=== PATIENT | female | born 1950 | race Caucasian/White ===

== ENCOUNTER 2018-07-08 12:08 | Outpatient (CLI) | payer OTHER, SELFPAY ==
[2018-07-08 13:25] LABS: Abs Immature Grans 0.01 k/cumm (0.0-0.09); Absolute Basophil Count 0.02 k/cumm (0.0-0.2); Absolute Eosinophil Count 0.12 k/cumm (0.0-0.7); Absolute Lymphocyte Count 1.01 k/cumm (1.2-3.4); Absolute Monocyte Count 0.28 k/cumm (0.11-0.7); Basophils % 0.3; HCT 35.5 % (36.0-46.0); HGB 11.3 g/dL (12.0-15.5); Immature Grans % 0.2; Lymphocytes % 16.7; Mean Corp. HGB Concentration 31.8 g/dL (32.0-36.0); Mean Corpuscular Hemoglobin 31.3 pg (27.0-33.0); Mean Corpuscular Volume 98.3 fL (80-95); Mean Platelet Volume 10.2 fL (8.0-11.0); Monocytes % 4.6; Neutrophils % 76.2; Platelet Count 166 x1000/uL (130-400); RBC 3.61 m/cumm (4.00-5.20); RBC Distribution Width 15.3 % (11.7-14.6); White Blood Cell Count 6.04 k/cumm (4.4-10.8)
[2018-07-08 14:10] LABS: ALT 32 U/L (12-78); AST 30 U/L (15-37); Albumin 3.6 g/dL (3.4-5.0); Alkaline Phosphatase 98 U/L (46-116); Anion Gap 8.4 mmol/L (3-11); BUN 14 mg/dL (7-18); Bilirubin, Total 0.6 mg/dL (0.2-1.0); CO2 29.6 mmol/L (21.0-32.0); CREATININE 0.92 mg/dL (0.55-1.02); Calcium 8.8 mg/dL (8.5-10.1); Chloride 103 mmol/L (98-107); Glucose 83 mg/dL (70-100); Potassium 4.4 mmol/L (3.5-5.1); Sodium 141 mmol/L (136-145); Total Protein 6.7 g/dL (6.4-8.2)
== END 2018-07-08 12:28 ==
PROVIDERS: PCP Internal Medicine; Visit Provider Internal Medicine Rheumatology
DX: M06.9 Rheumatoid arthritis, unspecified (principal); Z79.899 Other long term (current) drug therapy
CPT/HCPCS: 36415; 80053; 85025

== ENCOUNTER 2018-08-13 03:05 | Outpatient (CLI) | payer OTHER, SELFPAY ==
[2018-08-13 11:53] LABS: Abs Immature Grans 0.01 k/cumm (0.0-0.09); Absolute Basophil Count 0.02 k/cumm (0.0-0.2); Absolute Eosinophil Count 0.11 k/cumm (0.0-0.7); Absolute Lymphocyte Count 0.94 k/cumm (1.2-3.4); Absolute Neutrophil Count 4.71 k/cumm (1.2-6.7); Basophils % 0.3; Eosinophils % 1.8; HCT 36.5 % (36.0-46.0); HGB 11.7 g/dL (12.0-15.5); Immature Grans % 0.2; Lymphocytes % 15.4; Mean Corp. HGB Concentration 32.1 g/dL (32.0-36.0); Mean Corpuscular Hemoglobin 31.3 pg (27.0-33.0); Mean Corpuscular Volume 97.6 fL (80-95); Mean Platelet Volume 9.6 fL (8.0-11.0); Monocytes % 4.9; Neutrophils % 77.4; Platelet Count 166 x1000/uL (130-400); RBC 3.74 m/cumm (4.00-5.20); RBC Distribution Width 14.6 % (11.7-14.6); White Blood Cell Count 6.09 k/cumm (4.4-10.8)
[2018-08-13 12:25] LABS: Iron 67 ug/dL (50-175); Total Iron Binding Capacity 269 ug/dL (250-450); Transferrin Sat 25 % (15-50)
== END 2018-08-13 03:25 ==
PROVIDERS: PCP Internal Medicine; Visit Provider Internal Medicine
DX: D64.9 Anemia, unspecified (principal)
CPT/HCPCS: 36415; 83540; 83550; 85025

== ENCOUNTER 2018-11-10 10:22 | Outpatient (CLI) | payer OTHER, SELFPAY ==
[2018-11-10 15:20] LABS: Abs Immature Grans 0.01 k/cumm (0.0-0.09); Absolute Basophil Count 0.02 k/cumm (0.0-0.2); Absolute Eosinophil Count 0.21 k/cumm (0.0-0.7); Absolute Lymphocyte Count 0.58 k/cumm (1.2-3.4); Absolute Monocyte Count 0.19 k/cumm (0.11-0.7); Absolute Neutrophil Count 5.14 k/cumm (1.2-6.7); Basophils % 0.3; Eosinophils % 3.4; HCT 33.9 % (36.0-46.0); HGB 11.1 g/dL (12.0-15.5); Immature Grans % 0.2; Lymphocytes % 9.4; Mean Corp. HGB Concentration 32.7 g/dL (32.0-36.0); Mean Corpuscular Hemoglobin 31.4 pg (27.0-33.0); Mean Corpuscular Volume 95.8 fL (80-95); Mean Platelet Volume 9.6 fL (8.0-11.0); Monocytes % 3.1; Neutrophils % 83.6; Platelet Count 191 x1000/uL (130-400); RBC 3.54 m/cumm (4.00-5.20); RBC Distribution Width 15.5 % (11.7-14.6); White Blood Cell Count 6.15 k/cumm (4.4-10.8)
[2018-11-10 16:06] LABS: ALT 27 U/L (12-78); AST 27 U/L (15-37); Albumin 3.3 g/dL (3.4-5.0); Alkaline Phosphatase 105 U/L (46-116); Anion Gap 7.6 mmol/L (3-11); BUN 14 mg/dL (7-18); Bilirubin, Total 0.6 mg/dL (0.2-1.0); CO2 29.4 mmol/L (21.0-32.0); Calcium 8.9 mg/dL (8.5-10.1); Chloride 104 mmol/L (98-107); Estimated GFR 54.97 (mL/min/1.73m2); Glucose 82 mg/dL (70-100); Potassium 3.7 mmol/L (3.5-5.1); Sodium 141 mmol/L (136-145); Total Protein 6.5 g/dL (6.4-8.2)
== END 2018-11-10 10:42 ==
PROVIDERS: PCP Internal Medicine; Visit Provider Internal Medicine Rheumatology
DX: M06.9 Rheumatoid arthritis, unspecified (principal); Z79.899 Other long term (current) drug therapy
CPT/HCPCS: 36415; 80053; 85025

== ENCOUNTER 2018-12-29 12:27 | Outpatient (CLI) | payer OTHER, SELFPAY | END 2018-12-29 12:47 | PROVIDERS: PCP Internal Medicine; Visit Provider Internal Medicine | DX: R69 Illness, unspecified (principal) | CPT/HCPCS: 36415; 80061; 83721; 83540; 83550 ==

== ENCOUNTER 2019-02-09 07:41 | Outpatient (CLI) | payer OTHER, SELFPAY ==
[2019-02-09 10:42] LABS: Iron 32 ug/dL (50-175); Total Iron Binding Capacity 218 ug/dL (250-450); Transferrin Sat 15 % (15-50)
[2019-02-09 10:44] LABS: Cholesterol 123 mg/dL (50-200); HDL Cholesterol 68 mg/dL (40-60); LDL CHOLESTEROL 41 mg/dL (<100); Triglyceride 59 mg/dL (30-150)
== END 2019-02-09 08:01 ==
PROVIDERS: PCP Internal Medicine; Visit Provider Internal Medicine
DX: E78.5 Hyperlipidemia, unspecified (principal); E61.1 Iron deficiency
CPT/HCPCS: 36415; 80061; 83721; 83540; 83550

== ENCOUNTER 2019-03-09 00:37 | Outpatient (CLI) | payer OTHER, SELFPAY ==
--- NOTE | 2019-03-09 09:00 | DI.US_ITS ---
SYMPTOM/DIAGNOSIS: ANEMIA, ABD PAIN, R10.9, D64.9 ABDOMEN ULTRASOUND: The visualized liver parenchyma is normal in appearance. There is no evidence of cholelithiasis or biliary dilatation. Left kidney appears unremarkable. Right kidney is atrophic. Abdominal aorta and IVC are normal diameter. Spleen is unremarkable. Pancreas appears intact as visualized. CONCLUSION: No evidence of cholelithiasis. Note is made of apparent atrophic right kidney.
== END 2019-03-09 00:57 ==
PROVIDERS: PCP Internal Medicine; Visit Provider Internal Medicine
DX: D64.9 Anemia, unspecified (principal); R10.9 Unspecified abdominal pain; N26.1 Atrophy of kidney (terminal)
CPT/HCPCS: 76700

== ENCOUNTER 2019-04-05 06:13 | Day surgery (SDC) | payer OTHER, SELFPAY ==
[2019-04-05 06:42] VITALS: BP 115/63; PULSE 76; RESP 16; TEMP 36.3; O2SAT 99
--- NOTE | 2019-04-05 06:46 | ENDO_ITS ---
Date of service: 04/05/19 Time of Service: 07:25 Endoscopy Report DATE OF PROCEDURE: 04/05/19 PRE-OP DIAGNOSIS: Iron deficiency anemia POST-OP DIAGNOSIS: same (normal egd and colonoscopy) PROCEDURE: 1. EGD 2. Colonoscopy SURGEON: Huma Middleton ANESTHESIA: other (General/ ASA 3/ Kenton Wiley CRNA) ESTIMATED BLOOD LOSS: 0 PATHOLOGY: none sent COMPLICATIONS: None DISPOSITION: same day INDICATIONS: Mrs. Jay is a pleasant 68 year old with a history of anemia. She was seen in the office for anemia and workup. Risks, benefits and complications have been reviewed. Complications include but are not limited to bleeding, pain, perforation, missed small lesion/polyp, sore throat, aspiration and adverse reaction to the medications. Questions were entertained and answered to their satisfaction and they wished to proceed. No guarantees were given or implied. PREP: Miralax/Dulcolax PROCEDURE START TIME: 07:25 PROCEDURE END TIME: 07:52 COLONOSCOPY RETRACTION TIME: 15 minutes FINDINGS: Normal EGD and Colonoscopy PROCEDURE DESCRIPTION: After informed consent was obtained the patient was take to the procedure room and placed in a supine position. Monitors were applied and a time out was done. The patients name, date of , procedure type, allergies to medications and metal in their body was reviewed. A bite block was placed and the patient was sedated. Once sedated and comfortable the gastroscope was advanced through the oropharynx which was grossly normal into the esophagus. The proximal and mid- esophagus were normal. The distal esophagus was normal. The scope was advanced into the stomach and through the pylorus into the 3rd portion of the duodenum. The duodenum was noted to be normal. The scope was retracted back into the stomach which was normal. The scope was retro-flexed. The cardia and fundus were noted to be normal. The scope was retracted back into the esophagus which was normal. The Z line was regular. The GE junction was at 35 cm. While the patient was still sedated they were placed in a left decubitous position. A rectal exam was done. External exam was normal. Internal exam revealed a normal sphincter tone and no palpable masses. The scope was then introduced and retro-flexed. Grade I internal hemorrhoids were identified. The scope was then advanced to the cecum without difficulty. The TI and appendiceal orifice were identified. The prep was good. The scope was then slowly retracted over 15 minutes back into the rectum. The scope was removed and the patient was woken up and taken back to Same day surgery in stable condition. The patient tolerated the procedure well and there were no immediate complications. Follow up: 10 years
--- NOTE | 2019-04-05 06:46 | W.PM.DSUDISC ---
Discharge Plan Disposition Patient Disposition: HOME Condition: Good Discharge Details Reason For Visit: Iron deficiency anemia Attending Provider: Huma Middleton Primary Care Provider: Carolyn Olvera Home Meds and New Rx's Prescriptions: Continued hydrochlorothiazide 25 mg tablet 25 mg PO DAILY Qty: 90 RF: 3 clopidogrel [Plavix] 75 mg tablet 75 mg PO DAILY Qty: 90 RF: 3 metoprolol succinate 25 mg tablet extended release 24 hr 25 mg PO DAILY Qty: 90 RF: 3 nitroglycerin [Nitrostat] 0.4 mg tablet, sublingual 0.4 mg Sublingual DIRECTED PRN (Reason: angina) Qty: 100 RF: 1 methotrexate sodium 2.5 MG tablet 9 tab PO WKLY RF: 0 hydroxychloroquine [Plaquenil] 200 MG tablet 2 tab PO DIRECTED Qty: 180 RF: 4 magnesium oxide 400 MG capsule 400 mg PO DAILY RF: 0 Mariya/Iron 1 EACH tablet,chewable 1 ea PO DAILY Qty: 100 RF: 0 folic acid 1 MG tablet 1 mg PO DAILY Qty: 90 RF: 4 cholecalciferol (vitamin D3) [Vitamin D3] 2,000 UNIT capsule 2,000 unit PO DAILY RF: 0 zoledronic axxd-nbnlrfvn-veaac [Reclast] 5 MG/100 ML piggyback 5 mg IV Yearly RF: 0 omeprazole 40 MG capsule,delayed release(DR/EC) 40 mg PO DAILY Qty: 90 RF: 3 atorvastatin [Lipitor] 40 mg tablet 40 mg PO QPM Qty: 90 RF: 3 ferrous gluconate 324 mg (38 mg iron) tablet 324 mg PO TID Qty: 90 RF: 6 aspirin [Lo-Dose Aspirin] 81 MG tablet,delayed release (DR/EC) 81 mg PO DAILY RF: 0 Discharge Instructions Instructions: Colonoscopy (DC) Additional Instructions: Findings: Normal Upper endoscopy and Colonoscopy Follow up: Colonoscopy as needed. Follow up with your PCP for further workup of your anemia Please call if you develop: fevers >101.5 Nausea or Vomiting Abdominal pain that is not transient DAY SURGERY UNIT POST COLONOSCOPY INSTRUCTIONS 1. Because there will be medication in your system for the next 24 hours, you may feel a little sleepy. Your coordination will be affected. Therefore: a. Do not drive or operate dangerous equipment for 24 hours. b. Do not drink alcohol beverages for 24 hours (not even beer). c. Plan to go home and rest for the day. 2. Generally there are no restrictions on your activity after a day or so has gone by, but you may feel a bit fatigued for a few days. 3 After you arrive home you may have a light meal and return to a normal diet as you can tolerate it without feeling sick to your stomach. 4. After surgery, you may feel pain or discomfort. This should be only transient, but if it persists please contact your doctor. 5. If there are any questions regarding the findings of your procedure, please feel free to contact your doctor. 6. If you are unable to contact your doctor with a problem, contact the hospital at [phone]. 7. Continue all your regular medications unless directed otherwise. I understand the above instructions and have no questions. Signature of Patient or Responsible Adult Escort Date/Time Name of Responsible Adult Escort Signature of Nurse Date/Time Referrals: Carolyn Olvera MD [Primary Care Provider] - (2-3 weeks) Activity:: Activity as Tolerated Diet:: As Tolerated Discharge Orders Discharge Orders: Discharge Order (Routine); Ordered 04/05/19 Ordered By: Huma Middleton DS: Diagnosis Discharge Diagnosis (1) H/O esophagogastroduodenoscopy: Status: Chronic (2) S/P colonoscopy: Status: Acute
[2019-04-05] MEDS: Lactated Ringers 1,000 ML 80 ML IV (07:00)
[2019-04-05 08:28] VITALS: BP 105/49; PULSE 63; RESP 16; TEMP 36; O2SAT 99
== END 2019-04-05 09:05 | disposition home or self-care (01) ==
PROVIDERS: PCP Internal Medicine; Visit Provider Surgery
PROC: (CPT 43239; principal; 2019-04-05 07:30)
DX: D50.9 Iron deficiency anemia, unspecified (principal); K64.0 First degree hemorrhoids; K21.0 Gastro-esophageal reflux disease with esophagitis
CPT/HCPCS: 43239; 45378

== ENCOUNTER 2019-04-13 09:22 | Outpatient (CLI) | payer OTHER, SELFPAY ==
[2019-04-13 16:11] LABS: Abs Immature Grans 0.03 k/cumm (0.0-0.09); Absolute Basophil Count 0.02 k/cumm (0.0-0.2); Absolute Eosinophil Count 0.15 k/cumm (0.0-0.7); Absolute Monocyte Count 0.63 k/cumm (0.11-0.7); Absolute Neutrophil Count 2.53 k/cumm (1.2-6.7); Basophils % 0.5; Eosinophils % 3.4; HCT 31.3 % (36.0-46.0); HGB 10.1 g/dL (12.0-15.5); Immature Grans % 0.7; Lymphocytes % 22.9; Mean Corp. HGB Concentration 32.3 g/dL (32.0-36.0); Mean Corpuscular Hemoglobin 30.9 pg (27.0-33.0); Mean Corpuscular Volume 95.7 fL (80-95); Mean Platelet Volume 8.8 fL (8.0-11.0); Monocytes % 14.4; Neutrophils % 58.1; Platelet Count 221 x1000/uL (130-400); RBC 3.27 m/cumm (4.00-5.20); RBC Distribution Width 16.9 % (11.7-14.6); White Blood Cell Count 4.36 k/cumm (4.4-10.8)
[2019-04-13 17:05] LABS: ALT 47 U/L (12-78); AST 31 U/L (15-37); Albumin 3.4 g/dL (3.4-5.0); Alkaline Phosphatase 81 U/L (46-116); Anion Gap 6.8 mmol/L (3-11); BUN 15 mg/dL (7-18); Bilirubin, Total 0.5 mg/dL (0.2-1.0); CO2 30.2 mmol/L (21.0-32.0); Calcium 8.8 mg/dL (8.5-10.1); Chloride 101 mmol/L (98-107); Glucose 89 mg/dL (70-100); Potassium 3.5 mmol/L (3.5-5.1); Sodium 138 mmol/L (136-145); Total Protein 6.2 g/dL (6.4-8.2)
== END 2019-04-13 09:42 ==
PROVIDERS: PCP Internal Medicine; Visit Provider Internal Medicine Rheumatology
DX: M06.9 Rheumatoid arthritis, unspecified (principal); Z79.899 Other long term (current) drug therapy
CPT/HCPCS: 36415; 80053; 85025

== ENCOUNTER 2019-05-06 10:18 | Outpatient (CLI) | payer OTHER, SELFPAY ==
[2019-05-06 12:51] LABS: HCT 32.8 % (36.0-46.0); HGB 10.5 g/dL (12.0-15.5); Mean Corpuscular Hemoglobin 31.3 pg (27.0-33.0); Mean Corpuscular Volume 97.6 fL (80-95); Mean Platelet Volume 9.6 fL (8.0-11.0); Platelet Count 219 x1000/uL (130-400); RBC 3.36 m/cumm (4.00-5.20); RBC Distribution Width 17.2 % (11.7-14.6); White Blood Cell Count 8.54 k/cumm (4.4-10.8)
[2019-05-06 14:28] LABS: Iron 110 ug/dL (50-175); Total Iron Binding Capacity 244 ug/dL (250-450); Transferrin Sat 45 % (15-50)
== END 2019-05-06 10:38 ==
PROVIDERS: PCP Internal Medicine; Visit Provider Internal Medicine
DX: D64.9 Anemia, unspecified (principal)
CPT/HCPCS: 36415; 85027; 83540; 83550

== ENCOUNTER 2019-05-24 01:25 | Outpatient (RCR) | payer OTHER, SELFPAY ==
[2019-05-24 09:25] VITALS: BP 104/66; PULSE 66; RESP 18; TEMP 36.6; O2SAT 100
[2019-05-24] MEDS: Normal Saline Flush 10 ML SYR IVP (10:05)
[2019-05-24] MEDS: ABATACEPT 750 MG in Normal Saline 100 ML 200 MG IVPB (10:24)
[2019-05-24 10:47] VITALS: BP 100/65; PULSE 55; RESP 18; TEMP 36.4; O2SAT 99
== END 2019-05-25 23:59 | disposition home or self-care (01) ==
LOC: INF 01:25
PROVIDERS: PCP Internal Medicine; Visit Provider Internal Medicine
DX: M06.9 Rheumatoid arthritis, unspecified (principal)
CPT/HCPCS: 96365; J0129

== ENCOUNTER 2019-06-22 02:26 | Outpatient (RCR) | payer OTHER, SELFPAY ==
[2019-06-08] MEDS: ABATACEPT 750 MG in Normal Saline 100 ML 200 MG IVPB (10:51)
[2019-06-08] MEDS: Normal Saline Flush 10 ML SYR IVP (10:55)
[2019-06-22] MEDS: Normal Saline Flush 10 ML SYR IVP (10:58)
[2019-06-22] MEDS: ABATACEPT 750 MG in Normal Saline 100 ML 200 MG IVPB (10:58)
== END 2019-06-25 23:59 | disposition home or self-care (01) ==
LOC: INF 02:26
PROVIDERS: PCP Internal Medicine; Visit Provider Internal Medicine
DX: M06.9 Rheumatoid arthritis, unspecified (principal)
CPT/HCPCS: 96365; J0129

== ENCOUNTER 2019-07-13 10:01 | Inpatient (IN) | payer OTHER, SELFPAY ==
[2019-07-13] VITALS (41 sets, daily range): BP systolic 96–128; BP diastolic 43–69; PULSE 66–81; RESP 12–39; TEMP 36.4–37.2; O2SAT 95–100
--- NOTE | 2019-07-13 10:12 | ED.GENADUL_ITS ---
Discharge Plan Disposition Patient Disposition: [facility] INPATIENT Condition: Stable Discharge Details Chief Complaint: AMS/LOC Clinical Impression: Weakness, Lung mass, Acute hypokalemia, Hypocalcemia, Hypomagnesemia Admit Date/Time: 07/13/19 12:55 Admit Provider: Jatinder Perez Attending Provider: Jatinder Perez Primary Care Provider: Carolyn Olvera ED Provider: Gary Valdez Discharge Data Discharge Date/Time-TO BE ENTERED AT DEPARTURE: 07/13/19 13:31 Medical Decision Making This is a pleasant 68-year-old female with a past medical history of myocardial infarction, GERD, hypertension, who presents today for evaluation of weakness and fatigue starting yesterday and continuing today. Currently the patient states that she is asymptomatic. Vital signs are normal, afebrile here. No red flags of chest pain vomiting diarrhea or urinary complaints. Neurologic exam is normal with no focal neurologic deficits or evidence of stroke. She does have dry mucous membranes. With her known history of vascular disease, we will get a CT head to rule out acute infarct. She denies any recent falls or traumas. Atypical ACS is on the differential but certainly unlikely. Will evaluate for electrolyte abnormality. We will rehydrate and reassess. Laboratory work-up has returned, hemoglobin slightly low at 10, pH is 7.51, PCO2 is 41, bicarb is 33, representing a metabolic alkalosis, minimal anion gap, notable hypokalemia, hypocalcemia, and hypomagnesemia. Bilirubin normal, troponin normal, TSH normal, proBNP slightly elevated at 1900. Urinalysis shows no evidence of significant urinary tract infection. Salicylates and acetaminophen are normal. CT scan of the head is negative for any acute process per radiology, however chest x-ray does show evidence of a concerning mass versus infiltrate. CT scan of the chest was ordered for further differentiation, and per Dr. Cabral there is notable concern for notable malignant mass. I did contact the hospitalist Dr Perez, and discussed the case with him, he agrees on the need for admission, electrolyte correction, and further evaluation of the mass. I discussed this with the family they understand. I have extensively reviewed the treatment plan with the patient. I have addressed all patient concerns at this time. I have also discussed the plan with the admitting physician and they agree with the current assessment and plan and have agreed to assume responsibility for the patient. All parties demonstrate verbal understanding and agreement with our assessment and plan at this time. EKG 10: 03 Rate 74, intervals normal, sinus rhythm, no significant ST elevations or depressions except for questionable less than 1 mm elevation in V1. Q waves noted in V1 2 and 3. Notable artifact in lead III. Review of EKG from 02/07/2017 demonstrates significantly more concerning findings because she was having a STEMI at that time. FINDINGS: Note is made of mucoperiosteal thickening of maxillary, sphenoid and ethmoid sinuses with an air-fluid level in right maxillary antrum. Findings are consistent with acute and/or chronic sinusitis. The orbital and temporal bone structures appear intact and mastoid air cells are clear. There is moderate generalized cerebral atrophy. There is no evidence of acute intracranial hemorrhage, mass effect or midline shift. IMPRESSION: No evidence of acute process FINDINGS: Heart is not enlarged. Lungs are predominantly clear but there is a rounded radiodensity projected in the right middle lobe with appearance suggesting a mass. No pleural effusion seen. IMPRESSION: Question right middle lobe mass versus consolidation. Please see accompanying chest CT report FINDINGS: Images obtained through the upper abdomen show mild splenomegaly and grossly unremarkable appearance of visualized portions of liver, adrenals and pancreas. Right renal atrophy noted. Question mild biliary dilatation. There is a 3.8 cm in diameter poorly defined, rounded right lung mass-like radiodensity, this lies in the right middle lobe. Perilesional increased radiodensity also noted with a vaguely reticular pattern. No additional intrapulmonary findings. No pleural effusion. No mediastinal or hilar mass or adenopathy. Thoracic aorta is unremarkable. No evidence of pulmonary embolic disease. Tracheobronchial tree appears intact. No supraclavicular or axillary adenopathy. IMPRESSION: Right middle lobe mass versus consolidation. Repeat chest CT requested following treatment. No additional significant findings. HPI General Date/Time Provider Initiated Documentation: 07/13/19 10:01 . HPI Narrative: This is a 68-year-old female with a past medical history of hypertension, GERD, previous STEMI, who presents today for evaluation of mild weakness fatigue and slight confusion per family and EMS. Patient and EMS state that yesterday she was slightly weak and confused, this gradually continued throughout today. The patient states that at this time she feels completely asymptomatic and aside from mild fatigue feels otherwise fine. EMS reports that she had a fever however she is afebrile currently. Vital signs stable on initial assessment, blood glucose stable normal. Patient denies any associated chest pain, chest tightness, arm neck or shoulder pain, headache, fever or chills. She denies any chest tightness, bandlike sensation on the chest, shortness of breath or pleuritic chest pain. She denies any nausea, vomiting, diarrhea, dysuria, urinary frequency. She denies any other complaints at this time. She denies any other modifying factors. Related Data Home Medications Medication Instructions Recorded Confirmed methotrexate sodium 9 tab PO WKLY tab-cap 03/19/13 07/13/19 hydroxychloroquine [Plaquenil] 2 tab PO DIRECTED #180 tab-cap 09/19/16 07/13/19 aspirin [Lo-Dose Aspirin] 81 mg PO DAILY 02/07/17 07/13/19 magnesium oxide 400 mg PO DAILY 02/17/17 07/13/19 Mariya/Iron 1 ea PO DAILY #100 tab.chew 03/05/17 07/13/19 folic acid 1 mg PO DAILY #90 tab-cap 03/03/18 07/13/19 cholecalciferol (vitamin D3) 2,000 unit PO DAILY 03/24/18 07/13/19 [Vitamin D3] zoledronic autg-ntotsfcl-mifgk 5 mg IV Yearly 03/24/18 07/13/19 [Reclast] atorvastatin 40 mg tablet 40 mg PO QPM #90 cap 12/06/18 07/13/19 clopidogrel 75 mg tablet 75 mg PO DAILY #90 cap 12/20/18 07/13/19 metoprolol succinate 25 mg 25 mg PO DAILY #90 tab 12/20/18 07/13/19 tablet,extended release 24 hr nitroglycerin 0.4 mg sublingual 0.4 mg SUBLINGUAL DIRECTED PRN 12/20/18 07/13/19 tablet #100 tab ferrous gluconate 324 mg (38 mg 324 mg PO TID #90 tab 02/17/19 07/13/19 iron) tablet budesonide 32 mcg/actuation nasal 2 spray KOKO DAILY #8.43 ml 04/06/19 07/13/19 spray econazole 1 % topical cream 1 applic TP BID #30 gm 04/27/19 07/13/19 omeprazole 40 mg capsule,delayed 40 mg PO DAILY #90 tab-cap 06/16/19 07/13/19 release hydrochlorothiazide 12.5 mg tablet 12.5 mg PO DAILY #90 tab 07/11/19 07/13/19 Previous Rx's Medication Instructions Recorded folic acid 1 mg PO DAILY #90 tab-cap 03/03/18 atorvastatin 40 mg tablet 40 mg PO QPM #90 cap 12/06/18 clopidogrel 75 mg tablet 75 mg PO DAILY #90 cap 12/20/18 metoprolol succinate 25 mg 25 mg PO DAILY #90 tab 12/20/18 tablet,extended release 24 hr nitroglycerin 0.4 mg sublingual 0.4 mg SUBLINGUAL DIRECTED PRN 12/20/18 tablet #100 tab ferrous gluconate 324 mg (38 mg 324 mg PO TID #90 tab 02/17/19 iron) tablet budesonide 32 mcg/actuation nasal 2 spray KOKO DAILY #8.43 ml 04/06/19 spray econazole 1 % topical cream 1 applic TP BID #30 gm 04/27/19 omeprazole 40 mg capsule,delayed 40 mg PO DAILY #90 tab-cap 06/16/19 release hydrochlorothiazide 12.5 mg tablet 12.5 mg PO DAILY #90 tab 07/11/19 Allergies Allergy/AdvReac Type Severity Reaction Status Date / Time amoxicillin AdvReac Intermediate diarrhea Verified 07/13/19 10:34 General Stated Complaint: AMS/LOC DANYELLE: 3 Review of Systems Review of Systems ROS Unobtainable: All systems reviewed & are unremarkable except as noted in HPI and below [facility] Medical History Elevated blood pressure reading (Acute 11/28/14) Gastroesophageal reflux disease with esophagitis (Acute) 11/04 EGD: ACUTE EXTENSIVE EROSIVE ESOPHAGITIS Hearing loss in right ear (Acute 05/01/15) Low back pain, non-specific (Acute 11/18/12) Rheumatoid arthritis (Chronic 11/18/12) ST elevation (STEMI) myocardial infarction of unspecified site (Resolved) Trochanteric bursitis of left hip (Acute 12/05/15) Surgical History Colonoscopy - IV Sedation (01/17/13) DR. CINTHIA JUN Dilation and curettage (~07/1997) H/O esophagogastroduodenoscopy (Chronic ~04/05/19) 2010- erosive esophagitis Hx of heart artery stent (Chronic) Stents x 2. 2017 Tonsillectomy (~1957) Family History Mother Systemic lupus erythematosus Essential hypertension Father , SUICIDE at age 61. Mental disorder Depression Brother , COPD at age 71. Substance abuse Heart disease COPD (chronic obstructive pulmonary disease) Brother Essential hypertension Brother Substance abuse Personal history of malignant neoplasm LUNG Brother No problems noted. Grandfather Essential hypertension Heart disease Grandfather No problems noted. Grandmother Diabetes Grandmother Heart disease Son No problems noted. Daughter No problems noted. Daughter No problems noted. Daughter No problems noted. Other Depression Social History (Updated 07/13/19 @ 16:06 by Jatinder Perez MD) Smoking/Tobacco Use Status: Former Tobacco Use Alcohol Intake: current Alcohol Intake frequency: holidays/special occasions only Drug use: Never Substance use type: does not use Do you feel safe at home: Yes Do you feel safe in your relationship?: Yes Additional Social history: with 4 children. 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 Originally from [place]. Remote history of tobacco use. Exam Narrative Exam Narrative: 1.Const: Well-nourished, Well-developed, appearing stated age 2.Eyes: PERRL, no conjunctival injection, and symmetrical lids. 3.ENT: Atraumatic external nose and ears. Dry MM. Neck: Symmetric, trachea midline, No thyromegaly. Patient demonstrates good movement of cervical neck. There is no nuchal rigidity, no nuchal tenderness. Patient is able to flex the neck without any difficulty or significant pain. Negative Kernig's and Brudzinski sign. 4.CVS: +S1/S2, No murmurs or gallops. Peripheral pulses 2+ and equal in all extremities. Brisk capillary refill in all extremities. Radial pulses +2 bilaterally. 5.RESP: Unlabored respiratory effort. Clear to auscultation bilaterally. No wheezes rales or rhonchi 6.GI: Soft, Nontender/Nondistended, No hepatosplenomegaly. No guarding or rebound. 7.MSK: Normocephalic/Atraumatic, Extremities w/o deformity or ttp No cyanosis or clubbing, Normal movement of all extremities 8.Skin: Warm, Dry. No rashes or lesions. 9.Neuro: abseiling instructor II-XII grossly intact. Sensation grossly intact, no focal neurologic deficits. All 6 cardinal planes of vision are fully intact. No evidence of rotatory or vertical nystagmus. The patient demonstrated a normal aaefmp-merw-djqctz, good dexterity. There was no evidence of dysdiadochokinesia. Patient was able to ambulate without difficulty. There was no wide-based gait. Romberg, and wvnn-vv-miyy are both normal on testing. Sensation was intact bilaterally as well as muscle strength bilaterally for all extremities. Patient was able to verbalize butter cup with no slurring, or miss pronunciation. 10.Psych: (AAO) x3. Appropriate mood and affect no evidence of altered mental status. Course Vital Signs Vital signs: Vital Signs Temperature 36.4 C L 07/13/19 10:00 Pulse 74 07/13/19 10:00 Respiratory Rate 16 07/13/19 10:00 Blood Pressure 118/45 L 07/13/19 10:00 Pulse Oximetry 97 07/13/19 10:00 Temperature 36.4 C L 07/13/19 10:00 Temperature Source Temporal Artery Scan 07/13/19 10:00 Pulse 74 07/13/19 10:00 Respiratory Rate 16 07/13/19 10:00 Blood Pressure 118/45 L 07/13/19 10:00 Blood Pressure Position Sitting 07/13/19 10:00 Pulse Oximetry 97 07/13/19 10:00 Oxygen Delivery Method Room Air 07/13/19 10:00 Oxygen Flow Rate 0 07/13/19 10:00 Pain Level 0 07/13/19 10:00 Comment 07/13/19 10:00
[2019-07-13] MEDS: Normal Saline 1,000 ML 1000 ML IV (10:15)
[2019-07-13 10:34] LABS: BE (Venous) 9.6 mmol/L (-3-3); HCO3 (Venous) 33 mmol/L (22-28); O2 Sat (Venous) 88 % (70-80); TCO2 (Venous) 30 mmol/L (22-29); pCO2 (Venous) 41 mm/Hg (34-47); pH (Venous) 7.51 (7.32-7.43); pO2 (Venous) 52 mm/Hg (28-44)
[2019-07-13 10:42] LABS: Lactate 0.7 mmol/L (0.6-1.4)
[2019-07-13 10:50] LABS: HCT 29.4 % (36.0-46.0); HGB 10.1 g/dL (12.0-15.5); Mean Corp. HGB Concentration 34.4 g/dL (32.0-36.0); Mean Corpuscular Hemoglobin 31.3 pg (27.0-33.0); Mean Platelet Volume 9.5 fL (8.0-11.0); Platelet Count 133 x1000/uL (130-400); RBC 3.23 m/cumm (4.00-5.20); RBC Distribution Width 14.9 % (11.7-14.6)
[2019-07-13 10:59] LABS: INR 1.1 (0.9-1.1); PTT Activated 33.2 sec (21.0-31.4); Prothrombin Time 11.4 sec (9.3-11.0)
[2019-07-13 11:00] LABS: Absolute Basophil Count 0.04 k/cumm (0.0-0.2); Absolute Neutrophil Count 3.66 k/cumm (1.2-6.7); Anisocytosis 1+; Diff Comment Manual Differential; Polychromasia Present
[2019-07-13 11:02] LABS: Ammonia 22 umol/L (11-32)
[2019-07-13 11:03] LABS: Acetaminophen < 2 ug/mL (10-30); Salicylate < 2.8 mg/dL (2.8-20.0)
[2019-07-13 11:11] LABS: ALT 29 U/L (14-59); AST 26 U/L (15-37); Albumin 2.9 g/dL (3.4-5.0); Alkaline Phosphatase 58 U/L (46-116); Anion Gap 11.9 mmol/L (3-11); BUN 16 mg/dL (7-18); Bilirubin, Total 0.8 mg/dL (0.2-1.0); CO2 28.1 mmol/L (21.0-32.0); CREATININE 1.02 mg/dL (0.55-1.02); Calcium 8.1 mg/dL (8.5-10.1); Chloride 94 mmol/L (98-107); Estimated GFR 53.58 (mL/min/1.73m2); Glucose 99 mg/dL (70-100); NT-proBNP 1904 pg/mL; Sodium 134 mmol/L (136-145); Total Protein 6.3 g/dL (6.4-8.2)
[2019-07-13] MEDS: Potassium Chloride 20 MEQ TABCR 40 MEQ PO (11:13)
[2019-07-13] MEDS: POTASSIUM CHLORIDE 20 MEQ/100 ML BAG 50 MEQ IVPB (11:14)
[2019-07-13 11:15] LABS: Potassium 2.7 mmol/L (3.5-5.1)
[2019-07-13] MEDS: Normal Saline 1,000 ML 200 ML IV (11:15)
[2019-07-13 11:16] LABS: TSH (W/Ref FT4) 2.08 uIU/mL (0.36-3.74)
[2019-07-13 11:19] LABS: Troponin I < 0.05 ng/mL (0.00-0.06)
[2019-07-13 11:23] LABS: Magnesium 1.6 mg/dL (1.8-2.4)
--- NOTE | 2019-07-13 12:19 | DI.CT_ITS ---
EXAM: CT HEAD WO CLINICAL HISTORY: confused, altered, known CAD. TECHNIQUE: Noncontrast cranial CT was performed. COMPARISON: XR CHEST 2V PA LATERAL from 07/13/2019 FINDINGS: Note is made of mucoperiosteal thickening of maxillary, sphenoid and ethmoid sinuses with an air-flui d level in right maxillary antrum. Findings are consistent with acute and/or chronic sinusitis. The orbital and temporal bone structures appear intact and mastoid air cells are clear. There is modera te generalized cerebral atrophy. There is no evidence of acute intracranial hemorrhage, mass effect or midline shift. IMPRESSION: No evidence of acute process
--- NOTE | 2019-07-13 12:30 | DI.RAD_ITS ---
EXAM: XR CHEST 2V PA AND LATERAL INDICATION: altered, febrile. COMPARISON: CHEST 2 VIEWS PA,LAT from 02/22/2017 TECHNIQUE: 2D digital imaging was performed. FINDINGS: Heart is not enlarged. Lungs are predominantly clear but there is a rounded radiodensity projected i n the right middle lobe with appearance suggesting a mass. No pleural effusion seen. IMPRESSION: Question right middle lobe mass versus consolidation. Please see accompanying chest CT report
--- NOTE | 2019-07-13 12:38 | DI.CT_ITS ---
EXAM: CT CHEST W CLINICAL HISTORY: right-sided chest mass. TECHNIQUE: The CT examination chest was performed with intravenous infusion 70 cc of Omnipaque 350. COMPARISON: No exams were available for comparison FINDINGS: Images obtained through the upper abdomen show mild splenomegaly and grossly unremarkable appearance of visualized portions of liver, adrenals and pancreas. Right renal atrophy noted. Question mild bi liary dilatation. There is a 3.8 cm in diameter poorly defined, rounded right lung mass-like radiodensity, this lies in the right middle lobe. Perilesional increased radiodensity also noted with a vaguely reticular hodan kamini. No additional intrapulmonary findings. No pleural effusion. No mediastinal or hilar mass or a denopathy. Thoracic aorta is unremarkable. No evidence of pulmonary embolic disease. Tracheobronch ial tree appears intact. No supraclavicular or axillary adenopathy. IMPRESSION: Right middle lobe mass versus consolidation. Repeat chest CT requested following treatment. No additi onal significant findings.
[2019-07-13] MEDS: MAGNESIUM SULFATE 1 GM/100 ML BAG IVPB (12:39)
[2019-07-13 12:46] LABS: Bilirubin Negative (Negative); Blood Small (Negative); Clarity Clear (Clear); Glucose Negative (Negative); Ketones Negative (Negative); Leukocyte Esterase Trace (Negative); Nitrite Negative (Negative); Urobilinogen 0.2 EU/dL (Up TO 0.2)
[2019-07-13 13:00] LABS: Epithelial Cells Moderate HPF (Negative)
[2019-07-13 13:01] LABS: Bacteria Rare HPF (Negative); C & S Indicated? No/Sq. Contamination; Casts Negative LPF (Negative); Crystals Negative HPF (Negative); Mucus Trace (Negative)
[2019-07-13] MEDS: Omnipaque 350 MG/ML 100 ML BTL IJ (13:14)
[2019-07-13] MEDS: Normal Saline 1,000 ML 125 ML IV ×2 (14:12→22:15)
--- NOTE | 2019-07-13 15:38 | W.PM.HP.N ---
Date of service: 07/13/19 Time of Service: 15:38 Assessment and Plan Assessment and plan (1) Lung mass: Status: Acute Assessment and plan: Unclear etiology - patient has been complaining of intermittent fevers and night sweats, with CT interpreted as malignancy vs. infection. - Patient is currently receiving Abatacept making potential for infections, URI, or pneumonia possible, as well as with increased risk for lymphoma and malignancy as well. For now will initiate antibiotic therapy with Levofloxacin, obtain sputum culture if possible, and monitor symptoms. Initial presentation also with fatigue and confusion, which in the setting of possible acute illness as well as fevers may be related to dehydration - hydrate overnight and monitor symptoms closely. Mrs. Jay has a history of CHF, but with a normalized LVEF by last ECHO in 2018 - continue Normal Saline. Plan on discussion with Rheum and ID pending patient's symptoms. Will also ensure follow-up CT upon completion of treatment in the near future. (2) Rheumatoid arthritis: Status: Chronic Assessment and plan: Hold Methotrexate and Hydroxychloroquine in setting of potential infection. Also on Abatacept per verbal report from patient's daughter. (3) Anemia in chronic illness: Status: Acute Assessment and plan: Noted and stable. Monitor Hgb. (4) Fatigue: Status: Acute Assessment and plan: Hydrate as above. (5) CAD (coronary artery disease): Status: Chronic Assessment and plan: History of STEMI with LAD lesion, s/p stents X2. Continue ASA, statin, and BB. EKG non-ischemic and Troponin undetectable. (6) GERD (gastroesophageal reflux disease): Status: Chronic Assessment and plan: Continue PPI therapy. (7) Hypertension: Status: Chronic Assessment and plan: On BB therapy. Hold thiazide while hydrating patient. (8) DVT prophylaxis: Status: Acute Assessment and plan: SC Enoxaparin. (9) Advance directive on file: Status: Acute Assessment and plan: DNR/DNI per conversation at time of admission. History of Present Illness History of Present Illness Chief Complaint: Fever, Confusion Narrative: Very pleasant 68 year old woman with a history of RA and CAD, being admitted from [facility] Emergency Department on 07/13 with a diagnosis of dehydration and new findings of a pulmonary mass. Mrs. Jay has a past Medical History significant for RA, on Methotrexate, Hydroxychloroquine, and Abatacept. She suffered from a STEMI in 2016, undergoing 2 stents to an LAD lesion. She subsequently developed a mild CHF, with normalization of her EF by last ECHO in 2018. Her other history includes Anemia of Chronic Disease, anxiety, HTN, GERD, and chronic back pain. She has a remote history of tobacco use. The patient reports onset of subjective fevers, along with generalized aches and pains approximately 3-4 days ago, along with subjective fatigue. Her daughter and son both reported her to be slightly confused as well. She also suffered a fall last night, subjectively due to weakness. She was initially found to be febrile by EMS, and brought to the ED for further evaluation. Work-up in the ED was significant for hypokalemia, hypomagnesemia, mild hyponatremia, and elevated PH at 7.5. The remainder of her labs were essentially unremarkable, with normal LFTs, Lactate, Troponin, TSH, and essentially negative urinalysis. Her BNP was 1904 and unchanged from prior values (ranging between 297 and 5096). Her corrected calcium was normal as well. Imaging with CXR showed evidence of a RML mass, confirmed with CT Chest - interpreted as mass vs. consolidation. CT of the head was verbally reported as negative as well. She was referred for admission for further evaluation and treatment. Of note Mrs. Jay reports intermittent night sweats over the last year, without any significant weight loss. Her daughter reports a recent cough, and onset of fatigue and intermittent fevers this past summer. Review of Systems Review of Systems ROS Unobtainable: All systems reviewed & are unremarkable except as noted in HPI and below [facility] Medical History Elevated blood pressure reading (Acute 11/28/14) Gastroesophageal reflux disease with esophagitis (Acute) 11/04 EGD: ACUTE EXTENSIVE EROSIVE ESOPHAGITIS Hearing loss in right ear (Acute 05/01/15) Low back pain, non-specific (Acute 11/18/12) Rheumatoid arthritis (Chronic 11/18/12) ST elevation (STEMI) myocardial infarction of unspecified site (Resolved) Trochanteric bursitis of left hip (Acute 12/05/15) Surgical History Colonoscopy - IV Sedation (01/17/13) DR. CINTHIA BARAHONA Dilation and curettage (~07/1997) H/O esophagogastroduodenoscopy (Chronic ~04/05/19) 2010- erosive esophagitis Hx of heart artery stent (Chronic) Stents x 2. 2017 Tonsillectomy (~1957) Family History Mother Systemic lupus erythematosus Essential hypertension Father , SUICIDE at age 61. Mental disorder Depression Brother , COPD at age 71. Substance abuse Heart disease COPD (chronic obstructive pulmonary disease) Brother Essential hypertension Brother Substance abuse Personal history of malignant neoplasm LUNG Brother No problems noted. Grandfather Essential hypertension Heart disease Grandfather No problems noted. Grandmother Diabetes Grandmother Heart disease Son No problems noted. Daughter No problems noted. Daughter No problems noted. Daughter No problems noted. Other Depression Social History (Updated 07/13/19 @ 16:06 by Jatinder Perez MD) Smoking/Tobacco Use Status: Former Tobacco Use Alcohol Intake: current Alcohol Intake frequency: holidays/special occasions only Drug use: Never Substance use type: does not use Do you feel safe at home: Yes Do you feel safe in your relationship?: Yes Additional Social history: with 4 children. 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 Originally from [place]. Remote history of tobacco use. Meds Home Medications and Allergies Home Medications Medication Instructions Recorded Confirmed Type methotrexate sodium 9 tab PO WKLY tab-cap 03/19/13 07/13/19 History hydroxychloroquine [Plaquenil] 2 tab PO DIRECTED #180 tab-cap 09/19/16 07/13/19 History aspirin [Lo-Dose Aspirin] 81 mg PO DAILY 02/07/17 07/13/19 History magnesium oxide 400 mg PO DAILY 02/17/17 07/13/19 History Mariya/Iron 1 ea PO DAILY #100 tab.chew 03/05/17 07/13/19 History folic acid 1 mg PO DAILY #90 tab-cap 03/03/18 07/13/19 Rx cholecalciferol (vitamin D3) 2,000 unit PO DAILY 03/24/18 07/13/19 History [Vitamin D3] zoledronic pvgp-tocopdsk-mkili 5 mg IV Yearly 03/24/18 07/13/19 History [Reclast] atorvastatin 40 mg tablet 40 mg PO QPM #90 cap 12/06/18 07/13/19 Rx clopidogrel 75 mg tablet 75 mg PO DAILY #90 cap 12/20/18 07/13/19 Rx metoprolol succinate 25 mg 25 mg PO DAILY #90 tab 12/20/18 07/13/19 Rx tablet,extended release 24 hr nitroglycerin 0.4 mg sublingual 0.4 mg SUBLINGUAL DIRECTED PRN 12/20/18 07/13/19 Rx tablet #100 tab ferrous gluconate 324 mg (38 mg 324 mg PO TID #90 tab 02/17/19 07/13/19 Rx iron) tablet budesonide 32 mcg/actuation nasal 2 spray KOKO DAILY #8.43 ml 04/06/19 07/13/19 Rx spray econazole 1 % topical cream 1 applic TP BID #30 gm 04/27/19 07/13/19 Rx omeprazole 40 mg capsule,delayed 40 mg PO DAILY #90 tab-cap 06/16/19 07/13/19 Rx release hydrochlorothiazide 12.5 mg tablet 12.5 mg PO DAILY #90 tab 07/11/19 07/13/19 Rx Allergies Allergy/AdvReac Type Severity Reaction Status Date / Time amoxicillin AdvReac Intermediate diarrhea Verified 07/13/19 10:34 Exam Narrative Exam Narrative: General: Patient is mildly ill appearing but not toxic, AAOX3, NAD Neck: Supple CV: Regular, nontachycardic, S1S2, No rubs, murmurs, or gallops. Pulmonary: Clear to auscultation bilaterally, no crackles, wheezing, or rhonchi Abdomen: + Bowel Sounds, soft, nontender, nondistended Vascular: No lower extremity edema Neurologic: CN II-XII grossly intact. No focal deficits. Psych: Normal mood and affect. Results Labs Result diagrams: 07/13/19 10:15 07/13/19 10:15 Labs: Laboratory Results - last 24 hr 07/13/19 07/13/19 07/13/19 10:15 10:15 10:15 WBC RBC Hgb Hct MCV MCH MCHC RDW Plt Count MPV Immature Gran % Neutrophils % Lymphocytes % Monocytes % Eosinophils % Basophils % Absolute Neutrophils Absolute Lymphocytes Absolute Monocytes Absolute Eosinophils Absolute Basophils Differential Comment RBC Morphology Polychromasia Anisocytosis PT INR APTT VBG pH VBG pCO2 VBG pO2 VBG HCO3 VBG Total CO2 VBG O2 Saturation VBG Base Excess Sodium Potassium Chloride Carbon Dioxide Anion Gap BUN Creatinine Estimated GFR/1.73 m2 Glucose Lactate Calcium Magnesium Total Bilirubin AST ALT Alkaline Phosphatase Ammonia 22 Troponin I < 0.05 NT-Pro-B Natriuret Pep Total Protein Albumin TSH 2.08 Urine Color Urine Clarity Urine pH Ur Specific [place] Urine Protein Urine Ketones Urine Blood Urine Nitrite Urine Bilirubin Urine Urobilinogen Ur Leukocyte Esterase Urine RBC Urine WBC Ur Epithelial Cells Urine Crystals Urine Bacteria Urine Casts Urine Mucus Ur Culture Indicated? Urine Glucose Salicylates < 2.8 L Acetaminophen < 2 L 07/13/19 07/13/19 07/13/19 10:15 10:15 10:15 WBC RBC Hgb Hct MCV MCH MCHC RDW Plt Count MPV Immature Gran % Neutrophils % Lymphocytes % Monocytes % Eosinophils % Basophils % Absolute Neutrophils Absolute Lymphocytes Absolute Monocytes Absolute Eosinophils Absolute Basophils Differential Comment RBC Morphology Polychromasia Anisocytosis PT INR APTT VBG pH 7.51 H VBG pCO2 41 VBG pO2 52 H VBG HCO3 33 H VBG Total CO2 30 H VBG O2 Saturation 88 H VBG Base Excess 9.6 H Sodium 134 L Potassium 2.7 L* Chloride 94 L Carbon Dioxide 28.1 Anion Gap 11.9 H BUN 16 Creatinine 1.02 Estimated GFR/1.73 m2 53.58 Glucose 99 Lactate 0.7 Calcium 8.1 L Magnesium Total Bilirubin 0.8 AST 26 ALT 29 Alkaline Phosphatase 58 Ammonia Troponin I NT-Pro-B Natriuret Pep 1904 H Total Protein 6.3 L Albumin 2.9 L TSH Urine Color Urine Clarity Urine pH Ur Specific [place] Urine Protein Urine Ketones Urine Blood Urine Nitrite Urine Bilirubin Urine Urobilinogen Ur Leukocyte Esterase Urine RBC Urine WBC Ur Epithelial Cells Urine Crystals Urine Bacteria Urine Casts Urine Mucus Ur Culture Indicated? Urine Glucose Salicylates Acetaminophen 07/13/19 07/13/19 07/13/19 10:15 10:15 10:15 WBC 4.30 L RBC 3.23 L Hgb 10.1 L Hct 29.4 L MCV 91.0 MCH 31.3 MCHC 34.4 RDW 14.9 H Plt Count 133 MPV 9.5 Immature Gran % 0.0 Neutrophils % 85.0 Lymphocytes % 7.0 Monocytes % 7.0 Eosinophils % 0.0 Basophils % 1.0 Absolute Neutrophils 3.66 Absolute Lymphocytes 0.30 L Absolute Monocytes 0.30 Absolute Eosinophils 0.00 Absolute Basophils 0.04 Differential Comment Manual differential RBC Morphology See below Polychromasia Present Anisocytosis 1+ PT 11.4 H INR 1.1 APTT 33.2 H VBG pH VBG pCO2 VBG pO2 VBG HCO3 VBG Total CO2 VBG O2 Saturation VBG Base Excess Sodium Potassium Chloride Carbon Dioxide Anion Gap BUN Creatinine Estimated GFR/1.73 m2 Glucose Lactate Calcium Magnesium 1.6 L Total Bilirubin AST ALT Alkaline Phosphatase Ammonia Troponin I NT-Pro-B Natriuret Pep Total Protein Albumin TSH Urine Color Urine Clarity Urine pH Ur Specific [place] Urine Protein Urine Ketones Urine Blood Urine Nitrite Urine Bilirubin Urine Urobilinogen Ur Leukocyte Esterase Urine RBC Urine WBC Ur Epithelial Cells Urine Crystals Urine Bacteria Urine Casts Urine Mucus Ur Culture Indicated? Urine Glucose Salicylates Acetaminophen 07/13/19 12:40 WBC RBC Hgb Hct MCV MCH MCHC RDW Plt Count MPV Immature Gran % Neutrophils % Lymphocytes % Monocytes % Eosinophils % Basophils % Absolute Neutrophils Absolute Lymphocytes Absolute Monocytes Absolute Eosinophils Absolute Basophils Differential Comment RBC Morphology Polychromasia Anisocytosis PT INR APTT VBG pH VBG pCO2 VBG pO2 VBG HCO3 VBG Total CO2 VBG O2 Saturation VBG Base Excess Sodium Potassium Chloride Carbon Dioxide Anion Gap BUN Creatinine Estimated GFR/1.73 m2 Glucose Lactate Calcium Magnesium Total Bilirubin AST ALT Alkaline Phosphatase Ammonia Troponin I NT-Pro-B Natriuret Pep Total Protein Albumin TSH Urine Color Yellow Urine Clarity Clear Urine pH 7.0 Ur Specific [place] 1.020 Urine Protein 30 H Urine Ketones Negative Urine Blood Small H Urine Nitrite Negative Urine Bilirubin Negative Urine Urobilinogen 0.2 Ur Leukocyte Esterase Trace H Urine RBC 5-10 H Urine WBC 3-5 Ur Epithelial Cells Moderate Urine Crystals Negative Urine Bacteria Rare Urine Casts Negative Urine Mucus Trace Ur Culture Indicated? No/sq. contamination Urine Glucose Negative Salicylates Acetaminophen Last Vital Signs Temp 36.6 C 07/13/19 14:55 Pulse 70 07/13/19 14:55 Resp 14 07/13/19 14:55 BP 107/68 07/13/19 14:55 Pulse Ox 97 07/13/19 14:55
[2019-07-13 15:57] LABS: Anion Gap 9.2 mmol/L (3-11); BUN 14 mg/dL (7-18); CO2 27.8 mmol/L (21.0-32.0); CREATININE 0.98 mg/dL (0.55-1.02); Calcium 8.1 mg/dL (8.5-10.1); Chloride 100 mmol/L (98-107); Estimated GFR 56.11 (mL/min/1.73m2); Glucose 90 mg/dL (70-100); Potassium 3.2 mmol/L (3.5-5.1); Sodium 137 mmol/L (136-145)
[2019-07-13] MEDS: Acetaminophen 325 MG TAB PO ×2 (16:06→22:13)
[2019-07-13] MEDS: Enoxaparin 40 MG/0.4 ML SYR SC (16:09)
--- NOTE | 2019-07-13 16:17 | NUR.NOTE ---
Nursing Note: also patient is note to have alopecia
[2019-07-13] MEDS: levoFLOXacin 750 MG/150 ML BAG 100 MG IVPB (16:46)
--- NOTE | 2019-07-13 17:00 | PT.INTREAT ---
Date of service: 07/14/19 Time of Service: 15:03 PT Notes Inpatient Physical Therapy Treatment Note [facility] Date: 07/13/2019 PRECAUTIONS: Standard. Falls. Activity as tolerated. SUBJECTIVE: Patient does not report pain. She states she is fatigued but is agreeable to PT if kept light. OBJECTIVE: Patient is seen sitting in chair with IV in R UE. Patient presented with much more energy this second session compared to this morning. Patient and daughter are agreeable with doing once a day treatment while here at hospital in order to work on established goals. PAIN: 0/10 BED MOBILITY/TRANSFERS Rolling L/R: SBA Supine-sit: SBA Sit-supine: SBA Sit-stand: CGA Stand-sit: CGA Bed-Chair: CGA Chair-bed: CGA GAIT Assistive Device: FWW Weight bearing: FWB Assist: CGA Distance: 50? Deviation: Decreased step length, vijaya, and overall gait speed. Appeared unstable. ASSESSMENT: Patient is a 68 year old female admitted for an episode of rheumatoid arthritis and newly discovered lung mass. She is fatigued, and has a low tolerance for activity. She has the support of her , and is motivated to get better. Her prognosis is undetermined at this time. PLAN: 1x/day, 7 days/week, 1 week TREATMENT CODE/TIME: 70149 ? 2 units beginning at 15:03 PM.
[2019-07-13] MEDS: Atorvastatin 40 MG TAB PO (20:13)
[2019-07-14] VITALS (9 sets, daily range): BP systolic 108–150; BP diastolic 60–69; PULSE 71–79; RESP 18; TEMP 37.2–38.2; O2SAT 90–96
[2019-07-14] MEDS: Acetaminophen 325 MG TAB PO ×4 (02:24→22:34)
[2019-07-14] MEDS: Normal Saline 1,000 ML 125 ML IV ×3 (03:42→19:25)
[2019-07-14 07:36] LABS: HCT 26.8 % (36.0-46.0); HGB 8.8 g/dL (12.0-15.5); Mean Corp. HGB Concentration 32.8 g/dL (32.0-36.0); Mean Corpuscular Volume 94.4 fL (80-95); Mean Platelet Volume 9.2 fL (8.0-11.0); Platelet Count 120 x1000/uL (130-400); RBC 2.84 m/cumm (4.00-5.20); White Blood Cell Count 4.53 k/cumm (4.4-10.8)
[2019-07-14 07:46] LABS: BUN 12 mg/dL (7-18); CREATININE 0.87 mg/dL (0.55-1.02); Calcium 7.6 mg/dL (8.5-10.1); Chloride 102 mmol/L (98-107); Glucose 83 mg/dL (70-100); Magnesium 1.7 mg/dL (1.8-2.4); Potassium 3.1 mmol/L (3.5-5.1); Sodium 138 mmol/L (136-145)
[2019-07-14 08:01] LABS: Absolute Lymphocyte Count 0.36 k/cumm (1.2-3.4); Absolute Neutrophil Count 3.67 k/cumm (1.2-6.7)
[2019-07-14 08:02] LABS: Absolute Monocyte Count 0.45 k/cumm (0.11-0.7); Anisocytosis 1+; Diff Comment Manual Differential; Hypochromasia 1+; Microcytosis 1+; Ovalocytes 2+
[2019-07-14] MEDS: Cholecalciferol (Vitamin D3) 1,000 UNIT TAB 2000 UNITS PO (08:37)
[2019-07-14] MEDS: Magnesium Oxide 400 MG TAB PO (08:37)
[2019-07-14] MEDS: Aspirin E.C. 81 MG TABEC PO (08:37)
[2019-07-14] MEDS: Folic Acid 1 MG TAB PO (08:37)
[2019-07-14] MEDS: Metoprolol CR 25 MG TABCR PO (08:38)
[2019-07-14] MEDS: Clopidogrel 75 MG TAB PO (08:38)
[2019-07-14] MEDS: Omeprazole 20 MG CAPCR 40 MG PO (08:38)
[2019-07-14] MEDS: Normal Saline Flush 10 ML SYR IVP (08:39)
[2019-07-14] MEDS: POTASSIUM CHLORIDE 20 MEQ/100 ML BAG 50 MEQ IVPB ×2 (10:00→12:03)
[2019-07-14] MEDS: Magnesium Oxide 400 MG TAB 800 MG PO ×2 (10:26→15:09)
[2019-07-14] MEDS: Potassium Chloride 20 MEQ TABCR 40 MEQ PO ×2 (10:27→15:09)
--- NOTE | 2019-07-14 11:48 | PHARADMIT ---
Addendum entered by Yeni Estes 07/19/19 11:57: Pharmacy Note Subjective x-ray showed worsening infiltrate, [facility] concerned for aspergillosis, nocardia, histo/blastomycosis per progress note Objective VS-okay no labs Assessment vanco(day6) and unasyn(day3) continue blood cultures no growth aspirin, plavix and lovenox on hold due to concern for small of area of hemorrhage within pulmonary consolidation (per progress note) Plan transfer to [facility] tomorrow for bronch on order vanco trough tomorrow afternoon if pt still here/has not transferred yet Original Note: Admission Pharmacy Clinical Review ALTERED MENTAL STATUS, NEW LUNG MASS, HYPOKALEMIA Code Status DNR/DNI Current Weight Wgt-64.1 kg Renally Cleared and Narrow Therapeutic Index Meds CrCl~ 56.3 mL/min Meds-OK QTc Value / Action Taken QTc-448 NA BP Control, Fever BP- 117/68 Tmax- 37.2C Electrolytes reviewed Na- 138 K+3.1 Mag-1.7 DVT Prophylaxis Lovenox, ASA, Plavix Opiate Usage / Scheduled Bowel Regimen Ordered No Yes Plt/SCr for Heparin / Enoxaparin Plts-120 SCr-87 INR for Warfarin INR-1.1 H/H stable, WBC/Bands H&H-8.8/26.8 WBC-4.53 Antibiotic appropriateness Levaquin, Cultures and Sensitivities Blood-Pending, Flu-negative Surgical ABX d/c within 24 hr NA DM control / Insulin Dosing BG- 83 Heart Failure (Check EF%) (MELITON's, B-Block, Diuretics) Toprol-XL, NTG, No IV to PO Switch No Home Meds Reviewed Yes Home Meds Not Ordered Iron, HCTZ, Plaquenil, MTX, Rexclast Comments PatOwn-Econazole, Children's M-vites
--- NOTE | 2019-07-14 13:40 | PGE_ITS ---
Date of Service Date of service: 07/14/19 Time of Service: 13:40 Assessment and Plan Assessment and plan (1) Lung mass: Status: Acute Assessment and plan: Unclear etiology - patient has been complaining of intermittent fevers and night sweats, with CT interpreted as malignancy vs. infection. - Patient is currently receiving Abatacept making potential for infections, URI, or pneumonia possible, as well as with increased risk for lymphoma and Lung Padilla. For now will continue antibiotic therapy with Levofloxacin (day #2), obtain sputum culture if possible, and monitor symptoms. - Initial presentation also with fatigue and confusion, which in the setting of possible acute illness as well as fevers may have been related to dehydration - remains on hydration currently. Mrs. Jay has a history of CHF, but with a normalized LVEF by last ECHO in 2018 - continue Normal Saline. - Drop in Hgb in patient with known anemia of chronic disease - may be contributing to fatigue as well. Will check anemia labs. TSH normal. - Plan on discussion with Rheum and ID pending patient's symptoms. Will also ensure follow-up CT upon completion of treatment in the near future, and follow- up with pulmonary following discharge. (2) Fatigue: Status: Acute Assessment and plan: Plan as above. (3) Rheumatoid arthritis: Status: Chronic Assessment and plan: Hold Methotrexate and Hydroxychloroquine in setting of potential infection. Also on Abatacept per verbal report from patient's daughter. (4) Anemia in chronic illness: Status: Acute Assessment and plan: Drop in Hgb with hydration, lower than baseline. Repeat anemia labs, including stool for occult blood. (5) CAD (coronary artery disease): Status: Chronic Assessment and plan: History of STEMI with LAD lesion, s/p stents X2. Continue ASA, statin, and BB. EKG non-ischemic and Troponin undetectable. (6) GERD (gastroesophageal reflux disease): Status: Chronic Assessment and plan: Continue PPI therapy. (7) Hypertension: Status: Chronic Assessment and plan: On BB therapy. Hold thiazide while hydrating patient - patient also remains significantly hypokalemic, will continue to hold thiazide. (8) DVT prophylaxis: Status: Acute Assessment and plan: SC Enoxaparin. SCDs in place. All on PPI chronically. (9) Advance directive on file: Status: Acute Assessment and plan: DNR/DNI per conversation at time of admission. Subjective Subjective Interval history since last seen: Very pleasant 68 year old woman with a history of RA and CAD, admitted from [facility] Emergency Department on 07/13 with a diagnosis of dehydration and new findings of a pulmonary mass. Mrs. Jay has a past Medical History significant for RA, on Methotrexate, Hydroxychloroquine, and Abatacept. She suffered from a STEMI in 2016, undergoing 2 stents to an LAD lesion. She subsequently developed a mild CHF, with normalization of her EF by last ECHO in 2018. Her other history includes Anemia of Chronic Disease, anxiety, HTN, GERD, and chronic back pain. She has a remote history of tobacco use. The patient reports onset of subjective fevers, along with generalized aches and pains approximately 3-4 days ago, along with subjective fatigue. Her daughter and son both reported her to be slightly confused as well. She also suffered a fall on the night prior to her admission, subjectively due to weakness. She was initially found to be febrile by EMS, and brought to the ED for further evaluation. Work-up in the ED was significant for hypokalemia, hypomagnesemia, mild hyponatremia, and elevated PH at 7.5. The remainder of her labs were essentially unremarkable, with normal LFTs, Lactate, Troponin, TSH, and essentially negative urinalysis. Her BNP was 1904 and unchanged from prior values (ranging between 297 and 5096). Her corrected calcium was normal as well. Imaging with CXR showed evidence of a RML mass, confirmed with CT Chest - interpreted as mass vs. consolidation. CT of the head was verbally reported as negative as well. She was referred for admission for further evaluation and treatment. Of note Mrs. Jay reports intermittent night sweats over the last year, without any significant weight loss. Her daughter reports a recent cough, and onset of fatigue and intermittent fevers this past summer. This morning the patient reports some subjective improvement in her symptoms, but not back to baseline. She continues to appear fatigued. No other events reported. Remains afebrile. Exam Narrative Exam Narrative: General: Patient is mildly ill appearing but not toxic, AAOX3, NAD Neck: Supple CV: Regular, nontachycardic, S1S2, No rubs, murmurs, or gallops. Pulmonary: Clear to auscultation bilaterally, no crackles, wheezing, or rhonchi Abdomen: + Bowel Sounds, soft, nontender, nondistended Vascular: No lower extremity edema Psych: Normal mood and affect. Objective Objective Clinical Data: Abnormal lab results 07/13/19 07/14/19 07/14/19 Range/Units 15:30 06:35 06:35 RBC 2.84 L (4.00-5.20) m/cumm Hgb 8.8 L (12.0-15.5) g/dL Hct 26.8 L (36.0-46.0) % RDW 15.0 H (11.7-14.6) % Plt Count 120 L (130-400) x1000/uL Absolute Lymphocytes 0.36 L (1.2-3.4) k/cumm Potassium 3.2 L 3.1 L (3.5-5.1) mmol/L Calcium 8.1 L 7.6 L (8.5-10.1) mg/dL Magnesium 1.7 L (1.8-2.4) mg/dL Vital Signs Temperature 37.2 C 07/14/19 08:49 Temperature Source Tympanic 07/14/19 08:49 Pulse 71 07/14/19 08:49 Pulse Rhythm Regular 07/14/19 04:08 Pulse 76 07/13/19 13:20 Respiratory Rate 18 07/14/19 08:49 Respiratory Effort Non-Labored 07/14/19 04:08 Respiratory Depth Normal 07/14/19 04:08 Respiratory Pattern Normal 07/14/19 04:08 Blood Pressure 117/68 07/14/19 08:49 Blood Pressure Mean 62 07/13/19 13:18 Blood Pressure Position Sitting 07/13/19 10:00 Pulse Oximetry 90 L 07/14/19 08:49 Oxygen Delivery Method Room Air 07/14/19 08:49 Oxygen Flow Rate 0 07/14/19 08:49 Pain Level 7 07/14/19 09:40 Comment 07/13/19 10:00 Intake & Output 07/13/19 07/14/19 07/14/19 23:59 11:59 23:59 Intake Total 999 2741.667 / 2841.667 100 / 2841.667 Output Total 850 / 850 700 / 700 Balance 150 / 1150 2041.667 / 2141.667 100 / 2141.667 Weight 64.1 kg Intake: IV 999 1641.667 / 1741.667 100 / 1741.667 Oral 1100 / 1100 Output: Urine 850 / 850 700 / 700 Other: Urine Color Yellow Yellow Urine Appearance Clear Clear Urine Odor None Normal Stool Size Moderate Stool Characteristics Formed Voiding Methods Toilet Toilet Laboratory Results WBC 4.53 k/cumm (4.4-10.8) 07/14/19 06:35 RBC 2.84 m/cumm (4.00-5.20) L 07/14/19 06:35 Hgb 8.8 g/dL (12.0-15.5) L 07/14/19 06:35 Hct 26.8 % (36.0-46.0) L 07/14/19 06:35 MCV 94.4 fL (80-95) D 07/14/19 06:35 MCH 31.0 pg (27.0-33.0) 07/14/19 06:35 MCHC 32.8 g/dL (32.0-36.0) 07/14/19 06:35 RDW 15.0 % (11.7-14.6) H 07/14/19 06:35 Plt Count 120 x1000/uL (130-400) L 07/14/19 06:35 MPV 9.2 fL (8.0-11.0) 07/14/19 06:35 Immature Gran % 0.0 07/14/19 06:35 Neutrophils % 81.0 07/14/19 06:35 Lymphocytes % 8.0 07/14/19 06:35 Monocytes % 10.0 07/14/19 06:35 Eosinophils % 0.0 07/14/19 06:35 Basophils % 0.0 07/14/19 06:35 Absolute Neutrophils 3.67 k/cumm (1.2-6.7) 07/14/19 06:35 Absolute Lymphocytes 0.36 k/cumm (1.2-3.4) L 07/14/19 06:35 Absolute Monocytes 0.45 k/cumm (0.11-0.7) 07/14/19 06:35 Absolute Eosinophils 0.00 k/cumm (0.0-0.7) 07/14/19 06:35 Absolute Basophils 0.00 k/cumm (0.0-0.2) 07/14/19 06:35 Differential Comment Manual differential 07/14/19 06:35 RBC Morphology See below 07/14/19 06:35 Polychromasia Present 07/13/19 10:15 Hypochromasia 1+ 07/14/19 06:35 Anisocytosis 1+ 07/14/19 06:35 Microcytosis 1+ 07/14/19 06:35 Ovalocytes 2+ 07/14/19 06:35 PT 11.4 sec (9.3-11.0) H 07/13/19 10:15 INR 1.1 (0.9-1.1) 07/13/19 10:15 APTT 33.2 sec (21.0-31.4) H 07/13/19 10:15 VBG pH 7.51 (7.32-7.43) H 07/13/19 10:15 VBG pCO2 41 mm/Hg (34-47) 07/13/19 10:15 VBG pO2 52 mm/Hg (28-44) H 07/13/19 10:15 VBG HCO3 33 mmol/L (22-28) H 07/13/19 10:15 VBG Total CO2 30 mmol/L (22-29) H 07/13/19 10:15 VBG O2 Saturation 88 % (70-80) H 07/13/19 10:15 VBG Base Excess 9.6 mmol/L (-3-3) H 07/13/19 10:15 Sodium 138 mmol/L (136-145) 07/14/19 06:35 Potassium 3.1 mmol/L (3.5-5.1) L 07/14/19 06:35 Chloride 102 mmol/L (98-107) 07/14/19 06:35 Carbon Dioxide 26.0 mmol/L (21.0-32.0) 07/14/19 06:35 Anion Gap 10.0 mmol/L (3-11) 07/14/19 06:35 BUN 12 mg/dL (7-18) 07/14/19 06:35 Creatinine 0.87 mg/dL (0.55-1.02) 07/14/19 06:35 Estimated GFR/1.73 m2 >= 60.00 (mL/min/1.73m2) 07/14/19 06:35 Glucose 83 mg/dL (70-100) 07/14/19 06:35 Lactate 0.7 mmol/L (0.6-1.4) 07/13/19 10:15 Calcium 7.6 mg/dL (8.5-10.1) L 07/14/19 06:35 Magnesium 1.7 mg/dL (1.8-2.4) L 07/14/19 06:35 Total Bilirubin 0.8 mg/dL (0.2-1.0) 07/13/19 10:15 AST 26 U/L (15-37) 07/13/19 10:15 ALT 29 U/L (14-59) 07/13/19 10:15 Alkaline Phosphatase 58 U/L (46-116) 07/13/19 10:15 Ammonia 22 umol/L (11-32) 07/13/19 10:15 Troponin I < 0.05 ng/mL (0.00-0.06) 07/13/19 10:15 NT-Pro-B Natriuret Pep 1904 pg/mL (-299) H 07/13/19 10:15 Total Protein 6.3 g/dL (6.4-8.2) L 07/13/19 10:15 Albumin 2.9 g/dL (3.4-5.0) L 07/13/19 10:15 TSH 2.08 uIU/mL (0.36-3.74) 07/13/19 10:15 Urine Color Yellow (Yellow) 07/13/19 12:40 Urine Clarity Clear (Clear) 07/13/19 12:40 Urine pH 7.0 (5-8) 07/13/19 12:40 Ur Specific [place] 1.020 (1.005-1.025) 07/13/19 12:40 Urine Protein 30 mg/dL (Negative) H 07/13/19 12:40 Urine Ketones Negative mg/dL (Negative) 07/13/19 12:40 Urine Blood Small (Negative) H 07/13/19 12:40 Urine Nitrite Negative (Negative) 07/13/19 12:40 Urine Bilirubin Negative (Negative) 07/13/19 12:40 Urine Urobilinogen 0.2 EU/dL (Up TO 0.2) 07/13/19 12:40 Ur Leukocyte Esterase Trace (Negative) H 07/13/19 12:40 Urine RBC 5-10 (0-2) H 07/13/19 12:40 Urine WBC 3-5 HPF (0-5) 07/13/19 12:40 Ur Epithelial Cells Moderate HPF (Negative) 07/13/19 12:40 Urine Crystals Negative HPF (Negative) 07/13/19 12:40 Urine Bacteria Rare HPF (Negative) 07/13/19 12:40 Urine Casts Negative LPF (Negative) 07/13/19 12:40 Urine Mucus Trace (Negative) 07/13/19 12:40 Ur Culture Indicated? No/sq. contamination 07/13/19 12:40 Urine Glucose Negative mg/dL (Negative) 07/13/19 12:40 Salicylates < 2.8 mg/dL (2.8-20.0) L 07/13/19 10:15 Acetaminophen < 2 ug/mL (10-30) L 07/13/19 10:15
[2019-07-14] MEDS: Enoxaparin 40 MG/0.4 ML SYR SC (15:09)
[2019-07-14] MEDS: levoFLOXacin 750 MG/150 ML BAG 100 MG IVPB (15:10)
--- NOTE | 2019-07-14 15:20 | INITIAL_ITS ---
- If Service Date Differs Date of service: 07/14/19 Time of Service: 15:20 Care Management Initial Assess REASON FOR HOSPITALIZATION:: AMS, New lung mass PAST MEDICAL HISTORY/PAST SURGICAL HISTORY:: Gastroesophageal reflux disease with esophagitis, Elevated blood pressure, PA with stent, rheumatoid arthritis. Surgical hx: esophagogastroduodenoscopy, stents x 2, tonsillectomy PREVIOUS FUNCTIONAL STATUS/SOCIAL/FAMILY SUPPORTS:: Amara lives at home with her spouse in [facility]. 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 She has four children, daughter Tina is here with her today who lives in [place]. Amara still volunteer's at the [employer] participates in an exercise group a few days a week. She is independent with ADL's. Her home is two levels she lives on the first level however she does have to go to the basement to do laundry. CURRENT FUNCTIONAL STATUS:: Amara is sitting up in the chair in her room when CM meets with her. Her daughter Tina is present and both are engaged in assessment. Tina feels that her Mom is about the same as yesterday and shares that she is concerned about Mom. ADVANCE DIRECTIVES:: On file agent is Vinayak Has patient been provided with information about the portal?: Yes Did the patient sign up for the portal?: No (already signed up) CODE STATUS:: DNR/DNI INSURANCE COVERAGE / FINANCIAL ISSUES:: Santos Nassar CURRENT HOME/COMMUNITY SERVICES/EQUIPMENT:: None PRIMARY CARE PHYSICIAN:: Carolyn Browning POTENTIAL DISCHARGE NEEDS:: Follow up with primary care as directed. CM will contact [facility] to provide update and request follow up with patient. PATIENT/FAMILY EDUCATION NEEDS:: Discharge instruction, limitations and follow up plan of care including ask me three. ANTICIPATED BARRIERS TO DISCHARGE:: None identified TRANSPORTATION:: Via private car with family PLAN:: Amara is currently receiving IV abx, and continued cardiac monitoring. She will be discharged home with no additional services and follow up with primary care. She will need close follow up with gaganpratik and CM will follow up with [facility] to provide update and handoff.
--- NOTE | 2019-07-14 15:20 | CHAPLAIN ---
Amara was in bed resting, with several family members visiting her. Amara and I remember each other from when she was here with her aunt, as her aunt's primary caregiver. Amara is a member of the [employer], but declined my offer to contact her dining room busser as she believes she'll be discharged today or tomorrow. Amara seems to be well supported by family and friends.
--- NOTE | 2019-07-14 18:00 | PT.INTREAT ---
Date of service: 07/14/19 Time of Service: 15:03 PT Notes PT Inpatient Treatment Note Date: 07/14/2019 PRECAUTIONS: Standard. Falls. Activity as tolerated. SUBJECTIVE: Patient does not report pain. She states she is fatigued but is agreeable to PT if kept light. OBJECTIVE: Patient is seen sitting in chair with IV in R UE. Patient presented with much more energy this second session compared to this morning. Patient and daughter are agreeable with doing once a day treatment while here at hospital in order to work on established goals. PAIN: 0/10 BED MOBILITY/TRANSFERS Rolling L/R: SBA Supine-sit: SBA Sit-supine: SBA Sit-stand: CGA Stand-sit: CGA Bed-Chair: CGA Chair-bed: CGA GAIT Assistive Device: FWW Weight bearing: FWB Assist: CGA Distance: 50? Deviation: Decreased step length, vijaya, and overall gait speed. Appeared unstable. ASSESSMENT: Patient is a 68 year old female admitted for an episode of rheumatoid arthritis and newly discovered lung mass. She is fatigued, and has a low tolerance for activity. She has the support of her , and is motivated to get better. Her prognosis is undetermined at this time. PLAN: 1x/day, 7 days/week, 1 week TREATMENT CODE/TIME: 56030 ? 2 units beginning at 15:03 PM.
--- NOTE | 2019-07-14 18:00 | PT.INIE ---
Date of service: 07/14/19 Time of Service: 09:46 PT Notes Inpatient Physical Therapy Evaluation Date: 07/14/2019 Referring Doctor: Jatinder Perez PT Orders: PT CONSULT: Routine Precautions: Fall. Standard. Patient Profile/Admitting Diagnosis: Patient is a 68 year old female who presented to the ED on 07/13/2019 with chief complaints of altered mental status, dizziness, and generalized weakness. Patient was diagnosed with lung mass of unknown etiology (malignancy vs. infection), rheumatoid arthritis, anemia, wekness, and generalized body malaise. PMHX: Medical History Elevated blood pressure reading (Acute 11/28/14) Gastroesophageal reflux disease with esophagitis (Acute) 11/04 EGD: ACUTE EXTENSIVE EROSIVE ESOPHAGITIS Hearing loss in right ear (Acute 05/01/15) Low back pain, non-specific (Acute 11/18/12) Rheumatoid arthritis (Chronic 11/18/12) ST elevation (STEMI) myocardial infarction of unspecified site (Resolved) Trochanteric bursitis of left hip (Acute 12/05/15) Surgical History Colonoscopy - IV Sedation (01/17/13) DR. CINTHIA BARAHONA Dilation and curettage (~07/1997) H/O esophagogastroduodenoscopy (Chronic ~04/05/19) 2010- erosive esophagitis Hx of heart artery stent (Chronic) Stents x 2. 2017 Tonsillectomy (~1958) Social History/Home Situation: Amara lives with her in a two story home. Her states their bedroom is on their first floor and they hardly ever go to the second floor. Amara is independent with all aspects of ADLS without the need for an assistive device nor adaptive equipment. Equipment Owned/DME: SC Subjective: Patient is reporting 6/10 leg pain, and states that she would like to rest. She agrees to move to the bed with PT, and answer some questions regarding her level of function prior to admission. Objective: General Observation: Patient was seen seated in a chair with bilateral antithromboembolic pumps and IV in her R UE. Mental Status: Alert and oriented x 4 Pain: 6/10 ROM: NT. Patient complained of severe exhaustion and wanted to rest at time of PT arrival. Nursing recommended holding off on ROM/MMT assessment until later this afternoon. Strength: NT. Patient complained of severe exhaustion and wanted to rest at time of PT arrival. Nursing recommended holding off on ROM/MMT mobility assessment until later this afternoon. Bed Mobility/Transfers: yohana agreed to transferring back from chair to her bed Rolling SBA Supine to sit SBA Sit to supine SBA Sit to stand SBA Stand to sit SBA Bed to chair SBA Chair to bed SBA Gait: Patient exhibited step through gait to her bed with decreased vijaya, step length, and overall gait speed without an assistive device and with SBA. Balance: Static Sitting: Good Dynamic Sitting: Good Static Standing: Fair Dynamic Standing: Fair Special Tests: Mobility Limitations Standardized Measure [facility] 6 clicks Basic Mobility Inpatient Short Form: Raw Score: 19 CMS Score: 43% Informed Consent/Education: Patient instructed in purpose of PT consult and plan of care. Assessment: Patient is a 68 year old woman admitted with dizziness, confusion, and a pulmonary mass. She has the support of her , and lives on the first floor of her two story home. She requires stand by assist for most ambulation activities, and is severely fatigued. PT was consulted for an equipment evaluation. At this time, the SPT and PT recommend a FWW for this patient to enhance the speed and stability of her gait. Patient presents with clinical signs and symptoms consistent with current/admitting diagnoses that have resulted to mobility limitations, gait instability, generalized weakness, and impairment of motor control as demonstrated by the following impairment level findings: 1. Decreased strength to B LE major muscle groups 2. Impaired standing balance 3. Impaired activity tolerance 4. Limitation of joint range of motion in [] Impairments are contributing to the following functional limitations: 1. Dependent bed mobility skills 2. Increased dependence with transfers 3. Inability to safely ambulate without assistive device and physical assistance 4. Increase completion time for mobility ADL performance 5. Increased fall risk 6. Inability to negotiate steps alone safely Patient is assessed as a 64270 moderate complexity based on the following: History: 68-year-old cognitively intact female with premorbid independent level with past medical history significant for rheumatoid arthritis and heart artery stent Examination: Demonstrable impairment in strength, balance, and range of motion with underlying impairments and functional limitations as documented above Presentation: Evolving Decision Makin moderate complexity Goals: Goals X1 week 1. Supine-Sit independent 2. Sit-Supine independent 3. Sit-Stand independent 4. Stand-Sit independent 5. Bed-Chair independent 6. Chair-Bed independent 7. Independent gait on level surface with use of least restrictive device for at least 300 feet without report of pain nor dyspnea 8. Independent stair negotiation while holding onto bilateral rails for at least 10 steps without report of pain nor dyspnea 9. Independent with home exercise program 10. Good static and dynamic standing balance/tolerance Plan of Care/Treatment Plan: 1-2x/day, 7 days/week x 1 week. Plan of care has been reviewed with the PLANT MECHANIC providing the service under Physical Therapy direction. Initiate Physical Therapy intervention for strengthening, bed mobility, transfers, gait, stairs, balance training, use of assistive device. DISCHARGE RECOMMENDATIONS: Patient could be discharged to home under the care of her after all of the above goals are met and she is medically stable. Patient will benefit from fdc facility placement in order to progress mobility level, strength, and balance in preparation for a safe discharge to home. TREATMENT CODE/TIME: 17705 x 11minutes beginning at 9:46 AM. Thank you very much for this referral. Teto Philippe [facility] With supervision of: Coral Branch PT, DPT, CLT [facility]
[2019-07-14] MEDS: CEFEPIME 2 GM in Normal Saline 100 ML IVPB (18:46)
[2019-07-14] MEDS: Atorvastatin 40 MG TAB PO (19:25)
[2019-07-15] VITALS (10 sets, daily range): BP systolic 100–132; BP diastolic 58–73; PULSE 72–92; RESP 16–20; TEMP 36.8–38.8; O2SAT 96–97
[2019-07-15] MEDS: Normal Saline 1,000 ML 125 ML IV ×2 (05:09→19:49)
[2019-07-15] MEDS: CEFEPIME 2 GM in Normal Saline 100 ML IVPB ×2 (05:09→18:28)
[2019-07-15 07:10] LABS: Abs Immature Grans 0.02 k/cumm (0.0-0.09); Absolute Eosinophil Count 0.02 k/cumm (0.0-0.7); Absolute Lymphocyte Count 0.49 k/cumm (1.2-3.4); Absolute Monocyte Count 0.87 k/cumm (0.11-0.7); Absolute Neutrophil Count 3.09 k/cumm (1.2-6.7); Eosinophils % 0.4; HCT 28.5 % (36.0-46.0); HGB 9.1 g/dL (12.0-15.5); Immature Grans % 0.4; Lymphocytes % 10.9; Mean Corp. HGB Concentration 31.9 g/dL (32.0-36.0); Mean Corpuscular Hemoglobin 30.5 pg (27.0-33.0); Mean Corpuscular Volume 95.6 fL (80-95); Monocytes % 19.4; Neutrophils % 68.9; Platelet Count 133 x1000/uL (130-400); RBC 2.98 m/cumm (4.00-5.20); RBC Distribution Width 15.4 % (11.7-14.6); White Blood Cell Count 4.49 k/cumm (4.4-10.8)
[2019-07-15 08:00] LABS: Anion Gap 7.3 mmol/L (3-11); BUN 9 mg/dL (7-18); CO2 26.7 mmol/L (21.0-32.0); CREATININE 0.91 mg/dL (0.55-1.02); Calcium 7.3 mg/dL (8.5-10.1); Chloride 105 mmol/L (98-107); Folate 13.7 ng/mL (8.6-20.0); Glucose 106 mg/dL (70-100); Magnesium 1.4 mg/dL (1.8-2.4); Potassium 4.2 mmol/L (3.5-5.1); Sodium 139 mmol/L (136-145); Vitamin B12 795 pg/mL (193-986)
[2019-07-15 08:02] LABS: Ferritin > 1000 ng/mL (8-388)
[2019-07-15 08:30] LABS: Iron 24 ug/dL (50-175); Total Iron Binding Capacity 147 ug/dL (250-450); Transferrin Sat 16 % (15-50)
[2019-07-15] MEDS: Acetaminophen 325 MG TAB PO ×2 (09:13→20:45)
[2019-07-15] MEDS: Magnesium Oxide 400 MG TAB PO (09:14)
[2019-07-15] MEDS: Aspirin E.C. 81 MG TABEC PO (09:14)
[2019-07-15] MEDS: Folic Acid 1 MG TAB PO (09:14)
[2019-07-15] MEDS: Cholecalciferol (Vitamin D3) 1,000 UNIT TAB 2000 UNITS PO (09:14)
[2019-07-15] MEDS: Clopidogrel 75 MG TAB PO (09:14)
[2019-07-15] MEDS: Metoprolol CR 25 MG TABCR PO (09:14)
[2019-07-15] MEDS: Omeprazole 20 MG CAPCR 40 MG PO (09:15)
[2019-07-15] MEDS: MAGNESIUM SULFATE 2 GM/50 ML BAG IVPB (11:07)
--- NOTE | 2019-07-15 11:56 | PT.INTREAT ---
Date of service: 07/15/19 Time of Service: 11:56 PT Notes Inpatient Physical Therapy Treatment Note [facility] Date: 07/15/19 PRECAUTIONS: Fall SUBJECTIVE: Amara is agreeable to participating in PT, with some encouragement. OBJECTIVE: PAIN: No c/o pain BED MOBILITY/TRANSFERS Sit-stand: S Stand-sit: S GAIT Assistive Device: No AD Weight bearing: Full Assist: CGA Distance: 75' x2 Deviation: Unsteady gait, increased fatigue THEREX: Refused ASSESSMENT: Patient tolerated session with c/o increased fatigue. She was able to tolerate a progression in gait distance without assistive device support and with CGA, although demonstrates some unsteadiness. PLAN: Continue with PT's POC TREATMENT CODE/TIME: 10 minutes; 23823
--- NOTE | 2019-07-15 14:15 | PGE_ITS ---
Date of Service Date of service: 07/15/19 Time of Service: 14:15 Assessment and Plan Assessment and plan (1) Lung mass: Status: Acute Assessment and plan: Unclear etiology - patient has been complaining of intermittent fevers and night sweats, with CT interpreted as malignancy vs. infection. - Patient is currently receiving Abatacept making potential for infections, URI, or pneumonia possible, as well as with increased risk for lymphoma and Lung Ca. - For now will continue antibiotic therapy with Levofloxacin changed to Vancomycin and Cefepime due to ongoing fevers. Influenza negative, and blood cultures remain negative. Not producing sputum. - Plan will be for a short course of broad spectrum antibiotic therapy, followed by a [place] with [place] [facility] [place]. - Discussed case with patient's food checkers and cashiers supervisor, Dr. Lynn Cason at [facility] who is in agreement with the above plan. Also noted that patient's prior TB Screening was negative with a Quantiferon Gold. (2) Fatigue: Status: Acute Assessment and plan: Plan as above. (3) Rheumatoid arthritis: Status: Chronic Assessment and plan: Hold Methotrexate in setting of potential infection. Hydroxychloroquine restarted. Also on Abatacept, which she is not receiving here. (4) Anemia in chronic illness: Status: Acute Assessment and plan: Drop in Hgb with hydration, lower than baseline. Repeat anemia labs clearly indicative of anemia of chronic disease, with Ferritin >1000. Discontinue home iron. Stool for occult blood pending, but low suspicion for GI bleed. Hgb stable. (5) CAD (coronary artery disease): Status: Chronic Assessment and plan: History of STEMI with LAD lesion, s/p stents X2. Continue ASA, statin, and BB. EKG non-ischemic and Troponin undetectable. (6) GERD (gastroesophageal reflux disease): Status: Chronic Assessment and plan: Continue PPI therapy. (7) Hypertension: Status: Chronic Assessment and plan: On BB therapy. Continue to hold thiazide while hydrating patient - patient was also significantly hypokalemic at admission. (8) DVT prophylaxis: Status: Acute Assessment and plan: SC Enoxaparin. SCDs in place. All on PPI chronically. (9) Advance directive on file: Status: Acute Assessment and plan: DNR/DNI per conversation at time of admission. Subjective Subjective Interval history since last seen: Very pleasant 68 year old woman with a history of RA and CAD, admitted from [facility] Emergency Department on 07/13 with a diagnosis of dehydration and new findings of a pulmonary mass. Mrs. Jay has a past Medical History significant for RA, on Methotrexate, Hydrox ychloroquine, and Abatacept. She suffered from a STEMI in 2016, undergoing 2 stents to an LAD lesion. She subsequently developed a mild CHF, with normalization of her EF by last ECHO in 2018. Her other history includes Anemia of Chronic Disease, anxiety, HTN, GERD, and chronic back pain. She has a remote history of tobacco use. The patient reports onset of subjective fevers, along with generalized aches and pains approximately 3-4 days ago, along with subjective fatigue. Her daughter and son both reported her to be slightly confused as well. She also suffered a fall on the night prior to her admission, subjectively due to weakness. She was initially found to be febrile by EMS, and brought to the ED for further evaluation. Work-up in the ED was significant for hypokalemia, hypomagnesemia, mild hyponatremia, and elevated PH at 7.5. The remainder of her labs were essentially unremarkable, with normal LFTs, Lactate, Troponin, TSH, and essentially negative urinalysis. Her BNP was 1904 and u nchanged from prior values (ranging between 297 and 5096). Her corrected calcium was normal as well. Imaging with CXR showed evidence of a RML mass, confirmed with CT Chest - interpreted as mass vs. consolidation. CT of the head was verbally reported as negative as well. She was referred for admission for further evaluation and treatment. Of note Mrs. aJy reports intermittent night sweats over the last year, without any significant weight loss. Her daughter reports a recent cough, and onset of fatigue and intermittent fevers this past summer. This morning the patient reports essentially unchanged symptoms, perhaps mildly improved but not back to baseline. She continues to appear fatigued. No other events reported. She was febrile yesterday afternoon, and again this morning despite broadening of antibiotic therapy. Exam Narrative Exam Narrative: General: Patient is mildly ill appearing but not toxic, AAOX3, NAD Neck: Supple CV: Regular, nontachycardic, S1S2, No rubs, murmurs, or gallops. Pulmonary: Clear to auscultation bilaterally, no crackles, wheezing, or rhonchi Abdomen: + Bowel Sounds, soft, nontender, nondistended Vascular: No lower extremity edema Psych: Normal mood and affect. Objective Objective Clinical Data: Abnormal lab results 07/15/19 07/15/19 07/15/19 Range/Units 06:48 06:48 06:48 RBC 2.98 L (4.00-5.20) m/cumm Hgb 9.1 L (12.0-15.5) g/dL Hct 28.5 L (36.0-46.0) % MCV 95.6 H (80-95) fL MCHC 31.9 L (32.0-36.0) g/dL RDW 15.4 H (11.7-14.6) % Absolute Lymphocytes 0.49 L (1.2-3.4) k/cumm Absolute Monocytes 0.87 H (0.11-0.7) k/cumm Glucose 106 H (70-100) mg/dL Calcium 7.3 L (8.5-10.1) mg/dL Magnesium 1.4 L (1.8-2.4) mg/dL Iron 24 L (50-175) ug/dL TIBC 147 L (250-450) ug/dL Ferritin > 1000 H (8-388) ng/mL Vital Signs Temperature 38.3 C H 07/15/19 09:13 Temperature Source Tympanic 07/15/19 08:05 Pulse 83 07/15/19 08:05 Pulse Rhythm Regular 07/15/19 02:40 Pulse 76 07/13/19 13:20 Respiratory Rate 16 07/15/19 08:05 Respiratory Effort Non-Labored 07/15/19 02:40 Respiratory Depth Shallow 07/15/19 02:40 Respiratory Pattern Normal 07/15/19 02:40 Blood Pressure 131/73 07/15/19 08:05 Blood Pressure Mean 62 07/13/19 13:18 Blood Pressure Position Sitting 07/13/19 10:00 Pulse Oximetry 97 07/15/19 08:05 Oxygen Delivery Method Room Air 07/15/19 08:05 Oxygen Flow Rate 0 07/15/19 08:05 Pain Level 4 07/15/19 08:05 Comment 07/13/19 10:00 Intake & Output 07/14/19 07/15/19 07/15/19 23:59 11:59 23:59 Intake Total 2182.083 / 4923.750 1457.917 / 1457.917 Output Total 1800 / 2850 1300 / 1900 600 / 1900 Balance 382.083 / 2073.750 157.917 / -442.083 -600 / -442.083 Intake: IV 1702.083 / 3343.750 1097.917 / 1097.917 Oral 480 / 1580 360 / 360 Output: Urine 1800 / 2850 1300 / 1900 600 / 1900 Other: Urine Color Light [place] Yellow Yellow Urine Appearance Clear Clear Clear Urine Odor None Normal Normal Stool Size Large Copious Stool Characteristics Formed Soft Black Voiding Methods Toilet Toilet Toilet Laboratory Results WBC 4.49 k/cumm (4.4-10.8) 07/15/19 06:48 RBC 2.98 m/cumm (4.00-5.20) L 07/15/19 06:48 Hgb 9.1 g/dL (12.0-15.5) L 07/15/19 06:48 Hct 28.5 % (36.0-46.0) L 07/15/19 06:48 MCV 95.6 fL (80-95) H 07/15/19 06:48 MCH 30.5 pg (27.0-33.0) 07/15/19 06:48 MCHC 31.9 g/dL (32.0-36.0) L 07/15/19 06:48 RDW 15.4 % (11.7-14.6) H 07/15/19 06:48 Plt Count 133 x1000/uL (130-400) 07/15/19 06:48 MPV 9.0 fL (8.0-11.0) 07/15/19 06:48 Immature Gran % 0.4 07/15/19 06:48 Neutrophils % 68.9 07/15/19 06:48 Lymphocytes % 10.9 07/15/19 06:48 Monocytes % 19.4 07/15/19 06:48 Eosinophils % 0.4 07/15/19 06:48 Basophils % 0.0 07/15/19 06:48 Absolute Neutrophils 3.09 k/cumm (1.2-6.7) 07/15/19 06:48 Absolute Lymphocytes 0.49 k/cumm (1.2-3.4) L 07/15/19 06:48 Absolute Monocytes 0.87 k/cumm (0.11-0.7) H 07/15/19 06:48 Absolute Eosinophils 0.02 k/cumm (0.0-0.7) 07/15/19 06:48 Absolute Basophils 0.00 k/cumm (0.0-0.2) 07/15/19 06:48 Differential Comment Manual differential 07/14/19 06:35 RBC Morphology See below 07/14/19 06:35 Polychromasia Present 07/13/19 10:15 Hypochromasia 1+ 07/14/19 06:35 Anisocytosis 1+ 07/14/19 06:35 Microcytosis 1+ 07/14/19 06:35 Ovalocytes 2+ 07/14/19 06:35 PT 11.4 sec (9.3-11.0) H 07/13/19 10:15 INR 1.1 (0.9-1.1) 07/13/19 10:15 APTT 33.2 sec (21.0-31.4) H 07/13/19 10:15 VBG pH 7.51 (7.32-7.43) H 07/13/19 10:15 VBG pCO2 41 mm/Hg (34-47) 07/13/19 10:15 VBG pO2 52 mm/Hg (28-44) H 07/13/19 10:15 VBG HCO3 33 mmol/L (22-28) H 07/13/19 10:15 VBG Total CO2 30 mmol/L (22-29) H 07/13/19 10:15 VBG O2 Saturation 88 % (70-80) H 07/13/19 10:15 VBG Base Excess 9.6 mmol/L (-3-3) H 07/13/19 10:15 Sodium 139 mmol/L (136-145) 07/15/19 06:48 Potassium 4.2 mmol/L (3.5-5.1) D 07/15/19 06:48 Chloride 105 mmol/L (98-107) 07/15/19 06:48 Carbon Dioxide 26.7 mmol/L (21.0-32.0) 07/15/19 06:48 Anion Gap 7.3 mmol/L (3-11) 07/15/19 06:48 BUN 9 mg/dL (7-18) 07/15/19 06:48 Creatinine 0.91 mg/dL (0.55-1.02) 07/15/19 06:48 Estimated GFR/1.73 m2 >= 60.00 (mL/min/1.73m2) 07/15/19 06:48 Glucose 106 mg/dL (70-100) H 07/15/19 06:48 Lactate 0.7 mmol/L (0.6-1.4) 07/13/19 10:15 Calcium 7.3 mg/dL (8.5-10.1) L 07/15/19 06:48 Magnesium 1.4 mg/dL (1.8-2.4) L 07/15/19 06:48 Iron 24 ug/dL (50-175) L 07/15/19 06:48 TIBC 147 ug/dL (250-450) L 07/15/19 06:48 Transferrin % Sat 16 % (15-50) 07/15/19 06:48 Ferritin > 1000 ng/mL (8-388) H 07/15/19 06:48 Total Bilirubin 0.8 mg/dL (0.2-1.0) 07/13/19 10:15 AST 26 U/L (15-37) 07/13/19 10:15 ALT 29 U/L (14-59) 07/13/19 10:15 Alkaline Phosphatase 58 U/L (46-116) 07/13/19 10:15 Ammonia 22 umol/L (11-32) 07/13/19 10:15 Troponin I < 0.05 ng/mL (0.00-0.06) 07/13/19 10:15 NT-Pro-B Natriuret Pep 1904 pg/mL (-299) H 07/13/19 10:15 Total Protein 6.3 g/dL (6.4-8.2) L 07/13/19 10:15 Albumin 2.9 g/dL (3.4-5.0) L 07/13/19 10:15 Vitamin B12 795 pg/mL (193-986) 07/15/19 06:48 Folate 13.7 ng/mL (8.6-20.0) 07/15/19 06:48 TSH 2.08 uIU/mL (0.36-3.74) 07/13/19 10:15 Urine Color Yellow (Yellow) 07/13/19 12:40 Urine Clarity Clear (Clear) 07/13/19 12:40 Urine pH 7.0 (5-8) 07/13/19 12:40 Ur Specific [place] 1.020 (1.005-1.025) 07/13/19 12:40 Urine Protein 30 mg/dL (Negative) H 07/13/19 12:40 Urine Ketones Negative mg/dL (Negative) 07/13/19 12:40 Urine Blood Small (Negative) H 07/13/19 12:40 Urine Nitrite Negative (Negative) 07/13/19 12:40 Urine Bilirubin Negative (Negative) 07/13/19 12:40 Urine Urobilinogen 0.2 EU/dL (Up TO 0.2) 07/13/19 12:40 Ur Leukocyte Esterase Trace (Negative) H 07/13/19 12:40 Urine RBC 5-10 (0-2) H 07/13/19 12:40 Urine WBC 3-5 HPF (0-5) 07/13/19 12:40 Ur Epithelial Cells Moderate HPF (Negative) 07/13/19 12:40 Urine Crystals Negative HPF (Negative) 07/13/19 12:40 Urine Bacteria Rare HPF (Negative) 07/13/19 12:40 Urine Casts Negative LPF (Negative) 07/13/19 12:40 Urine Mucus Trace (Negative) 07/13/19 12:40 Ur Culture Indicated? No/sq. contamination 07/13/19 12:40 Urine Glucose Negative mg/dL (Negative) 07/13/19 12:40 Salicylates < 2.8 mg/dL (2.8-20.0) L 07/13/19 10:15 Acetaminophen < 2 ug/mL (10-30) L 07/13/19 10:15
--- NOTE | 2019-07-15 14:45 | CHAPLAIN ---
Amara was sitting up in a chair and her nurse was restarting IV that had begun to leak. She has had family members visiting through out the day and her is with her now. Amara is an active member of the 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 She was hoping to be discharged yesterday, but is patiently waiting to learn what the plan is.
--- NOTE | 2019-07-15 18:01 | PDOC.CMPRO ---
- If Service Date Differs Date of service: 07/15/19 Time of Service: 18:01 Care Management Progress Note S/O: Amara is in the room today her family is present and supportive. No changes in status today she continues to receive IV abx. A: Amara is a 68 year old female admitted with fever and AMS P:Amara is currently receiving IV abx, and continued cardiac monitoring. She will be discharged home with no additional services and follow up with primary care. She will need close follow up with primary and pulmonary. CM left a voicemail for CCC at [facility] for continued follow up after discharge.
[2019-07-15] MEDS: Hydroxychloroquine 200 MG TAB PO (20:46)
[2019-07-15] MEDS: Atorvastatin 40 MG TAB PO (20:46)
[2019-07-16 04:10] VITALS: TEMP 36.8
[2019-07-16] MEDS: Normal Saline 1,000 ML 125 ML IV (04:47)
[2019-07-16] MEDS: Acetaminophen 325 MG TAB PO ×2 (05:49→21:32)
[2019-07-16] MEDS: CEFEPIME 2 GM in Normal Saline 100 ML IVPB ×2 (05:51→17:03)
[2019-07-16 07:50] VITALS: BP 104/61; PULSE 78; RESP 17; TEMP 36.7; O2SAT 97
[2019-07-16 08:08] LABS: Abs Immature Grans 0.03 k/cumm (0.0-0.09); HCT 25.2 % (36.0-46.0); Mean Corp. HGB Concentration 31.7 g/dL (32.0-36.0); Mean Corpuscular Hemoglobin 30.3 pg (27.0-33.0); Mean Corpuscular Volume 95.5 fL (80-95); RBC 2.64 m/cumm (4.00-5.20); RBC Distribution Width 15.5 % (11.7-14.6); White Blood Cell Count 5.18 k/cumm (4.4-10.8)
[2019-07-16] MEDS: Cholecalciferol (Vitamin D3) 1,000 UNIT TAB 2000 UNITS PO (08:10)
[2019-07-16] MEDS: Clopidogrel 75 MG TAB PO (08:10)
[2019-07-16] MEDS: Normal Saline Flush 10 ML SYR IVP ×2 (08:10→20:54)
[2019-07-16] MEDS: Metoprolol CR 25 MG TABCR PO (08:10)
[2019-07-16] MEDS: Aspirin E.C. 81 MG TABEC PO (08:10)
[2019-07-16] MEDS: Folic Acid 1 MG TAB PO (08:11)
[2019-07-16] MEDS: Magnesium Oxide 400 MG TAB PO (08:11)
[2019-07-16] MEDS: Hydroxychloroquine 200 MG TAB PO ×2 (08:11→20:54)
[2019-07-16] MEDS: Omeprazole 20 MG CAPCR 40 MG PO (08:11)
[2019-07-16 08:20] LABS: Anion Gap 8.6 mmol/L (3-11); BUN 8 mg/dL (7-18); CO2 23.4 mmol/L (21.0-32.0); Calcium 6.8 mg/dL (8.5-10.1); Chloride 108 mmol/L (98-107); Glucose 108 mg/dL (70-100); Magnesium 1.8 mg/dL (1.8-2.4); Potassium 3.5 mmol/L (3.5-5.1); Sodium 140 mmol/L (136-145); Vancomycin, Trough 19.3 ug/mL (10.0-20.0)
[2019-07-16 08:35] LABS: Absolute Neutrophil Count 3.73 k/cumm (1.2-6.7)
[2019-07-16 08:36] LABS: Absolute Eosinophil Count 0.05 k/cumm (0.0-0.7); Absolute Lymphocyte Count 0.41 k/cumm (1.2-3.4); Absolute Monocyte Count 0.93 k/cumm (0.11-0.7); Anisocytosis 1+; Atypical Lymphocytes % 1; Diff Comment Manual Differential; Platelet Count 150 x1000/uL (130-400); Poikilocytes 1+; Polychromasia Present
--- NOTE | 2019-07-16 10:01 | PT.INTREAT ---
Date of service: 07/16/19 Time of Service: 10:01 PT Notes 07/16/19 SUBJECTIVE: Amara stating she feels good today. She is awaiting test results. OBJECTIVE: Standing and washing her hands when I enter her room. She is agreeable to PT treatment. TRANSFERS Sit to stand: S Stand to sit: S GAIT Device: No AD Weight bearing: Full Assist: CGA Distance: 100' Deviation: Increase fatigue with distance THEREX: Seated LE strengthening including marching and LAQ. Encouraged pt to complete these throughout her day to avoid stiffness and continues weakness. ASSESSMENT: Tolerated PT well. She gets very fatigued with 100' of ambulation and has increased unsteadiness with increase in distance. She would benefit from continued gait training and strengthening to improve functional mobility. PLAN: Continue current POC progressing toward's established goals. Treatment time: Belem Adrian PTA Clinic location: [facility] [place], [place]
[2019-07-16 11:21] LABS: ALT 23 U/L (14-59); AST 24 U/L (15-37); Albumin 2.1 g/dL (3.4-5.0); Alkaline Phosphatase 49 U/L (46-116); Bilirubin, Direct 0.12 mg/dL (0.00-0.20); Bilirubin, Total 0.4 mg/dL (0.2-1.0)
[2019-07-16 12:36] LABS: HCT 28.7 % (36.0-46.0); HGB 9.3 g/dL (12.0-15.5)
[2019-07-16] MEDS: Enoxaparin 40 MG/0.4 ML SYR SC (13:32)
--- NOTE | 2019-07-16 13:58 | W.PM.PROGNOT ---
Date of Service Date of service: 07/16/19 Time of Service: 13:58 Assessment and Plan Assessment and plan (1) Fever: Status: Acute Assessment and plan: Due to post-obstructive pneumonia vs tumor fevers. The patient states she is improving with current therapy. Will repeat CXR in am, continue current abx for now. If CXR is showing improvement, then we can make an argument for completing IV antibiotics here. I explained to the family that the patient may require more than 5 days of antibiotics. If there is no improvement on CXR, this is likely tumor fever. The patient should then be discharged home with follow up with pulmonlogy. (2) Lung mass: Status: Acute Assessment and plan: malignancy vs. infection vs both (i.e. postobstructive pneumonia in light of a mass). - on Abatacept as outpatient, making both a possibility. - clinically improving on Vancomycin and Cefepime - Repeat CXR tomorrow. - referral sent to Pulmonary at [facility] [place] (3) Fatigue: Status: Acute Assessment and plan: Plan as above. (4) Rheumatoid arthritis: Status: Chronic Assessment and plan: Hold Methotrexate in setting of potential infection. Hydroxychloroquine restarted. Holding Abatacept. (5) Anemia in chronic illness: Status: Acute Assessment and plan: Awaiting hemoccult. Repeat H/H today is better than this morning (?hemodilution). No gross bleeding observed. Continue to monitor. (6) CAD (coronary artery disease): Status: Chronic Assessment and plan: s/p STEMI with LAD lesion/stents X2. Continue ASA, statin, and BB. EKG non-ischemic and Troponin undetectable. (7) GERD (gastroesophageal reflux disease): Status: Chronic Assessment and plan: Continue PPI therapy. (8) Hypertension: Status: Chronic Assessment and plan: On BB therapy. Continue to hold thiazide while hydrating patient (9) DVT prophylaxis: Status: Acute Assessment and plan: SC Enoxaparin. SCDs in place (10) Advance directive on file: Status: Acute Assessment and plan: DNR/DNI per conversation at time of admission. Subjective Subjective Interval history since last seen: The patient states she feels a lot better today - today is her best day yet. Denies dizziness, chest pain, shortness of breath, nausea, vomiting. Her family had a lot of questions for me - specifically, about the length of treatment and post-hospital appointment with sawmill moulder operator. I explained that we will repeat a CXR tomorrow - if it is showing improvement, then it is worth to complete the antibiotics in the hospital, even if it takes longer than 5 days to resolve the infection. If there is no improvement, then we can talk about the fevers being simply tumor fevers and discharge home tomorrow with close follow up with pulmonology. Exam Narrative Exam Narrative: General: very pleasant elderly female, pale, A&Ox3, but appears to sometimes be searching for words, sitting up comfortably in bed HEENT: EOMI, MMM Heart: RRR, no m/r/g Lungs: CTAB - however, diminished at B bases. GI: abdomen is soft, nontender, nondistended Extremities: no e/c/c BLE's, B feet are cool, I am unable to palpate a pedal pulse in LLE, there is a trace pedal pulse in RLE. Objective Objective Clinical Data: Abnormal lab results 07/16/19 07/16/19 07/16/19 Range/Units 07:50 07:50 12:15 RBC 2.64 L (4.00-5.20) m/cumm Hgb 8.0 L 9.3 L (12.0-15.5) g/dL Hct 25.2 L 28.7 L (36.0-46.0) % MCV 95.5 H (80-95) fL MCHC 31.7 L (32.0-36.0) g/dL RDW 15.5 H (11.7-14.6) % Absolute Lymphocytes 0.41 L (1.2-3.4) k/cumm Absolute Monocytes 0.93 H (0.11-0.7) k/cumm Chloride 108 H (98-107) mmol/L Glucose 108 H (70-100) mg/dL Calcium 6.8 L (8.5-10.1) mg/dL Total Protein 5.0 L (6.4-8.2) g/dL Albumin 2.1 L (3.4-5.0) g/dL Vital Signs Temperature 36.7 C 07/16/19 07:50 Temperature Source Tympanic 07/16/19 07:50 Pulse 78 07/16/19 07:50 Pulse Rhythm Regular 07/16/19 08:10 Pulse 76 07/13/19 13:20 Respiratory Rate 17 07/16/19 07:50 Respiratory Effort 07/16/19 08:10 Respiratory Depth Normal 07/16/19 08:10 Respiratory Pattern Normal 07/16/19 08:10 Blood Pressure 104/61 07/16/19 07:50 Blood Pressure Mean 62 07/13/19 13:18 Blood Pressure Position Sitting 07/13/19 10:00 Pulse Oximetry 97 07/16/19 07:50 Oxygen Delivery Method Room Air 07/16/19 07:50 Oxygen Flow Rate 0 07/16/19 07:50 Pain Level 0 07/16/19 08:10 Comment 07/13/19 10:00 Intake & Output 07/15/19 07/16/19 07/16/19 23:59 11:59 23:59 Intake Total 2330 / 4037.917 1470 / 2470 1000 / 2470 Output Total 1900 / 3200 2400 / 2400 Balance 430 / 837.917 -930 / 70 1000 / 70 Intake: IV 1350 / 2697.917 1100 / 2100 1000 / 2100 Oral 980 / 1340 370 / 370 Output: Urine 1900 / 3200 2400 / 2400 Other: Urine Color Yellow Yellow Urine Appearance Clear Clear Urine Odor Foul None Voiding Methods Toilet Toilet Laboratory Results WBC 5.18 k/cumm (4.4-10.8) 07/16/19 07:50 RBC 2.64 m/cumm (4.00-5.20) L 07/16/19 07:50 Hgb 9.3 g/dL (12.0-15.5) L 07/16/19 12:15 Hct 28.7 % (36.0-46.0) L 07/16/19 12:15 MCV 95.5 fL (80-95) H 07/16/19 07:50 MCH 30.3 pg (27.0-33.0) 07/16/19 07:50 MCHC 31.7 g/dL (32.0-36.0) L 07/16/19 07:50 RDW 15.5 % (11.7-14.6) H 07/16/19 07:50 Plt Count 150 x1000/uL (130-400) 07/16/19 07:50 MPV 9.0 fL (8.0-11.0) 07/16/19 07:50 Immature Gran % See Differential 07/16/19 07:50 Neutrophils % 72.0 07/16/19 07:50 Lymphocytes % 7.0 07/16/19 07:50 Atypical Lymphs % 1 07/16/19 07:50 Monocytes % 18.0 07/16/19 07:50 Eosinophils % 1.0 07/16/19 07:50 Basophils % 0.0 07/16/19 07:50 Metamyelocytes % 1.0 % 07/16/19 07:50 Absolute Neutrophils 3.73 k/cumm (1.2-6.7) 07/16/19 07:50 Absolute Lymphocytes 0.41 k/cumm (1.2-3.4) L 07/16/19 07:50 Absolute Monocytes 0.93 k/cumm (0.11-0.7) H 07/16/19 07:50 Absolute Eosinophils 0.05 k/cumm (0.0-0.7) 07/16/19 07:50 Absolute Basophils 0.00 k/cumm (0.0-0.2) 07/16/19 07:50 Differential Comment Manual differential 07/16/19 07:50 RBC Morphology See below 07/16/19 07:50 Polychromasia Present 07/16/19 07:50 Hypochromasia 1+ 07/14/19 06:35 Poikilocytosis 1+ 07/16/19 07:50 Anisocytosis 1+ 07/16/19 07:50 Microcytosis 1+ 07/14/19 06:35 Ovalocytes 2+ 07/14/19 06:35 PT 11.4 sec (9.3-11.0) H 07/13/19 10:15 INR 1.1 (0.9-1.1) 07/13/19 10:15 APTT 33.2 sec (21.0-31.4) H 07/13/19 10:15 VBG pH 7.51 (7.32-7.43) H 07/13/19 10:15 VBG pCO2 41 mm/Hg (34-47) 07/13/19 10:15 VBG pO2 52 mm/Hg (28-44) H 07/13/19 10:15 VBG HCO3 33 mmol/L (22-28) H 07/13/19 10:15 VBG Total CO2 30 mmol/L (22-29) H 07/13/19 10:15 VBG O2 Saturation 88 % (70-80) H 07/13/19 10:15 VBG Base Excess 9.6 mmol/L (-3-3) H 07/13/19 10:15 Sodium 140 mmol/L (136-145) 07/16/19 07:50 Potassium 3.5 mmol/L (3.5-5.1) 07/16/19 07:50 Chloride 108 mmol/L (98-107) H 07/16/19 07:50 Carbon Dioxide 23.4 mmol/L (21.0-32.0) 07/16/19 07:50 Anion Gap 8.6 mmol/L (3-11) 07/16/19 07:50 BUN 8 mg/dL (7-18) 07/16/19 07:50 Creatinine 0.80 mg/dL (0.55-1.02) 07/16/19 07:50 Estimated GFR/1.73 m2 >= 60.00 (mL/min/1.73m2) 07/16/19 07:50 Glucose 108 mg/dL (70-100) H 07/16/19 07:50 Lactate 0.7 mmol/L (0.6-1.4) 07/13/19 10:15 Calcium 6.8 mg/dL (8.5-10.1) L 07/16/19 07:50 Magnesium 1.8 mg/dL (1.8-2.4) 07/16/19 07:50 Iron 24 ug/dL (50-175) L 07/15/19 06:48 TIBC 147 ug/dL (250-450) L 07/15/19 06:48 Transferrin % Sat 16 % (15-50) 07/15/19 06:48 Ferritin > 1000 ng/mL (8-388) H 07/15/19 06:48 Total Bilirubin 0.4 mg/dL (0.2-1.0) 07/16/19 07:50 Conjugated Bilirubin 0.12 mg/dL (0.00-0.20) 07/16/19 07:50 AST 24 U/L (15-37) 07/16/19 07:50 ALT 23 U/L (14-59) 07/16/19 07:50 Alkaline Phosphatase 49 U/L (46-116) 07/16/19 07:50 Ammonia 22 umol/L (11-32) 07/13/19 10:15 Troponin I < 0.05 ng/mL (0.00-0.06) 07/13/19 10:15 NT-Pro-B Natriuret Pep 1904 pg/mL (-299) H 07/13/19 10:15 Total Protein 5.0 g/dL (6.4-8.2) L 07/16/19 07:50 Albumin 2.1 g/dL (3.4-5.0) L 07/16/19 07:50 Vitamin B12 795 pg/mL (193-986) 07/15/19 06:48 Folate 13.7 ng/mL (8.6-20.0) 07/15/19 06:48 TSH 2.08 uIU/mL (0.36-3.74) 07/13/19 10:15 Urine Color Yellow (Yellow) 07/13/19 12:40 Urine Clarity Clear (Clear) 07/13/19 12:40 Urine pH 7.0 (5-8) 07/13/19 12:40 Ur Specific [place] 1.020 (1.005-1.025) 07/13/19 12:40 Urine Protein 30 mg/dL (Negative) H 07/13/19 12:40 Urine Ketones Negative mg/dL (Negative) 07/13/19 12:40 Urine Blood Small (Negative) H 07/13/19 12:40 Urine Nitrite Negative (Negative) 07/13/19 12:40 Urine Bilirubin Negative (Negative) 07/13/19 12:40 Urine Urobilinogen 0.2 EU/dL (Up TO 0.2) 07/13/19 12:40 Ur Leukocyte Esterase Trace (Negative) H 07/13/19 12:40 Urine RBC 5-10 (0-2) H 07/13/19 12:40 Urine WBC 3-5 HPF (0-5) 07/13/19 12:40 Ur Epithelial Cells Moderate HPF (Negative) 07/13/19 12:40 Urine Crystals Negative HPF (Negative) 07/13/19 12:40 Urine Bacteria Rare HPF (Negative) 07/13/19 12:40 Urine Casts Negative LPF (Negative) 07/13/19 12:40 Urine Mucus Trace (Negative) 07/13/19 12:40 Ur Culture Indicated? No/sq. contamination 07/13/19 12:40 Urine Glucose Negative mg/dL (Negative) 07/13/19 12:40 Vancomycin Trough 19.3 ug/mL (10.0-20.0) 07/16/19 07:50 Salicylates < 2.8 mg/dL (2.8-20.0) L 07/13/19 10:15 Acetaminophen < 2 ug/mL (10-30) L 07/13/19 10:15
--- NOTE | 2019-07-16 15:42 | PDOC.CMPRO ---
- If Service Date Differs Date of service: 07/16/19 Time of Service: 15:42 Care Management Progress Note S/O: Amara was sitting up in bed with her family in attendance when CM came to visit. Her family is very attentive and supportive. No changes in status today. She continues to receive IV antibiotics. A repeat chest Xray is planned for tomorrow and further care decisions will be based on the results. A: Amara is a 68 year old female admitted with fever and AMS P: Amara is currently receiving IV antibiotics and continued cardiac monitoring. She will be discharged home with no additional services. She will need close follow up with PCP and pulmonary. CM will continue to provide support to patient, family and discharge planning needs.
[2019-07-16 16:23] VITALS: BP 130/68; PULSE 88; RESP 18; TEMP 38.6; O2SAT 97
[2019-07-16] MEDS: Atorvastatin 40 MG TAB PO (20:54)
[2019-07-16 21:00] VITALS: BP 137/69; PULSE 90; RESP 18; TEMP 37.8; O2SAT 94
[2019-07-16] MEDS: Calcium Carbonate 1.25 GM TAB PO (21:30)
[2019-07-16 23:43] VITALS: BP 124/65; PULSE 81; RESP 19; TEMP 36; O2SAT 94
[2019-07-17 04:32] VITALS: BP 127/71; PULSE 71; RESP 18; TEMP 36.4; O2SAT 96
[2019-07-17] MEDS: CEFEPIME 2 GM in Normal Saline 100 ML IVPB (06:04)
[2019-07-17] MEDS: Normal Saline 1,000 ML 75 ML IV (06:06)
[2019-07-17 07:49] LABS: HCT 27.9 % (36.0-46.0); Mean Corp. HGB Concentration 32.3 g/dL (32.0-36.0); Mean Corpuscular Hemoglobin 30.7 pg (27.0-33.0); Mean Corpuscular Volume 95.2 fL (80-95); Mean Platelet Volume 9.4 fL (8.0-11.0); Platelet Count 195 x1000/uL (130-400); RBC 2.93 m/cumm (4.00-5.20); RBC Distribution Width 15.5 % (11.7-14.6); White Blood Cell Count 6.04 k/cumm (4.4-10.8)
--- NOTE | 2019-07-17 07:53 | DI.RAD_ITS ---
EXAM: XR PORTABLE CHEST AP INDICATION: follow up PNA vs mass. COMPARISON: XR CHEST 2V PA LATERAL from 07/13/2019 TECHNIQUE: 2D digital imaging was performed. FINDINGS: The portable examination of the chest reveals increased prominence of a region of infiltration or mas s involving the right middle lobe. The remainder of the lung is unremarkable. There is no pleural eff usion.
[2019-07-17 08:01] LABS: Anion Gap 8.1 mmol/L (3-11); BUN 8 mg/dL (7-18); CO2 24.9 mmol/L (21.0-32.0); CREATININE 0.79 mg/dL (0.55-1.02); Calcium 7.6 mg/dL (8.5-10.1); Chloride 110 mmol/L (98-107); Glucose 87 mg/dL (70-100); Magnesium 1.9 mg/dL (1.8-2.4); Potassium 3.3 mmol/L (3.5-5.1); Sodium 143 mmol/L (136-145)
--- NOTE | 2019-07-17 08:08 | DI.VRAD_ITS ---
PROCEDURE INFORMATION: Exam: XR Chest, 1 View Exam date and time: 07/17/2019 12:01 AM Clinical history: 68 years old, female; Other: Follow up pna vs mass TECHNIQUE: Imaging protocol: XR of the chest Views: 1 view. COMPARISON: CR XR CHEST 2V PA LATERAL 07/13/2019 12:23 PM FINDINGS: Lungs: Worsening opacity at the right lung base compatible with worsening pneumonia. Nonspecific diffuse mild interstitial prominence Pleural space: Unremarkable. No pleural effusion. No pneumothorax. Heart/Mediastinum: Unremarkable. No cardiomegaly. Bones/joints: Unremarkable. IMPRESSION: Worsening opacity at the right lung base compatible with worsening pneumonia. Dictated and Authenticated by: Aiden العلي MD. Ordering:EMILY Leon MD
[2019-07-17 08:21] LABS: Absolute Basophil Count 0.06 k/cumm (0.0-0.2); Absolute Eosinophil Count 0.18 k/cumm (0.0-0.7); Absolute Lymphocyte Count 0.79 k/cumm (1.2-3.4); Absolute Monocyte Count 1.45 k/cumm (0.11-0.7); Absolute Neutrophil Count 3.56 k/cumm (1.2-6.7); Atypical Lymphocytes % 5
[2019-07-17 08:22] LABS: Anisocytosis 1+; Diff Comment Manual Differential; Poikilocytes 1+; Polychromasia Present
[2019-07-17 08:50] VITALS: BP 137/66; PULSE 80; RESP 18; TEMP 37.1; O2SAT 98
[2019-07-17] MEDS: Folic Acid 1 MG TAB PO (08:54)
[2019-07-17] MEDS: Normal Saline Flush 10 ML SYR IVP ×3 (08:54→20:57)
[2019-07-17] MEDS: Omeprazole 20 MG CAPCR 40 MG PO (08:54)
[2019-07-17] MEDS: Cholecalciferol (Vitamin D3) 1,000 UNIT TAB 2000 UNITS PO (08:54)
[2019-07-17] MEDS: Hydroxychloroquine 200 MG TAB PO ×2 (08:55→20:58)
[2019-07-17] MEDS: Aspirin E.C. 81 MG TABEC PO (08:55)
[2019-07-17] MEDS: Clopidogrel 75 MG TAB PO (08:55)
[2019-07-17] MEDS: Magnesium Oxide 400 MG TAB PO (08:55)
[2019-07-17] MEDS: Metoprolol CR 25 MG TABCR PO (08:55)
--- NOTE | 2019-07-17 09:59 | PT.INTREAT ---
Date of service: 07/17/19 Time of Service: 09:59 PT Notes 07/17/19 SUBJECTIVE: Amara stating she is a little tired today as she did not sleep well last night. OBJECTIVE: Pt up washing her hands when I enter room. Agreeable to PT. TRANSFERS Sit to stand: S Stand to sit: S GAIT Device: No AD Weight bearing: Full Assist: CGA Distance: 100'x2 with sit rest break Deviation: Reaches for wall and objects in the oakes when she gets tired. ASSESSMENT: Pt able to increase her gait distance today although continues to get fatigued with increased distance. No LOB specifically but she grabs for objects in the oakes for support and utilizes the wall when she can. She does not want to utilize assistive device at this point. PLAN: Continue current POC progressing toward's established goals. Treatment time: 15 minutes [id number] [address] PTA Clinic location: [facility] [place], [place]
[2019-07-17] MEDS: Calcium Carbonate 1.25 GM TAB PO ×2 (10:17→20:59)
--- NOTE | 2019-07-17 11:11 | CMPROGNOTE_ITS ---
- If Service Date Differs Date of service: 07/17/19 Time of Service: 11:11 Care Management Progress Note S/O: Amara was sitting up in a chair talking with her when CM met with her. She was pleasant and smiling and readily engaged. She stated that she is anxious to find out whether or not she is being discharged. She understood that if the antibiotics weren't helping and the pneumonia wasn't better that she would go home to follow up with [facility] Pulmonology for further workup of her fever and pulmonary findings.Her shared that while the fevers have been recurring for about the past year, this time it was different. He stated that she had not become confused before. She has arthritis and sometimes gets febrile with flares they said. They were assured that Dr. Madrigal would be in shortly and would address their concerns and answer their questions. Amara does not anticipate the need for additional services at discharge. A: Amara is a 68 year old female admitted with fever and AMS P: Amara is currently receiving IV antibiotics and continued cardiac monitoring. She will be discharged home with no additional services. She will need close follow up with PCP and pulmonary. CM will continue to provide support to patient, family and discharge planning needs.
[2019-07-17] MEDS: levoFLOXacin 500 MG/100 ML BAG 100 MG IVPB (12:27)
[2019-07-17] MEDS: Potassium Chloride 20 MEQ TABCR 40 MEQ PO (12:27)
[2019-07-17] MEDS: Enoxaparin 40 MG/0.4 ML SYR SC (14:17)
[2019-07-17 16:05] VITALS: BP 131/67; PULSE 82; RESP 18; TEMP 37.1; O2SAT 99
[2019-07-17] MEDS: AMPICILLIN/SULBACTAM 3 GM in Normal Saline 100 ML IVPB (17:55)
--- NOTE | 2019-07-17 18:47 | PGE_ITS ---
Date of Service Date of service: 07/17/19 Time of Service: 16:00 Assessment and Plan Assessment and plan (1) Fever: Status: Acute Assessment and plan: Due to post-obstructive pneumonia vs tumor fevers. Actually, today, none have been recorded so far. The patient states she is improving with current therapy. Her CXR, however, is showing a worsening infiltrated. Read discussion above re suspicion for aspergillosis, nocardia, histo/blastomycosis. Patient is planned for transfer to [facility] tomorrow for a bronchoscopy. She is expected to remain there for ongoing therapy. (2) Lung mass: Status: Acute Assessment and plan: As above (3) Fatigue: Status: Acute Assessment and plan: Plan as above. (4) Rheumatoid arthritis: Status: Chronic Assessment and plan: Hold Methotrexate in setting of potential infection. Hydroxychloroquine ok, per [facility] pulmonary. Holding Abatacept. (5) Anemia in chronic illness: Status: Acute Assessment and plan: Awaiting hemoccult. Repeat H/H today is better than this morning (?hemodilution). No gross bleeding observed. Continue to monitor. (6) CAD (coronary artery disease): Status: Chronic Assessment and plan: s/p STEMI with LAD lesion/stents X2. Continue ASA, statin, and BB. Hold plavix in anticipation of procedure tomorrow. EKG non- ischemic and Troponin undetectable. No ACS on this admission. (7) GERD (gastroesophageal reflux disease): Status: Chronic Assessment and plan: Continue PPI therapy. (8) Hypertension: Status: Chronic Assessment and plan: On BB therapy. Continue to hold thiazide. D/c IVF. (9) DVT prophylaxis: Status: Acute Assessment and plan: SC Enoxaparin. SCDs in place (10) Advance directive on file: Status: Acute Assessment and plan: DNR/DNI per conversation at time of admission. Planned for transfer to [facility] tomorrow for bronchoscopy/ongoing care. Subjective Subjective Interval history since last seen: Ms Jay states that she actually feels better today. She states she is coughing less, cough is nonproductive. Denies dizziness, chest pain, shortness of breath, nausea. She is tired. Her imaging and case were discussed with [facility] pulmonology - the pulmonology service feels that the appearance of the infiltrate could represent aspergillosis/fungus ball or nocardia or a lung abscess. It could be malignancy as well. It is felt that the patient would benefit from bronchoscopy and transfer to [facility] for continued care, which is expected to happen tomorrow. [facility] will contact us with the name of accepting MD. Exam Narrative Exam Narrative: General: very pleasant elderly female, pale, A&Ox3, looks better to me today, and I am not noticing her searching for words today. HEENT: EOMI, MMM Heart: RRR, no m/r/g Lungs: CTAB - diminished at B bases. GI: abdomen is soft, nontender, nondistended Extremities: no e/c/c BLE's, B feet are cool, I am unable to palpate a pedal pulse in LLE, there is a trace pedal pulse in RLE. Objective Objective Clinical Data: Abnormal lab results 07/17/19 07/17/19 Range/Units 07:30 07:30 RBC 2.93 L (4.00-5.20) m/cumm Hgb 9.0 L (12.0-15.5) g/dL Hct 27.9 L (36.0-46.0) % MCV 95.2 H (80-95) fL RDW 15.5 H (11.7-14.6) % Absolute Lymphocytes 0.79 L (1.2-3.4) k/cumm Absolute Monocytes 1.45 H (0.11-0.7) k/cumm Potassium 3.3 L (3.5-5.1) mmol/L Chloride 110 H (98-107) mmol/L Calcium 7.6 L (8.5-10.1) mg/dL Vital Signs Temperature 37.1 C 07/17/19 16:05 Temperature Source Tympanic 07/17/19 16:05 Pulse 82 07/17/19 16:05 Pulse Rhythm Regular 07/17/19 15:39 Pulse 76 07/13/19 13:20 Respiratory Rate 18 07/17/19 16:05 Respiratory Effort 07/17/19 15:39 Respiratory Depth Shallow 07/17/19 15:39 Respiratory Pattern Normal 07/17/19 15:39 Blood Pressure 131/67 07/17/19 16:05 Blood Pressure Mean 62 07/13/19 13:18 Blood Pressure Position Sitting 07/13/19 10:00 Pulse Oximetry 99 07/17/19 16:05 Oxygen Delivery Method Room Air 07/17/19 16:05 Oxygen Flow Rate 0 07/17/19 16:05 Pain Level 0 07/17/19 16:05 Comment 07/17/19 04:32 Intake & Output 07/16/19 07/17/19 07/17/19 23:59 11:59 23:59 Intake Total 1830 / 3550 1020 / 2117.5 1097.5 / 2117.5 Output Total 1300 / 1700 400 / 1700 Balance 1830 / 1150 -280 / 417.5 697.5 / 417.5 Intake: IV 1350 / 2700 100 / 947.5 847.5 / 947.5 Oral 480 / 850 920 / 1170 250 / 1170 Output: Urine 1300 / 1700 400 / 1700 Other: Urine Color Yellow Yellow Yellow Urine Appearance Clear Clear Clear Urine Odor None Normal Normal Stool Size Moderate Stool Characteristics Liquid Voiding Methods Toilet Toilet Toilet Laboratory Results WBC 6.04 k/cumm (4.4-10.8) 07/17/19 07:30 RBC 2.93 m/cumm (4.00-5.20) L 07/17/19 07:30 Hgb 9.0 g/dL (12.0-15.5) L 07/17/19 07:30 Hct 27.9 % (36.0-46.0) L 07/17/19 07:30 MCV 95.2 fL (80-95) H 07/17/19 07:30 MCH 30.7 pg (27.0-33.0) 07/17/19 07:30 MCHC 32.3 g/dL (32.0-36.0) 07/17/19 07:30 RDW 15.5 % (11.7-14.6) H 07/17/19 07:30 Plt Count 195 x1000/uL (130-400) 07/17/19 07:30 MPV 9.4 fL (8.0-11.0) 07/17/19 07:30 Immature Gran % 0.0 07/17/19 07:30 Neutrophils % 58.0 07/17/19 07:30 Band Neutrophils % 1.0 % 07/17/19 07:30 Lymphocytes % 8.0 07/17/19 07:30 Atypical Lymphs % 5 07/17/19 07:30 Monocytes % 24.0 07/17/19 07:30 Eosinophils % 3.0 07/17/19 07:30 Basophils % 1.0 07/17/19 07:30 Metamyelocytes % 1.0 % 07/16/19 07:50 Absolute Neutrophils 3.56 k/cumm (1.2-6.7) 07/17/19 07:30 Absolute Lymphocytes 0.79 k/cumm (1.2-3.4) L 07/17/19 07:30 Absolute Monocytes 1.45 k/cumm (0.11-0.7) H 07/17/19 07:30 Absolute Eosinophils 0.18 k/cumm (0.0-0.7) 07/17/19 07:30 Absolute Basophils 0.06 k/cumm (0.0-0.2) 07/17/19 07:30 Differential Comment Manual differential 07/17/19 07:30 RBC Morphology See below 07/17/19 07:30 Polychromasia Present 07/17/19 07:30 Hypochromasia 1+ 07/14/19 06:35 Poikilocytosis 1+ 07/17/19 07:30 Anisocytosis 1+ 07/17/19 07:30 Microcytosis 1+ 07/14/19 06:35 Ovalocytes 2+ 07/14/19 06:35 PT 11.4 sec (9.3-11.0) H 07/13/19 10:15 INR 1.1 (0.9-1.1) 07/13/19 10:15 APTT 33.2 sec (21.0-31.4) H 07/13/19 10:15 VBG pH 7.51 (7.32-7.43) H 07/13/19 10:15 VBG pCO2 41 mm/Hg (34-47) 07/13/19 10:15 VBG pO2 52 mm/Hg (28-44) H 07/13/19 10:15 VBG HCO3 33 mmol/L (22-28) H 07/13/19 10:15 VBG Total CO2 30 mmol/L (22-29) H 07/13/19 10:15 VBG O2 Saturation 88 % (70-80) H 07/13/19 10:15 VBG Base Excess 9.6 mmol/L (-3-3) H 07/13/19 10:15 Sodium 143 mmol/L (136-145) 07/17/19 07:30 Potassium 3.3 mmol/L (3.5-5.1) L 07/17/19 07:30 Chloride 110 mmol/L (98-107) H 07/17/19 07:30 Carbon Dioxide 24.9 mmol/L (21.0-32.0) 07/17/19 07:30 Anion Gap 8.1 mmol/L (3-11) 07/17/19 07:30 BUN 8 mg/dL (7-18) 07/17/19 07:30 Creatinine 0.79 mg/dL (0.55-1.02) 07/17/19 07:30 Estimated GFR/1.73 m2 >= 60.00 (mL/min/1.73m2) 07/17/19 07:30 Glucose 87 mg/dL (70-100) 07/17/19 07:30 Lactate 0.7 mmol/L (0.6-1.4) 07/13/19 10:15 Calcium 7.6 mg/dL (8.5-10.1) L 07/17/19 07:30 Magnesium 1.9 mg/dL (1.8-2.4) 07/17/19 07:30 Iron 24 ug/dL (50-175) L 07/15/19 06:48 TIBC 147 ug/dL (250-450) L 07/15/19 06:48 Transferrin % Sat 16 % (15-50) 07/15/19 06:48 Ferritin > 1000 ng/mL (8-388) H 07/15/19 06:48 Total Bilirubin 0.4 mg/dL (0.2-1.0) 07/16/19 07:50 Conjugated Bilirubin 0.12 mg/dL (0.00-0.20) 07/16/19 07:50 AST 24 U/L (15-37) 07/16/19 07:50 ALT 23 U/L (14-59) 07/16/19 07:50 Alkaline Phosphatase 49 U/L (46-116) 07/16/19 07:50 Ammonia 22 umol/L (11-32) 07/13/19 10:15 Troponin I < 0.05 ng/mL (0.00-0.06) 07/13/19 10:15 NT-Pro-B Natriuret Pep 1904 pg/mL (-299) H 07/13/19 10:15 Total Protein 5.0 g/dL (6.4-8.2) L 07/16/19 07:50 Albumin 2.1 g/dL (3.4-5.0) L 07/16/19 07:50 Vitamin B12 795 pg/mL (193-986) 07/15/19 06:48 Folate 13.7 ng/mL (8.6-20.0) 07/15/19 06:48 TSH 2.08 uIU/mL (0.36-3.74) 07/13/19 10:15 Urine Color Yellow (Yellow) 07/13/19 12:40 Urine Clarity Clear (Clear) 07/13/19 12:40 Urine pH 7.0 (5-8) 07/13/19 12:40 Ur Specific [place] 1.020 (1.005-1.025) 07/13/19 12:40 Urine Protein 30 mg/dL (Negative) H 07/13/19 12:40 Urine Ketones Negative mg/dL (Negative) 07/13/19 12:40 Urine Blood Small (Negative) H 07/13/19 12:40 Urine Nitrite Negative (Negative) 07/13/19 12:40 Urine Bilirubin Negative (Negative) 07/13/19 12:40 Urine Urobilinogen 0.2 EU/dL (Up TO 0.2) 07/13/19 12:40 Ur Leukocyte Esterase Trace (Negative) H 07/13/19 12:40 Urine RBC 5-10 (0-2) H 07/13/19 12:40 Urine WBC 3-5 HPF (0-5) 07/13/19 12:40 Ur Epithelial Cells Moderate HPF (Negative) 07/13/19 12:40 Urine Crystals Negative HPF (Negative) 07/13/19 12:40 Urine Bacteria Rare HPF (Negative) 07/13/19 12:40 Urine Casts Negative LPF (Negative) 07/13/19 12:40 Urine Mucus Trace (Negative) 07/13/19 12:40 Ur Culture Indicated? No/sq. contamination 07/13/19 12:40 Urine Glucose Negative mg/dL (Negative) 07/13/19 12:40 Vancomycin Trough 19.3 ug/mL (10.0-20.0) 07/16/19 07:50 Salicylates < 2.8 mg/dL (2.8-20.0) L 07/13/19 10:15 Acetaminophen < 2 ug/mL (10-30) L 07/13/19 10:15
[2019-07-17 20:53] VITALS: BP 136/73; PULSE 81; RESP 16; TEMP 37; O2SAT 98
[2019-07-17] MEDS: Atorvastatin 40 MG TAB PO (20:58)
[2019-07-17 21:24] VITALS: BP 136/73; PULSE 81; RESP 16; TEMP 37; O2SAT 98
[2019-07-18] MEDS: AMPICILLIN/SULBACTAM 3 GM in Normal Saline 100 ML IVPB ×3 (02:22→18:08)
[2019-07-18 07:49] VITALS: BP 135/65; PULSE 78; RESP 18; TEMP 37.2; O2SAT 96
[2019-07-18 07:50] LABS: Abs Immature Grans 0.09 k/cumm (0.0-0.09); Absolute Basophil Count 0.01 k/cumm (0.0-0.2); Absolute Eosinophil Count 0.07 k/cumm (0.0-0.7); Absolute Lymphocyte Count 0.86 k/cumm (1.2-3.4); Absolute Monocyte Count 1.23 k/cumm (0.11-0.7); Absolute Neutrophil Count 4.02 k/cumm (1.2-6.7); Anion Gap 8.9 mmol/L (3-11); Basophils % 0.2; CO2 27.1 mmol/L (21.0-32.0); CREATININE 0.77 mg/dL (0.55-1.02); Calcium 7.8 mg/dL (8.5-10.1); Chloride 105 mmol/L (98-107); Eosinophils % 1.1; Glucose 94 mg/dL (70-100); HGB 9.2 g/dL (12.0-15.5); Immature Grans % 1.4; Lymphocytes % 13.7; Magnesium 1.6 mg/dL (1.8-2.4); Mean Corp. HGB Concentration 31.7 g/dL (32.0-36.0); Mean Corpuscular Volume 94.5 fL (80-95); Mean Platelet Volume 9.4 fL (8.0-11.0); Monocytes % 19.6; Platelet Count 279 x1000/uL (130-400); Potassium 3.3 mmol/L (3.5-5.1); RBC 3.07 m/cumm (4.00-5.20); RBC Distribution Width 15.6 % (11.7-14.6); Sodium 141 mmol/L (136-145); White Blood Cell Count 6.28 k/cumm (4.4-10.8)
[2019-07-18 08:12] LABS: Vancomycin, Trough 30.6 ug/mL (10.0-20.0)
[2019-07-18 08:27] LABS: BUN 6 mg/dL (7-18)
[2019-07-18] MEDS: Hydroxychloroquine 200 MG TAB PO ×2 (08:40→19:45)
[2019-07-18] MEDS: Normal Saline Flush 10 ML SYR IVP (08:40)
[2019-07-18] MEDS: Omeprazole 20 MG CAPCR 40 MG PO (08:40)
[2019-07-18] MEDS: Metoprolol CR 25 MG TABCR PO (08:41)
[2019-07-18] MEDS: Aspirin E.C. 81 MG TABEC PO (08:41)
[2019-07-18] MEDS: MAGNESIUM SULFATE 2 GM/50 ML BAG IVPB (09:04)
[2019-07-18] MEDS: POTASSIUM CHLORIDE 20 MEQ/100 ML BAG 50 MEQ IVPB (12:17)
--- NOTE | 2019-07-18 12:45 | PT.INTREAT ---
Date of service: 07/18/19 Time of Service: 12:45 PT Notes Inpatient Physical Therapy [facility] Date: 07/18/2019 SUBJECTIVE: Amara is agreeable to participating in PT, however states that she is waiting to find out when she will be [place] [facility] [place]. OBJECTIVE: PAIN: No c/o pain TRANSFERS Sit to stand: S Stand to sit: S GAIT Device: No AD Weight bearing: Full Assist: CGA Distance: 100'x2 Deviation: Seated rest x1, uses wall and handrail for U UE support, refused assistive device support ASSESSMENT: Patient tolerated session well, requiring seated rest x1, and demonstrates the need to utilize wall and handrail for U UE support with gait training. PLAN: Continue with PT's POC Total Treatment Time: 15 minutes; [id number]
--- NOTE | 2019-07-18 13:00 | PGE_ITS ---
Date of Service Date of service: 07/18/19 Time of Service: 13:01 Assessment and Plan Assessment and plan (1) Fever: Status: Acute Assessment and plan: Due to post-obstructive or atypical pneumonia vs tumor fevers. Last fever was 38.6 on 07/16/19 at 16:23. Clinically improving, but radiologically worse, and there is concern for aspergillosis, nocardia, histo/blastomycosis. Patient is planned for transfer to [facility] bronchoscopy. Per my conversation with [facility] transfer center, this won't be happening until Thursday for a procedure on . She is expected to remain there for ongoing therapy. (2) Lung mass: Status: Acute Assessment and plan: As above (3) Fatigue: Status: Acute Assessment and plan: Plan as above. (4) Rheumatoid arthritis: Status: Chronic Assessment and plan: Hold Methotrexate in setting of potential infection. Hydroxychloroquine ok, per [facility] pulmonary. Holding Abatacept. (5) Anemia in chronic illness: Status: Acute Assessment and plan: Awaiting hemoccult. No gross bleeding observed. Continue to monitor. Per my conversation with [facility] pulmonology, there may be a small area of hemorrhage within the pulmonary consolidation - holding asa, plavix, lovenox. (6) CAD (coronary artery disease): Status: Chronic Assessment and plan: s/p STEMI with LAD lesion/stents X2. Continue statin, and BB. Hold asa and plavix EKG non-ischemic and Troponin undetectable. No ACS on this admission. (7) GERD (gastroesophageal reflux disease): Status: Chronic Assessment and plan: Continue PPI therapy. (8) Hypertension: Status: Chronic Assessment and plan: On BB therapy. Continue to hold thiazide. D/c IVF. (9) DVT prophylaxis: Status: Acute Assessment and plan: TEDS + SCD's. Lovenox d/c'ed due to a small area of hemorrhage possibly seen in the pulmonary mass/consolidation in addition to anticipation of the procedure. (10) Advance directive on file: Status: Acute Assessment and plan: DNR/DNI per conversation at time of admission. Planned for transfer to [facility] for bronchoscopy/ongoing care Transfer is expected to happen on 07/20/19. Subjective Subjective Interval history since last seen: Ms Jay states she has been coughing more since last night. She is bringing up clear-whitish sputum. Noticed that her legs have gotten swollen. Denies dizziness, reports a sensation of chest tightness in the center of the chest - like indigesting - this morning. Resolved on its own. She does not think it feels like her heart - but she does not know because she never got chest pain when she had her heart attack 2.5 years ago. Denies nausea/vomiting. Exam Narrative Exam Narrative: General: very pleasant elderly female, pale, A&Ox3, sitting in a chair HEENT: EOMI, MMM Heart: RRR, no m/r/g Lungs: CTAB - diminished at B bases, but I think air entry is improving. GI: abdomen is soft, nontender, nondistended Extremities:+ 1 BLE edema, symmetric, B feet are cool, I am unable to palpate a pedal pulse in LLE, there is a trace pedal pulse in RLE. Objective Objective Clinical Data: Abnormal lab results 07/18/19 07/18/19 07/18/19 Range/Units 07:08 07:08 07:08 RBC 3.07 L (4.00-5.20) m/cumm Hgb 9.2 L (12.0-15.5) g/dL Hct 29.0 L (36.0-46.0) % MCHC 31.7 L (32.0-36.0) g/dL RDW 15.6 H (11.7-14.6) % Absolute Lymphocytes 0.86 L (1.2-3.4) k/cumm Absolute Monocytes 1.23 H (0.11-0.7) k/cumm Potassium 3.3 L (3.5-5.1) mmol/L BUN 6 L (7-18) mg/dL Calcium 7.8 L (8.5-10.1) mg/dL Magnesium 1.6 L (1.8-2.4) mg/dL Vancomycin Trough 30.6 H* (10.0-20.0) ug/mL Vital Signs Temperature 37.2 C 07/18/19 07:49 Temperature Source Tympanic 07/18/19 07:49 Pulse 78 07/18/19 07:49 Pulse Rhythm Regular 07/17/19 20:51 Pulse 76 07/13/19 13:20 Respiratory Rate 18 07/18/19 07:49 Respiratory Effort Non-Labored 07/18/19 02:40 Respiratory Depth Normal 07/18/19 02:40 Respiratory Pattern Normal 07/18/19 02:40 Blood Pressure 135/65 07/18/19 07:49 Blood Pressure Mean 62 07/13/19 13:18 Blood Pressure Position Sitting 07/13/19 10:00 Pulse Oximetry 96 07/18/19 07:49 Oxygen Delivery Method Room Air 07/18/19 07:49 Oxygen Flow Rate 0 07/18/19 07:49 Pain Level 0 07/18/19 07:49 Comment 07/17/19 04:32 Intake & Output 07/17/19 07/18/19 07/18/19 23:59 11:59 23:59 Intake Total 1437.5 / 2707.5 110 / 210 100 / 210 Output Total 400 / 1700 1100 / 1100 Balance 1037.5 / 1007.5 -990 / -890 100 / -890 Intake: IV 947.5 / 1297.5 110 / 210 100 / 210 Oral 490 / 1410 Output: Urine 400 / 1700 1100 / 1100 Other: Urine Color Yellow Yellow Urine Appearance Clear Clear Urine Odor Normal None Voiding Methods Toilet Toilet Laboratory Results WBC 6.28 k/cumm (4.4-10.8) 07/18/19 07:08 RBC 3.07 m/cumm (4.00-5.20) L 07/18/19 07:08 Hgb 9.2 g/dL (12.0-15.5) L 07/18/19 07:08 Hct 29.0 % (36.0-46.0) L 07/18/19 07:08 MCV 94.5 fL (80-95) 07/18/19 07:08 MCH 30.0 pg (27.0-33.0) 07/18/19 07:08 MCHC 31.7 g/dL (32.0-36.0) L 07/18/19 07:08 RDW 15.6 % (11.7-14.6) H 07/18/19 07:08 Plt Count 279 x1000/uL (130-400) 07/18/19 07:08 MPV 9.4 fL (8.0-11.0) 07/18/19 07:08 Immature Gran % 1.4 07/18/19 07:08 Neutrophils % 64.0 07/18/19 07:08 Band Neutrophils % 1.0 % 07/17/19 07:30 Lymphocytes % 13.7 07/18/19 07:08 Atypical Lymphs % 5 07/17/19 07:30 Monocytes % 19.6 07/18/19 07:08 Eosinophils % 1.1 07/18/19 07:08 Basophils % 0.2 07/18/19 07:08 Metamyelocytes % 1.0 % 07/16/19 07:50 Absolute Neutrophils 4.02 k/cumm (1.2-6.7) 07/18/19 07:08 Absolute Lymphocytes 0.86 k/cumm (1.2-3.4) L 07/18/19 07:08 Absolute Monocytes 1.23 k/cumm (0.11-0.7) H 07/18/19 07:08 Absolute Eosinophils 0.07 k/cumm (0.0-0.7) 07/18/19 07:08 Absolute Basophils 0.01 k/cumm (0.0-0.2) 07/18/19 07:08 Differential Comment Manual differential 07/17/19 07:30 RBC Morphology See below 07/17/19 07:30 Polychromasia Present 07/17/19 07:30 Hypochromasia 1+ 07/14/19 06:35 Poikilocytosis 1+ 07/17/19 07:30 Anisocytosis 1+ 07/17/19 07:30 Microcytosis 1+ 07/14/19 06:35 Ovalocytes 2+ 07/14/19 06:35 PT 11.4 sec (9.3-11.0) H 07/13/19 10:15 INR 1.1 (0.9-1.1) 07/13/19 10:15 APTT 33.2 sec (21.0-31.4) H 07/13/19 10:15 VBG pH 7.51 (7.32-7.43) H 07/13/19 10:15 VBG pCO2 41 mm/Hg (34-47) 07/13/19 10:15 VBG pO2 52 mm/Hg (28-44) H 07/13/19 10:15 VBG HCO3 33 mmol/L (22-28) H 07/13/19 10:15 VBG Total CO2 30 mmol/L (22-29) H 07/13/19 10:15 VBG O2 Saturation 88 % (70-80) H 07/13/19 10:15 VBG Base Excess 9.6 mmol/L (-3-3) H 07/13/19 10:15 Sodium 141 mmol/L (136-145) 07/18/19 07:08 Potassium 3.3 mmol/L (3.5-5.1) L 07/18/19 07:08 Chloride 105 mmol/L (98-107) 07/18/19 07:08 Carbon Dioxide 27.1 mmol/L (21.0-32.0) 07/18/19 07:08 Anion Gap 8.9 mmol/L (3-11) 07/18/19 07:08 BUN 6 mg/dL (7-18) L 07/18/19 07:08 Creatinine 0.77 mg/dL (0.55-1.02) 07/18/19 07:08 Estimated GFR/1.73 m2 >= 60.00 (mL/min/1.73m2) 07/18/19 07:08 Glucose 94 mg/dL (70-100) 07/18/19 07:08 Lactate 0.7 mmol/L (0.6-1.4) 07/13/19 10:15 Calcium 7.8 mg/dL (8.5-10.1) L 07/18/19 07:08 Magnesium 1.6 mg/dL (1.8-2.4) L 07/18/19 07:08 Iron 24 ug/dL (50-175) L 07/15/19 06:48 TIBC 147 ug/dL (250-450) L 07/15/19 06:48 Transferrin % Sat 16 % (15-50) 07/15/19 06:48 Ferritin > 1000 ng/mL (8-388) H 07/15/19 06:48 Total Bilirubin 0.4 mg/dL (0.2-1.0) 07/16/19 07:50 Conjugated Bilirubin 0.12 mg/dL (0.00-0.20) 07/16/19 07:50 AST 24 U/L (15-37) 07/16/19 07:50 ALT 23 U/L (14-59) 07/16/19 07:50 Alkaline Phosphatase 49 U/L (46-116) 07/16/19 07:50 Ammonia 22 umol/L (11-32) 07/13/19 10:15 Troponin I < 0.05 ng/mL (0.00-0.06) 07/13/19 10:15 NT-Pro-B Natriuret Pep 1904 pg/mL (-299) H 07/13/19 10:15 Total Protein 5.0 g/dL (6.4-8.2) L 07/16/19 07:50 Albumin 2.1 g/dL (3.4-5.0) L 07/16/19 07:50 Vitamin B12 795 pg/mL (193-986) 07/15/19 06:48 Folate 13.7 ng/mL (8.6-20.0) 07/15/19 06:48 TSH 2.08 uIU/mL (0.36-3.74) 07/13/19 10:15 Urine Color Yellow (Yellow) 07/13/19 12:40 Urine Clarity Clear (Clear) 07/13/19 12:40 Urine pH 7.0 (5-8) 07/13/19 12:40 Ur Specific [place] 1.020 (1.005-1.025) 07/13/19 12:40 Urine Protein 30 mg/dL (Negative) H 07/13/19 12:40 Urine Ketones Negative mg/dL (Negative) 07/13/19 12:40 Urine Blood Small (Negative) H 07/13/19 12:40 Urine Nitrite Negative (Negative) 07/13/19 12:40 Urine Bilirubin Negative (Negative) 07/13/19 12:40 Urine Urobilinogen 0.2 EU/dL (Up TO 0.2) 07/13/19 12:40 Ur Leukocyte Esterase Trace (Negative) H 07/13/19 12:40 Urine RBC 5-10 (0-2) H 07/13/19 12:40 Urine WBC 3-5 HPF (0-5) 07/13/19 12:40 Ur Epithelial Cells Moderate HPF (Negative) 07/13/19 12:40 Urine Crystals Negative HPF (Negative) 07/13/19 12:40 Urine Bacteria Rare HPF (Negative) 07/13/19 12:40 Urine Casts Negative LPF (Negative) 07/13/19 12:40 Urine Mucus Trace (Negative) 07/13/19 12:40 Ur Culture Indicated? No/sq. contamination 07/13/19 12:40 Urine Glucose Negative mg/dL (Negative) 07/13/19 12:40 Vancomycin Trough 30.6 ug/mL (10.0-20.0) H* 07/18/19 07:08 Salicylates < 2.8 mg/dL (2.8-20.0) L 07/13/19 10:15 Acetaminophen < 2 ug/mL (10-30) L 07/13/19 10:15
[2019-07-18] MEDS: Potassium Chloride 20 MEQ TABCR 40 MEQ PO (13:35)
[2019-07-18] MEDS: Calcium Carbonate 1.25 GM TAB PO ×2 (13:36→21:24)
--- NOTE | 2019-07-18 15:23 | CHAPLAIN ---
Amara was in her chair waiting to hear what time she would be taken by ambulance to [facility] for additional tests. She said it has been a long wait to hear when she will be leaving. 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 She seems to be well supported by family.
--- NOTE | 2019-07-18 17:50 | CMPROGNOTE_ITS ---
- If Service Date Differs Date of service: 07/18/19 Time of Service: 17:50 Care Management Progress Note S/O: Amara was sitting up in the chair with her family present when CM came to visit. No changes in status today she is awaiting transfer to [facility] [place]. She continues to receive IV antibiotics. A: Amara is a 68 year old female admitted with fever and AMS P: Amara is currently receiving IV antibiotics and continued monitor car operator ing. She will be transferred to [facility] [place] pending bed availability. CM will continue to provide support to patient and family during acute stay.
[2019-07-18] MEDS: Atorvastatin 40 MG TAB PO (19:45)
[2019-07-18 19:49] VITALS: BP 137/78; PULSE 81; RESP 18; TEMP 36.5; O2SAT 97
[2019-07-19] MEDS: AMPICILLIN/SULBACTAM 3 GM in Normal Saline 100 ML IVPB ×3 (01:32→18:35)
[2019-07-19] MEDS: Normal Saline Flush 10 ML SYR IVP (01:32)
[2019-07-19 07:35] VITALS: BP 138/76; PULSE 85; RESP 18; TEMP 36.9; O2SAT 96
[2019-07-19] MEDS: Folic Acid 1 MG TAB PO (09:46)
[2019-07-19] MEDS: Aspirin E.C. 81 MG TABEC PO (09:46)
[2019-07-19] MEDS: Hydroxychloroquine 200 MG TAB PO ×2 (09:46→19:45)
[2019-07-19] MEDS: Magnesium Oxide 400 MG TAB PO (09:46)
[2019-07-19] MEDS: Cholecalciferol (Vitamin D3) 1,000 UNIT TAB 2000 UNITS PO (09:46)
[2019-07-19] MEDS: Omeprazole 20 MG CAPCR 40 MG PO (09:46)
[2019-07-19] MEDS: Metoprolol CR 25 MG TABCR PO (09:46)
[2019-07-19] MEDS: Calcium Carbonate 1.25 GM TAB PO ×2 (09:46→21:19)
--- NOTE | 2019-07-19 12:43 | PT.INTREAT ---
Date of service: 07/19/19 Time of Service: 12:43 PT Notes Inpatient Physical Therapy [facility] Date: 07/19/2019 SUBJECTIVE: Amara is agreeable to participating in PT, but requests just a short walk. OBJECTIVE: PAIN: No c/o pain TRANSFERS Sit to stand: S Stand to sit: S GAIT Device: No AD Weight bearing: Full Assist: CGA Distance: 250' Deviation: Uses wall and handrail for U UE support, refused assistive device support ASSESSMENT: Patient tolerated session well, without seated rest with gait training, and demonstrates the need to utilize wall and handrail for U UE support with gait training. PLAN: Continue with PT's POC Total Treatment Time: 10 minutes; [id number]
[2019-07-19 16:09] VITALS: BP 109/64; PULSE 82; RESP 18; TEMP 37.5; O2SAT 97
--- NOTE | 2019-07-19 17:36 | W.PM.PROGNOT ---
Date of Service Date of service: 07/19/19 Time of Service: 17:36 Assessment and Plan Assessment and plan (1) Fever: Status: Acute Assessment and plan: Due to post-obstructive or atypical pneumonia vs tumor fevers. Last fever was 38.6 on 07/16/19 at 16:23. Clinically improving. Per pulmonology at [facility], this could be aspergillosis, nocardia, histo/blastomycosis. Patient is planned for transfer to [facility] for bronchoscopy tomorrow. Dr Ontiveros accepts the patient in transfer. (2) Lung mass: Status: Acute Assessment and plan: As above (3) Fatigue: Status: Acute Assessment and plan: Plan as above. (4) Rheumatoid arthritis: Status: Chronic Assessment and plan: Hold Methotrexate in setting of potential infection. Hydroxychloroquine ok, per [facility] pulmonary. Holding Abatacept. (5) Anemia in chronic illness: Status: Acute Assessment and plan: Recheck hemoccult. No gross bleeding observed. Continue to monitor. Per my conversation with [facility] pulmonology, there may be a small area of hemorrhage within the pulmonary consolidation - holding plavix, lovenox. Asa is ok with [facility] pulmonology (6) CAD (coronary artery disease): Status: Chronic Assessment and plan: s/p STEMI with LAD lesion/stents X2. Continue asa, statin, and BB. Hold plavix. EKG non-ischemic and Troponin undetectable. No ACS on this admission. (7) GERD (gastroesophageal reflux disease): Status: Chronic Assessment and plan: Continue PPI therapy. (8) Hypertension: Status: Chronic Assessment and plan: On BB therapy. Continue to hold thiazide. D/c IVF. (9) DVT prophylaxis: Status: Acute Assessment and plan: TEDS + SCD's. Lovenox d/c'ed due to a small area of hemorrhage possibly seen in the pulmonary mass/consolidation in addition to anticipation of the procedure. (10) Advance directive on file: Status: Acute Assessment and plan: DNR/DNI per conversation at time of admission. Planned for transfer to [facility] for bronchoscopy/ongoing care Transfer is expected to happen on 07/20/19. Subjective Subjective Interval history since last seen: Ms Jay states she feels a lot better today. Her cough is productive of clear sputum. Denies dizziness, chest pain, endorses some chest tightness when she first wakes up - today she describes it as congestion. Denies n/v. Was able to walk in the hallway. Legs are no longer swollen with TEDs on. Exam Narrative Exam Narrative: General: very pleasant elderly female, pale, A&Ox3, sitting in a chair HEENT: EOMI, MMM Heart: RRR, no m/r/g Lungs: CTAB - improved air entry at B bases GI: abdomen is soft, nontender, nondistended Extremities: no edema, symmetric, B feet are cool, I am unable to palpate a pedal pulse in LLE, there is a trace pedal pulse in RLE. Objective Objective Clinical Data: Vital Signs Temperature 37.5 C 07/19/19 16:09 Temperature Source Tympanic 07/19/19 16:09 Pulse 82 07/19/19 16:09 Pulse Rhythm Regular 07/19/19 15:15 Pulse 76 07/13/19 13:20 Respiratory Rate 18 07/19/19 16:09 Respiratory Effort 07/19/19 15:15 Respiratory Depth Normal 07/19/19 15:15 Respiratory Pattern Normal 07/19/19 15:15 Blood Pressure 109/64 07/19/19 16:09 Blood Pressure Mean 62 07/13/19 13:18 Blood Pressure Position Sitting 07/13/19 10:00 Pulse Oximetry 97 07/19/19 16:09 Oxygen Delivery Method Room Air 07/19/19 16:09 Oxygen Flow Rate 0 07/19/19 16:09 Pain Level 0 07/19/19 16:09 Comment 07/17/19 04:32 Intake & Output 07/18/19 07/19/19 07/19/19 23:59 11:59 23:59 Intake Total 520 / 630 660 / 900 240 / 900 Output Total 1250 / 3150 1900 / 2250 350 / 2250 Balance -730 / -2520 -1240 / -1350 -110 / -1350 Intake: IV 400 / 510 300 / 300 Oral 120 / 120 360 / 600 240 / 600 Output: Urine 1250 / 3150 1900 / 2250 350 / 2250 Other: Urine Color Yellow Pale Pale Yellow Urine Appearance Clear Clear Clear Urine Odor None None Stool Size Moderate Stool Characteristics Soft Formed Voiding Methods Toilet Toilet Toilet Laboratory Results WBC 6.28 k/cumm (4.4-10.8) 07/18/19 07:08 RBC 3.07 m/cumm (4.00-5.20) L 07/18/19 07:08 Hgb 9.2 g/dL (12.0-15.5) L 07/18/19 07:08 Hct 29.0 % (36.0-46.0) L 07/18/19 07:08 MCV 94.5 fL (80-95) 07/18/19 07:08 MCH 30.0 pg (27.0-33.0) 07/18/19 07:08 MCHC 31.7 g/dL (32.0-36.0) L 07/18/19 07:08 RDW 15.6 % (11.7-14.6) H 07/18/19 07:08 Plt Count 279 x1000/uL (130-400) 07/18/19 07:08 MPV 9.4 fL (8.0-11.0) 07/18/19 07:08 Immature Gran % 1.4 07/18/19 07:08 Neutrophils % 64.0 07/18/19 07:08 Band Neutrophils % 1.0 % 07/17/19 07:30 Lymphocytes % 13.7 07/18/19 07:08 Atypical Lymphs % 5 07/17/19 07:30 Monocytes % 19.6 07/18/19 07:08 Eosinophils % 1.1 07/18/19 07:08 Basophils % 0.2 07/18/19 07:08 Metamyelocytes % 1.0 % 07/16/19 07:50 Absolute Neutrophils 4.02 k/cumm (1.2-6.7) 07/18/19 07:08 Absolute Lymphocytes 0.86 k/cumm (1.2-3.4) L 07/18/19 07:08 Absolute Monocytes 1.23 k/cumm (0.11-0.7) H 07/18/19 07:08 Absolute Eosinophils 0.07 k/cumm (0.0-0.7) 07/18/19 07:08 Absolute Basophils 0.01 k/cumm (0.0-0.2) 07/18/19 07:08 Differential Comment Manual differential 07/17/19 07:30 RBC Morphology See below 07/17/19 07:30 Polychromasia Present 07/17/19 07:30 Hypochromasia 1+ 07/14/19 06:35 Poikilocytosis 1+ 07/17/19 07:30 Anisocytosis 1+ 07/17/19 07:30 Microcytosis 1+ 07/14/19 06:35 Ovalocytes 2+ 07/14/19 06:35 PT 11.4 sec (9.3-11.0) H 07/13/19 10:15 INR 1.1 (0.9-1.1) 07/13/19 10:15 APTT 33.2 sec (21.0-31.4) H 07/13/19 10:15 VBG pH 7.51 (7.32-7.43) H 07/13/19 10:15 VBG pCO2 41 mm/Hg (34-47) 07/13/19 10:15 VBG pO2 52 mm/Hg (28-44) H 07/13/19 10:15 VBG HCO3 33 mmol/L (22-28) H 07/13/19 10:15 VBG Total CO2 30 mmol/L (22-29) H 07/13/19 10:15 VBG O2 Saturation 88 % (70-80) H 07/13/19 10:15 VBG Base Excess 9.6 mmol/L (-3-3) H 07/13/19 10:15 Sodium 141 mmol/L (136-145) 07/18/19 07:08 Potassium 3.3 mmol/L (3.5-5.1) L 07/18/19 07:08 Chloride 105 mmol/L (98-107) 07/18/19 07:08 Carbon Dioxide 27.1 mmol/L (21.0-32.0) 07/18/19 07:08 Anion Gap 8.9 mmol/L (3-11) 07/18/19 07:08 BUN 6 mg/dL (7-18) L 07/18/19 07:08 Creatinine 0.77 mg/dL (0.55-1.02) 07/18/19 07:08 Estimated GFR/1.73 m2 >= 60.00 (mL/min/1.73m2) 07/18/19 07:08 Glucose 94 mg/dL (70-100) 07/18/19 07:08 Lactate 0.7 mmol/L (0.6-1.4) 07/13/19 10:15 Calcium 7.8 mg/dL (8.5-10.1) L 07/18/19 07:08 Magnesium 1.6 mg/dL (1.8-2.4) L 07/18/19 07:08 Iron 24 ug/dL (50-175) L 07/15/19 06:48 TIBC 147 ug/dL (250-450) L 07/15/19 06:48 Transferrin % Sat 16 % (15-50) 07/15/19 06:48 Ferritin > 1000 ng/mL (8-388) H 07/15/19 06:48 Total Bilirubin 0.4 mg/dL (0.2-1.0) 07/16/19 07:50 Conjugated Bilirubin 0.12 mg/dL (0.00-0.20) 07/16/19 07:50 AST 24 U/L (15-37) 07/16/19 07:50 ALT 23 U/L (14-59) 07/16/19 07:50 Alkaline Phosphatase 49 U/L (46-116) 07/16/19 07:50 Ammonia 22 umol/L (11-32) 07/13/19 10:15 Troponin I < 0.05 ng/mL (0.00-0.06) 07/13/19 10:15 NT-Pro-B Natriuret Pep 1904 pg/mL (-299) H 07/13/19 10:15 Total Protein 5.0 g/dL (6.4-8.2) L 07/16/19 07:50 Albumin 2.1 g/dL (3.4-5.0) L 07/16/19 07:50 Vitamin B12 795 pg/mL (193-986) 07/15/19 06:48 Folate 13.7 ng/mL (8.6-20.0) 07/15/19 06:48 TSH 2.08 uIU/mL (0.36-3.74) 07/13/19 10:15 Urine Color Yellow (Yellow) 07/13/19 12:40 Urine Clarity Clear (Clear) 07/13/19 12:40 Urine pH 7.0 (5-8) 07/13/19 12:40 Ur Specific Ione 1.020 (1.005-1.025) 07/13/19 12:40 Urine Protein 30 mg/dL (Negative) H 07/13/19 12:40 Urine Ketones Negative mg/dL (Negative) 07/13/19 12:40 Urine Blood Small (Negative) H 07/13/19 12:40 Urine Nitrite Negative (Negative) 07/13/19 12:40 Urine Bilirubin Negative (Negative) 07/13/19 12:40 Urine Urobilinogen 0.2 EU/dL (Up TO 0.2) 07/13/19 12:40 Ur Leukocyte Esterase Trace (Negative) H 07/13/19 12:40 Urine RBC 5-10 (0-2) H 07/13/19 12:40 Urine WBC 3-5 HPF (0-5) 07/13/19 12:40 Ur Epithelial Cells Moderate HPF (Negative) 07/13/19 12:40 Urine Crystals Negative HPF (Negative) 07/13/19 12:40 Urine Bacteria Rare HPF (Negative) 07/13/19 12:40 Urine Casts Negative LPF (Negative) 07/13/19 12:40 Urine Mucus Trace (Negative) 07/13/19 12:40 Ur Culture Indicated? No/sq. contamination 07/13/19 12:40 Urine Glucose Negative mg/dL (Negative) 07/13/19 12:40 Vancomycin Trough 30.6 ug/mL (10.0-20.0) H* 07/18/19 07:08 Salicylates < 2.8 mg/dL (2.8-20.0) L 07/13/19 10:15 Acetaminophen < 2 ug/mL (10-30) L 07/13/19 10:15
[2019-07-19] MEDS: Atorvastatin 40 MG TAB PO (19:45)
[2019-07-19 20:00] VITALS: BP 123/66; PULSE 78; RESP 17; TEMP 37.2; O2SAT 98
[2019-07-20] MEDS: AMPICILLIN/SULBACTAM 3 GM in Normal Saline 100 ML IVPB ×3 (01:34→17:19)
[2019-07-20] MEDS: Normal Saline Flush 10 ML SYR IVP ×2 (01:35→11:39)
[2019-07-20 02:38] VITALS: BP 134/75; PULSE 95; RESP 18; TEMP 37; O2SAT 98
[2019-07-20 07:20] LABS: Abs Immature Grans 0.15 k/cumm (0.0-0.09); Absolute Eosinophil Count 0.14 k/cumm (0.0-0.7); HCT 28.1 % (36.0-46.0); HGB 8.9 g/dL (12.0-15.5); Mean Corp. HGB Concentration 31.7 g/dL (32.0-36.0); Mean Corpuscular Hemoglobin 30.4 pg (27.0-33.0); Mean Corpuscular Volume 95.9 fL (80-95); Mean Platelet Volume 9.3 fL (8.0-11.0); Platelet Count 326 x1000/uL (130-400); RBC 2.93 m/cumm (4.00-5.20); RBC Distribution Width 15.6 % (11.7-14.6); White Blood Cell Count 6.77 k/cumm (4.4-10.8)
[2019-07-20 07:25] VITALS: BP 134/75; PULSE 72; RESP 16; TEMP 37; O2SAT 96
[2019-07-20 07:42] LABS: Anion Gap 6.2 mmol/L (3-11); BUN 5 mg/dL (7-18); CO2 27.8 mmol/L (21.0-32.0); CREATININE 0.77 mg/dL (0.55-1.02); Calcium 7.7 mg/dL (8.5-10.1); Chloride 106 mmol/L (98-107); Glucose 82 mg/dL (70-100); Magnesium 1.7 mg/dL (1.8-2.4); Potassium 3.5 mmol/L (3.5-5.1); Sodium 140 mmol/L (136-145)
[2019-07-20 08:39] LABS: Absolute Lymphocyte Count 1.08 k/cumm (1.2-3.4); Absolute Monocyte Count 1.29 k/cumm (0.11-0.7); Diff Comment Manual Differential; Poikilocytes 1+; Polychromasia Present
[2019-07-20] MEDS: Aspirin E.C. 81 MG TABEC PO (08:54)
[2019-07-20] MEDS: Omeprazole 20 MG CAPCR 40 MG PO (08:54)
[2019-07-20] MEDS: Cholecalciferol (Vitamin D3) 1,000 UNIT TAB 2000 UNITS PO (08:55)
[2019-07-20] MEDS: Folic Acid 1 MG TAB PO (08:55)
[2019-07-20] MEDS: Hydroxychloroquine 200 MG TAB PO (08:55)
[2019-07-20] MEDS: Metoprolol CR 25 MG TABCR PO (08:55)
[2019-07-20] MEDS: Magnesium Oxide 400 MG TAB PO (08:55)
[2019-07-20] MEDS: Calcium Carbonate 1.25 GM TAB PO (10:24)
[2019-07-20 11:24] LABS: ALT 55 U/L (14-59); AST 40 U/L (15-37); Albumin 2.2 g/dL (3.4-5.0); Alkaline Phosphatase 62 U/L (46-116); Bilirubin, Direct 0.15 mg/dL (0.00-0.20); Bilirubin, Total 0.4 mg/dL (0.2-1.0); Total Protein 5.7 g/dL (6.4-8.2)
--- NOTE | 2019-07-20 11:33 | PT.INTREAT ---
Date of service: 07/20/19 Time of Service: 11:33 PT Notes Inpatient Physical Therapy [facility] Date: 07/20/2019 SUBJECTIVE: Amara states that she walks better with an FWW, although admits she does not like to use it. OBJECTIVE: PAIN: No c/o pain TRANSFERS Sit to stand: S Stand to sit: S GAIT Device: FWW Weight bearing: Full Assist: S Distance: 350' ASSESSMENT: Patient tolerated session well, without requiring rest with gait training, she demonstrates steadier gait and pacing with use of FWW with gait training. PLAN: As per primary PT Total Treatment Time: 15 minutes; [id number]
[2019-07-20] MEDS: MAGNESIUM SULFATE 2 GM/50 ML BAG IVPB (11:38)
[2019-07-20] MEDS: Potassium Chloride 20 MEQ TABCR 40 MEQ PO (11:38)
[2019-07-20 13:34] LABS: Vancomycin, Trough 25.9 ug/mL (10.0-20.0)
[2019-07-20 16:09] VITALS: BP 117/65; PULSE 72; RESP 18; TEMP 37.1; O2SAT 96
--- NOTE | 2019-07-20 18:17 | W.PM.DS.N ---
Date of service: 07/20/19 Time of Service: 18:17 DS: Diagnosis Discharge Diagnosis (1) Right middle lobe pulmonary infiltrate: Status: Acute (2) Lung mass: Status: Acute (3) Rheumatoid arthritis: Status: Chronic (4) Anemia in chronic illness: Status: Acute (5) CAD (coronary artery disease): Status: Chronic (6) GERD (gastroesophageal reflux disease): Status: Chronic (7) Hypertension: Status: Chronic (8) Fatigue: Status: Acute Discharge Plan Disposition Patient Disposition: [facility] Condition: Stable Discharge Details Chief Complaint: AMS/LOC Clinical Impression: Weakness, Lung mass, Acute hypokalemia, Hypocalcemia, Hypomagnesemia Reason For Visit: ALTERED MENTAL STATUS, NEW LUNG MASS, HYPOKALEMIA Admit Date/Time: 07/13/19 12:55 Admit Provider: Jatinder Perez Attending Provider: Jatinder Perez Primary Care Provider: Carolyn Olvera ED Provider: Gary Valdez Hospital Course Hospital Course: Ms Jay is a 68 year old female with PMHx of CAD s/p STEMI in 2016, as well as RA on immunosuppressive therapy with methotrexate, plaquenil, and Orencia, as well as hypertension, GERD, and distant history of tobacco abuse, who was admited to [facility] on 07/13/19 with RML lung mass vs pneumonia. There was also evidence of fatigue and confusion on presentation. She was initiated on levofloxacin, empirically, then changed to vancomycin/cefepime on hospital day 3. The patient's imaging was repeated and her CXR now looked worse. This warranted a consultation with pulmonary service at [facility]. Dr Jeffery reviewed the imaging and felt that, based on the appearance of the infiltrate, the patient could have an atypical infection such as aspergillosis, nocardia/histo/blastomycosis, or that it could be a malignancy. This could also be a lung abscess. Recommendation for transfer for an inpatient bronchoscopy was made, and the patient was accepted in transfer by Dr Ontiveros of hospitalist service for bronchoscopy tomorrow. Antibiotics were changed to vancomycin and unasyn. By hospital day 5, the patient defervesced and has clinically improved. She was likely also dehydrated on presentation, but is euvolemic at this time and off IVF. She is medically stable for transfer to [facility] today. Care for patient as well as preparation of her transfer summary today took 45 minutes. Home Meds and New Rx's Prescriptions: No Action econazole 1 % cream 1 applic TP BID Qty: 30 RF: 3 clopidogrel [Plavix] 75 mg tablet 75 mg PO DAILY Qty: 90 RF: 3 metoprolol succinate 25 mg tablet extended release 24 hr 25 mg PO DAILY Qty: 90 RF: 3 nitroglycerin [Nitrostat] 0.4 mg tablet, sublingual 0.4 mg Sublingual DIRECTED PRN (Reason: angina) Qty: 100 RF: 1 budesonide 32 mcg/actuation spray,non-aerosol 2 spray KOKO DAILY Qty: 8.43 RF: 4 methotrexate sodium 2.5 MG tablet 9 tab PO WKLY RF: 0 hydroxychloroquine [Plaquenil] 200 MG tablet 2 tab PO DIRECTED Qty: 180 RF: 4 magnesium oxide 400 MG capsule 400 mg PO DAILY RF: 0 Mariya/Iron 1 EACH tablet,chewable 1 ea PO DAILY Qty: 100 RF: 0 folic acid 1 MG tablet 1 mg PO DAILY Qty: 90 RF: 4 cholecalciferol (vitamin D3) [Vitamin D3] 2,000 UNIT capsule 2,000 unit PO DAILY RF: 0 zoledronic lvyr-hefhvvgh-tonrx [Reclast] 5 MG/100 ML piggyback 5 mg IV Yearly RF: 0 atorvastatin [Lipitor] 40 mg tablet 40 mg PO QPM Qty: 90 RF: 3 ferrous gluconate 324 mg (38 mg iron) tablet 324 mg PO TID Qty: 90 RF: 6 omeprazole 40 mg capsule,delayed release(DR/EC) 40 mg PO DAILY Qty: 90 RF: 3 hydrochlorothiazide 12.5 mg tablet 12.5 mg PO DAILY Qty: 90 RF: 4 aspirin [Lo-Dose Aspirin] 81 MG tablet,delayed release (DR/EC) 81 mg PO DAILY RF: 0 Discharge Instructions Activity:: Activity as Tolerated Diet:: As Tolerated Discharge Orders Discharge Orders: Discharge Order (Routine); Ordered 07/20/19 Ordered By: Carolyn Madrigal DS: Summary Status at Discharge Functional status at discharge: independent ambulation Overall status at discharge: patient is back to baseline Mental Status: mental status grossly normal Speech and Movement: speech and movement normal Mood: congruent mood Affect: normal affect Exam Narrative Exam Narrative: General: very pleasant elderly female, pale, A&Ox3, sitting in a chair HEENT: EOMI, MMM Heart: RRR, no m/r/g Lungs: CTAB - improved aeration at B bases GI: abdomen is soft, nontender, nondistended Extremities: no edema, symmetric, B feet are cool, I am unable to palpate a pedal pulse in LLE, there is a trace pedal pulse in RLE. Psych Mental Status: mental status grossly normal Speech and Movement: speech and movement normal Mood: congruent mood Affect: normal affect DS: Data Vitals/I&O Vitals and I&O: Vital Signs Temperature 37.1 C 07/20/19 16:09 Temperature Source Tympanic 07/20/19 16:09 Pulse 72 07/20/19 16:09 Pulse Rhythm Regular 07/20/19 15:24 Pulse 76 07/13/19 13:20 Respiratory Rate 18 07/20/19 16:09 Respiratory Effort Non-Labored 07/20/19 15:24 Respiratory Depth Shallow 07/20/19 15:24 Respiratory Pattern Normal 07/20/19 15:24 Blood Pressure 117/65 07/20/19 16:09 Blood Pressure Mean 62 07/13/19 13:18 Blood Pressure Position Sitting 07/13/19 10:00 Pulse Oximetry 96 07/20/19 16:09 Oxygen Delivery Method Room Air 07/20/19 16:09 Oxygen Flow Rate 0 07/20/19 16:09 Pain Level 0 07/20/19 16:09 Comment 07/20/19 07:25 Intake & Output 07/19/19 07/20/19 07/20/19 23:59 11:59 23:59 Intake Total 740 / 1500 910 / 1210 300 / 1210 Output Total 2300 / 4200 1650 / 2250 600 / 2250 Balance -1560 / -2700 -740 / -1040 -300 / -1040 Intake: IV 300 / 700 220 / 270 50 / 270 Oral 440 / 800 690 / 940 250 / 940 Output: Urine 2300 / 4200 1650 / 2250 600 / 2250 Other: Urine Color Yellow Yellow Yellow Urine Appearance Clear Clear Clear Urine Odor Normal None Stool Size Moderate Stool Characteristics Soft Brown Voiding Methods Toilet Toilet Toilet Data Completed and Pending Completed studies during hospitalization [Text1]: CT head 9/18/19: No evidence of acute process CXR 07/13/19: Question right middle lobe mass versus consolidation. Please see accompanying chest CT report CT chest with IV contrast 07/13/19: Right middle lobe mass versus consolidation. Repeat chest CT requested following treatment. No additional significant findings. CXR 07/17/19: The portable examination of the chest reveals increased prominence of a region of infiltration or mass involving the right middle lobe. The remainder of the lung is unremarkable. There is no pleural effusion. Labs on day of discharge: Labs from last 24 hours 07/20/19 07/20/19 07/20/19 13:04 06:20 06:20 WBC 6.77 RBC 2.93 L Hgb 8.9 L Hct 28.1 L MCV 95.9 H MCH 30.4 MCHC 31.7 L RDW 15.6 H Plt Count 326 MPV 9.3 Immature Gran % See Differential Neutrophils % 58.0 Band Neutrophils % 4.0 Lymphocytes % 16.0 Monocytes % 19.0 Eosinophils % 2.0 Basophils % 0.0 Myelocytes % 1.0 Absolute Neutrophils 4.20 Absolute Lymphocytes 1.08 L Absolute Monocytes 1.29 H Absolute Eosinophils 0.14 Absolute Basophils 0.00 Differential Comment Manual differential RBC Morphology See below Polychromasia Present Poikilocytosis 1+ Sodium 140 Potassium 3.5 Chloride 106 Carbon Dioxide 27.8 Anion Gap 6.2 BUN 5 L Creatinine 0.77 Estimated GFR/1.73 m2 >= 60.00 Glucose 82 Calcium 7.7 L Magnesium 1.7 L Total Bilirubin 0.4 Conjugated Bilirubin 0.15 AST 40 H ALT 55 Alkaline Phosphatase 62 Total Protein 5.7 L Albumin 2.2 L Vancomycin Trough 25.9 H* [facility] Medical History Elevated blood pressure reading (Acute 11/28/14) Gastroesophageal reflux disease with esophagitis (Acute) 11/04 EGD: ACUTE EXTENSIVE EROSIVE ESOPHAGITIS Hearing loss in right ear (Acute 05/01/15) Low back pain, non-specific (Acute 11/18/12) Rheumatoid arthritis (Chronic 11/18/12) ST elevation (STEMI) myocardial infarction of unspecified site (Resolved) Trochanteric bursitis of left hip (Acute 12/05/15) Surgical History Colonoscopy - IV Sedation (01/17/13) DR. CINTHIA BARAHONA Dilation and curettage (~07/1997) H/O esophagogastroduodenoscopy (Chronic ~04/05/19) 2010- erosive esophagitis Hx of heart artery stent (Chronic) Stents x 2. 2017 Tonsillectomy (~1958) Family History Mother Systemic lupus erythematosus Essential hypertension Father , SUICIDE at age 61. Mental disorder Depression Brother , COPD at age 71. Substance abuse Heart disease COPD (chronic obstructive pulmonary disease) Brother Essential hypertension Brother Substance abuse Personal history of malignant neoplasm LUNG Brother No problems noted. Grandfather Essential hypertension Heart disease Grandfather No problems noted. Grandmother Diabetes Grandmother Heart disease Son No problems noted. Daughter No problems noted. Daughter No problems noted. Daughter No problems noted. Other Depression Social History (Updated 07/13/19 @ 16:06 by Jatinder Perez MD) Smoking/Tobacco Use Status: Former Tobacco Use Alcohol Intake: current Alcohol Intake frequency: holidays/special occasions only Drug use: Never Substance use type: does not use Do you feel safe at home: Yes Do you feel safe in your relationship?: Yes Additional Social history: with 4 children. 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 Originally from [place]. Remote history of tobacco use.
--- NOTE | 2019-07-20 21:07 | CMPROGNOTE_ITS ---
- If Service Date Differs Date of service: 07/20/19 Time of Service: 21:07 Care Management Progress Note S/O: Amara remains in good spirts she is waiting for transfer to [facility]. Her spouse is present and supportive during time of CM assessment. Amara will be discharged this evening to [facility]. A: Amara is a 68 year old female admitted with pneumonia awaiting transfer to [facility] pulmonary. P: Am[place] [facility] [place].
--- NOTE | 2019-07-20 21:07 | PDOC.CMPRO ---
- If Service Date Differs Date of service: 07/20/19 Time of Service: 21:07 Care Management Progress Note S/O: Amara remains in good spirts she is waiting for transfer to [facility]. Her spouse is present and supportive during time of CM assessment. Amara will be discharged this evening to [facility]. A: Amara is a 68 year old female admitted with pneumonia awaiting transfer to [facility] pulmonary. P: Amara will transfer to [facility] this evening.
--- NOTE | 2019-07-21 08:14 | PT.INDS ---
Date of service: 07/21/19 PT Notes Inpatient Physical Therapy Discharge Summary Dates: 07/21/2019 Dates of Service: 07/14/2019 through 07/20/2019 This is a clinical summary of care provided on the duration of dates listed above. No charge was made in the completion of this documentation. Referring Doctor: Jatinder Perez PT Orders: PT CONSULT: Routine Precautions: Fall. Standard. Patient Profile/Admitting Diagnosis: Patient is a 68 year old female who presented to the ED on 07/13/2019 with chief complaints of altered mental status, dizziness, and generalized weakness. Patient was diagnosed with lung mass of unknown etiology (malignancy vs. infection), rheumatoid arthritis, anemia, wekness, and generalized body malaise. PMHX: Medical History Elevated blood pressure reading (Acute 11/28/14) Gastroesophageal reflux disease with esophagitis (Acute) 11/04 EGD: ACUTE EXTENSIVE EROSIVE ESOPHAGITIS Hearing loss in right ear (Acute 05/01/15) Low back pain, non-specific (Acute 11/18/12) Rheumatoid arthritis (Chronic 11/18/12) ST elevation (STEMI) myocardial infarction of unspecified site (Resolved) Trochanteric bursitis of left hip (Acute 12/05/15) Surgical History Colonoscopy - IV Sedation (01/17/13) DR. CINTHIA BARAHONA Dilation and curettage (~07/1997) H/O esophagogastroduodenoscopy (Chronic ~04/05/19) 2010- erosive esophagitis Hx of heart artery stent (Chronic) Stents x 2. 2017 Tonsillectomy (~1957) Social History/Home Situation: Amara lives with her in a two story home. Her states their bedroom is on their first floor and they hardly ever go to the second floor. Amara is independent with all aspects of ADLS without the need for an assistive device nor adaptive equipment. Equipment Owned/DME: [place] Subjective: NT. Please refer to OPERATIONS SUPERVISOR [employer] notes on 07/20/2019. Objective: General Observation: NT. Please refer to OPERATIONS SUPER[employer]OR [employer] notes on 07/20/2019. Mental Status:NT. Please refer to OPERATIONS SUPER[employer] notes on 07/20/2019. Pain: NT. Please refer to OPERATIONS SUPER[employer]OR [employer] notes on 07/20/2019. ROM: Right Upper Extremity: Shoulder Flexion WFL. Shoulder abduction WFL. Elbow flexion WFL. Wrist flexion WFL. Functional opening and closing of hand WFL. Left Upper Extremity: Shoulder Flexion WFL. Shoulder abduction WFL. Elbow flexion WFL. Wrist flexion WFL. Functional opening and closing of hand WFL. Right Lower Extremity: Hip flexion WFL. Hip abduction WFL. Knee flexion WFL. Ankle dorsiflexion WFL. Ankle plantarflexion WFL. Left Lower Extremity: Hip flexion WFL. Hip abduction WFL. Knee flexion WFL. Ankle dorsiflexion WFL. Ankle plantarflexion WFL. Strength: Right Upper Extremity: Shoulder flexors 4/5. Shoulder abductors 4/5. Elbow flexors 4/5. Elbow extensors 4/5. Informatics Application Analyst strong. Left Upper Extremity: Shoulder flexors 4/5. Shoulder abductors 4/5. Elbow flexors 4/5. Elbow extensors 4/5. Informatics Application Analyst strong. Right Lower Extremity: Hip flexors 4-/5. Hip abductors 4/5. Knee flexors 4/5. Knee extensors 4/5. Ankle dorsiflexors 4/5. Ankle plantarflexors 4/5. Left Lower Extremity:Hip flexors 4-/5. Hip abductors 4/5. Knee flexors 4/5. Knee extensors 4/5. Ankle dorsiflexors 4/5. Ankle plantarflexors 4/5. Bed Mobility/Transfers: yohana agreed to transferring back from chair to her bed Rolling independent Supine to sit independent Sit to supine independent Sit to stand independent Stand to sit independent Bed to chair independent Chair to bed independent Gait: Patient exhibited step through gait to her bed with decreased vijaya, step length, and overall gait speed without an assistive device and with supervision for 350 feet using FWW. Balance: Static Sitting: Good Dynamic Sitting: Good Static Standing: Good Dynamic Standing: Fair Assessment: Patient is a 68 year old woman admitted with dizziness, confusion, and a pulmonary mass. She has the support of her , and lives on the first floor of her two story home. She requires stand by assist for most ambulation activities, and is severely fatigued. PT was consulted for an equipment evaluation. At this time, the SPT and PT recommend a FWW for this patient to enhance the speed and stability of her gait. Patient presents with clinical signs and symptoms consistent with current/admitting diagnoses that have resulted to mobility limitations, gait instability, generalized weakness, and impairment of motor control as demonstrated by the following impairment level findings: 1. Decreased strength to B LE major muscle groups 2. Impaired standing balance 3. Impaired activity tolerance 4. Limitation of joint range of motion in [] Impairments are contributing to the following functional limitations: 1. Dependent bed mobility skills 2. Increased dependence with transfers 3. Inability to safely ambulate without assistive device and physical assistance 4. Increase completion time for mobility ADL performance 5. Increased fall risk 6. Inability to negotiate steps alone safely Goals: Goals X1 week 1. Supine-Sit independent MET 2. Sit-Supine independent MET 3. Sit-Stand independent MET 4. Stand-Sit independent MET 5. Bed-Chair independent MET 6. Chair-Bed independent MET 7. Independent gait on level surface with use of least restrictive device for at least 300 feet without report of pain nor dyspnea NOT MET 8. Independent stair negotiation while holding onto bilateral rails for at least 10 steps without report of pain nor dyspnea NOT MET 9. Independent with home exercise program NOT MET 10. Good static and dynamic standing balance/tolerance NOT MET DISCHARGE RECOMMENDATIONS: Patient will benefit from home health PT services in order to progress mobility level using least restrictive assistive ambulatory device, assess home safety, identify additional equipment needs, and establish a functional maintenance program that will increase ability of patient to remain at home. TREATMENT CODE/TIME: ME. Thank you very much for this referral. Coral Branch PT, DPT, CLT [facility]
== END 2019-07-20 19:00 | disposition short-term general hospital (02) | DRG 204 ==
LOC: ER 13:35 → MS 13:37
PROVIDERS: Admitting Provider Internal Medicine; Emergency Provider Student in an Organized Health Care Education/Training Program; PCP Internal Medicine; Visit Provider Internal Medicine
DX: R91.8 Other nonspecific abnormal finding of lung field (principal); J85.1 Abscess of lung with pneumonia; C34.91 Malignant neoplasm of unspecified part of right bronchus or lung; R04.89 Hemorrhage from other sites in respiratory passages; R50.9 Fever, unspecified; E87.6 Hypokalemia; E83.42 Hypomagnesemia; E83.51 Hypocalcemia; R41.82 Altered mental status, unspecified; R53.81 Other malaise; M06.9 Rheumatoid arthritis, unspecified; D63.8 Anemia in other chronic diseases classified elsewhere; I25.10 Atherosclerotic heart disease of native coronary artery without angina pectoris; K21.9 Gastro-esophageal reflux disease without esophagitis; I10 Essential (primary) hypertension; Z79.899 Other long term (current) drug therapy; Z87.891 Personal history of nicotine dependence; Z66 Do not resuscitate; I25.2 Old myocardial infarction; Z95.5 Presence of coronary angioplasty implant and graft; F41.9 Anxiety disorder, unspecified
CPT/HCPCS: 36410; 36415; 80048; 80053; 80076; 82805; 87040; 87449; 97110; 97162; 97530; 99222; 99232; 99233; 99239; J1650; 70450; 71045; 71046; 71260; 80202; 80329; 81003; 81015; 82140; 82607; 82728; 82746; 83540; 83550; 83605; 83735; 83880; 84443; 84484; 85014; 85018; 85025; 85610; 85730; 87070; 87205; J0295; J0610; J1956; J3370; J3475; J3480; J3490

== ENCOUNTER 2019-07-28 08:31 | Outpatient (CLI) | payer OTHER, SELFPAY ==
[2019-07-28 12:45] LABS: HCT 33.5 % (36.0-46.0); HGB 10.7 g/dL (12.0-15.5); Mean Corp. HGB Concentration 31.9 g/dL (32.0-36.0); Mean Corpuscular Hemoglobin 29.9 pg (27.0-33.0); Mean Corpuscular Volume 93.6 fL (80-95); Mean Platelet Volume 8.9 fL (8.0-11.0); Platelet Count 406 x1000/uL (130-400); RBC 3.58 m/cumm (4.00-5.20); RBC Distribution Width 15.5 % (11.7-14.6); White Blood Cell Count 13.67 k/cumm (4.4-10.8)
[2019-07-28 13:12] LABS: Absolute Eosinophil Count 0.14 k/cumm (0.0-0.7); Absolute Lymphocyte Count 2.46 k/cumm (1.2-3.4); Absolute Monocyte Count 1.09 k/cumm (0.11-0.7); Absolute Neutrophil Count 9.71 k/cumm (1.2-6.7)
[2019-07-28 13:14] LABS: Anisocytosis 1+; Diff Comment Manual Differential
[2019-07-28 13:42] LABS: ALT 39 U/L (14-59); AST 24 U/L (15-37); Albumin 3.2 g/dL (3.4-5.0); Alkaline Phosphatase 102 U/L (46-116); Anion Gap 9.4 mmol/L (3-11); BUN 15 mg/dL (7-18); Bilirubin, Total 0.4 mg/dL (0.2-1.0); CO2 31.6 mmol/L (21.0-32.0); CREATININE 1.33 mg/dL (0.55-1.02); Calcium 9.2 mg/dL (8.5-10.1); Chloride 97 mmol/L (98-107); Estimated GFR 39.44 (mL/min/1.73m2); Glucose 82 mg/dL (70-100); Magnesium 1.6 mg/dL (1.8-2.4); NT-proBNP 313 pg/mL; Potassium 3.7 mmol/L (3.5-5.1); Sodium 138 mmol/L (136-145); Total Protein 7.3 g/dL (6.4-8.2)
== END 2019-07-28 08:51 ==
PROVIDERS: PCP Internal Medicine; Visit Provider Internal Medicine
DX: E83.42 Hypomagnesemia (principal); R50.9 Fever, unspecified; J18.9 Pneumonia, unspecified organism; I50.9 Heart failure, unspecified
CPT/HCPCS: 36415; 80053; 83735; 83880; 85025

== ENCOUNTER 2019-08-04 08:15 | Outpatient (CLI) | payer OTHER, SELFPAY ==
[2019-08-04 12:51] LABS: Abs Immature Grans 0.03 k/cumm (0.0-0.09); Absolute Basophil Count 0.05 k/cumm (0.0-0.2); Absolute Eosinophil Count 0.11 k/cumm (0.0-0.7); Absolute Lymphocyte Count 1.75 k/cumm (1.2-3.4); Absolute Monocyte Count 0.58 k/cumm (0.11-0.7); Absolute Neutrophil Count 4.53 k/cumm (1.2-6.7); Basophils % 0.7; Eosinophils % 1.6; HGB 10.6 g/dL (12.0-15.5); Immature Grans % 0.4; Lymphocytes % 24.8; Mean Corp. HGB Concentration 31.2 g/dL (32.0-36.0); Mean Corpuscular Hemoglobin 29.9 pg (27.0-33.0); Mean Corpuscular Volume 95.8 fL (80-95); Mean Platelet Volume 9.8 fL (8.0-11.0); Monocytes % 8.2; Neutrophils % 64.3; Platelet Count 194 x1000/uL (130-400); RBC 3.55 m/cumm (4.00-5.20); RBC Distribution Width 15.8 % (11.7-14.6); White Blood Cell Count 7.05 k/cumm (4.4-10.8)
[2019-08-04 14:26] LABS: ALT 24 U/L (14-59); AST 24 U/L (15-37); Albumin 3.2 g/dL (3.4-5.0); Alkaline Phosphatase 85 U/L (46-116); Anion Gap 7.6 mmol/L (3-11); BUN 12 mg/dL (7-18); Bilirubin, Total 0.4 mg/dL (0.2-1.0); CO2 30.4 mmol/L (21.0-32.0); CREATININE 1.16 mg/dL (0.55-1.02); Calcium 8.6 mg/dL (8.5-10.1); Chloride 105 mmol/L (98-107); Estimated GFR 46.19 (mL/min/1.73m2); Glucose 99 mg/dL (70-100); Potassium 4.2 mmol/L (3.5-5.1); Sodium 143 mmol/L (136-145)
== END 2019-08-04 08:35 ==
PROVIDERS: PCP Internal Medicine; Visit Provider Internal Medicine
DX: I10 Essential (primary) hypertension (principal); I50.9 Heart failure, unspecified; J84.116 Cryptogenic organizing pneumonia; R50.9 Fever, unspecified
CPT/HCPCS: 36415; 80053; 85025

== ENCOUNTER 2019-08-15 13:49 | Outpatient (CLI) | payer OTHER, SELFPAY ==
[2019-08-15 15:59] LABS: Abs Immature Grans 0.01 k/cumm (0.0-0.09); Absolute Basophil Count 0.02 k/cumm (0.0-0.2); Absolute Eosinophil Count 0.14 k/cumm (0.0-0.7); Absolute Lymphocyte Count 2.03 k/cumm (1.2-3.4); Absolute Monocyte Count 0.73 k/cumm (0.11-0.7); Basophils % 0.2; Eosinophils % 1.5; HGB 10.8 g/dL (12.0-15.5); Immature Grans % 0.1; Mean Corp. HGB Concentration 30.9 g/dL (32.0-36.0); Mean Corpuscular Volume 97.2 fL (80-95); Mean Platelet Volume 9.7 fL (8.0-11.0); Monocytes % 7.9; Neutrophils % 68.3; Platelet Count 192 x1000/uL (130-400); RBC Distribution Width 16.3 % (11.7-14.6); White Blood Cell Count 9.23 k/cumm (4.4-10.8)
[2019-08-15 16:42] LABS: ALT 19 U/L (14-59); AST 23 U/L (15-37); Albumin 3.4 g/dL (3.4-5.0); Alkaline Phosphatase 100 U/L (46-116); Anion Gap 8.9 mmol/L (3-11); BUN 13 mg/dL (7-18); Bilirubin, Total 0.4 mg/dL (0.2-1.0); CO2 30.1 mmol/L (21.0-32.0); CREATININE 1.17 mg/dL (0.55-1.02); Calcium 8.8 mg/dL (8.5-10.1); Chloride 104 mmol/L (98-107); Estimated GFR 45.73 (mL/min/1.73m2); Glucose 86 mg/dL (70-100); Potassium 4.2 mmol/L (3.5-5.1); Sodium 143 mmol/L (136-145)
== END 2019-08-15 14:09 ==
PROVIDERS: PCP Internal Medicine; Visit Provider Internal Medicine Rheumatology
DX: M06.9 Rheumatoid arthritis, unspecified (principal); Z79.899 Other long term (current) drug therapy
CPT/HCPCS: 36415; 80053; 85025

== ENCOUNTER 2019-09-26 11:40 | Emergency (ER) | payer OTHER, SELFPAY ==
[2019-09-26 11:43] VITALS: BP 151/55; PULSE 65; RESP 16; TEMP 36.6; O2SAT 99
--- NOTE | 2019-09-26 11:43 | W.ED.GENAD ---
Discharge Plan Disposition Patient Disposition: HOME Condition: Stable Discharge Details Chief Complaint: Laceration Clinical Impression: Laceration Primary Care Provider: Carolyn Olvera ED Provider: Gabriela Mccarthy Home Meds and New Rx's Prescriptions: Continued clopidogrel [Plavix] 75 mg tablet 75 mg PO DAILY Qty: 90 RF: 3 metoprolol succinate 25 mg tablet extended release 24 hr 25 mg PO DAILY Qty: 90 RF: 3 nitroglycerin [Nitrostat] 0.4 mg tablet, sublingual 0.4 mg Sublingual DIRECTED PRN (Reason: angina) Qty: 100 RF: 1 budesonide 32 mcg/actuation spray,non-aerosol 2 spray KOKO DAILY Qty: 8.43 RF: 4 hydroxychloroquine [Plaquenil] 200 MG tablet 2 tab PO DIRECTED Qty: 180 RF: 4 magnesium oxide 400 MG capsule 400 mg PO BID RF: 0 Mariya/Iron 1 EACH tablet,chewable 1 ea PO DAILY Qty: 100 RF: 0 cholecalciferol (vitamin D3) [Vitamin D3] 2,000 UNIT capsule 2,000 unit PO DAILY RF: 0 zoledronic visa-[id number]-kmzfn [Reclast] 5 MG/100 ML piggyback 5 mg IV Yearly RF: 0 atorvastatin [Lipitor] 40 mg tablet 40 mg PO QPM Qty: 90 RF: 3 omeprazole 40 mg capsule,delayed release(DR/EC) 40 mg PO DAILY Qty: 90 RF: 3 methotrexate sodium 2.5 mg tablet 10 mg PO WKLY RF: 0 aspirin [Lo-Dose Aspirin] 81 MG tablet,delayed release (DR/EC) 81 mg PO DAILY RF: 0 econazole 1 % cream 1 applic TP BID PRNRF: 0 folic acid 1 MG tablet 2 mg PO DAILY RF: 0 ferrous gluconate 324 mg (38 mg iron) tablet 324 mg PO DAILY RF: 0 Discharge Instructions Instructions: Laceration (ED) Additional Instructions: Please return immediately to the emergency department if you develop any new or worsening symptoms or if you become otherwise concerned. It is extremely important that you call as soon as possible to make an appointment to be seen in follow-up this visit by her primary care doctor. You will need to have your stitches removed in 10 days. You may see your primary care doctor for this, or if you are unable to do so you may return to the emergency department to have your sutures removed. Please wear the finger splint that was provided at all times other than while bathing or washing hands to prevent reopening of the wound. Referrals: Carolyn Olvera MD [Primary Care Provider] - Discharge Data Discharge Date/Time-TO BE ENTERED AT DEPARTURE: 09/26/19 13:20 Medical Decision Making <FRANCISCO Corley - Last Filed: 09/26/19 13:12> Patient has a irregular flap laceration to the dorsal aspect of the right third digit that extends over the PIP joint. Total wound length is 3.5 cm. Deep structures are intact with no ligamentous or bony injury evident. Please see Dr. Mccarthy's note for information. Was closed myself with standard sterile technique after extensive irrigation and wound being explored to base of this field. No foreign body or debris was noted.. #6 simple interrupted sutures were placed. Patient tolerated this well. <Gabriela Mccarthy MD - Last Filed: 10/10/19 09:20> Amara Jay is a 68-year-old woman with history of coronary artery disease on aspirin Plavix, GERD, rheumatoid arthritis who presents to the emergency department with laceration to the right third digit after bumping against painter and paperhanger apprentice blade accidentally 1 hour prior to arrival. On exam patient is very well and nontoxic appearing. There is a 3.5 cm flap laceration to the dorsal aspect of the third right digit, flexion and extension is intact, no bony tenderness to palpation of the digit, right upper extremity otherwise atraumatic. Right third digit neurovascularly intact. Exam/history is not consistent with bony injury, emergent life/limb threatening process. Tetanus 2012. Digital block performed by myself with 1% lidocaine, with good analgesia obtained. Wound irrigated copiously under pressure by me. Wound repaired by FRANCISCO Corley. I had a lengthy discussion with Patient regarding return to emergency department precautions, home care, and importance of outpatient follow-up. Pt verbalizes understanding of the plan and is amenable. Patient discharged to home with clear plan for outpatient follow-up. All questions were answered. Disposition decision was made weighing the risks and benefits of hospitalization versus outpatient treatment, the risk for further decompensation, and the patient's wishes. Medical Records Medical records reviewed: Yes I reviewed the patient's medical records. HPI <FRANCISCO Corley - Last Filed: 09/26/19 13:12> General Date/Time Provider Initiated Documentation: 09/26/19 11:43. Related Data Home Medications Medication Instructions Recorded Confirmed hydroxychloroquine [Plaquenil] 2 tab PO DIRECTED #180 tab-cap 09/19/16 10/06/19 aspirin [Lo-Dose Aspirin] 81 mg PO DAILY 02/07/17 10/06/19 magnesium oxide 400 mg PO BID 02/17/17 10/06/19 Mariya/Iron 1 ea PO DAILY #100 tab.chew 03/05/17 10/06/19 cholecalciferol (vitamin D3) 2,000 unit PO DAILY 03/24/18 10/06/19 [Vitamin D3] zoledronic ktmf-jlwkcceu-wyigg 5 mg IV Yearly 03/24/18 10/06/19 [Reclast] atorvastatin 40 mg tablet 40 mg PO QPM #90 cap 12/06/18 10/06/19 clopidogrel 75 mg tablet 75 mg PO DAILY #90 cap 12/20/18 10/06/19 metoprolol succinate 25 mg 25 mg PO DAILY #90 tab 12/20/18 10/06/19 tablet,extended release 24 hr nitroglycerin 0.4 mg sublingual 0.4 mg SUBLINGUAL DIRECTED PRN 12/20/18 10/06/19 tablet #100 tab budesonide 32 mcg/actuation nasal 2 spray KOKO DAILY #8.43 ml 04/06/19 10/06/19 spray omeprazole 40 mg capsule,delayed 40 mg PO DAILY #90 tab-cap 06/16/19 10/06/19 release methotrexate sodium 2.5 mg tablet 10 mg PO WKLY tab-cap 08/17/19 10/06/19 econazole 1 applic TP BID PRN 09/26/19 10/06/19 ferrous gluconate 324 mg PO DAILY 09/26/19 10/06/19 folic acid 2 mg PO DAILY 09/26/19 10/06/19 Previous Rx's Medication Instructions Recorded atorvastatin 40 mg tablet 40 mg PO QPM #90 cap 12/06/18 clopidogrel 75 mg tablet 75 mg PO DAILY #90 cap 12/20/18 metoprolol succinate 25 mg 25 mg PO DAILY #90 tab 12/20/18 tablet,extended release 24 hr nitroglycerin 0.4 mg sublingual 0.4 mg SUBLINGUAL DIRECTED PRN 12/20/18 tablet #100 tab budesonide 32 mcg/actuation nasal 2 spray KOKO DAILY #8.43 ml 04/06/19 spray omeprazole 40 mg capsule,delayed 40 mg PO DAILY #90 tab-cap 06/16/19 release Allergies Allergy/AdvReac Type Severity Reaction Status Date / Time amoxicillin AdvReac Intermediate diarrhea Verified 10/06/19 13:07 <Gabriela Mccarthy MD - Last Filed: 10/10/19 09:20> General Mode of arrival: ambulatory. Limitations to Documentation: no limitations. Information obtained by: patient, RN notes reviewed and old records reviewed. HPI Narrative: Amara Jay is a 68-year-old woman with history of coronary artery disease on Plavix, GERD, rheumatoid arthritis presenting to the emergency department with finger laceration. Patient reports that she cut her right middle finger on a painter and paperhanger apprentice approximately 1 hour ago. Patient reports that wound has continued to have mild bleeding. Patient takes aspirin and Plavix, no other blood thinners. Patient denies any other wound or injury. Patient reports she has been able to move her finger as usual. She states that she has mild pain at the site of the laceration but no other pain. Patient reports that she feels otherwise well and in her usual state of health. No recent illness. Has been eating and drinking as usual. General DANYELLE: 3 <Gabriela Mccarthy MD - Last Filed: 10/10/19 09:20> Narrative: Constitutional: denies fevers Eyes: denies eye pain ENT: denies ear pain, dental pain, sore throat Cardiovascular: denies chest pain Respiratory: denies SOB, cough GI: denies abdominal pain, vomiting : denies flank pain MSK: denies back pain, neck pain, arthralgias, myalgias Skin: denies rash, reports wound Neuro: denies headaches, numbness, weakness PFSH <FRANCISCO Corley - Last Filed: 09/26/19 13:12> Medical History Elevated blood pressure reading (Acute 11/28/14) Gastroesophageal reflux disease with esophagitis (Acute) 11/04 EGD: ACUTE EXTENSIVE EROSIVE ESOPHAGITIS Hearing loss in right ear (Acute 05/01/15) Low back pain, non-specific (Acute 11/18/12) Rheumatoid arthritis (Chronic 11/18/12) ST elevation (STEMI) myocardial infarction of unspecified site (Resolved) Trochanteric bursitis of left hip (Acute 12/05/15) Social History Smoking/Tobacco Use Status: Former Tobacco Use Alcohol Intake: current Alcohol Intake frequency: holidays/special occasions only Drug use: Never Substance use type: does not use Do you feel safe at home: Yes Do you feel safe in your relationship?: Yes Additional Social history: with 4 children. 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 Originally from [place]. Remote history of tobacco use. <Gabriela Mccarthy MD - Last Filed: 10/10/19 09:20> Narrative Exam Narrative: Constitutional: well and [id number], pleasant, conversing normally HENT: head atraumatic/normocephalic/normal inspection, mucous membranes moist Eyes: conjunctiva normal, sclera normal, pupils 3mm b/l Neck: no stridor, normal ROM, trachea midline Resp: normal work of breathing, LCTAB Cardio: normal rate, normal rhythm Skin: warm, dry, normal color, no rash, right third digit with 3.5 cm flap laceration to dorsal aspect without involvement of the nail or cuticle, wound does not appear contaminated,, flexion and extension of all digits intact, no bony tenderness to palpation of the third digit, brisk cap refill the third digit, normal sensation throughout, right hand otherwise atraumatic. Radial pulses intact and symmetric. Neuro: alert, not altered, grossly non-focal, normal tone Ext: no edema Psych: normal mood, normal affect, normal behavior Procedures <FRANCISCO Corley - Last Filed: 09/26/19 13:12> Laceration Laceration 1: Site: hand Side (If applicable): right Size (cm): 3.5 Description: flap Depth: simple, single layer Local Anesthetic: Lidocaine 1% Amount of anesthesia used (mL): 4 Pre-repair: wound explored, irrigated extensively and deep structures intact Skin layer closed with: nylon Size (cm): 5-0 Number of sutures: 6 Technique: simple, interrupted <Gabriela Mccarthy MD - Last Filed: 10/10/19 09:20> Nerve Block Nerve Block 1: Time out performed: Yes Local Anesthetic: Lidocaine 1% Amount of anesthesia used (mL): 3 Side: right Nerve Blocks: digital Procedure Successful: Yes Patient Tolerated Procedure: well and no complications Complications: none Additional Comments: Area of injections cleaned in usual sterile fashion prior to procedure
== END 2019-09-26 13:20 | disposition home or self-care (01) ==
PROVIDERS: Emergency Provider Student in an Organized Health Care Education/Training Program; PCP Internal Medicine
DX: S61.212A Laceration without foreign body of right middle finger without damage to nail, initial encounter (principal); W26.8XXA Contact with other sharp object(s), not elsewhere classified, initial encounter
CPT/HCPCS: 12002

== ENCOUNTER 2019-12-14 10:33 | Outpatient (CLI) | payer OTHER, SELFPAY ==
[2019-12-14 12:33] LABS: Abs Immature Grans 0.01 k/cumm (0.0-0.09); Absolute Basophil Count 0.02 k/cumm (0.0-0.2); Absolute Eosinophil Count 0.19 k/cumm (0.0-0.7); Absolute Lymphocyte Count 0.97 k/cumm (1.2-3.4); Absolute Monocyte Count 0.53 k/cumm (0.11-0.7); Absolute Neutrophil Count 3.69 k/cumm (1.2-6.7); Basophils % 0.4; Eosinophils % 3.5; HCT 35.2 % (36.0-46.0); HGB 11.4 g/dL (12.0-15.5); Immature Grans % 0.2 %; Lymphocytes % 17.9; Mean Corp. HGB Concentration 32.4 g/dL (32.0-36.0); Mean Corpuscular Hemoglobin 31.4 pg (27.0-33.0); Mean Platelet Volume 9.4 fL (8.0-11.0); Monocytes % 9.8; Neutrophils % 68.2; Platelet Count 149 x1000/uL (130-400); RBC 3.63 m/cumm (4.00-5.20); RBC Distribution Width 16.1 % (11.7-14.6); White Blood Cell Count 5.41 k/cumm (4.4-10.8)
[2019-12-14 13:32] LABS: ALT 27 U/L (14-59); AST 29 U/L (15-37); Albumin 3.8 g/dL (3.4-5.0); Alkaline Phosphatase 93 U/L (46-116); Anion Gap 6.8 mmol/L (3-11); BUN 20 mg/dL (7-18); Bilirubin, Total 0.5 mg/dL (0.2-1.0); CO2 30.2 mmol/L (21.0-32.0); CREATININE 1.17 mg/dL (0.55-1.02); Calcium 8.8 mg/dL (8.5-10.1); Chloride 105 mmol/L (98-107); Glucose 83 mg/dL (74-106); Potassium 4.5 mmol/L (3.5-5.1); Sodium 142 mmol/L (136-145); Total Protein 6.7 g/dL (6.4-8.2)
== END 2019-12-14 10:53 ==
PROVIDERS: PCP Internal Medicine; Visit Provider Internal Medicine Rheumatology
DX: M06.9 Rheumatoid arthritis, unspecified (principal); Z79.899 Other long term (current) drug therapy
CPT/HCPCS: 36415; 80053; 85025

== ENCOUNTER 2020-08-06 01:20 | Outpatient (CLI) | payer OTHER, SELFPAY ==
[2020-08-06 14:29] LABS: Abs Immature Grans 0.03 10^3/uL (0.0-0.06); Absolute Basophil Count 0.03 10^3/uL (0.0-0.2); Absolute Eosinophil Count 0.14 10^3/uL (0.0-0.7); Absolute Lymphocyte Count 0.81 10^3/uL (1.2-3.4); Absolute Monocyte Count 0.45 10^3/uL (0.1-0.8); Absolute Neutrophil Count 3.71 10^3/uL (1.2-6.7); Basophils % 0.6; Eosinophils % 2.7; HCT 32.1 % (36.0-46.0); HGB 10.7 g/dL (11.2-15.7); Immature Grans % 0.6; Lymphocytes % 15.7; MCH 32.2 pg (27.0-33.0); MCHC 33.3 % (32.0-36.0); MCV 96.7 fL (80-95); Monocytes % 8.7; Neutrophils % 71.7; Nucleated RBC 0 %; Platelet Count 173 10^3/uL (130-400); RBC 3.32 10^6/uL (3.93-5.22); RDW 14.4 % (11.7-14.6); RDW-SD 49.6 fL; WBC 5.17 10^3/uL (4.4-10.8)
[2020-08-06 15:29] LABS: ALT 25 U/L (14-59); AST 23 U/L (15-37); Albumin 3.6 g/dL (3.4-5.0); Alkaline Phosphatase 96 U/L (46-116); Anion Gap 8.3 mmol/L (3-11); BUN 18 mg/dL (7-18); Bilirubin, Total 0.4 mg/dL (0.2-1.0); CO2 30.7 mmol/L (21.0-32.0); Calcium 8.7 mg/dL (8.5-10.1); Chloride 106 mmol/L (98-107); Estimated GFR 54.66 (mL/min/1.73m2); Glucose 92 mg/dL (74-106); Potassium 3.8 mmol/L (3.5-5.1); Sodium 145 mmol/L (136-145); Total Protein 6.5 g/dL (6.4-8.2)
[2020-08-06 15:37] LABS: C-Reactive Protein 0.18 mg/dL (0.0-0.3)
== END 2020-08-06 01:40 ==
PROVIDERS: PCP Nurse Practitioner; Visit Provider Internal Medicine Rheumatology
DX: M06.9 Rheumatoid arthritis, unspecified (principal); Z79.899 Other long term (current) drug therapy
CPT/HCPCS: 36415; 80053; 85025; 86140

== ENCOUNTER 2021-02-26 07:36 | Outpatient (CLI) | payer OTHER, SELFPAY ==
[2021-02-26 11:34] LABS: Abs Immature Grans 0.04 10^3/uL (0.0-0.06); Absolute Basophil Count 0.03 10^3/uL (0.0-0.2); Absolute Eosinophil Count 0.21 10^3/uL (0.0-0.7); Absolute Lymphocyte Count 0.66 10^3/uL (1.2-3.4); Absolute Monocyte Count 0.78 10^3/uL (0.1-0.8); Absolute Neutrophil Count 4.68 10^3/uL (1.2-6.7); Basophils % 0.5; Eosinophils % 3.3; HCT 33.3 % (36.0-46.0); HGB 10.8 g/dL (11.2-15.7); Immature Grans % 0.6; Lymphocytes % 10.3; MCH 31.1 pg (27.0-33.0); MCHC 32.4 % (32.0-36.0); MPV 9.6 fL (8.0-11.0); Monocytes % 12.2; Neutrophils % 73.1; Nucleated RBC 0 %; Platelet Count 175 10^3/uL (130-400); RBC 3.47 10^6/uL (3.93-5.22); RDW 15.4 % (11.7-14.6); RDW-SD 52.5 fL
[2021-02-26 12:20] LABS: ALT 27 U/L (14-59); AST 25 U/L (15-37); Albumin 3.6 g/dL (3.4-5.0); Alkaline Phosphatase 91 U/L (46-116); BUN 17 mg/dL (7-18); Bilirubin, Total 0.5 mg/dL (0.2-1.0); CREATININE 1.2 mg/dL (0.55-1.02); Calcium 9.2 mg/dL (8.5-10.1); Chloride 103 mmol/L (98-107); Estimated GFR 44.16 (mL/min/1.73m2); Glucose 87 mg/dL (74-106); Potassium 4.2 mmol/L (3.5-5.1); Sodium 142 mmol/L (136-145); Total Protein 6.4 g/dL (6.4-8.2)
[2021-02-26 12:29] LABS: C-Reactive Protein 0.71 mg/dL (0.0-0.3)
== END 2021-02-26 07:37 | disposition home or self-care (01) ==
LOC: LBO 07:40
PROVIDERS: PCP Nurse Practitioner; Visit Provider Internal Medicine Rheumatology
DX: M06.9 Rheumatoid arthritis, unspecified (principal); Z79.899 Other long term (current) drug therapy
CPT/HCPCS: 36415; 80053; 85025; 86140

== ENCOUNTER 2021-03-16 11:30 | Outpatient (REF) | payer OTHER, SELFPAY ==
[2021-03-16 15:22] LABS: Abs Immature Grans 0.01 10^3/uL (0.0-0.06); Absolute Basophil Count 0.01 10^3/uL (0.0-0.2); Absolute Eosinophil Count 0.47 10^3/uL (0.0-0.7); Absolute Lymphocyte Count 0.72 10^3/uL (1.2-3.4); Absolute Monocyte Count 0.27 10^3/uL (0.1-0.8); Absolute Neutrophil Count 0.88 10^3/uL (1.2-6.7); Basophils % 0.4; Eosinophils % 19.9; HCT 30.7 % (36.0-46.0); HGB 10.4 g/dL (11.2-15.7); Immature Grans % 0.4; Lymphocytes % 30.5; MCH 31.3 pg (27.0-33.0); MCHC 33.9 % (32.0-36.0); MCV 92.5 fL (80-95); MPV 12.4 fL (8.0-11.0); Monocytes % 11.4; Neutrophils % 37.4; Nucleated RBC 0 %; Platelet Count 74 10^3/uL (130-400); RBC 3.32 10^6/uL (3.93-5.22); RDW 15.1 % (11.7-14.6); RDW-SD 49.2 fL; WBC 2.36 10^3/uL (4.4-10.8)
[2021-03-16 15:37] LABS: ALT 27 U/L (14-59); AST 24 U/L (15-37); Albumin 3.6 g/dL (3.4-5.0); Alkaline Phosphatase 76 U/L (46-116); Anion Gap 8.5 mmol/L (3-11); BUN 17 mg/dL (7-18); Bilirubin, Total 0.6 mg/dL (0.2-1.0); CO2 29.5 mmol/L (21.0-32.0); CREATININE 1.2 mg/dL (0.55-1.02); Calcium 8.6 mg/dL (8.5-10.1); Chloride 101 mmol/L (98-107); Estimated GFR 44.16 (mL/min/1.73m2); Glucose 115 mg/dL (74-106); Potassium 4.5 mmol/L (3.5-5.1); Sodium 139 mmol/L (136-145); Total Protein 6.6 g/dL (6.4-8.2)
[2021-03-16 15:40] LABS: Anisocytosis 1+; Diff Comment Agrees w/ Instrument
== END 2021-03-16 11:31 | disposition home or self-care (01) ==
LOC: NCHCN 11:30
PROVIDERS: PCP Nurse Practitioner; Visit Provider Family Medicine
DX: R53.1 Weakness (principal)
CPT/HCPCS: 80053; 85025

== ENCOUNTER 2021-03-21 01:37 | Outpatient (CLI) | payer OTHER, SELFPAY ==
--- NOTE | 2021-03-21 08:00 | DI.CT_ITS ---
Exam(s) CT ABDOMEN PELVIS W EXAM: CT ABDOMEN PELVIS W CLINICAL HISTORY: abd pain,R10.9. TECHNIQUE: Imaging Protocol: Axial computed tomography images with coronal and sagittal reformatted images were created and reviewed CONTRAST MATERIAL: Intravenous: Omnipaque 100cc Oral: None COMPARISON: No exams were available for comparison FINDINGS: VISUALIZED LUNG BASES: No nodules nor pleural effusions evident. ABDOMEN: There is no ascites. LIVER: There are no focal hepatic lesions evident . GALLBLADDER/BILIARY: No obvious gallbladder pathology. CBD diameter is upper normal. PANCREAS: No evidence of pancreatic mass nor dilatation of the pancreatic duct. SPLEEN: Mild splenomegaly. No intrasplenic lesions evident. Splenic and portal veins are patent. ADRENALS: There are no significant adrenal masses. KIDNEYS:There are few parapelvic cysts in the left kidney. No other significant focal findings in th e left kidney. The right kidney exhibits significant thinning of the lateral cortex but no significa nt mass nor calculi nor hydronephrosis. This may be developmental. Both renal veins are patent. ABDOMINAL AORTA: Abdominal aorta is calcified but not enlarged. LYMPH NODES:There is no retroperitineal nor paraaortic adenopathy. ABDOMINAL WALL: No evidence of significant anterior abdominal wall hernia. GI: There is no evidence of bowel obstruction, free air, nor abscess. PELVIS: GI: No evidence of appendicitis.There is sigmoid diverticuli noted but no evidence of acute diverticu litis. LYMPH NODES: There is no intrapelvic nor inguinal adenopathy. REPRODUCTIVE: Uterus size upper normal. No abnormal adnexal masses. No free fluid. URINARY BLADDER: No calculi nor obvious masses evident OSSEOUS: No significant osseous lesions. IMPRESSION: 1. There is mild splenomegaly. No intrasplenic lesions. No perisplenic fluid 2. There is no lymphadenopathy nor ascites evident. There are no abnormal mesenteric masses. 3. There are few benign parapelvic cysts in the left kidney. There is thinning of the lateral cortex of the right kidney noted, possibly developmental. RADIATION DOSE DELIVERED: 613.04mGy.cm Total DLP DATA REPOSITORY: All CT scans at this facility are submitted to the National Radiology Data Registry (NRDR) Dose Index Registry (DIR) with the [employer] ([employer]). RADIATION OPTIMIZATION: All CT scans at this facility use at least one of these dose optimization te chniques: automated exposure control; mA and/or kV adjustment per patient size (includes targeted exa ms where dose is matched to clinical indication); or iterative reconstruction.
[2021-03-21] MEDS: Omnipaque 350 MG/ML 50 ML BTL IJ (13:15)
[2021-03-21 13:32] LABS: Abs Immature Grans 0.44 10^3/uL (0.0-0.06); HCT 29.1 % (36.0-46.0); HGB 9.8 g/dL (11.2-15.7); MCH 30.9 pg (27.0-33.0); MCHC 33.7 % (32.0-36.0); MCV 91.8 fL (80-95); MPV 9.1 fL (8.0-11.0); Nucleated RBC 0 %; Platelet Count 344 10^3/uL (130-400); RBC 3.17 10^6/uL (3.93-5.22); RDW-SD 53.1 fL; WBC 4.24 10^3/uL (4.4-10.8)
[2021-03-21 13:50] LABS: ALT 29 U/L (14-59); AST 26 U/L (15-37); Albumin 3.1 g/dL (3.4-5.0); Alkaline Phosphatase 66 U/L (46-116); Anion Gap 6.2 mmol/L (3-11); BUN 16 mg/dL (7-18); Bilirubin, Total 0.5 mg/dL (0.2-1.0); C-Reactive Protein 6.58 mg/dL (0.0-0.3); CO2 28.8 mmol/L (21.0-32.0); CREATININE 1.2 mg/dL (0.55-1.02); Calcium 8.5 mg/dL (8.5-10.1); Chloride 98 mmol/L (98-107); Estimated GFR 44.16 (mL/min/1.73m2); Glucose 106 mg/dL (74-106); Potassium 3.8 mmol/L (3.5-5.1); Sodium 133 mmol/L (136-145); Total Protein 6.6 g/dL (6.4-8.2)
[2021-03-21 14:08] LABS: Absolute Eosinophil Count 0.13 10^3/uL (0.0-0.7); Absolute Lymphocyte Count 1.23 10^3/uL (1.2-3.4); Absolute Monocyte Count 0.93 10^3/uL (0.1-0.8); Absolute Neutrophil Count 1.87 10^3/uL (1.2-6.7); Atypical Lymphocytes % 16; Bands % 3
[2021-03-21 14:09] LABS: Diff Comment Manual Differential; Metamyelocytes % 2; Polychromasia Present
[2021-03-21] MEDS: Omnipaque 350 MG/ML 100 ML BTL IJ (14:44)
[2021-03-21] MEDS: Normal Saline - Diluent 50 ML VIAL IV (14:46)
[2021-03-21] MEDS: Normal Saline Flush 10 ML SYR IVP (14:47)
[2021-03-21 14:58] LABS: TSH 1.73 uIU/mL (0.36-3.74); Vitamin B12 529 pg/mL (193-986)
[2021-03-21 15:01] LABS: Folate > 20.0 ng/mL (8.6-20.0)
[2021-03-22 10:55] LABS: Lyme Ab w Rflx to Lyme Confirm Negative (Negative)
[2021-03-24 02:07] LABS: Anaplasma phagocytophilum Negative (Negative); B. miyamotoi PCR Negative (Negative); Babesia divergens/MO-1 Negative (Negative); Babesia duncani Negative (Negative); Babesia microti Negative (Negative); Ehrlichia chaffeensis Negative (Negative); Ehrlichia ewingii/canis Negative (Negative); Ehrlichia muris eauclairensis Negative (Negative)
== END 2021-03-21 01:57 ==
PROVIDERS: Internal Medicine Rheumatology; PCP Nurse Practitioner; Visit Provider Nurse Practitioner
DX: R10.9 Unspecified abdominal pain (principal); R16.1 Splenomegaly, not elsewhere classified; N28.1 Cyst of kidney, acquired
CPT/HCPCS: 80053; 87798; 74177; 82607; 82746; 84443; 85025; 86140; 86618; J3490; Q9967

== ENCOUNTER 2021-03-23 17:46 | Emergency (ER) | payer OTHER, SELFPAY ==
[2021-03-23] VITALS (31 sets, daily range): BP systolic 92–124; BP diastolic 51–90; PULSE 82–103; RESP 15–32; TEMP 37.1; O2SAT 93–100
--- NOTE | 2021-03-23 17:45 | RT.EKG_ITS ---
APPROVED REPORT Exam: Resting ECG Reason for Exam: weakness Patient Location: E HR:93 bpm ECG Measurements Heart Rate 93 AXIS GA 147 P 73 QRSd 78 QRS 49 QT 339 T 51 QTc 422 Conclusion Sinus rhythm...normal P axis, V-rate 60- 99 Probable left atrial enlargement...P >50mS, <-0.10mV V1 Anteroseptal infarct, age indeterminate...Q >35mS, T neg, V1-V2 No STEMI I have reviewed and interpreted ECG and agree with software generated interpretation.
[2021-03-23 18:29] LABS: HCT 28.4 % (36.0-46.0); HGB 9.6 g/dL (11.2-15.7); MCHC 33.8 % (32.0-36.0); MCV 91.6 fL (80-95); MPV 9.3 fL (8.0-11.0); Nucleated RBC 0 %; Platelet Count 480 10^3/uL (130-400); RDW-SD 52.3 fL; WBC 10.33 10^3/uL (4.4-10.8)
[2021-03-23 18:44] LABS: ALT 40 U/L (14-59); AST 31 U/L (15-37); Albumin 2.8 g/dL (3.4-5.0); Alkaline Phosphatase 76 U/L (46-116); Anion Gap 6.9 mmol/L (3-11); BUN 12 mg/dL (7-18); Bilirubin, Total 0.4 mg/dL (0.2-1.0); CO2 29.1 mmol/L (21.0-32.0); CREATININE 1.2 mg/dL (0.55-1.02); Calcium 8.7 mg/dL (8.5-10.1); Chloride 98 mmol/L (98-107); Estimated GFR 44.16 (mL/min/1.73m2); Glucose 116 mg/dL (74-106); Potassium 3.7 mmol/L (3.5-5.1); Sodium 134 mmol/L (136-145); Total Protein 6.3 g/dL (6.4-8.2)
[2021-03-23 18:51] LABS: Magnesium 1.6 mg/dL (1.8-2.4); NT-proBNP 723 pg/mL (<300); TSH (W/Ref FT4) 3.06 uIU/mL (0.36-3.74); Troponin I < 0.05 ng/mL (<0.06)
[2021-03-23 19:00] LABS: Absolute Lymphocyte Count 1.65 10^3/uL (1.2-3.4); Absolute Monocyte Count 2.48 10^3/uL (0.1-0.8); Absolute Neutrophil Count 5.89 10^3/uL (1.2-6.7); Atypical Lymphocytes % 3; Bands % 1; Metamyelocytes % 1
[2021-03-23 19:01] LABS: Diff Comment Manual Differential; Polychromasia Present
[2021-03-23 19:04] LABS: Bilirubin Negative (Negative); Blood Negative (Negative); Clarity Clear (Clear); Glucose Negative (Negative); Ketones Negative (Negative); Leukocyte Esterase Negative (Negative); Nitrite Negative (Negative); Specific Gravity 1.015 (1.005-1.025); Urobilinogen 0.2 EU/dL (Up TO 0.2)
[2021-03-23 19:06] LABS: D-Dimer 1391 ng/mlFEU (<500)
--- NOTE | 2021-03-23 19:15 | DI.CT_ITS ---
Exam(s) CT CHEST PE CTA EXAM: CT CHEST PE CTA CLINICAL HISTORY: fatigue, shortness of breath, elevated ddimer. TECHNIQUE: Imaging Protocol: Axial CT angiography was performed with multi-slice acquisition and mu lti-planar and/or 3D reconstructions. CONTRAST MATERIAL: Intravenous: Omnipaque 350 Contrast volume:61 mL COMPARISON: CT CT ABDOMEN PELVIS W from 03/21/2021 FINDINGS: Tracheobronchial tree: Patent where visualized. Pulmonary parenchyma: No focal consolidation. There is a bilateral upper lobe mosaic attenuation pat tern. No architectural distortion. Pulmonary Arteries: No evidence of filling defect to suggest pulmonary emboli. Mediastinum and Wendy: No dominant adenopathy or fluid collection. Visualized thyroid gland: Unremarkable. Pleura: No effusion or pneumothorax. Heart: The heart is not dilated. Mild coronary artery calcifications. No pericardial effusion. Aorta: Thoracic aorta non-dilated. No evidence of dissection. Upper abdomen: Mild right renal atrophy. Soft tissues: Unremarkable. Bones: Within normal limits for the patient's age. IMPRESSION: 1. No evidence of pulmonary embolism, thoracic aortic dissection or aneurysm. 2. Nonspecific ground-glass opacities in the upper lobe. RADIATION DOSE DELIVERED: 274.51mGy.cm Total DLP DATA REPOSITORY: All CT scans at this facility are submitted to the National Radiology Data Registry (NRDR) Dose Index Registry (DIR) with the [employer] (ACR). RADIATION OPTIMIZATION: All CT scans at this facility use at least one of these dose optimization te chniques: automated exposure control; mA and/or kV adjustment per patient size (includes targeted exa ms where dose is matched to clinical indication); or iterative reconstruction.
--- NOTE | 2021-03-23 19:24 | ED.GENADUL_ITS ---
Discharge Plan Disposition Patient Disposition: HOME Condition: Good Discharge Details Clinical Impression: Fatigue, Hypomagnesemia Primary Care Provider: Evie Mcconnell ED Provider: Susan Eisenberg Home Meds and New Rx's Prescriptions: New magnesium gluconate 30 mg (550 mg) tablet 30 mg PO DAILY Qty: 10 RF: 0 No Action acetaminophen 500 mg capsule 1,000 mg PO BID PRNRF: 0 hydroxychloroquine [Plaquenil] 200 MG tablet 2 tab PO DIRECTED Qty: 180 RF: 4 magnesium oxide 400 MG capsule 400 mg PO BID RF: 0 Mariya/Iron 1 EACH tablet,chewable 1 ea PO DAILY Qty: 100 RF: 0 cholecalciferol (vitamin D3) [Vitamin D3] 2,000 UNIT capsule 2,000 unit PO DAILY RF: 0 zoledronic eupv-vypberwq-hgowy [Reclast] 5 MG/100 ML piggyback 5 mg IV Yearly RF: 0 nitroglycerin [Nitrostat] 0.4 mg tablet, sublingual 0.4 mg Sublingual DIRECTED PRN (Reason: angina) Qty: 100 RF: 1 omeprazole 40 mg capsule,delayed release(DR/EC) 40 mg PO DAILY Qty: 90 RF: 3 methotrexate sodium 2.5 mg tablet 15 mg PO WKLY RF: 0 atorvastatin [Lipitor] 40 mg tablet 40 mg PO QPM Qty: 90 RF: 3 metoprolol succinate 25 mg tablet extended release 24 hr 25 mg PO DAILY Qty: 90 RF: 3 aspirin [Lo-Dose Aspirin] 81 MG tablet,delayed release (DR/EC) 81 mg PO DAILY RF: 0 clopidogrel 75 mg tablet 75 mg PO DAILY AM RF: 0 folic acid 1 MG tablet 2 mg PO DAILY RF: 0 ferrous gluconate 324 mg (38 mg iron) tablet 324 mg PO DAILY RF: 0 Discharge Instructions Instructions: Fatigue (ED) Additional Instructions: Please follow-up with your primary care physician on Thursday for reevaluation and 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 Should you have a temperature over 100.4, chest pain, or with any new or worsening symptoms, you must return to the emergency room Medical Decision Making Patient is alert and oriented, quite pleasant, her vitals are stable she is ambulatory with steady gait EKG does not show acute abnormality and 2 troponins negative, BNP mildly elevated at 773, previous 330, D-dimer greater than S [place], CTA ordered, no evidence of obvious pneumonia, no leukocytosis, question of fever at home yesterday, here afebrile Report of outpatient echocardiogram on Thursday, unable to obtain report from [facility] at this time Lactate negative blood cultures pending, patient offered admission but request discharge home, alert, oriented, of decisional capacity, well in appearance and ambulatory with steady gait Clinic/outpatient evaluation and placed recreation officer with All conversation was had in presence of daughter, , or patient Patient was noted to be DNR/DNI, on further discussion, patient requests full CODE STATUS, this is amended in chart Differential Diagnosis Differential Diagnosis: Pneumonia, urinary tract infection, myocardial infarction, anemia Medical Records Medical records reviewed: Yes I reviewed the patient's medical records. Lab Data Lab results reviewed: Yes I reviewed the patient's lab results. HPI General Date/Time Provider Initiated Documentation: 03/23/21 17:46 . Limitations to Documentation: no limitations . Information obtained by: patient . HPI Narrative: This 70-year-old female with history of coronary artery disease, GERD, hypertension, rheumatoid arthritis, chronic sinusitis, cardiomyopathy presents with reports of overwhelming fatigue. Patient states she felt tired for the past 3 weeks. She states the thing that concerned her as last she felt similarly when she had a heart attack previously. She has 2 stents which are placed approximately 4 years ago. She states she had an echo prior on Thursday, she does not review the results. She denies any dramatic change in her pain. She denies any chest pain or shortness of breath. She denies any calf pain or swelling. She denies significant weight gain. She denies any known exacerbating or alleviating factors. She saw her doctor and had some blood work drawn which did not show acute abnormality. She is also seen at urgent care and had some blood work and EKG performed that were within normal limits. She denies any additional complaints at this time. She denies fever or chills. Related Data Home Medications Medication Instructions Recorded Confirmed hydroxychloroquine [Plaquenil] 2 tab PO DIRECTED #180 tab-cap 09/19/16 03/23/21 aspirin [Lo-Dose Aspirin] 81 mg PO DAILY 02/07/17 03/23/21 magnesium oxide 400 mg PO BID 02/17/17 03/23/21 Mariya/Iron 1 ea PO DAILY #100 tab.chew 03/05/17 03/23/21 cholecalciferol (vitamin D3) 2,000 unit PO DAILY 03/24/18 03/23/21 [Vitamin D3] zoledronic ervz-phqmkxjj-bbgjq 5 mg IV Yearly 03/24/18 03/23/21 [Reclast] ferrous gluconate 324 mg PO DAILY 09/26/19 03/19/21 folic acid 2 mg PO DAILY 09/26/19 03/23/21 nitroglycerin 0.4 mg sublingual 0.4 mg SUBLINGUAL DIRECTED PRN 03/14/20 03/23/21 tablet #100 tab omeprazole 40 mg capsule,delayed 40 mg PO DAILY #90 tab-cap 06/13/20 03/23/21 release acetaminophen 500 mg capsule 1,000 mg PO BID PRN cap 11/06/20 03/19/21 methotrexate sodium 2.5 mg tablet 15 mg PO WKLY tab-cap 11/06/20 03/23/21 atorvastatin 40 mg tablet 40 mg PO QPM #90 cap 11/20/20 03/23/21 metoprolol succinate 25 mg 25 mg PO DAILY #90 tab 11/20/20 03/23/21 tablet,extended release 24 hr clopidogrel 75 mg PO DAILY AM 03/23/21 03/23/21 magnesium gluconate 30 mg PO DAILY #10 tab 03/23/21 Previous Rx's Medication Instructions Recorded nitroglycerin 0.4 mg sublingual 0.4 mg SUBLINGUAL DIRECTED PRN 03/14/20 tablet #100 tab omeprazole 40 mg capsule,delayed 40 mg PO DAILY #90 tab-cap 06/13/20 release atorvastatin 40 mg tablet 40 mg PO QPM #90 cap 11/20/20 metoprolol succinate 25 mg 25 mg PO DAILY #90 tab 11/20/20 tablet,extended release 24 hr magnesium gluconate 30 mg PO DAILY #10 tab 03/23/21 Allergies Allergy/AdvReac Type Severity Reaction Status Date / Time amoxicillin AdvReac Intermediate diarrhea Verified 03/19/21 16:23 General Stated Complaint: GenMedical DANYELLE: 3 Review of Systems Narrative: Review of systems obtained x7 aside from where indicated in HPI [facility] Medical History (Updated 03/23/21 @ 21:45 by FRANCISCO Rasheed) Cryptogenic organizing pneumonia Current smoker (11/28/14) Foot pain Hearing loss in right ear (05/01/15) ST elevation (STEMI) myocardial infarction of unspecified site Surgical History (Updated 02/14/20 @ 11:40 by Evie Mcconnell NP) Colonoscopy - IV Sedation (01/17/13) DR. CINTHIA BARAHONA Dilation and curettage (~07/1997) Hx of heart artery stent Stents x 2. 2017 Status post dilation and curettage Status post tonsillectomy Tonsillectomy (~1957) Family History (Updated 04/11/20 @ 15:17 by Paola Wild) Mother , 55 Systemic lupus erythematosus Essential hypertension Hypertension Father , SUICIDE at age 61. Mental disorder Depression Brother , COPD at age 71. Substance abuse Heart disease COPD (chronic obstructive pulmonary disease) Brother Essential hypertension Brother Substance abuse Personal history of malignant neoplasm LUNG Grandfather Essential hypertension Heart disease Grandmother Diabetes Grandmother Heart disease Other Depression Social History (Updated 04/11/20 @ 15:13 by Paola Wild) Smoking/Tobacco Use Status: Former Tobacco Use Second Hand Exposure: Yes Smoking risk assessment performed?: Yes Alcohol Intake: current Alcohol Intake frequency: holidays/special occasions only Drug use: Never Substance use type: does not use Household members: spouse Housing: house Communication Needs: None Do you need help understanding health information?: Rarely Pets and animals: No Sexually active: No Do you think of yourself as: straight/heterosexual Current gender identity: female What is your relationship status?: How often do you talk on the phone with friends or family?: three or more times per week How often do you get together with friends or relatives?: three or more times per week How often do you attend rastafarian or restorationist services?: 4 or more times per year Do you belong to any clubs or organized social groups?: yes Panel score (0-1 are the most socially isolated patients): 4 What type of physical activity do you participate in: walking Duration: 30-45 minutes/day Frequency: 5-6 times per week Sally/Temple: Scientologist Special sally needs: No Seatbelt use: always Drive intox or ride w/intox commercial truck driver: No Do you feel safe at home: Yes Do you feel safe in your relationship?: Yes Additional Social history: with 4 children. 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 Originally from [place]. Remote history of tobacco use. Exam Const General: cooperative, no acute distress and frail appearing Eyes Pupils: PERRL Chest Chest: normal inspection of the chest Resp Effort & Inspection: normal respiratory effort Auscultation: clear to auscultation bilaterally Cardio Rate: regular rate Rhythm: regular rhythm Heart Sounds: murmur Skin General skin exam: no rashes or lesions noted Neuro General: patient alert, patient oriented x3 and CN's II-XI intact bilaterally Extrem Other: No calf swelling or tenderness appreciated Distal pulses intact Course Vital Signs Vital signs: Vital Signs Temperature 37.1 C 03/23/21 17:58 Pulse 92 H 03/23/21 17:58 Respiratory Rate 27 H 03/23/21 17:58 Blood Pressure 109/90 03/23/21 17:58 Pulse Oximetry 95 03/23/21 17:58 Temperature 37.1 C 03/23/21 17:58 Temperature Source Temporal Artery Scan 03/23/21 17:58 Pulse 91 H 03/23/21 18:31 Pulse 90 03/23/21 18:31 Respiratory Rate 27 H 03/23/21 18:31 Respiratory Effort 03/23/21 18:13 Blood Pressure 92/60 L 03/23/21 18:31 Blood Pressure Mean 65 03/23/21 18:31 Blood Pressure Position Supine 03/23/21 17:58 Pulse Oximetry 94 03/23/21 18:31 Oxygen Delivery Method Room Air 03/23/21 17:58 Oxygen Flow Rate 0 03/23/21 17:58 Pain Level 0 03/23/21 17:58 Lab/Test Results Lab/Test Results: Laboratory Tests Range/Units 03/23/21 03/23/21 03/23/21 18:00 18:00 18:00 WBC (4.4-10.8) 10^3/uL RBC (3.93-5.22) 10^6/uL Hgb (11.2-15.7) g/dL Hct (36.0-46.0) % MCV (80-95) fL MCH (27.0-33.0) pg MCHC (32.0-36.0) % RDW (11.7-14.6) % Plt Count (130-400) 10^3/uL MPV (8.0-11.0) fL Immature Gran % Neutrophils % Band Neutrophils % Lymphocytes % Atypical Lymphs % Monocytes % Eosinophils % Basophils % Metamyelocytes % Nucleated RBC % % Absolute Neutrophils (1.2-6.7) 10^3/uL Absolute Lymphocytes (1.2-3.4) 10^3/uL Absolute Monocytes (0.1-0.8) 10^3/uL Absolute Eosinophils (0.0-0.7) 10^3/uL Absolute Basophils (0.0-0.2) 10^3/uL RBC Morphology Polychromasia D-Dimer (<500) ng/mlFEU 1391 H Sodium (136-145) mmol/L 134 L Potassium (3.5-5.1) mmol/L 3.7 Chloride (98-107) mmol/L 98 Carbon Dioxide (21.0-32.0) mmol/L 29.1 Anion Gap (3-11) mmol/L 6.9 BUN (7-18) mg/dL 12 Creatinine (0.55-1.02) mg/dL 1.2 H Estimated GFR/1.73 m2 (mL/min/1.73m2) 44.16 Glucose (74-106) mg/dL 116 H Calcium (8.5-10.1) mg/dL 8.7 Magnesium (1.8-2.4) mg/dL 1.6 L Total Bilirubin (0.2-1.0) mg/dL 0.4 AST (15-37) U/L 31 ALT (14-59) U/L 40 Alkaline Phosphatase (46-116) U/L 76 Troponin I (<0.06) ng/mL < 0.05 NT-Pro-B Natriuret Pep (<300) pg/mL 723 H Total Protein (6.4-8.2) g/dL 6.3 L Albumin (3.4-5.0) g/dL 2.8 L TSH (0.36-3.74) uIU/mL 3.06 Urine Color (Yellow) Urine Clarity (Clear) Urine pH (5-8) Ur Specific [place] (1.005-1.025) Urine Protein (Negative) mg/dL Urine Ketones (Negative) mg/dL Urine Blood (Negative) Urine Nitrite (Negative) Urine Bilirubin (Negative) Urine Urobilinogen (Up TO 0.2) EU/dL Ur Leukocyte Esterase (Negative) Urine Glucose (Negative) mg/dL Range/Units 03/23/21 03/23/21 18:00 18:40 WBC (4.4-10.8) 10^3/uL 10.33 RBC (3.93-5.22) 10^6/uL 3.10 L Hgb (11.2-15.7) g/dL 9.6 L Hct (36.0-46.0) % 28.4 L MCV (80-95) fL 91.6 MCH (27.0-33.0) pg 31.0 MCHC (32.0-36.0) % 33.8 RDW (11.7-14.6) % 16.0 H Plt Count (130-400) 10^3/uL 480 H MPV (8.0-11.0) fL 9.3 Immature Gran % See Differential Neutrophils % 56.0 Band Neutrophils % 1 Lymphocytes % 13.0 Atypical Lymphs % 3 Monocytes % 24.0 Eosinophils % 1.0 Basophils % 1.0 Metamyelocytes % 1 Nucleated RBC % % 0 Absolute Neutrophils (1.2-6.7) 10^3/uL 5.89 Absolute Lymphocytes (1.2-3.4) 10^3/uL 1.65 Absolute Monocytes (0.1-0.8) 10^3/uL 2.48 H Absolute Eosinophils (0.0-0.7) 10^3/uL 0.10 Absolute Basophils (0.0-0.2) 10^3/uL 0.10 RBC Morphology See below Polychromasia Present D-Dimer (<500) ng/mlFEU Sodium (136-145) mmol/L Potassium (3.5-5.1) mmol/L Chloride (98-107) mmol/L Carbon Dioxide (21.0-32.0) mmol/L Anion Gap (3-11) mmol/L BUN (7-18) mg/dL Creatinine (0.55-1.02) mg/dL Estimated GFR/1.73 m2 (mL/min/1.73m2) Glucose (74-106) mg/dL Calcium (8.5-10.1) mg/dL Magnesium (1.8-2.4) mg/dL Total Bilirubin (0.2-1.0) mg/dL AST (15-37) U/L ALT (14-59) U/L Alkaline Phosphatase (46-116) U/L Troponin I (<0.06) ng/mL NT-Pro-B Natriuret Pep (<300) pg/mL Total Protein (6.4-8.2) g/dL Albumin (3.4-5.0) g/dL TSH (0.36-3.74) uIU/mL Urine Color (Yellow) Yellow Urine Clarity (Clear) Clear Urine pH (5-8) 7.0 Ur Specific [place] (1.005-1.025) 1.015 Urine Protein (Negative) mg/dL Negative Urine Ketones (Negative) mg/dL Negative Urine Blood (Negative) Negative Urine Nitrite (Negative) Negative Urine Bilirubin (Negative) Negative Urine Urobilinogen (Up TO 0.2) EU/dL 0.2 Ur Leukocyte Esterase (Negative) Negative Urine Glucose (Negative) mg/dL Negative
[2021-03-23] MEDS: Omnipaque 350 MG/ML 100 ML BTL IJ (19:47)
[2021-03-23] MEDS: Normal Saline - Diluent 50 ML VIAL IV (19:53)
--- NOTE | 2021-03-23 20:25 | DI.VRAD_ITS ---
PROCEDURE INFORMATION: Exam: CTA Chest With Contrast Exam date and time: 03/23/2021 7:20 PM Age: 70 years old Clinical indication: Patient HX: Fatigue, shortness of breath, elevated d dimer TECHNIQUE: Imaging protocol: Computed tomographic angiography of the chest with contrast. 3D rendering (Not supervised by radiologist): MIP and/or 3D reconstructed images were created by the technologist. Total images: 1824 COMPARISON: CT CHEST W 07/13/2019 1:08 PM FINDINGS: Pulmonary arteries: No filling defect in the pulmonary arterial tree. Aorta: No aortic aneurysm. No aortic dissection. Lungs: There is interval mosaic attenuation bilaterally most concentrated within the upper lobes. No consolidation. Pleural spaces: No pleural fluid or pneumothorax. Heart: No pericardial effusion. Lymph nodes: No mediastinal, hilar or axillary adenopathy. Kidneys and ureters: Moderate right renal atrophy. Bones/joints: No significant bony or joint space abnormality. Soft tissues: Extrathoracic soft tissues are unremarkable. IMPRESSION: 1. Bilateral upper lobe mosaic attenuation, favor being secondary to nonspecific ground-glass opacities. 2. No PE. Dictated and Authenticated by: Fili Saeed MD. Ordering:CORA Davis MD
[2021-03-23 21:23] LABS: Lactate 0.7 mmol/L (0.6-1.4)
[2021-03-23 21:39] LABS: Troponin I < 0.05 ng/mL (<0.06)
--- NOTE | 2021-03-23 21:44 | NUR.NOTE ---
Nursing Note:patient place on care management referral sheet for followup care with PCP.
== END 2021-03-23 22:15 | disposition home or self-care (01) ==
PROVIDERS: Emergency Provider Physician Assistant; PCP Nurse Practitioner
DX: E83.42 Hypomagnesemia (principal); R53.83 Other fatigue; R79.89 Other specified abnormal findings of blood chemistry; R79.1 Abnormal coagulation profile; I42.9 Cardiomyopathy, unspecified; I25.10 Atherosclerotic heart disease of native coronary artery without angina pectoris; Z95.5 Presence of coronary angioplasty implant and graft; Z87.891 Personal history of nicotine dependence
CPT/HCPCS: 36410; 36415; 71275; 80053; 87040; 93005; 99285; 81003; 83605; 83735; 83880; 84443; 84484; 85025; 85379; 93010; J3490

== ENCOUNTER 2021-04-08 03:02 | Outpatient (CLI) | payer OTHER, SELFPAY ==
[2021-04-08 13:58] LABS: Abs Immature Grans 0.03 10^3/uL (0.0-0.06); Absolute Basophil Count 0.08 10^3/uL (0.0-0.2); Absolute Eosinophil Count 0.18 10^3/uL (0.0-0.7); Absolute Lymphocyte Count 2.05 10^3/uL (1.2-3.4); Absolute Monocyte Count 0.83 10^3/uL (0.1-0.8); Absolute Neutrophil Count 5.22 10^3/uL (1.2-6.7); Eosinophils % 2.1; HCT 32.7 % (36.0-46.0); HGB 10.4 g/dL (11.2-15.7); Immature Grans % 0.4; Lymphocytes % 24.4; MCH 30.7 pg (27.0-33.0); MCHC 31.8 % (32.0-36.0); MCV 96.5 fL (80-95); MPV 10.2 fL (8.0-11.0); Monocytes % 9.9; Neutrophils % 62.2; Nucleated RBC 0 %; RBC 3.39 10^6/uL (3.93-5.22); RDW 16.9 % (11.7-14.6); RDW-SD 59.7 fL; WBC 8.39 10^3/uL (4.4-10.8)
[2021-04-08 14:03] LABS: Platelet Count 180 10^3/uL (130-400)
[2021-04-08 15:12] LABS: ALT 25 U/L (14-59); AST 27 U/L (15-37); Albumin 3.4 g/dL (3.4-5.0); Alkaline Phosphatase 81 U/L (46-116); BUN 26 mg/dL (7-18); Bilirubin, Total 0.5 mg/dL (0.2-1.0); C-Reactive Protein 0.12 mg/dL (0.0-0.3); CREATININE 1.4 mg/dL (0.55-1.02); Calcium 9.6 mg/dL (8.5-10.1); Chloride 104 mmol/L (98-107); Estimated GFR 36.96 (mL/min/1.73m2); Glucose 87 mg/dL (74-106); Sodium 140 mmol/L (136-145)
== END 2021-04-08 03:03 | disposition home or self-care (01) ==
LOC: LBO 03:02
PROVIDERS: PCP Nurse Practitioner; Visit Provider Internal Medicine Rheumatology
DX: M06.9 Rheumatoid arthritis, unspecified (principal); Z79.899 Other long term (current) drug therapy
CPT/HCPCS: 36415; 80053; 85025; 86140

== ENCOUNTER 2021-05-02 02:04 | Outpatient (CLI) | payer OTHER, SELFPAY ==
--- NOTE | 2021-05-02 07:31 | DI.MAMMO_ITS ---
Exam(s) MAMMO SCREENING EXAM: MAMMO SCREENING CLINICAL HISTORY: screening,Z12.39 TECHNIQUE: Mammograms were interpreted according to the usual protocol including computer analysis w [employer] CAD system, tomosynthesis and C-view imaging. COMPARISON: 2011 through 2017 FINDINGS: The breasts are composed of scattered fibroglandular densities, Breast Density category B. No suspicious masses or suspicious microcalcifications are seen. No skin thickening or abnormal axillary lymph nodes are seen. There has been no significant change from prior exams. IMPRESSION: BI-RADS Category 1, Negative mammogram Yearly screening mammography is recommended. Breast Density - Category B, scattered fibroglandular densities. A negative radiographic report should not delay biopsy if a dominant or clinically suspicious mass is present. Up to ten percent of cancers are not identified on mammography. A negative report may reinforce clinical impression. Adenosis and dense breasts may obscure an underlying neoplasm. False positive reports average 6 to 10%. Patient will receive a letter notifying them of these results.
== END 2021-05-02 02:24 ==
PROVIDERS: PCP Nurse Practitioner; Visit Provider Nurse Practitioner
DX: Z12.31 Encounter for screening mammogram for malignant neoplasm of breast (principal); R92.8 Other abnormal and inconclusive findings on diagnostic imaging of breast
CPT/HCPCS: 77063; 77067

== ENCOUNTER 2021-05-15 03:08 | Outpatient (CLI) | payer OTHER, SELFPAY ==
[2021-05-15 10:42] LABS: Abs Immature Grans 0.01 10^3/uL (0.0-0.06); Absolute Basophil Count 0.02 10^3/uL (0.0-0.2); Absolute Monocyte Count 0.38 10^3/uL (0.1-0.8); Absolute Neutrophil Count 3.51 10^3/uL (1.2-6.7); Basophils % 0.4; Eosinophils % 1.9; HGB 10.8 g/dL (11.2-15.7); Immature Grans % 0.2; MCH 30.9 pg (27.0-33.0); MCHC 31.8 % (32.0-36.0); MCV 97.1 fL (80-95); MPV 9.9 fL (8.0-11.0); Monocytes % 7.3; Neutrophils % 67.2; Nucleated RBC 0 %; Platelet Count 148 10^3/uL (130-400); RDW 15.5 % (11.7-14.6); RDW-SD 54.7 fL; WBC 5.22 10^3/uL (4.4-10.8)
[2021-05-15 11:27] LABS: ALT 26 U/L (14-59); AST 19 U/L (15-37); Albumin 3.4 g/dL (3.4-5.0); Alkaline Phosphatase 86 U/L (46-116); Anion Gap 5.6 mmol/L (3-11); BUN 17 mg/dL (7-18); Bilirubin, Total 0.5 mg/dL (0.2-1.0); C-Reactive Protein 0.21 mg/dL (0.0-0.3); CO2 29.4 mmol/L (21.0-32.0); CREATININE 1.1 mg/dL (0.55-1.02); Calcium 8.2 mg/dL (8.5-10.1); Chloride 106 mmol/L (98-107); Estimated GFR 48.82 (mL/min/1.73m2); Glucose 85 mg/dL (74-106); Potassium 4.1 mmol/L (3.5-5.1); Sodium 141 mmol/L (136-145); Total Protein 6.7 g/dL (6.4-8.2)
== END 2021-05-15 03:09 | disposition home or self-care (01) ==
LOC: LBO 03:08
PROVIDERS: PCP Nurse Practitioner; Visit Provider Internal Medicine Rheumatology
DX: M06.9 Rheumatoid arthritis, unspecified (principal); Z79.899 Other long term (current) drug therapy
CPT/HCPCS: 36415; 80053; 85025; 86140

== ENCOUNTER 2021-08-16 02:14 | Outpatient (CLI) | payer OTHER, SELFPAY ==
[2021-08-16 12:45] LABS: Abs Immature Grans 0.02 10^3/uL (0.0-0.06); Absolute Basophil Count 0.05 10^3/uL (0.0-0.2); Absolute Eosinophil Count 0.12 10^3/uL (0.0-0.7); Absolute Lymphocyte Count 1.12 10^3/uL (1.2-3.4); Absolute Monocyte Count 0.52 10^3/uL (0.1-0.8); Absolute Neutrophil Count 3.15 10^3/uL (1.2-6.7); Eosinophils % 2.4; HCT 36.1 % (36.0-46.0); HGB 11.8 g/dL (11.2-15.7); Immature Grans % 0.4; Lymphocytes % 22.5; MCH 31.1 pg (27.0-33.0); MCHC 32.7 % (32.0-36.0); MCV 95.3 fL (80-95); MPV 10.1 fL (8.0-11.0); Monocytes % 10.4; Neutrophils % 63.3; Nucleated RBC 0 %; Platelet Count 148 10^3/uL (130-400); RBC 3.79 10^6/uL (3.93-5.22); RDW 15.5 % (11.7-14.6); RDW-SD 52.7 fL; WBC 4.98 10^3/uL (4.4-10.8)
[2021-08-16 13:39] LABS: ALT 33 U/L (14-59); AST 31 U/L (15-37); Albumin 4.1 g/dL (3.4-5.0); Alkaline Phosphatase 85 U/L (46-116); Anion Gap 6.6 mmol/L (3-11); BUN 16 mg/dL (7-18); Bilirubin, Total 0.6 mg/dL (0.2-1.0); C-Reactive Protein 0.06 mg/dL (0.0-0.3); CO2 31.4 mmol/L (21.0-32.0); CREATININE 1.2 mg/dL (0.55-1.02); Calcium 9.2 mg/dL (8.5-10.1); Chloride 104 mmol/L (98-107); Estimated GFR 44.16 (mL/min/1.73m2); Glucose 85 mg/dL (74-106); Potassium 4.3 mmol/L (3.5-5.1); Sodium 142 mmol/L (136-145); Total Protein 7.1 g/dL (6.4-8.2)
== END 2021-08-16 02:15 | disposition home or self-care (01) ==
LOC: LBO 02:14
PROVIDERS: PCP Nurse Practitioner; Visit Provider Internal Medicine Rheumatology
DX: Z79.899 Other long term (current) drug therapy (principal); M06.9 Rheumatoid arthritis, unspecified
CPT/HCPCS: 36415; 80053; 85025; 86140

== ENCOUNTER 2022-01-28 04:42 | Outpatient (CLI) | payer OTHER, SELFPAY ==
[2022-01-28 15:03] LABS: Abs Immature Grans 0.02 10^3/uL (0.0-0.06); Absolute Basophil Count 0.03 10^3/uL (0.0-0.2); Absolute Eosinophil Count 0.14 10^3/uL (0.0-0.7); Absolute Lymphocyte Count 1.32 10^3/uL (1.2-3.4); Absolute Monocyte Count 0.64 10^3/uL (0.1-0.8); Absolute Neutrophil Count 4.75 10^3/uL (1.2-6.7); Basophils % 0.4; HCT 36.9 % (36.0-46.0); HGB 11.9 g/dL (11.2-15.7); Immature Grans % 0.3; Lymphocytes % 19.1; MCH 31.4 pg (27.0-33.0); MCHC 32.2 % (32.0-36.0); MCV 97.4 fL (80-95); MPV 10.6 fL (8.0-11.0); Monocytes % 9.3; Neutrophils % 68.9; Nucleated RBC 0 %; Platelet Count 173 10^3/uL (130-400); RBC 3.79 10^6/uL (3.93-5.22); RDW 14.8 % (11.7-14.6); RDW-SD 51.9 fL
[2022-01-28 15:50] LABS: ALT 41 U/L (14-59); AST 29 U/L (15-37); Albumin 4.1 g/dL (3.4-5.0); Alkaline Phosphatase 92 U/L (46-116); Anion Gap 7.5 mmol/L (3-11); BUN 24 mg/dL (7-18); Bilirubin, Total 0.6 mg/dL (0.2-1.0); CO2 28.5 mmol/L (21.0-32.0); CREATININE 1.2 mg/dL (0.55-1.02); Calcium 8.8 mg/dL (8.5-10.1); Chloride 104 mmol/L (98-107); Estimated GFR 44.04 (mL/min/1.73m2); Glucose 96 mg/dL (74-106); Potassium 4.3 mmol/L (3.5-5.1); Sodium 140 mmol/L (136-145); Total Protein 6.8 g/dL (6.4-8.2)
== END 2022-01-28 04:43 | disposition home or self-care (01) ==
LOC: LBO 04:42
PROVIDERS: PCP Nurse Practitioner; Visit Provider Internal Medicine Rheumatology
DX: M05.79 Rheumatoid arthritis with rheumatoid factor of multiple sites without organ or systems involvement (principal); Z79.899 Other long term (current) drug therapy
CPT/HCPCS: 36415; 80053; 85025; 86140

== ENCOUNTER → 2022-04-29 01:16 | Outpatient (CLI) | payer OTHER, SELFPAY ==
--- NOTE | 2022-04-29 13:19 | DI.MAMMO_ITS ---
Exam(s) MAMMO SCREENING EXAM: MAMMO SCREENING CLINICAL HISTORY: screening,z12.39. TECHNIQUE: Bilateral full field digital CC and MLO mammographic images were obtained with 3D tomosyn thesis and utilizing computer aided detection (CAD). COMPARISON: Prior mammograms were reviewed, the most recent being April 2021. FINDINGS: There are no CAD designations. There are no new spiculated masses nor malignant appearing microcalcification groups. There is no significant architectural distortion nor skin thickening-retraction. IMPRESSION: No radiographic evidence of malignancy. BI-RADS Category 1 - Negative Breast Density - Category B - Scattered areas of fibroglandular density Breast density Category C or D implies that the patient has dense breast tissue. Dense breast tissue can make it harder to find cancer on a mammogram. Dense breast tissue is also associated with an incr eased risk of breast cancer. This information about the result of the mammogram report was provided to the patient to raise their awareness. Use this report when you speak with the patient about their risks for breast cancer, which includes their family history. At that time, you may recommend additional screening tests (Ultrasoun d or MRI) as these tests may add significant information. A negative radiographic report should not delay biopsy if a dominant or clinically suspicious mass is present. Up to ten percent of cancers are not identified on mammography. A negative report may reinforce clinical impression. Adenosis and dense breasts may obscure an underlying neoplasm. False positive reports average 6 to 10%. Patient will receive a letter notifying them of these results.
== END ==
PROVIDERS: PCP Nurse Practitioner; Visit Provider Nurse Practitioner
DX: Z12.31 Encounter for screening mammogram for malignant neoplasm of breast (principal)
CPT/HCPCS: 77063; 77067

== ENCOUNTER 2022-07-25 01:21 | Outpatient (CLI) | payer OTHER, SELFPAY ==
[2022-07-25 13:46] LABS: Calculated LDL 48 mg/dL (<100); Cholesterol 128 mg/dL (<200); HDL Cholesterol 67 mg/dL (40-60); Magnesium 1.7 mg/dL (1.8-2.4); Triglyceride 68 mg/dL (<150)
== END 2022-07-25 01:22 | disposition home or self-care (01) ==
LOC: LOS 01:21
PROVIDERS: PCP Nurse Practitioner; Visit Provider Nurse Practitioner
DX: I25.10 Atherosclerotic heart disease of native coronary artery without angina pectoris (principal); E83.42 Hypomagnesemia
CPT/HCPCS: 36415; 80061; 83735

== ENCOUNTER → 2022-08-20 02:15 | Outpatient (CLI) | payer OTHER, SELFPAY ==
--- NOTE | 2022-08-20 | DI.RAD_ITS ---
Exam(s) XR FOOT RT COMPLETE EXAM: XR FOOT RT COMPLETE CLINICAL HISTORY: RT FOOT PAIN, ? FX, M79.671 TECHNIQUE: COMPARISON: No exams were available for comparison FINDINGS: Three views were obtained. There is a metallic foreign body which appears to be a needle fragment in the soft tissues of the plantar aspect of the foot. There is patchy generalized demineralization of bones of foot. There are moderate to severe degenerative changes of the midfoot and forefoot. Ther e is moderate hallux valgus deformity. IMPRESSION: DJD, metallic foreign body. No acute fracture seen. RADIATION DOSE DELIVERED: Total DLP
== END ==
PROVIDERS: PCP Nurse Practitioner; Visit Provider Internal Medicine Rheumatology
DX: M79.5 Residual foreign body in soft tissue (principal); M19.071 Primary osteoarthritis, right ankle and foot; M20.11 Hallux valgus (acquired), right foot
CPT/HCPCS: 73630

== ENCOUNTER 2022-10-08 11:07 | Emergency (ER) | payer OTHER, SELFPAY ==
[2022-10-08 11:15] VITALS: BP 129/56; PULSE 88; RESP 14; TEMP 37; O2SAT 96
[2022-10-08 11:26] VITALS: BP 129/56; PULSE 87; RESP 18; O2SAT 94
[2022-10-08 11:27] VITALS: PULSE 86; RESP 21; O2SAT 95
--- NOTE | 2022-10-08 11:35 | ED.GENADUL_ITS ---
Discharge Plan Disposition Patient Disposition: Home Condition: Stable Discharge Details Clinical Impression: Fever, Influenza, COVID, Respiratory syncytial virus (RSV), Urinary tract infection Primary Care Provider: Abhinav Goodrich ED Provider: Kofi Ellis Home Meds and New Rx's Prescriptions: New oseltamivir 75 mg capsule 75 mg PO Q12H 5 Days Qty: 10 0RF levofloxacin 750 mg tablet 750 mg PO DAILY Qty: 5 0RF Continued Shingrix (PF) 50 mcg/0.5 mL suspension for reconstitution 0.5 ml IM ONCE Qty: 1 1RF Rx Instructions: as a single dose acetaminophen 500 mg capsule 1,000 mg PO BID PRN hydroxychloroquine [Plaquenil] 200 MG tablet 2 tab PO DIRECTED Qty: 180 Rx Instructions: 400 MG one day and 200mg the next magnesium oxide 400 MG capsule 400 mg PO BID Mariya/Iron 1 EACH tablet,chewable 1 ea PO DAILY Qty: 100 cholecalciferol (vitamin D3) [Vitamin D3] 2,000 UNIT capsule 2,000 unit PO DAILY methotrexate sodium 2.5 mg tablet 15 mg PO WKLY Label Comments: Rx Instructions: 10 MG WKLY, PRIYA RX metoprolol succinate 25 mg tablet extended release 24 hr 25 mg PO DAILY Qty: 90 3RF atorvastatin [Lipitor] 40 mg tablet 40 mg PO QPM Qty: 90 3RF nitroglycerin [Nitrostat] 0.4 mg tablet, sublingual 0.4 mg Sublingual DIRECTED PRN (Reason: angina) Qty: 100 1RF omeprazole 40 mg capsule,delayed release(DR/EC) 40 mg PO DAILY Qty: 90 3RF aspirin [Lo-Dose Aspirin] 81 MG tablet,delayed release (DR/EC) 81 mg PO DAILY folic acid 1 MG tablet 2 mg PO DAILY ferrous gluconate 324 mg (38 mg iron) tablet 648 mg PO DAILY Discharge Instructions Instructions: Urinary Tract Infection in Women (ED), Influenza (ED) Additional Instructions: follow up with your primary care provider within 1 week if you feel more ill, have difficulty breathing or persistent vomiting return to the emergency department Discharge Data Discharge Date/Time-TO BE ENTERED AT DEPARTURE: 10/08/22 13:40 Medical Decision Making 71 yo female with hx of ckd, htn, gerd, who comes in with ems because her felt she may have a fever and she was confused this morning. Patient arrives caox4 speaking clearly and states she shouldn't be here. She denies any headache, chest pain, abdomen pain, back pain. No cough and she doesn't believe she had a fever earlier, no chills. She is speaking clearly, cn II-CII intact, no focal motor or sensation deficits on exam, no drift. Unclear what exactly the was concerned for earlier, given reassuring exam now and caox4 doubt cva and will defer ct head. Will try to clarify with what he was concerned about and otain cbc, cmp, ua and reassess. blood work without significant findings, xray negative on my read. Her urine does have evidence of a uti, no back pain or abdominal pain to suggest pyelo. She is also positive for covid, flu and rsv. She is stable, caox4 and not requiring oxygen. She is vaccinatd and boostered for covid and had covid last spring as well. Will start her on levofloxacin for her urinary tract infection and tamiflu and after discussion with her will hold paxlovid given she is starting two new meds and is vaccinated for covid so low likelihood she would need hospitalization for this. She is stable for d/c, return precautions given Differential Diagnosis Differential Diagnosis: flu, covid, electrolyte abnormality Medical Records Medical records reviewed: Yes I reviewed the patient's medical records. Imaging Data Radiologic Study: Attestation: I personally reviewed and interpreted this imaging study as follows: Imaging: X-Ray My impression: no acute findings Lab Data Lab results reviewed: Yes I reviewed the patient's lab results. Sign Out No HPI General Mode of arrival: EMS . Date/Time Provider Initiated Documentation: 10/08/22 11:28 . Limitations to Documentation: no limitations . Information obtained by: patient . History of Present Illness 71 year old F presents to the emergency department with the chief complaint of possible fever, described as moderate, Patient started experiencing this hour(s) (2) and it has been now resolved. No relieving factors improve symptom(s), No exacerbating factors reported . Patient notes denies chest pain, headaches and nausea/vomiting. Patient did receive the following treatments prior to arrival, none Related Data Home Medications Medication Instructions Recorded Confirmed hydroxychloroquine 200 mg tablet 2 tab PO DIRECTED #180 tab-caps 11/25/16 12/15/22 (Plaquenil) aspirin 81 mg tablet,delayed 81 mg PO DAILY 02/07/17 10/09/22 release (Lo-Dose Aspirin) magnesium oxide 400 mg PO BID 02/17/17 10/09/22 pediatric multivitamin-iron 1 ea PO DAILY ##100 03/05/17 10/09/22 (Mariya/Iron chewable tablet) cholecalciferol (vitamin D3) 50 2,000 unit PO DAILY 03/24/18 10/09/22 mcg (2,000 unit) capsule (Vitamin D3) folic acid 1 mg tablet 2 mg PO DAILY 09/26/19 10/09/22 acetaminophen 500 mg capsule 1,000 mg PO BID PRN 11/06/20 10/09/22 methotrexate sodium 2.5 mg tablet 15 mg PO WKLY 11/06/20 10/09/22 metoprolol succinate 25 mg 25 mg PO DAILY #90 tabs 11/20/20 10/09/22 tablet,extended release 24 hr atorvastatin 40 mg tablet (Lipitor) 40 mg PO QPM #90 caps 11/22/21 10/09/22 nitroglycerin 0.4 mg sublingual 0.4 mg sublingual DIRECTED PRN 11/22/21 10/09/22 tablet (Nitrostat) angina #100 tabs ferrous gluconate 324 mg (38 mg 648 mg PO DAILY 04/17/22 10/09/22 iron) tablet varicella-zoster glycoE [id number] 0.5 ml IM ONCE #1 ea 04/17/22 10/09/22 adj(PF) 50 mcg/0.5 mL IM susp, kit (Shingrix (PF)) omeprazole 40 mg capsule,delayed 40 mg PO DAILY #90 tab-caps 06/23/22 10/09/22 release levofloxacin 750 mg tablet 750 mg PO DAILY #5 tabs 10/08/22 10/09/22 oseltamivir 75 mg capsule 75 mg PO Q12H 5 days #10 caps 10/08/22 10/09/22 Previous Rx's Medication Instructions Recorded metoprolol succinate 25 mg 25 mg PO DAILY #90 tabs 11/20/20 tablet,extended release 24 hr atorvastatin 40 mg tablet (Lipitor) 40 mg PO QPM #90 caps 11/22/21 nitroglycerin 0.4 mg sublingual 0.4 mg sublingual DIRECTED PRN 11/22/21 tablet (Nitrostat) angina #100 tabs varicella-zoster glycoE [id number] 0.5 ml IM ONCE #1 ea 04/17/22 adj(PF) 50 mcg/0.5 mL IM susp, kit (Shingrix (PF)) omeprazole 40 mg capsule,delayed 40 mg PO DAILY #90 tab-caps 06/23/22 release levofloxacin 750 mg tablet 750 mg PO DAILY #5 tabs 10/08/22 oseltamivir 75 mg capsule 75 mg PO Q12H 5 days #10 caps 10/08/22 Allergies Allergy/AdvReac Type Severity Reaction Status Date / Time amoxicillin AdvReac Intermediate diarrhea Verified 10/09/22 09:43 General Stated Complaint: Fever DANYELLE: 2 Review of Systems All systems reviewed & are unremarkable except as noted in HPI and below Constitutional Constitutional: Denies chills, Denies fever(s) and Denies weakness Cardiovascular Cardiovascular: Denies chest pain and Denies dyspnea Respiratory Respiratory: Denies cough and Denies dyspnea Gastrointestinal Gastrointestinal: Denies abdominal pain, Denies nausea and Denies vomiting Genitourinary Genitourinary: Denies dysuria Musculoskeletal Musculoskeletal: Denies joint swelling Neurologic Neurologic: Denies weakness PFSH All Active Problems (Updated 10/09/22 @ 11:11 by FRANCISCO Espinosa) Fever (Acute) Influenza (Acute) COVID (Acute) Respiratory syncytial virus (RSV) (Acute) Urinary tract infection (Acute) Impacted cerumen, bilateral (Acute) Lesion of soft palate (Acute) Neuropathy (Acute) Corns and callosities (Acute) Ulcer, neuropathic (Acute) Nail dystrophy (Acute) COVID-19 (Acute) Osteoporosis (Chronic) [facility] [[email or web address] managing- denosumab to replace reclast 06/2022 Chronic kidney disease, stage 3 (Acute) 01/2022, Cr-1.2 Foot pain, bilateral (Acute) Fatigue (Acute) Cardiomyopathy (Acute) 07/2020 echo- EF 66%, otherwse normal exam ([place]) Becki Advance directive on file (Acute) 04/15-new form given to patient to update. 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 CINTHIA BARAHONA Dilation and curettage (~07/1997) Hx of heart artery stent Stents x 2. 2017 Status post dilation and curettage Status post tonsillectomy Tonsillectomy (~1957) Family History Mother , 55 Systemic lupus erythematosus Essential hypertension Hypertension Father , SUICIDE at age 61. Mental disorder Depression Brother , COPD at age 71. Substance abuse Heart disease COPD (chronic obstructive pulmonary disease) Brother Essential hypertension Brother Substance abuse Personal history of malignant neoplasm LUNG Grandfather Essential hypertension Heart disease Grandmother Diabetes Grandmother Heart disease Other Depression Social History Smoking/Tobacco Use Status: Former Tobacco Use tobacco type: cigarettes Quit Date: 10/26/85 Tobacco: How many years used: 12 Second Hand Exposure: Yes Smoking risk assessment performed?: Yes Alcohol Intake: current Alcohol Intake frequency: holidays/special occasions only Alcohol type: wine Drug use: Never Substance use type: does not use Caregiver/Support person: No Household members: spouse Housing: house Communication Needs: Corrective Lenses Do you need help understanding health information?: Rarely Pets and animals: Yes Pets and animals: dog(s) Sexually active: No Do you think of yourself as: straight/heterosexual Current gender identity: female What is your relationship status?: How often do you talk on the phone with friends or family?: three or more times per week How often do you get together with friends or relatives?: three or more times per week How often do you attend cheondoism or rastafarian services?: 4 or more times per year Do you belong to any clubs or organized social groups?: yes Panel score (0-1 are the most socially isolated patients): 4 What type of physical activity do you participate in: walking, aerobic and other Details: Bone builders Duration: 30-45 minutes/day Frequency: 3-4 times per week Sally/Jew: Cheondoism Special sally needs: No Seatbelt use: always Drive intox or ride w/intox warehouse driver: No Do you feel safe at home: Yes Do you feel safe in your relationship?: Yes Additional Social history: with 4 children. 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 Originally from [place]. Remote history of tobacco use. Exam Const General: no acute distress Orientation: alert HENFL Head: normal to inspection Ears: external ears normal General nose exam: external nose normal Mouth: moist mucous membranes Eyes General: appearance normal, both eyes and all related structures Neck Neck: normal visual inspection Resp Effort & Inspection: normal respiratory effort and able to speak in complete sentences Auscultation: clear to auscultation bilaterally Cardio Rate: regular rate Heart Sounds: no murmurs GI Palpation: soft and nontender Skin General skin exam: no rashes or lesions noted Neuro General: patient alert and patient oriented x3 Extrem General: normal to inspection Psych Mental Status: mental status grossly normal Course Vital Signs Vital signs: Vital Signs Temperature 37.0 C 10/08/22 11:15 Pulse 88 10/08/22 11:15 Respiratory Rate 14 10/08/22 11:15 Blood Pressure 129/56 L 10/08/22 11:15 Pulse Oximetry 96 10/08/22 11:15 Temperature 37.0 C 10/08/22 11:15 Temperature Source Skin 10/08/22 11:15 Pulse 88 10/08/22 11:15 Respiratory Rate 14 10/08/22 11:15 Blood Pressure 129/56 L 10/08/22 11:15 Pulse Oximetry 96 10/08/22 11:15 Oxygen Delivery Method Room Air 10/08/22 11:15 Oxygen Flow Rate 0 10/08/22 11:15 Pain Level 0 10/08/22 11:15 Lab/Test Results Lab/Test Results: 10/08/22 11:07 Blood Blood Culture - Pending 10/08/22 11:07 Blood Blood Culture - Pending
[2022-10-08 12:06] VITALS: TEMP 37.5
[2022-10-08 12:15] LABS: Abs Immature Grans 0.03 10^3/uL (0.0-0.06); Absolute Basophil Count 0.01 10^3/uL (0.0-0.2); Absolute Lymphocyte Count 0.13 10^3/uL (1.2-3.4); Absolute Monocyte Count 0.22 10^3/uL (0.1-0.8); Absolute Neutrophil Count 3.45 10^3/uL (1.2-6.7); Basophils % 0.3; HGB 10.9 g/dL (11.2-15.7); Immature Grans % 0.8; Lymphocytes % 3.4; MCH 31.4 pg (27.0-33.0); MCV 95 fL (80-95); MPV 10.5 fL (8.0-11.0); Monocytes % 5.7; Neutrophils % 89.8; Platelet Count 128 10^3/uL (130-400); RBC 3.47 10^6/uL (3.93-5.22); WBC 3.84 10^3/uL (4.4-10.8)
--- NOTE | 2022-10-08 12:15 | DI.RAD_ITS ---
Exam(s) XR PORTABLE CHEST AP EXAM: XR PORTABLE CHEST AP CLINICAL HISTORY: ?fever TECHNIQUE: 2D digital imaging was performed of the chest. One image was obtained. An AP view was ob tained. COMPARISON: CR,XR XR PORTABLE CHEST AP from 07/17/2019 FINDINGS: MEDIASTINUM: Normal. HEART: Normal. PULMONARY VASCULATURE: Normal. LUNGS: Clear. PLEURAL SPACE: No pleural effusion or pneumothorax. BONE:Within normal limits for the patient's age. OTHER FINDINGS:Normal. IMPRESSION: No acute pulmonary findings. DATA REPOSITORY: RADIATION DOSE DELIVERED:
[2022-10-08 12:21] LABS: Lactate 0.5 mmol/L (0.9-1.7)
[2022-10-08 12:27] LABS: Influenza A PCR Positive (Negative); Influenza B PCR Negative (Negative)
[2022-10-08 12:29] LABS: COVID-19 PCR Positive (Negative)
[2022-10-08 12:29] LABS: Bilirubin Negative (Negative); Blood Small (Negative); Clarity Clear (Clear); Glucose Negative (Negative); Ketones Trace mg/dL (Negative); Leukocyte Esterase Trace (Negative); Nitrite Negative (Negative); Specific Gravity >= 1.030 (1.005-1.025); Urobilinogen 0.2 EU/dL (Up TO 0.2); pH 6.5 (5-8)
[2022-10-08 12:30] LABS: RSV PCR Positive (Negative)
[2022-10-08 12:36] LABS: INR 1.2 (0.9-1.1); PTT Activated 29.7 sec (21.0-27.5); Prothrombin Time 11.6 sec (9.3-11.0)
[2022-10-08 12:44] LABS: ALT 22 U/L (14-59); AST 25 U/L (15-37); Albumin 3.6 g/dL (3.4-5.0); Alkaline Phosphatase 60 U/L (46-116); Anion Gap 8.3 mmol/L (3-11); BUN 20 mg/dL (7-18); Bilirubin, Total 0.8 mg/dL (0.2-1.0); CO2 26.7 mmol/L (21.0-32.0); Calcium 8.5 mg/dL (8.5-10.1); Chloride 100 mmol/L (98-107); Estimated GFR 59.49 (mL/min/1.73m2); Glucose 112 mg/dL (74-106); Magnesium 1.9 mg/dL (1.8-2.4); Potassium 3.9 mmol/L (3.5-5.1); Sodium 135 mmol/L (136-145); Total Protein 6.7 g/dL (6.4-8.2)
[2022-10-08 12:52] LABS: Bacteria Moderate HPF (Negative); C & S Indicated? C&S Done As Ordered; Casts Negative LPF (Negative); Crystals Negative HPF (Negative); Epithelial Cells Moderate HPF (Negative); Mucus Heavy (Negative)
[2022-10-08 12:54] LABS: Procalcitonin 0.1 ng/mL
[2022-10-08] MEDS: levoFLOXacin 500 MG, levoFLOXacin 250 MG 750 MG PO (13:24)
[2022-10-08 13:27] VITALS: BP 121/52; PULSE 76; RESP 16; TEMP 37; O2SAT 95
== END 2022-10-08 13:40 | disposition home or self-care (01) ==
PROVIDERS: Emergency Provider Emergency Medicine; PCP Nurse Practitioner Family
DX: U07.1 COVID-19 (principal); J10.1 Influenza due to other identified influenza virus with other respiratory manifestations; B97.4 Respiratory syncytial virus as the cause of diseases classified elsewhere; N39.0 Urinary tract infection, site not specified; I12.9 Hypertensive chronic kidney disease with stage 1 through stage 4 chronic kidney disease, or unspecified chronic kidney disease; N18.9 Chronic kidney disease, unspecified; I25.2 Old myocardial infarction
CPT/HCPCS: 36415; 80053; 84145; 87040; 87637; 96365; 99284; 71045; 81003; 81015; 83605; 83735; 85025; 85610; 85730; 87086

== ENCOUNTER 2022-10-09 09:33 | Emergency (ER) | payer OTHER, SELFPAY ==
[2022-10-09 09:36] VITALS: BP 136/54; PULSE 87; RESP 16; TEMP 36.8; O2SAT 94
--- NOTE | 2022-10-09 09:38 | ED.GENADUL_ITS ---
Discharge Plan Disposition Patient Disposition: Home Condition: Stable Discharge Details Clinical Impression: COVID-19, Influenza, Respiratory syncytial virus (RSV), Urinary tract infection Primary Care Provider: Abhinav Goodrich ED Provider: Venancio Ramírez Home Meds and New Rx's Prescriptions: Continued Shingrix (PF) 50 mcg/0.5 mL suspension for reconstitution 0.5 ml IM ONCE Qty: 1 1RF Rx Instructions: as a single dose acetaminophen 500 mg capsule 1,000 mg PO BID PRN hydroxychloroquine [Plaquenil] 200 MG tablet 2 tab PO DIRECTED Qty: 180 Rx Instructions: 400 MG one day and 200mg the next magnesium oxide 400 MG capsule 400 mg PO BID Mariya/Iron 1 EACH tablet,chewable 1 ea PO DAILY Qty: 100 cholecalciferol (vitamin D3) [Vitamin D3] 2,000 UNIT capsule 2,000 unit PO DAILY methotrexate sodium 2.5 mg tablet 15 mg PO WKLY Label Comments: Rx Instructions: 10 MG WKLY, PRIYA RX metoprolol succinate 25 mg tablet extended release 24 hr 25 mg PO DAILY Qty: 90 3RF atorvastatin [Lipitor] 40 mg tablet 40 mg PO QPM Qty: 90 3RF nitroglycerin [Nitrostat] 0.4 mg tablet, sublingual 0.4 mg Sublingual DIRECTED PRN (Reason: angina) Qty: 100 1RF omeprazole 40 mg capsule,delayed release(DR/EC) 40 mg PO DAILY Qty: 90 3RF aspirin [Lo-Dose Aspirin] 81 MG tablet,delayed release (DR/EC) 81 mg PO DAILY folic acid 1 MG tablet 2 mg PO DAILY ferrous gluconate 324 mg (38 mg iron) tablet 648 mg PO DAILY oseltamivir 75 mg capsule 75 mg PO Q12H 5 Days Qty: 10 0RF levofloxacin 750 mg tablet 750 mg PO DAILY Qty: 5 0RF Discharge Instructions Instructions: Respiratory Syncytial Virus (ED), Urinary Tract Infection in Women (ED), Influenza (ED), COVID-19 (Coronavirus Disease 2019) (ED) Additional Instructions: Vital signs here in the ER are reassuring. You have declined additional work- up. Continue with your medications as directed including the prescriptions of the antiviral and the Levaquin yesterday. Rest, plenty of fluids to avoid dehydration, [id number] medication such as Tylenol for symptomatic and fever control. Please watch for new or worsening symptoms and return to the ER for any concerns. Lastly, please contact your primary care provider tomorrow to discuss your ER visit, ongoing symptoms, and need for outpatient reevaluation. Given you have the flu, COVID, RSV, this will likely be over telemedicine. Medical Decision Making This is a 71-year-old female who was diagnosed with RSV, COVID, flu, UTI yesterday, placed on antiviral for the flu as well as Levaquin. Did not start antiviral for COVID as she is fully vaccinated and there was concerned about sta rting too many medications at the exact same time. Patient reports that she feels as she would expect given her recent diagnoses. was concerned given her generalized weakness, and wetting the bed overnight. Overall he is concerned that the medication is not helping. I did explain to him that the antiviral medication was not a cure and rather decrease the severity and length of symptoms. We also discussed that the antibiotics likely need to be in her system greater than 24 hours to see a real improvement of her symptoms. She is awake, alert, mentating without difficulty, and of sound mind, able to make her own decisions. At this time she does not want any additional work-up, IV, etc. I explained this to her and to her son. Given his concern that she did not want to take her medications, generalized weakness, etc. we did observe the patient in the ER for over 1-1/2 hours. She was able to tolerate p.o. intake without any difficulty. She was able to get up from the bed and ambulate around room 4 without any difficulty. Patient feels as though she does not need to be hospitalized. This was once again discussed with both her and son. We discussed the importance of continuing her medications, adequate rest and hydration, and the importance of outpatient PCP follow-up. We also discussed signs and symptoms and the importance of returning to the ER for new or evolving symptoms. Standard discharge and return precautions were provided. Patient understands, is agreeable to this plan, and has no additional questions or concerns upon discharge. This documentation was generated using [employer] system, please disregard any oddities of phrase or misspellings. Medical Records Medical records reviewed: Yes I reviewed the patient's medical records. Core Measures AMI Core Measures Followed: No HPI General Mode of arrival: EMS . Date/Time Provider Initiated Documentation: 10/09/22 09:38 . Limitations to Documentation: no limitations . Information obtained by: patient and EMS . HPI Narrative: This is a 71-year-old female with a past medical history that includes CKD, cardiomyopathy, hypertension, GERD, CAD, rheumatoid arthritis, who was seen in the ER yesterday, diagnosed with flu, RSV, COVID, UTI, started on both Tamiflu and Levaquin presents to the ER now via EMS at the request of her for concern that she is not responding appropriately to the medications, generalized weakness, continues not to feel well, wet the bed last night. Patient reports that she feels as well as she would expect given her diagnosis yesterday and simply believes that she needs to be on the medication longer. I was able to speak with both her son and her . Her son reports that she typically takes care of her father and now that she is ill she has a harder time managing these things. was concerned given her generalized weakness this morning as well as the fact that she wet the bed last night. Related Data Home Medications Medication Instructions Recorded Confirmed hydroxychloroquine 200 mg tablet 2 tab PO DIRECTED #180 tab-caps 09/19/16 10/09/22 (Plaquenil) aspirin 81 mg tablet,delayed 81 mg PO DAILY 02/07/17 10/09/22 release (Lo-Dose Aspirin) magnesium oxide 400 mg PO BID 02/17/17 10/09/22 pediatric multivitamin-iron 1 ea PO DAILY ##100 03/05/17 10/09/22 (Mariay/Iron chewable tablet) cholecalciferol (vitamin D3) 50 2,000 unit PO DAILY 03/24/18 10/09/22 mcg (2,000 unit) capsule (Vitamin D3) folic acid 1 mg tablet 2 mg PO DAILY 09/26/19 10/09/22 acetaminophen 500 mg capsule 1,000 mg PO BID PRN 11/06/20 10/09/22 methotrexate sodium 2.5 mg tablet 15 mg PO WKLY 11/06/20 10/09/22 metoprolol succinate 25 mg 25 mg PO DAILY #90 tabs 11/20/20 10/09/22 tablet,extended release 24 hr atorvastatin 40 mg tablet (Lipitor) 40 mg PO QPM #90 caps 11/22/21 10/09/22 nitroglycerin 0.4 mg sublingual 0.4 mg sublingual DIRECTED PRN 11/22/21 10/09/22 tablet (Nitrostat) angina #100 tabs ferrous gluconate 324 mg (38 mg 648 mg PO DAILY 04/17/22 10/09/22 iron) tablet varicella-zoster glycoE [id number] 0.5 ml IM ONCE #1 ea 04/17/22 10/09/22 adj(PF) 50 mcg/0.5 mL IM susp, kit (Shingrix (PF)) omeprazole 40 mg capsule,delayed 40 mg PO DAILY #90 tab-caps 06/23/22 10/09/22 release levofloxacin 750 mg tablet 750 mg PO DAILY #5 tabs 10/08/22 10/09/22 oseltamivir 75 mg capsule 75 mg PO Q12H 5 days #10 caps 10/08/22 10/09/22 Previous Rx's Medication Instructions Recorded metoprolol succinate 25 mg 25 mg PO DAILY #90 tabs 11/20/20 tablet,extended release 24 hr atorvastatin 40 mg tablet (Lipitor) 40 mg PO QPM #90 caps 11/22/21 nitroglycerin 0.4 mg sublingual 0.4 mg sublingual DIRECTED PRN 11/22/21 tablet (Nitrostat) angina #100 tabs varicella-zoster glycoE [id number] 0.5 ml IM ONCE #1 ea 04/17/22 adj(PF) 50 mcg/0.5 mL IM susp, kit (Shingrix (PF)) omeprazole 40 mg capsule,delayed 40 mg PO DAILY #90 tab-caps 06/23/22 release levofloxacin 750 mg tablet 750 mg PO DAILY #5 tabs 10/08/22 oseltamivir 75 mg capsule 75 mg PO Q12H 5 days #10 caps 10/08/22 Allergies Allergy/AdvReac Type Severity Reaction Status Date / Time amoxicillin AdvReac Intermediate diarrhea Verified 10/09/22 09:43 General DANYELLE: 2 Review of Systems Constitutional Constitutional: Reports fever(s) and Reports weakness ENT Ears, Nose, Mouth, and Throat: Denies sore throat Cardiovascular Cardiovascular: Denies chest pain and Denies dyspnea Respiratory Respiratory: Reports cough and Denies dyspnea Gastrointestinal Gastrointestinal: Denies abdominal pain, Denies nausea and Denies vomiting Genitourinary Genitourinary: Denies dysuria Musculoskeletal Musculoskeletal: Denies myalgias Integumentary/Breasts Skin/Breast: Denies rash Neurologic Neurologic: Reports weakness PFSH All Active Problems (Updated 10/09/22 @ 11:11 by FRANCISCO Espinosa) Fever (Acute) Influenza (Acute) COVID (Acute) Respiratory syncytial virus (RSV) (Acute) Urinary tract infection (Acute) Impacted cerumen, bilateral (Acute) Lesion of soft palate (Acute) Neuropathy (Acute) Corns and callosities (Acute) Ulcer, neuropathic (Acute) Nail dystrophy (Acute) COVID-19 (Acute) Osteoporosis (Chronic) [facility] managing- denosumab to replace reclast 06/2022 Chronic kidney disease, stage 3 (Acute) 01/2022, Cr-1.2 Foot pain, bilateral (Acute) Fatigue (Acute) Cardiomyopathy (Acute) 07/2020 echo- EF 66%, otherwse normal exam ([place]) Becki Advance directive on file (Acute) 04/15-new form given to patient to update. She wants CPR, discontinue if futile Hypertension (Chronic) GERD (gastroesophageal reflux disease) (Chronic) CAD (coronary artery disease) (Chronic) Anemia in chronic illness (Acute) Rheumatoid arthritis (Chronic) 2021 seen at [facility] rheumatology Hearing loss in right ear (Acute 05/01/15) Medical History Chronic sinusitis Cryptogenic organizing pneumonia Current smoker (11/28/14) Foot pain Lung mass organizing pneumonia, followed by Dr. Lui ([facility] [place]) no further follow up need ST elevation (STEMI) myocardial infarction of unspecified site Surgical History Colonoscopy - IV Sedation (01/17/13) DR. CINTHIA BARAHONA Dilation and curettage (~07/1997) Hx of heart artery stent Stents x 2. 2017 Status post dilation and curettage Status post tonsillectomy Tonsillectomy (~1957) Family History Mother , 55 Systemic lupus erythematosus Essential hypertension Hypertension Father , SUICIDE at age 61. Mental disorder Depression Brother , COPD at age 71. Substance abuse Heart disease COPD (chronic obstructive pulmonary disease) Brother Essential hypertension Brother Substance abuse Personal history of malignant neoplasm LUNG Grandfather Essential hypertension Heart disease Grandmother Diabetes Grandmother Heart disease Other Depression Social History Smoking/Tobacco Use Status: Former Tobacco Use tobacco type: cigarettes Quit Date: 10/26/85 Tobacco: How many years used: 12 Second Hand Exposure: Yes Smoking risk assessment performed?: Yes Alcohol Intake: current Alcohol Intake frequency: holidays/special occasions only Alcohol type: wine Drug use: Never Substance use type: does not use Caregiver/Support person: No Household members: spouse Housing: house Communication Needs: Corrective Lenses Do you need help understanding health information?: Rarely Pets and animals: Yes Pets and animals: dog(s) Sexually active: No Do you think of yourself as: straight/heterosexual Current gender identity: female What is your relationship status?: How often do you talk on the phone with friends or family?: three or more times per week How often do you get together with friends or relatives?: three or more times per week How often do you attend mormon or scientologist services?: 4 or more times per year Do you belong to any clubs or organized social groups?: yes Panel score (0-1 are the most socially isolated patients): 4 What type of physical activity do you participate in: walking, aerobic and other Details: Bone builders Duration: 30-45 minutes/day Frequency: 3-4 times per week Sally/Denominational: Gnosticism Special sally needs: No Seatbelt use: always Drive intox or ride w/intox dumpster driver: No Do you feel safe at home: Yes Do you feel safe in your relationship?: Yes Additional Social history: with 4 children. 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 Originally from [place]. Remote history of tobacco use. Exam Const General: cooperative, healthy appearing, comfortable and no acute distress Orientation: alert, awake and oriented x3 HENMT Head: normal to inspection, normocephalic and atraumatic Face and sinus: normal facial exam Mouth: moist mucous membranes Throat: posterior oropharynx normal Eyes General: appearance normal, both eyes and all related structures Conjunctivae: conjunctivae normal Neck Neck: normal visual inspection, full ROM, no lymphadenopathy, no meningeal signs, trachea midline, supple and nontender Resp Effort & Inspection: normal respiratory effort, able to speak in complete sentences and cough Quality of cough: dry (mild) Auscultation: clear to auscultation bilaterally Cardio Rate: regular rate Rhythm: regular rhythm GI Palpation: soft, not firm and nontender Back/Spine/Pelvis Back: No back tenderness Skin General skin exam: no rashes or lesions noted Neuro General: patient alert, patient awake, patient oriented x3, moves all extremities and no focal motor deficits Cognition: normal cognition Speech: speech normal Gait: normal gait Sensory Exam: no sensory deficits noted Extrem General: normal to inspection, full ROM and capillary refill normal Psych Appearance: grossly normal Mental Status: mental status grossly normal
== END 2022-10-09 12:15 | disposition home or self-care (01) ==
PROVIDERS: Emergency Provider Physician Assistant; PCP Nurse Practitioner Family
DX: U07.1 COVID-19 (principal); J10.1 Influenza due to other identified influenza virus with other respiratory manifestations; B97.4 Respiratory syncytial virus as the cause of diseases classified elsewhere; N39.0 Urinary tract infection, site not specified
CPT/HCPCS: 99281; 99283

== ENCOUNTER 2023-05-12 01:08 | Outpatient (CLI) | payer OTHER, SELFPAY ==
--- NOTE | 2023-05-12 07:45 | DI.MAMMO_ITS ---
Exam(s) MAMMO SCREENING EXAM: MAMMO SCREENING CLINICAL HISTORY: screening,z12.39 TECHNIQUE: Bilateral full field digital CC and MLO mammographic images were obtained with 3D tomosyn thesis and utilizing computer aided detection (CAD). COMPARISON: Available for comparison. FINDINGS: Masses/Architectural Distortion: None seen. Microcalcifications: No suspicious pleomorphic-type are seen. Skin Thickening/Nipple Retraction: None. IMPRESSION: 1. No significant interval change with no specific features of malignancy noted. 2. Unless there is more urgent need, screening mammography is recommended, as per [employer] guidelines. BI-RADS Category 1 - Negative Breast Density - Category B - Scattered areas of fibroglandular density Breast density category C or D implies that the patient has dense breast tissue. Dense breast tissue is very common and is not abnormal but dense breast tissue can make it harder to find cancer on a ma mmogram. Also, dense breast tissue may increase their breast cancer risk. This information about the result of the mammogram report was provided to the patient to raise their awareness. Use this report when you speak with the patient about their risks for breast cancer, which includes their family hist ory. At that time, you may recommend for more screening tests (Ultrasound or MRI) as they might be us eful based on their risk. A negative radiographic report should not delay biopsy if a dominant or clinically suspicious mass is present. Up to ten percent of cancers are not identified on mammography. A negative report may reinforce clinical impression. Adenosis and dense breasts may obscure an underlying neoplasm. False positive reports average 6 to 10%. Patient will receive a letter notifying them of these results.
== END 2023-05-12 01:28 ==
LOC: DI 01:08
PROVIDERS: PCP Nurse Practitioner Family; Visit Provider Nurse Practitioner Family
DX: Z12.31 Encounter for screening mammogram for malignant neoplasm of breast (principal)
CPT/HCPCS: 77063; 77067

== ENCOUNTER 2023-07-31 13:52 | Inpatient (IN) | payer OTHER, SELFPAY ==
[2023-07-31 13:53] VITALS: BP 148/66; PULSE 94; RESP 18; TEMP 37.2; O2SAT 93
--- NOTE | 2023-07-31 14:32 | W.ED.GENAD ---
Discharge Plan Disposition Patient Disposition: Admit to [facility] Discharge Details Chief Complaint: Orthopedic Clinical Impression: Pelvic fracture, Closed fracture of left clavicle, Closed left humeral fracture Primary Care Provider: Abhinav Goodrich ED Provider: Gary Valdez Home Meds and New Rx's Prescriptions: No Action Shingrix (PF) 50 mcg/0.5 mL suspension for reconstitution 0.5 ml IM ONCE Qty: 1 1RF Rx Instructions: as a single dose hydroxychloroquine [Plaquenil] 200 MG tablet 2 tab PO DIRECTED Qty: 180 Rx Instructions: 400 MG one day and 200mg the next magnesium oxide 400 MG capsule 400 mg PO BID Mariya/Iron 1 EACH tablet,chewable 1 ea PO DAILY Qty: 100 cholecalciferol (vitamin D3) [Vitamin D3] 2,000 UNIT capsule 2,000 unit PO DAILY methotrexate sodium 2.5 mg tablet 15 mg PO WKLY Patient Comments: Rx Instructions: 10 MG WKLY, PRIYA RX metoprolol succinate 25 mg tablet extended release 24 hr 25 mg PO DAILY Qty: 90 3RF atorvastatin [Lipitor] 40 mg tablet 40 mg PO QPM Qty: 90 3RF nitroglycerin [Nitrostat] 0.4 mg tablet, sublingual 0.4 mg Sublingual DIRECTED PRN (Reason: angina) Qty: 100 1RF omeprazole 40 mg capsule,delayed release(DR/EC) See Rx Instructions .ROUTE .COMPLEX Qty: 90 3RF Dose Instruction: Take 1 capsule (40mg) by mouth DAILY Rx Instructions: Take 1 capsule (40mg) by mouth DAILY aspirin [Lo-Dose Aspirin] 81 MG tablet,delayed release (DR/EC) 81 mg PO DAILY folic acid 1 MG tablet 2 mg PO DAILY ferrous gluconate 324 mg (38 mg iron) tablet 648 mg PO DAILY Medical Decision Making 72-year-old female with a past medical history of hypertension, GERD, coronary artery disease, rheumatoid arthritis, presents today for evaluation after a fall. Patient states that she was in her home when she tripped over her own feet. She fell and landed on her left hip and left shoulder. EMS was called and the patient was brought to the ER for further assessment. Pain is present in the left shoulder and left hip. She denies striking her head. She denies any loss of consciousness. She is on a daily aspirin but denies any other anticoagulant use. Pain is made worse with movement of the left shoulder and left hip. Improved by an the Tylenol given via EMS. No other complaints at this time. No chest pain or abdominal pain. No shortness of breath. No numbness or tingling. Exam demonstrates well-appearing female, mild tenderness over the left shoulder and left anterior superior ribs, left hip and femur. We will get an x-ray of the hip and pelvis, get a CAT scan of the shoulder chest head and neck. Will monitor closely and reassess. 3:30 PM Imaging work-up demonstrates a small nondisplaced fracture of the left superior and inferior pubic rami, no femoral fracture. There is also a very small fracture of the proximal clavicle, a small nondisplaced fracture of the left humeral head/neck, with an old fracture deformity. No other evidence of acute trauma otherwise on imaging. Did get the patient up, and she is able to still move and use her left arm well. She is able to bear some weight with it, it is just mildly sore. However with her pelvis fracture we did get her up to ambulate her. She did require 2 person assist, and was very slow and hesitant with a walker. She states that she feels much better than she did before, but there is still quite a fair bit of pain with attempted ambulation. In addition to this she has quite a bit of hesitancy as she tries to ambulate with a walker and a two-person assist. It took about 15 minutes to progress to steps. Patient lives at home with her elderly . They are concerned about going home in this current state. Discussed risks and benefits of admission versus discharge. Family would feel more comfortable with admission at this time which I do feel is reasonable and appropriate. Will reach out to the hospitalist for admission. 4 PM Discussed the case with the hospitalist Dr. Madrigal. Since it was technically a trauma, she has requested that surgery be the admitting team. We reached out to surgery Dr. Chandler, she accepts admission but would like us to discuss with orthopedics prior to admission. We will reach out to orthopedics. 4:30 PM Discussed the case with Dr. Farnsworth. He agrees with the plan for admission with surgery. Recommends sling for comfort only, mobility and support as tolerated for the arm. Patient will be admitted. Discussed the case with Dr. Chandler. I have extensively reviewed the treatment plan with the patient. I have addressed all patient concerns at this time. I have also discussed the plan with the admitting physician and they agree with the current assessment and plan and have agreed to assume responsibility for the patient. All parties demonstrate verbal understanding and agreement with our assessment and plan at this time. The documentation in this chart was dictated using Assembly dictation software. Please excuse any dictation errors. FINDINGS: Head CT Ventricles and Extra axial spaces: Normal in size and morphology for the patient's age. Hemorrhage: None. Cerebral parenchyma: Mild atrophy. Mild white matter changes of small vessel disease. Midline shift: None. Brainstem/Cerebellum: Normal. Calvarium: Normal. Visualized Paranasal sinuses/Mastoids: Clear. Soft tissues: Unremarkable. Cervical Spine CT BONES: Vertebral body heights are maintained. Alignment is normal. There is no evidence of acute fracture. Degenerative disc changes and facet degenerative changes are seen, greatest at C5-6 and C6-7 as well as C1-2.. SOFT TISSUES: No paraspinal hematoma. The airway appears intact. No pneumothorax is seen at the lung apices. IMPRESSION: Head CT: No acute abnormality. C-spine CT: Degenerative changes, no acute abnormality. FINDINGS: BONES: Acute fracture left superior and inferior pubic rami. The bones appear osteoporotic. No bony destructive lesion is seen. JOINTS: No dislocation present. SOFT TISSUE: Normal. IMPRESSION: Nondisplaced fractures of the left superior and inferior pubic rami. No femoral fracture. FINDINGS: Pulmonary parenchyma: No consolidation. No dominant measurable mass. Tracheobronchial tree: No bronchiectasis or mucous plugging. Mediastinum and Wendy: No dominant adenopathy or fluid collection. Pleura: No effusion. No pneumothorax. Heart: The heart is not dilated. No coronary artery calcifications are seen. Aorta: Thoracic aorta non-dilated. Moderate atherosclerotic changes. Upper abdomen: Unremarkable. Bones: No rib or spine fracture. Scoliosis and degenerative changes. Left shoulder CT: Nondisplaced fracture at the left proximal end of the clavicle. No evidence of dislocation at the sternoclavicular joint. No significant surrounding hematoma. Deformity left proximal humerus consistent with an old fracture. Superimposed nondisplaced acute fracture with slight step-off at the lateral cortical surface of the humeral head. Bones appear osteoporotic. Soft tissues: Unremarkable. IMPRESSION: Nondisplaced fracture of the left proximal clavicle. Nondisplaced fracture of the left humeral head/neck. Old fracture deformity. No evidence of pneumothorax or rib fracture. HPI General Date/Time Provider Initiated Documentation: 07/31/23 13:57. HPI Narrative: 72-year-old female with a past medical history of hypertension, GERD, coronary artery disease, rheumatoid arthritis, presents today for evaluation after a fall. Patient states that she was in her home when she tripped over her own feet. She fell and landed on her left hip and left shoulder. EMS was called and the patient was brought to the ER for further assessment. Pain is present in the left shoulder and left hip. She denies striking her head. She denies any loss of consciousness. She is on a daily aspirin but denies any other anticoagulant use. Pain is made worse with movement of the left shoulder and left hip. Improved by an the Tylenol given via EMS. No other complaints at this time. No chest pain or abdominal pain. No shortness of breath. No numbness or tingling. Related Data Home Medications Medication Instructions Recorded Confirmed hydroxychloroquine 200 mg tablet 2 tab PO DIRECTED #180 tab-caps 09/19/16 07/31/23 (Plaquenil) aspirin 81 mg tablet,delayed 81 mg PO DAILY 02/07/17 07/31/23 release (Lo-Dose Aspirin) magnesium oxide 400 mg PO BID 02/17/17 07/31/23 pediatric multivitamin-iron 1 ea PO DAILY ##100 03/05/17 07/31/23 (Mariya/Iron chewable tablet) cholecalciferol (vitamin D3) 50 2,000 unit PO DAILY 03/24/18 07/31/23 mcg (2,000 unit) capsule (Vitamin D3) folic acid 1 mg tablet 2 mg PO DAILY 09/26/19 07/31/23 methotrexate sodium 2.5 mg tablet 15 mg PO WKLY 11/06/20 07/31/23 metoprolol succinate 25 mg 25 mg PO DAILY #90 tabs 11/20/20 07/31/23 tablet,extended release 24 hr atorvastatin 40 mg tablet (Lipitor) 40 mg PO QPM #90 caps 11/22/21 07/31/23 nitroglycerin 0.4 mg sublingual 0.4 mg sublingual DIRECTED PRN 11/22/21 07/31/23 tablet (Nitrostat) angina #100 tabs ferrous gluconate 324 mg (38 mg 648 mg PO DAILY 04/17/22 07/31/23 iron) tablet varicella-zoster glycoE [id number] 0.5 ml IM ONCE #1 ea 04/17/22 04/24/23 adj(PF) 50 mcg/0.5 mL IM susp, kit (Shingrix (PF)) omeprazole 40 mg capsule,delayed See Rx Instructions .Route 06/24/23 07/31/23 release .COMPLEX #90 caps Previous Rx's Medication Instructions Recorded metoprolol succinate 25 mg 25 mg PO DAILY #90 tabs 11/20/20 tablet,extended release 24 hr atorvastatin 40 mg tablet (Lipitor) 40 mg PO QPM #90 caps 11/22/21 nitroglycerin 0.4 mg sublingual 0.4 mg sublingual DIRECTED PRN 11/22/21 tablet (Nitrostat) angina #100 tabs varicella-zoster glycoE [id number] 0.5 ml IM ONCE #1 ea 04/17/22 adj(PF) 50 mcg/0.5 mL IM susp, kit (Shingrix (PF)) omeprazole 40 mg capsule,delayed See Rx Instructions .Route 06/24/23 release .COMPLEX #90 caps Allergies Allergy/AdvReac Type Severity Reaction Status Date / Time amoxicillin AdvReac Intermediate diarrhea Verified 07/31/23 13:56 General Stated Complaint: Orthopedic DANYELLE: 3 Review of Systems All systems reviewed & are unremarkable except as noted in HPI and below PFSH All Active Problems (Updated 07/31/23 @ 17:29 by Gary Valdez DO) 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) Fall as cause of accidental injury at home as place of occurrence (Acute) Fracture of humeral head, left, closed (Acute) Closed left clavicular fracture (Acute) Pelvic fracture (Acute) Both superior and inferior rami fracture Lesion of soft palate (Acute) Neuropathy (Acute) Corns and callosities (Acute) Nail dystrophy (Acute) Osteoporosis (Chronic) [facility] managing- denosumab to replace reclast 06/2022 Chronic kidney disease, stage 3 (Acute) 01/2022, Cr-1.2 Foot pain, bilateral (Acute) Fatigue (Acute) Cardiomyopathy (Acute) 07/2020 echo- EF 66%, otherwse normal exam ([place]) Becki Advance directive on file (Acute) 04/15-new form given to patient to update. She wants CPR, discontinue if futile Hypertension (Chronic) GERD (gastroesophageal reflux disease) (Chronic) CAD (coronary artery disease) (Chronic) Anemia in chronic illness (Acute) Rheumatoid arthritis (Chronic) 2021 seen at [facility] rheumatology Hearing loss in right ear (Acute 05/01/15) Medical History Chronic sinusitis COVID COVID-19 Cryptogenic organizing pneumonia Current smoker (11/28/14) Fever Foot pain Impacted cerumen, bilateral Influenza Lung mass organizing pneumonia, followed by Dr. Lui ([facility]) no further follow up need Respiratory syncytial virus (RSV) ST elevation (STEMI) myocardial infarction of unspecified site Ulcer, neuropathic Urinary tract infection Surgical History Colonoscopy - IV Sedation (01/17/13) DR. CINTHIA BARAHONA Dilation and curettage (~07/1997) Hx of heart artery stent Stents x 2. 2017 Status post dilation and curettage Status post tonsillectomy Tonsillectomy (~1957) Family History Mother , 55 Systemic lupus erythematosus Essential hypertension Hypertension Father , SUICIDE at age 61. Mental disorder Depression Brother , COPD at age 71. Substance abuse Heart disease COPD (chronic obstructive pulmonary disease) Brother Essential hypertension Brother Substance abuse Personal history of malignant neoplasm LUNG Grandfather Essential hypertension Heart disease Grandmother Diabetes Grandmother Heart disease Other Depression Social History Smoking/Tobacco Use Status: Never Tobacco: How many years used: 12 Second Hand Exposure: Yes Smoking risk assessment performed?: Yes Alcohol Intake: current Alcohol Intake frequency: holidays/special occasions only Alcohol type: wine Drug use: Never Substance use type: does not use Caregiver/Support person: No Household members: spouse Housing: house Communication Needs: Corrective Lenses Do you need help understanding health information?: Rarely Pets and animals: Yes Pets and animals: dog(s) Sexually active: No Do you think of yourself as: straight/heterosexual Current gender identity: female What is your relationship status?: How often do you talk on the phone with friends or family?: three or more times per week How often do you get together with friends or relatives?: three or more times per week How often do you attend sikh or voodoo services?: 4 or more times per year Do you belong to any clubs or organized social groups?: yes Panel score (0-1 are the most socially isolated patients): 4 What type of physical activity do you participate in: walking, aerobic and other Details: Bone builders Duration: 30-45 minutes/day Frequency: 3-4 times per week Sally/Yarsanism: Religion Special sally needs: No Seatbelt use: always Drive intox or ride w/intox experienced truck driver: No Do you feel safe at home: Yes Do you feel safe in your relationship?: Yes Additional Social history: with 4 children. 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 Originally from [place]. Remote history of tobacco use. Exam Narrative Exam Narrative: 1.Const: Well-nourished, Well-developed, appearing stated age 2.Eyes: PERRL, no conjunctival injection, and symmetrical lids. 3.ENT: Atraumatic external nose and ears. Moist MM. Neck: Symmetric, trachea midline, No thyromegaly. 4.CVS: +S1/S2, No murmurs or gallops. Peripheral pulses 2+ and equal in all extremities. Brisk capillary refill in all extremities. 5.RESP: Unlabored respiratory effort. Clear to auscultation bilaterally. No wheezes rales or rhonchi 6.GI: Soft, Nontender/Nondistended, No hepatosplenomegaly. No guarding or rebound. 7.MSK: Minimal tenderness on the left shoulder. However she has good range of motion for anterior posterior lateral movement as well as internal and external rotation. Good professor of art strength. No numbness or tingling. No bruising. No deformity. Right shoulder is notably unremarkable with normal movements and activities. Minimal tenderness over the left anterior superior ribs around ribs 2 and 3 necks of the shoulder. Midline tenderness over C5, but no tenderness over thoracic or lumbar spine. Stable hips to anterior and posterior and lateral movement. No tenderness. Mild tenderness over the greater trochanter of the left hip, as well as the mid to proximal femur. Minimal pain with logroll of the legs. Patient is able to lift and move the right lower extremity without difficulty or pain. Left lower extremity demonstrates some mild pain isolated to the hip region. No knee pain. Feet demonstrate good plantar and dorsiflexion. Normal sensation. No other signs of trauma 8.Skin: Warm, Dry. No rashes or lesions. 9.Neuro: jewel hole gauger II-XII grossly intact. Sensation grossly intact, no focal neurologic deficits. 10.Psych: (AAO) x3. Appropriate mood and affect Course Vital Signs Vital signs: Vital Signs Temperature 37.2 C 07/31/23 13:53 Pulse 94 H 07/31/23 13:53 Respiratory Rate 18 07/31/23 13:53 Blood Pressure 148/66 H 07/31/23 13:53 Pulse Oximetry 93 07/31/23 13:53 Temperature 37.2 C 07/31/23 13:53 Temperature Source Skin 07/31/23 13:53 Pulse 94 H 07/31/23 13:53 Respiratory Rate 18 07/31/23 13:53 Blood Pressure 148/66 H 07/31/23 13:53 Blood Pressure Position Sitting 07/31/23 13:53 Pulse Oximetry 93 07/31/23 13:53 Oxygen Delivery Method Room Air 07/31/23 13:53 Oxygen Flow Rate 0 07/31/23 13:53 Pain Level 7 07/31/23 13:53
--- NOTE | 2023-07-31 14:35 | DI.CT_ITS ---
Exam(s) CT HEAD CERVICAL SPINE WO EXAM: CT HEAD CERVICAL SPINE WO CLINICAL HISTORY: fall, hit head, midline c5 pain. TECHNIQUE: Imaging Protocol: Axial computed tomography images with coronal and sagittal reformatted images were created and reviewed COMPARISON: CT CT HEAD WO from 07/13/2019 FINDINGS: Head CT Ventricles and Extra axial spaces: Normal in size and morphology for the patient's age. Hemorrhage: None. Cerebral parenchyma: Mild atrophy. Mild white matter changes of small vessel disease. Midline shift: None. Brainstem/Cerebellum: Normal. Calvarium: Normal. Visualized Paranasal sinuses/Mastoids: Clear. Soft tissues: Unremarkable. Cervical Spine CT BONES: Vertebral body heights are maintained. Alignment is normal. There is no evidence of acute frac ture. Degenerative disc changes and facet degenerative changes are seen, greatest at C5-6 and C6-7 as well as C1-2.. SOFT TISSUES: No paraspinal hematoma. The airway appears intact. No pneumothorax is seen at the lung apices. IMPRESSION: Head CT: No acute abnormality. C-spine CT: Degenerative changes, no acute abnormality. RADIATION DOSE DELIVERED: 1,437.67mGy.cm Total DLP DATA REPOSITORY: All CT scans at this facility are submitted to the National Radiology Data Registry (NRDR) Dose Index Registry (DIR) with the [employer] (ACR). RADIATION OPTIMIZATION: All CT scans at this facility use at least one of these dose optimization te chniques: automated exposure control; mA and/or kV adjustment per patient size (includes targeted exa ms where dose is matched to clinical indication); or iterative reconstruction.
--- NOTE | 2023-07-31 14:40 | DI.CT_ITS ---
Exam(s) CT CHEST WO EXAM: CT CHEST WO CLINICAL HISTORY: fall, left shoulder and chest pain TECHNIQUE: Imaging Protocol: Axial computed tomography images with coronal and sagittal reformatted images were created and reviewed. Additional axial, coronal and sagittal reconstructions of the left shoulder were performed. CONTRAST MATERIAL: Intravenous: Omnipaque 350 Contrast volume:structured data ml. COMPARISON: CT CT CHEST PE CTA from 03/23/2021 FINDINGS: Pulmonary parenchyma: No consolidation. No dominant measurable mass. Tracheobronchial tree: No bronchiectasis or mucous plugging. Mediastinum and Wendy: No dominant adenopathy or fluid collection. Pleura: No effusion. No pneumothorax. Heart: The heart is not dilated. No coronary artery calcifications are seen. Aorta: Thoracic aorta non-dilated. Moderate atherosclerotic changes. Upper abdomen: Unremarkable. Bones: No rib or spine fracture. Scoliosis and degenerative changes. Left shoulder CT: Nondisplaced fracture at the left proximal end of the clavicle. No evidence of dis location at the sternoclavicular joint. No significant surrounding hematoma. Deformity left proximal humerus consistent with an old fracture. Superimposed nondisplaced acute fra cture with slight step-off at the lateral cortical surface of the humeral head. Bones appear osteopo rotic. Soft tissues: Unremarkable. IMPRESSION: Nondisplaced fracture of the left proximal clavicle. Nondisplaced fracture of the left humeral head/neck. Old fracture deformity. No evidence of pneumothorax or rib fracture. RADIATION DOSE DELIVERED: 446.32mGy.cm Total DLP DATA REPOSITORY: All CT scans at this facility are submitted to the National Radiology Data Registry (NRDR) Dose Index Registry (DIR) with the [employer] (ACR). RADIATION OPTIMIZATION: All CT scans at this facility use at least one of these dose optimization te chniques: automated exposure control; mA and/or kV adjustment per patient size (includes targeted exa ms where dose is matched to clinical indication); or iterative reconstruction.
--- NOTE | 2023-07-31 15:03 | DI.RAD_ITS ---
Exam(s) XR PELVIS AP EXAM: XR PELVIS AP CLINICAL HISTORY: fall, left hip pain. TECHNIQUE: 2D digital imaging was performed. COMPARISON: CR LUMBAR SPINE COMPLETE from 12/05/2015 FINDINGS: BONES: No mildly displaced fracture of the left superior and inferior pubic rami. No additional frac tures identified. No bony destructive lesion is seen. JOINTS: No dislocation present. No joint space narrowing is present. SOFT TISSUE: Normal. IMPRESSION: Left superior and inferior pubic ramus fractures. DATA REPOSITORY: RADIATION DOSE DELIVERED:
--- NOTE | 2023-07-31 15:03 | DI.RAD_ITS ---
Exam(s) XR FEMUR LT EXAM: XR FEMUR LT CLINICAL HISTORY: fall, left hip pain. TECHNIQUE: 2D digital imaging was performed. Three views. COMPARISON: CT abdomen pelvis 21 Mar 2021 FINDINGS: BONES: Acute fracture left superior and inferior pubic rami. The bones appear osteoporotic. No bony destructive lesion is seen. JOINTS: No dislocation present. SOFT TISSUE: Normal. IMPRESSION: Nondisplaced fractures of the left superior and inferior pubic rami. No femoral fracture. DATA REPOSITORY: RADIATION DOSE DELIVERED:
--- NOTE | 2023-07-31 16:01 | HPE_ITS ---
Date of service: 07/31/23 Time of Service: 16:01 Assessment and Plan Assessment and plan (1) Fall as cause of accidental injury at home as place of occurrence: Status: Acute Assessment and plan: -PT -pain management -Patient does have a close friend and children that can help her out. She has a walker/commode/shower chair that she can borrow from a friend. -care management -Supportive care This document was created with voice activated software and may contain errors. 75 mins spent with the patient today. (2) Fracture of humeral head, left, closed: Status: Acute Assessment and plan: Sling as needed for comfort The case was discussed with Dr. Farnsworth. She continues her left arm for activities of daily living. But avoid any heavy lifting. She can weight-bear. We will have PT evaluate. (3) Closed left clavicular fracture: Status: Acute Assessment and plan: Nondisplaced (4) Pelvic fracture: Status: Acute Assessment and plan: Stable to able to ambulate (5) Neuropathy: Status: Acute (6) Anemia in chronic illness: Status: Acute (7) Osteopenia: Status: Acute (8) Osteoporosis: Status: Chronic (9) Chronic kidney disease, stage 3: Status: Acute (10) Fatigue: Status: Acute (11) Cardiomyopathy: Status: Acute (12) Advance directive on file: Status: Acute Assessment and plan: Patient is a full code (13) Hypertension: Status: Chronic (14) GERD (gastroesophageal reflux disease): Status: Chronic (15) CAD (coronary artery disease): Status: Chronic (16) Immunosuppression due to drug therapy: Status: Acute (17) Rheumatoid arthritis: Status: Chronic (18) Hearing loss in right ear: Status: Acute (19) ST elevation (STEMI) myocardial infarction of unspecified site: Assessment and plan: She has 2 stents greater than a year (20) Degenerative joint disease of cervical spine: Status: Acute (21) Cerebral atrophy: Status: Acute History of Present Illness Narrative: Patient is a 72-year-old female was in her normal state health when she tripped and fell at home. She denies passing out. She denies any loss of consciousness. She has a history of falls in the past. She has neuropathy which contributes to falling. Currently in the ER she is complaining of some mild pain across the clavicle and the humeral head and in her pelvis. She denies any changes in her vision. She denies any changes in her hearing. She has chronic neck pain which is no worse than normal. She denying in her jaw or changes in her dentition. She denies any numbness or tingling in her hands or in her feet. She denies any fever or chills. She denies any productive cough or upper respiratory tract symptoms. She denies any dysuria. She appears comfortable/conversational and her pain is well controlled. -Notes from the ED reviewed. Review of Systems All systems reviewed & are unremarkable except as noted in HPI and below PFSH All Active Problems 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) Fall as cause of accidental injury at home as place of occurrence (Acute) Fracture of humeral head, left, closed (Acute) Closed left clavicular fracture (Acute) Pelvic fracture (Acute) Both superior and inferior rami fracture Lesion of soft palate (Acute) Neuropathy (Acute) Corns and callosities (Acute) Nail dystrophy (Acute) Osteoporosis (Chronic) [facility] managing- denosumab to replace reclast 06/2022 Chronic kidney disease, stage 3 (Acute) 01/2022, Cr-1.2 Foot pain, bilateral (Acute) Fatigue (Acute) Cardiomyopathy (Acute) 07/2020 echo- EF 66%, otherwse normal exam ([place]) Becki Advance directive on file (Acute) 04/15-new form given to patient to update. She wants CPR, discontinue if futile Hypertension (Chronic) GERD (gastroesophageal reflux disease) (Chronic) CAD (coronary artery disease) (Chronic) Anemia in chronic illness (Acute) Rheumatoid arthritis (Chronic) 2021 seen at [facility] rheumatology Hearing loss in right ear (Acute 05/01/15) Medical History Chronic sinusitis COVID COVID-19 Cryptogenic organizing pneumonia Current smoker (11/28/14) Fever Foot pain Impacted cerumen, bilateral Influenza Lung mass organizing pneumonia, followed by Dr. Lui ([facility] [place]) no further follow up need Respiratory syncytial virus (RSV) ST elevation (STEMI) myocardial infarction of unspecified site Ulcer, neuropathic Urinary tract infection Surgical History Colonoscopy - IV Sedation (01/17/13) DR. CINTHIA BARAHONA Dilation and curettage (~07/1997) Hx of heart artery stent Stents x 2. 2017 Status post dilation and curettage Status post tonsillectomy Tonsillectomy (~1957) Family History Mother , 55 Systemic lupus erythematosus Essential hypertension Hypertension Father , SUICIDE at age 61. Mental disorder Depression Brother , COPD at age 71. Substance abuse Heart disease COPD (chronic obstructive pulmonary disease) Brother Essential hypertension Brother Substance abuse Personal history of malignant neoplasm LUNG Grandfather Essential hypertension Heart disease Grandmother Diabetes Grandmother Heart disease Other Depression Social History Smoking/Tobacco Use Status: Never Tobacco: How many years used: 12 Second Hand Exposure: Yes Smoking risk assessment performed?: Yes Alcohol Intake: current Alcohol Intake frequency: holidays/special occasions only Alcohol type: wine Drug use: Never Substance use type: does not use Caregiver/Support person: No Household members: spouse Housing: house Communication Needs: Corrective Lenses Do you need help understanding health information?: Rarely Pets and animals: Yes Pets and animals: dog(s) Sexually active: No Do you think of yourself as: straight/heterosexual Current gender identity: female What is your relationship status?: How often do you talk on the phone with friends or family?: three or more times per week How often do you get together with friends or relatives?: three or more times per week How often do you attend religious or alevism services?: 4 or more times per year Do you belong to any clubs or organized social groups?: yes Panel score (0-1 are the most socially isolated patients): 4 What type of physical activity do you participate in: walking, aerobic and other Details: Bone builders Duration: 30-45 minutes/day Frequency: 3-4 times per week Sally/Yazdanism: Scientology Special sally needs: No Seatbelt use: always Drive intox or ride w/intox cross country truck driver: No Do you feel safe at home: Yes Do you feel safe in your relationship?: Yes Additional Social history: with 4 children. 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 Originally from [place]. Remote history of tobacco use. Meds Allergies and Home Medications Allergies Allergy/AdvReac Type Severity Reaction Status Date / Time amoxicillin AdvReac Intermediate diarrhea Verified 07/31/23 13:56 Home Medications Medication Instructions Recorded Confirmed Type hydroxychloroquine 200 mg tablet 2 tab PO DIRECTED #180 tab-caps 09/19/16 07/31/23 History (Plaquenil) aspirin 81 mg tablet,delayed 81 mg PO DAILY 02/07/17 07/31/23 History release (Lo-Dose Aspirin) magnesium oxide 400 mg PO BID 02/17/17 07/31/23 History pediatric multivitamin-iron 1 ea PO DAILY ##100 03/05/17 07/31/23 History (Mariya/Iron chewable tablet) cholecalciferol (vitamin D3) 50 2,000 unit PO DAILY 03/24/18 07/31/23 History mcg (2,000 unit) capsule (Vitamin D3) folic acid 1 mg tablet 2 mg PO DAILY 09/26/19 07/31/23 History methotrexate sodium 2.5 mg tablet 15 mg PO WKLY 11/06/20 07/31/23 History metoprolol succinate 25 mg 25 mg PO DAILY #90 tabs 11/20/20 07/31/23 Rx tablet,extended release 24 hr atorvastatin 40 mg tablet (Lipitor) 40 mg PO QPM #90 caps 11/22/21 07/31/23 Rx nitroglycerin 0.4 mg sublingual 0.4 mg sublingual DIRECTED PRN 11/22/21 07/31/23 Rx tablet (Nitrostat) angina #100 tabs ferrous gluconate 324 mg (38 mg 648 mg PO DAILY 04/17/22 07/31/23 History iron) tablet varicella-zoster glycoE [id number] 0.5 ml IM ONCE #1 ea 04/17/22 04/24/23 Rx adj(PF) 50 mcg/0.5 mL IM susp, kit (Shingrix (PF)) omeprazole 40 mg capsule,delayed See Rx Instructions .Route 06/24/23 07/31/23 Rx release .COMPLEX #90 caps Exam Const General: cooperative, comfortable, no acute distress and well groomed Nutritional Appearance: average body habitus Orientation: alert, awake and oriented x3 [facility] Head: normal to inspection, no palpable skull fracture, signs of trauma, no abrasions, no Donaldson's sign, no contusions and no hematomas Ears: hearing grossly normal bilaterally and external ears normal General nose exam: external nose normal Face and sinus: normal facial exam Mouth: oral mucosae normal and lip normal Teeth and gingiva: multiple restorations Eyes General: appearance normal, both eyes and all related structures Alignment and Position: alignment normal Periorbital: periorbital findings normal Eyelids: eyelids normal Sclera: sclerae normal Pupils: PERRL EOM: EOM intact bilaterally Neck Neck: full ROM, trachea midline, supple, no anterior neck swelling and tender Chest Chest: tenderness clavicle on the left Resp Effort & Inspection: normal respiratory effort Auscultation: clear to auscultation bilaterally Cardio Jugular venous pressure: no JVD Rate: regular rate Rhythm: regular rhythm GI Inspection: normal to inspection Palpation: soft, no guarding and No ascites Auscultation: normal bowel sounds Back/Spine/Pelvis Cervical Spine: cervical ROM normal, No cervical muscular tenderness and No pain with cervical ROM Pelvis: pain with anterior-posterior compression and tenderness over symphysis pubis Skin General skin exam: no rashes or lesions noted Neuro General: patient alert, patient awake, patient oriented x3, moves all extremities, no focal motor deficits, CN's II-XI intact bilaterally and normal sensation to monofilament Cranial Nerves: CN's II-XI intact bilaterally, EOM intact bilaterally, facial strength normal, tongue midline, gag reflex normal, hearing normal and able to rotate head bilaterally Cognition: normal cognition Speech: speech normal Extrem General: no clubbing, cyanosis or edema and no calf tenderness bilaterally Right upper extremity: full ROM Left upper extremity: shoulder/upper arm Details: tenderness and swelling Results Last Vital Signs Temp 37.2 C 07/31/23 13:53 Pulse 94 H 07/31/23 13:53 Resp 18 07/31/23 13:53 BP 148/66 H 07/31/23 13:53 Pulse Ox 93 07/31/23 13:53 CBC White Blood Count 3.84 10^3/uL (4.4-10.8) L 10/08/22 Red Blood Count 3.47 10^6/uL (3.93-5.22) L 10/08/22 Hemoglobin 10.9 g/dL (11.2-15.7) L 10/08/22 Hematocrit 33.0 % (36.0-46.0) L 10/08/22 Mean Corpuscular Volume 95 fL (80-95) 10/08/22 Mean Corpuscular Hemoglobin 31.4 pg (27.0-33.0) 10/08/22 Mean Corpuscular Hemoglobin Concent 33.0 % (32.0-36.0) 09/25 02/14 Red Cell Distribution Width 15.0 % (11.7-14.6) H 10/08/22 Platelet Count 128 10^3/uL (130-400) L 10/08/22 Mean Platelet Volume 10.5 fL (8.0-11.0) 10/08/22 Neutrophils % 89.8 10/08/22 Band Neutrophils % 1 03/23/21 Lymphocytes % 3.4 10/08/22 Monocytes % 5.7 10/08/22 Eosinophils % 0.0 10/08/22 Basophils % 0.3 10/08/22 Immature Granulocytes % 0.8 10/08/22 Comprehensive Metabolic Panel Sodium 135 mmol/L (136-145) L 10/08/22 12:08 Potassium 3.9 mmol/L (3.5-5.1) 10/08/22 12:08 Chloride 100 mmol/L (98-107) 10/08/22 12:08 Carbon Dioxide 26.7 mmol/L (21.0-32.0) 10/08/22 12:08 BUN 20 mg/dL (7-18) H 10/08/22 12:08 Creatinine 1.0 mg/dL (0.55-1.02) 10/08/22 12:08 Estimated GFR/1.73 m2 44.04 (mL/min/1.73m2) 01/28/22 14:47 Glucose 112 mg/dL (74-106) H 10/08/22 12:08 Calcium 8.5 mg/dL (8.5-10.1) 10/08/22 12:08 Conjugated Bilirubin 0.15 mg/dL (0.00-0.20) 07/20/19 06:20 Total Bilirubin 0.8 mg/dL (0.2-1.0) 10/08/22 12:08 ALT 22 U/L (14-59) 10/08/22 12:08 AST 25 U/L (15-37) 10/08/22 12:08 Alkaline Phosphatase 60 U/L (46-116) 10/08/22 12:08 Total Protein 6.7 g/dL (6.4-8.2) 10/08/22 12:08 Albumin 3.6 g/dL (3.4-5.0) 10/08/22 12:08 Diabetes results Glucose 112 mg/dL (74-106) H 10/08/22 Total Cholesterol 128 mg/dL (<200) 07/25/22 LDL Cholesterol, Calc 48 mg/dL (<100) 07/25/22 LDL Cholesterol Direct 41 mg/dL (<100) 02/09/19 HDL Cholesterol 67 mg/dL (40-60) 07/25/22 Triglycerides 68 mg/dL (<150) 07/25/22 BUN 20 mg/dL (7-18) H 10/08/22 Creatinine 1.0 mg/dL (0.55-1.02) 10/08/22 Estimated GFR/1.73 m2 44.04 (mL/min/1.73m2) 01/28/22 Est GFR (CKD-EPI 2020) 59.49 (mL/min/1.73m2) 10/08/22 Sodium 135 mmol/L (136-145) L 10/08/22 Potassium 3.9 mmol/L (3.5-5.1) 10/08/22 Chloride 100 mmol/L (98-107) 10/08/22 Carbon Dioxide 26.7 mmol/L (21.0-32.0) 10/08/22 Calcium 8.5 mg/dL (8.5-10.1) 10/08/22 AST 25 U/L (15-37) 10/08/22 ALT 22 U/L (14-59) 10/08/22 Total Protein 6.7 g/dL (6.4-8.2) 10/08/22 Albumin 3.6 g/dL (3.4-5.0) 10/08/22 TSH 3.06 uIU/mL (0.36-3.74) 03/23/21 Vitamin B12 529 pg/mL (193-986) 03/21/21 Lipid profile Total Cholesterol 128 mg/dL (<200) 07/25/22 HDL Cholesterol 67 mg/dL (40-60) 07/25/22 LDL Cholesterol, Calc 48 mg/dL (<100) 07/25/22 LDL Cholesterol Direct 41 mg/dL (<100) 02/09/19 Triglycerides 68 mg/dL (<150) 07/25/22 Anemia profile Hgb 10.9 g/dL (11.2-15.7) L 10/08/22 Hct 33.0 % (36.0-46.0) L 10/08/22 MCV 95 fL (80-95) 10/08/22 RDW 15.0 % (11.7-14.6) H 10/08/22 Iron 24 ug/dL (50-175) L 07/15/19 Ferritin > 1000 ng/mL (8-388) H 07/15/19 TIBC 147 ug/dL (250-450) L 07/15/19 Transferrin % Sat 16 % (15-50) 07/15/19 Vitamin B12 529 pg/mL (193-986) 03/21/21 Folate > 20.0 ng/mL (8.6-20.0) H 03/21/21 Time Spent Time spent with Patient: 55-74 minutes Time was spent: preparing to see the patient(eg.review tests), obtaining and/or reviewing separately otained hiistory, ordering medications,tests, procedures, referring, communicating with other health laboratory animal care veterinarian, indepentently interpreting results, counseling the patient and care coordination
[2023-07-31 17:05] LABS: Source Nasal/Nares
[2023-07-31 17:40] LABS: COVID-19 PCR Negative (Negative)
[2023-07-31 18:00] VITALS: BP 127/70; PULSE 81; RESP 18; TEMP 37.1; O2SAT 94
--- NOTE | 2023-07-31 18:39 | PDOC.ANES ---
Date of service: 07/31/23 Time of Service: 18:39 Anesthesia Note Report Anesthesia Note: Was requested to see Amara in regards to regional anesthesia options for her pain. Amara fell earlier today and sustained a non-displaced left clavicle fracture, non-displaced humeral head fracture, and left inferior and superior pubic ramis fracture. With gentle palpation of her clavicle she denies pain. She does have pain over her humerus fracture. She is also complaining of pain in her pelvis. We discussed options. Given her lack of pain in her clavicle this unlikely would benifit from regional anesthesia. Her pelvic fractures likely also wouldn't benefit. We talked about the use of ORAL blocks for just inferior rami fractures in a few case reports, but its efficacy is not well described for superior fractures. She also doesn't like the idea of this block anyway. I think doing a block for her humerous fracture at this time, may make her moving around more challenging given that any block for her humerous would also take out most of her left arm function for a time, and potentially limit her mobility while up if she needed a walker.
[2023-07-31 19:06] VITALS: BP 127/70; PULSE 81; RESP 18; TEMP 37.1; O2SAT 94
[2023-07-31] MEDS: Atorvastatin 40 MG TAB PO (19:11)
[2023-07-31] MEDS: Gabapentin 100 MG CAP PO (19:11)
[2023-07-31] MEDS: Lidocaine 5% Patch 2 PATCH TP (19:11)
[2023-07-31] MEDS: Enoxaparin 40 MG/0.4 ML SYR SC (19:11)
[2023-07-31] MEDS: Magnesium Oxide 400 MG TAB PO (19:12)
[2023-07-31] MEDS: Acetaminophen 500 MG TAB 1000 MG PO (19:12)
[2023-07-31] MEDS: Omeprazole 20 MG CAPCR PO (19:12)
[2023-07-31 22:51] VITALS: BP 98/60; PULSE 60; RESP 16; TEMP 36; O2SAT 96
[2023-08-01] MEDS: Acetaminophen 500 MG TAB 1000 MG PO ×3 (04:04→20:11)
[2023-08-01 06:42] VITALS: BP 100/63; PULSE 73; RESP 14; TEMP 36.3; O2SAT 94
[2023-08-01 07:30] LABS: Abs Immature Grans 0.04 10^3/uL (0.0-0.06); Absolute Basophil Count 0.03 10^3/uL (0.0-0.2); Absolute Eosinophil Count 0.03 10^3/uL (0.0-0.7); Absolute Lymphocyte Count 0.62 10^3/uL (1.2-3.4); Absolute Monocyte Count 1.07 10^3/uL (0.1-0.8); Absolute Neutrophil Count 7.88 10^3/uL (1.2-6.7); Basophils % 0.3; Eosinophils % 0.3; HCT 25.9 % (36.0-46.0); HGB 8.7 g/dL (11.2-15.7); Immature Grans % 0.4; Lymphocytes % 6.4; MCH 31.8 pg (27.0-33.0); MCHC 33.6 % (32.0-36.0); MCV 95 fL (80-95); MPV 10.6 fL (8.0-11.0); Monocytes % 11.1; Neutrophils % 81.5; RBC 2.74 10^6/uL (3.93-5.22); RDW 15.9 % (11.7-14.6); RDW-SD 53.6 fL; WBC 9.67 10^3/uL (4.4-10.8)
[2023-08-01 08:12] LABS: Diff Comment PLT Morph Reviewed; Ferritin 557 ng/mL (8-252); Folate 8.7 ng/mL (8.6-20.0); Platelet Count 94 10^3/uL (130-400); RBC Morphology Normal; Vitamin B12 271 pg/mL (193-986)
[2023-08-01] MEDS: Magnesium Oxide 400 MG TAB PO ×2 (09:26→20:11)
[2023-08-01] MEDS: Ferrous Gluconate 324 MG TAB 648 MG PO (09:26)
[2023-08-01] MEDS: Metoprolol CR 25 MG TABCR PO (09:26)
[2023-08-01] MEDS: Folic Acid 1 MG TAB 2 MG PO (09:26)
[2023-08-01] MEDS: Gabapentin 100 MG CAP PO (09:26)
[2023-08-01] MEDS: Omeprazole 20 MG CAPCR PO ×2 (09:26→20:10)
[2023-08-01] MEDS: Normal Saline Flush 10 ML SYR IVP (09:27)
[2023-08-01] MEDS: Cholecalciferol (Vitamin D3) 1,000 UNIT TAB 2000 UNITS PO (09:27)
--- NOTE | 2023-08-01 09:43 | PDOC.CMIN ---
Date of service: 08/01/23 Time of Service: 09:43 Care Management Initial Assmt Initial Assessment REASON FOR HOSPITALIZATION:: Pelvic fracture, Closed fracture of left clavicle, Closed left humeral fracture PREVIOUS FUNCTIONAL STATUS/SOCIAL/FAMILY SUPPORTS:: Amara lives at home with her , Vinayak, in [facility]. 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 She has four adult children, and grandchildren. Her family and friends are supportive. Her home is two levels she lives on the first level however she does have to go to the basement to do laundry. CURRENT FUNCTIONAL STATUS:: Amara was lying in bed, Vinayak at bedside. She was pleasant in interaction and forthcoming with information; sharing that she tripped over her slippers. She reported feeling much better, and only experiencing pain with movement. She reports plans to return home, and is not interested in SNF, if recommended, reviewing the vast support of friends and family available to her at home. CM continues to follow. ADVANCE DIRECTIVES:: On file agent is Vinayak Has patient been provided with info about the portal/API?: Yes Did the patient sign up for the portal?: Yes CODE STATUS:: DNR/DNI INSURANCE COVERAGE / FINANCIAL ISSUES:: Santos Nassar PRIMARY CARE PHYSICIAN:: Abhinav Nguyen POTENTIAL DISCHARGE NEEDS:: Further evaluation, follow up appointments. PATIENT/FAMILY EDUCATION NEEDS:: Review of discharge instructions, discuss Ask Me Three. TRANSPORTATION:: Via private vehicle with family. PLAN:: Anticipate Amara will return home upon discharge with a new FWW and orders for home health PT/OT. CM continues to follow. PFSH All Active Problems (Updated 08/01/23 @ 14:38 by Jodi Chandler DO) Internal hemorrhoids with complication (Acute) Scoliosis due to degenerative disease of spine in adult patient (Acute) 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) Fall as cause of accidental injury at home as place of occurrence (Acute) Fracture of humeral head, left, closed (Acute) Closed left clavicular fracture (Acute) Pelvic fracture (Acute) Both superior and inferior rami fracture Lesion of soft palate (Acute) Neuropathy (Acute) Corns and callosities (Acute) Nail dystrophy (Acute) Osteoporosis (Chronic) [facility] managing- denosumab to replace reclast 06/2022 Chronic kidney disease, stage 3 (Acute) 01/2022, Cr-1.2 Foot pain, bilateral (Acute) Fatigue (Acute) Cardiomyopathy (Acute) 07/2020 echo- EF 66%, otherwse normal exam ([place]) Becki Advance directive on file (Acute) 04/15-new form given to patient to update. She wants CPR, discontinue if futile Hypertension (Chronic) GERD (gastroesophageal reflux disease) (Chronic) CAD (coronary artery disease) (Chronic) Anemia in chronic illness (Acute) Rheumatoid arthritis (Chronic) 2021 seen at [facility] rheumatology Hearing loss in right ear (Acute 05/01/15) Medical History Chronic sinusitis COVID COVID-19 Cryptogenic organizing pneumonia Current smoker (11/28/14) Fever Foot pain Impacted cerumen, bilateral Influenza Lung mass organizing pneumonia, [place] Dr. Lui ([facility] [place] no further follow up need Respiratory syncytial virus (RSV) ST elevation (STEMI) myocardial infarction of unspecified site Ulcer, neuropathic Urinary tract infection Surgical History Colonoscopy - IV Sedation (01/17/13) DR. CINTHIA BARAHONA Dilation and curettage (~07/1997) Hx of heart artery stent Stents x 2. 2017 Status post dilation and curettage Status post tonsillectomy Tonsillectomy (~1957) Family History Mother , 55 Systemic lupus erythematosus Essential hypertension Hypertension Father , SUICIDE at age 61. Mental disorder Depression Brother , COPD at age 71. Substance abuse Heart disease COPD (chronic obstructive pulmonary disease) Brother Essential hypertension Brother Substance abuse Personal history of malignant neoplasm LUNG Grandfather Essential hypertension Heart disease Grandmother Diabetes Grandmother Heart disease Other Depression Social History Smoking/Tobacco Use Status: Never Tobacco: How many years used: 12 Second Hand Exposure: Yes Smoking risk assessment performed?: Yes Alcohol Intake: current Alcohol Intake frequency: holidays/special occasions only Alcohol type: wine Drug use: Never Substance use type: does not use Caregiver/Support person: No Household members: spouse Housing: house Communication Needs: Corrective Lenses Do you need help understanding health information?: Rarely Pets and animals: Yes Pets and animals: dog(s) Sexually active: No Do you think of yourself as: straight/heterosexual Current gender identity: female What is your relationship status?: How often do you talk on the phone with friends or family?: three or more times per week How often do you get together with friends or relatives?: three or more times per week How often do you attend jew or yarsani services?: 4 or more times per year Do you belong to any clubs or organized social groups?: yes Panel score (0-1 are the most socially isolated patients): 4 What type of physical activity do you participate in: walking, aerobic and other Details: Bone builders Duration: 30-45 minutes/day Frequency: 3-4 times per week Sally/Voodoo: Latter-Day Special sally needs: No Seatbelt use: always Drive intox or ride w/intox tow truck driver: No Do you feel safe at home: Yes Do you feel safe in your relationship?: Yes Additional Social history: with 4 children. 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 Originally from [place]. Remote history of tobacco use.
[2023-08-01] MEDS: traMADol 50 MG TAB PO (10:50)
[2023-08-01] MEDS: LIDOCAINE Patch Removal 2 EACH TP (11:04)
--- NOTE | 2023-08-01 11:11 | PT.INIE ---
PT Notes Visit Reasons: Tez Inpatient Physical Therapy Evaluation Date: 08/01/23 Referring Doctor: Jodi Chandler PT Orders: PT CONSULT: fall/ pelvic and femur fx Precautions: WBAT LUE, WBAT LEs Patient Profile/Admitting Diagnosis: Patient admitted after fall at home 07/31/23. Found to have left superior and inferior pubic ramus fractures, and non-displaced fractures of left distal clavicle and left humeral head. Social History/Home Situation: Patient lives in a multilevel home with her , who is present at time of consult. They report 4STE with bilat rails. Normally ambulates independently without AD. No additional falls. Participates in [employer] in the community 2x/week. Equipment Owned/DME: Has 4WW borrowed from friend, wondering if she'll be able to use this. Subjective: Amara states that she was able to get from bed to chair with nursing earlier, which was painful. She reports 0/10 pain at rest, up to 6/10 with walking. She's agreeable to PT consult. Objective: General Observation: Resting in chair. IV in LUE. No additional lines. Mental Status: A&Ox3. Pleasant and cooperative throughout . Pain: 0/10 at rest. 6/10 with ambulation ROM: Right Upper Extremity: WFL Left Upper Extremity: Left shoulder allows 90* flexion. Elbow flexion to 100*, limited by discomfort from IV. Elbow extension full. Right Lower Extremity: WFL Left Lower Extremity: Left hip flexion limited to 90* due to pain. Knee and ankle motion WFL. Strength: Right Upper Extremity: WFL Left Upper Extremity: not assessed due to acute fxs Right Lower Extremity: hip flexion 3/5 or greater. Quads 5/5. HS 5/5. ankle DF 5/5. Left Lower Extremity: hip flexion 3-/5. Quads 4+/5. HS 4/5. Ankle DF 5/5 Bed Mobility/Transfers: In chair at initiation of session. sit-stand: SBA stand-sit: SBA Gait: Performs stand-step transfer to commode with FWW. Requires max cues for equipment management, frequently reaching for front bar of walker and pushing walker ahead. With cues, she easily corrects, although requires frequent reminders. Significant pain with ambulation. Assisted to commode, where she requires max A for self-care. Requests to stay at commode for a bit; left with call burgos within reach, and nursing alerted. Balance: Static Sitting: Good Dynamic Sitting: Good Static Standing: Fair Dynamic Standing: Fair Special Tests: Mobility Limitations Standardized Measure [facility] AM-PAC 6 clicks Basic Mobility Inpatient Short Form: Raw Score: 16 CMS Score: 54% impairment Informed Consent/Education: Patient instructed in purpose of PT consult and plan of care. Assessment: Patient is a 72 year old female referred to physical therapy services with the diagnosis of non-displaced left clavicle, humerus and pubic rami fractures. She is WBAT for UEs and LEs. Patient presents with mobility impairments related to acute medical issues, as demonstrated by the following impairment level findings: 1. decreased LLE ROM 2. Decreased LLE strength 3. Decreased LUE ROM 4. Decreased LUE strength 5. decreased activity tolerance 6. pain related to acute fractures 7. gait impairments Impairments are contributing to the following functional limitations: 1. unable to ambulate household distances 2. decreased safety awareness with use of FWW 3. unable to manage stairs 4. unable to Patient is assessed as Moderate 51597 complexity based on the following: History: Patient is a 72 year old female presenting with mobility impairments related to multiple fractures. She requires skilled PT intervention to maximize safety and mobility prior to discharge. Anticipate she'll be safe to transfer home with family support and FWW. Examination: Functional limitations as noted above Presentation: evolving Decision Making: moderate Goals: Goals X1 week 1. Supine-Sit : SBA 2. Sit-Supine : SBA 3. Sit-Stand : SBA 4. Stand-Sit : SBA 5. Bed-Chair : SBA with FWW 6. Chair-Bed : SBA with FWW 7. Gait : able to ambulate 25' with FWW and SBA 8. Stairs : able to manage 4 steps with single rail and min A x 1 Plan of Care/Treatment Plan: 1-2x/day, 7 days/week x 1 week. Plan of care has been reviewed with the P[employer] HELPER providing the service under Physical Therapy direction. Initiate Physical Therapy intervention for strengthening, bed mobility, transfers, gait, stairs, balance training, use of assistive device. DISCHARGE RECOMMENDATIONS: [] [] Home with services: PT TREATMENT CODE/TIME: 41377 (10:50-11:10) Teresa Washburn, PT, DPT [place] [facility] All Active Problems 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) Fall as cause of accidental injury at home as place of occurrence (Acute) Fracture of humeral head, left, closed (Acute) Closed left clavicular fracture (Acute) Pelvic fracture (Acute) Both superior and inferior rami fracture Lesion of soft palate (Acute) Neuropathy (Acute) Corns and callosities (Acute) Nail dystrophy (Acute) Osteoporosis (Chronic) [facility] managing- denosumab to replace reclast 06/2022 Chronic kidney disease, stage 3 (Acute) 01/2022, Cr-1.2 Foot pain, bilateral (Acute) Fatigue (Acute) Cardiomyopathy (Acute) 07/2020 echo- EF 66%, otherwse normal exam ([place]) Becki Advance directive on file (Acute) 04/15-new form given to patient to update. She wants CPR, discontinue if futile Hypertension (Chronic) GERD (gastroesophageal reflux disease) (Chronic) CAD (coronary artery disease) (Chronic) Anemia in chronic illness (Acute) Rheumatoid arthritis (Chronic) 2021 seen at [facility] rheumatology Hearing loss in right ear (Acute 05/01/15) Medical History Chronic sinusitis COVID COVID-19 Cryptogenic organizing pneumonia Current smoker (11/28/14) Fever Foot pain Impacted cerumen, bilateral Influenza Lung mass organizing pneumonia, followed by Dr. Lui ([facility] [place]) no further follow up need Respiratory syncytial virus (RSV) ST elevation (STEMI) myocardial infarction of unspecified site Ulcer, neuropathic Urinary tract infection Surgical History Colonoscopy - IV Sedation (01/17/13) DR. CINTHIA BARAHONA Dilation and curettage (~07/1997) Hx of heart artery stent Stents x 2. 2017 Status post dilation and curettage Status post tonsillectomy Tonsillectomy (~1957)
--- NOTE | 2023-08-01 12:50 | PTTR_ITS ---
PT Notes Visit Reasons: Te[facility] Inpatient Physical Therapy Treatment Note [facility] Date: 08/01/23 PRECAUTIONS: WBAT LUE, WBAT LLE SUBJECTIVE: Amara states that she is hoping to get home as soon as she's able. She is hoping to avoid SNF if at all possible. She states that she'd like to get back to bed from the chair. OBJECTIVE: ? Therapeutic Activities (11889w5): Direct one-on-one instruction in dynamic activities to improve functional performance. ? BED MOBILITY/TRANSFERS? Sit-supine: min A to LEs. Instructed in LLE support with RLE, with improved independence, but requires gentle assist to LEs from PT. ? Sit-stand: SBA? Stand-sit: SBA ? Chair-bed: FWW, CGA. Minimal cues for technique. Patient reports improved comfort vs transfer this morning; able to safely perform transfer without rushing, and without need for cues for safety and equipment management. Provided skilled cues and instruction on performance and technique throughout. Static standing in walker x 60 seconds? Cues for repositioning in bed, which she's able to complete independently. ? ASSESSMENT:? Improved tolerance to transfer this afternoon. Continued pain with weightbearing, but better managed during this session. Will push walking distance tomorrow, with goal of achieving household distances as soon as pos sible. May need to consider Swing Bed stay vs SNF if not able to tolerate household distances in upcoming days. PLAN: Progress walking distance as tolerated. TREATMENT CODE/TIME: 60360 ([id number]) Teresa Washburn, PT, DPT [facility]
--- NOTE | 2023-08-01 14:33 | PGE_ITS ---
Date of Service Date of service: 08/01/23 Time of Service: 11:30 Assessment and Plan Assessment and plan (1) Pelvic fracture: Status: Acute Assessment and plan: - Pain management PT to tolerance -Patient was not able to transfer safely independently. She is not stable for discharge to home at this point. I did discuss with PT. She will probably need to be inpatient for 2 to 3 days for pain control and see how well she gains her mobility. The option may be swing bed versus rehab. -Nutritional support -DVT/pulmonary toilet Patient is tolerating regular diet Monitor hemoglobin This document was created with voice activated software and may contain errors. 45 mins spent with the patient today. (2) Closed fracture of left clavicle: Status: Acute (3) Closed left humeral fracture: Status: Acute (4) Immunosuppression due to drug therapy: Status: Acute (5) Osteopenia: Status: Acute (6) Degenerative joint disease of cervical spine: Status: Acute (7) Scoliosis due to degenerative disease of spine in adult patient: Status: Acute (8) Chronic kidney disease, stage 3: Status: Acute (9) Osteoporosis: Status: Chronic Assessment and plan: -I believe she is getting zoledronic acid as outpatient for her history of osteopenia (10) Cardiomyopathy: Status: Acute (11) Advance directive on file: Status: Acute (12) Hypertension: Status: Chronic (13) GERD (gastroesophageal reflux disease): Status: Chronic (14) CAD (coronary artery disease): Status: Chronic (15) Anemia in chronic illness: Status: Acute Assessment and plan: 2019 Once sedated and comfortable the gastroscope was advanced through the oropharynx which was grossly normal into the esophagus.? The proximal and mid-esophagus were normal.? The distal esophagus was normal.? The scope was advanced into the stomach and through the pylorus into the 3rd portion of the duodenum.? The duodenum was noted to be normal.? The scope was retracted back into the stomach which was normal.? The scope was retro-flexed.? The cardia and fundus were noted to be normal.? The scope was retracted back into the esophagus which was normal.? The Z line was regular. The GE junction was at 35 cm.? ? ? While the patient was still sedated they were placed in a left decubitous position. A rectal exam was done. External exam was normal.? Internal exam revealed a normal sphincter tone and no palpable masses.? The scope was then introduced and retro-flexed.? Grade I internal hemorrhoids were identified. The scope was then? advanced to the cecum without difficulty.? The TI and appendiceal orifice were identified.? The prep was good.? The scope was then slowly retracted over 15 minutes back into the rectum.? The scope was removed and the patient was woken up and taken back to Same day surgery in stable condition. -Folate and B12 are within normal limits Ferritin is already elevated.- (16) Rheumatoid arthritis: Status: Chronic (17) Hearing loss in right ear: Status: Acute (18) Current smoker: (19) Internal hemorrhoids with complication: Status: Acute Subjective Subjective Interval history since last seen: Pt is doing OK. no headaches. No CP or SOB. no productive cough. no dysuria. no leg pain or swelling. For several months she notes her stools have been loose. She will occasionally notes blood when she wipes. She had an EGD and colonoscopy in 2019 for chronic iron deficiency anemia. The scopes were sent essentially unremarkable. Patient recently got out of physical therapy for chronic weakness. She has RA and joint issues at baseline. She did walk with PT today. However she had such severe pain she could only transfer from bed to chair, and when she tried to walk she had severe pain and almost vaso-vagaled. Exam Const General: cooperative, comfortable, no acute distress, well developed and frail appearing Nutritional Appearance: underweight Orientation: alert, awake and oriented x3 Other: PHYSICAL EXAM GENERAL APPEARANCE: Alert, healthy appearance, oriented, x 3,? in no acute distress HYDRATION: Well hydrated HEAD, EYES, EARS, NECK, THROAT: Head is normocephalic, pupils equal, round, reactive to light and accommodation, ocular movement intact, sclera clear and no jaundice. ?Dentition intact. LUNGS: normal respiration/normal chest excursion. ?Clear to auscultation bilaterally. ?No wheeze. ?HEART: Regular rate and rhythm. no murmurs EXTREMITY: Chronic changes from R is a seen in all the large and small joints. She has pain to palpation in the left arm. She actually has decent range of motion. It is painful when she has to push off the bed/aid in transfers. She has no ecchymosis or step-off deformity. She does have bruising on her left hip and flank. She notes pain with standing and position shifting. She denies any numbness in her hands or feet. ABDOMEN: soft and non-tender to palpation.? Normal bowel sounds.? Objective Last Vital Signs Temp 36.3 C L 08/01/23 06:42 Pulse 73 08/01/23 06:42 Resp 14 08/01/23 06:42 BP 100/63 08/01/23 06:42 Pulse Ox 94 08/01/23 06:42 Laboratory Results - last 24 hr 07/31/23 08/01/23 08/01/23 16:35 06:10 06:10 WBC 9.67 RBC 2.74 L Hgb 8.7 L Hct 25.9 L MCV 95 MCH 31.8 MCHC 33.6 RDW 15.9 H Plt Count 94 L MPV 10.6 Immature Gran % 0.4 Neutrophils % 81.5 Lymphocytes % 6.4 Monocytes % 11.1 Eosinophils % 0.3 Basophils % 0.3 Nucleated RBC % 0.0 Absolute Neutrophils 7.88 H Absolute Lymphocytes 0.62 L Absolute Monocytes 1.07 H Absolute Eosinophils 0.03 Absolute Basophils 0.03 RBC Morphology Normal Ferritin 557 H Vitamin B12 271 Folate 8.7 COVID-19 Source Nasal/Nares SARS-CoV-2 (PCR) Negative Time Spent with Patient Time Spent with Patient: 35-49 minutes Time was spent: preparing to see the patient(eg.review tests), obtaining and/or reviewing separately otained hiistory, ordering medications,tests, procedures, referring, communicating with other health critical care educator, indepentently interpreting results, counseling the patient and care coordination
[2023-08-01 15:06] VITALS: BP 127/64; PULSE 69; RESP 18; TEMP 36.8; O2SAT 100
[2023-08-01 15:23] LABS: Bilirubin Negative (Negative); Blood Negative (Negative); Clarity Sl Cloudy (Clear); Glucose Negative (Negative); Ketones Trace mg/dL (Negative); Leukocyte Esterase Trace (Negative); Nitrite Negative (Negative); Specific Gravity >= 1.030 (1.005-1.025); Urobilinogen 0.2 mg/dL (Up to 0.2); pH 5.5 (5-8)
[2023-08-01 15:29] LABS: Bacteria Moderate HPF (Negative); C & S Indicated? Yes; Casts Negative LPF (Negative); Crystals Negative HPF (Negative); Epithelial Cells Few HPF (Negative); Mucus Trace (Negative); RBC 0-2 HPF (0-2)
[2023-08-01] MEDS: Enoxaparin 40 MG/0.4 ML SYR SC (20:10)
[2023-08-01] MEDS: Protein Nutritional Supplement 16 GM 1 OUNCE PACKET PO (20:10)
[2023-08-01] MEDS: Lidocaine 5% Patch 2 PATCH TP (20:10)
[2023-08-01] MEDS: Gabapentin 100 MG CAP 300 MG PO (20:11)
[2023-08-01] MEDS: Celecoxib 100 MG CAP PO (20:11)
[2023-08-01] MEDS: Atorvastatin 40 MG TAB PO (20:11)
[2023-08-02] VITALS: BP 133/63; PULSE 68; RESP 18; TEMP 36.4; O2SAT 95
[2023-08-02] MEDS: Celecoxib 100 MG CAP PO ×2 (08:45→20:54)
[2023-08-02] MEDS: Protein Nutritional Supplement 16 GM 1 OUNCE PACKET PO ×3 (08:45→20:58)
[2023-08-02] MEDS: Gabapentin 100 MG CAP 300 MG PO ×3 (08:45→20:54)
[2023-08-02] MEDS: Ferrous Gluconate 324 MG TAB 648 MG PO (08:46)
[2023-08-02] MEDS: Magnesium Oxide 400 MG TAB PO ×2 (08:46→20:56)
[2023-08-02] MEDS: Omeprazole 20 MG CAPCR PO ×2 (08:46→20:56)
[2023-08-02] MEDS: Metoprolol CR 25 MG TABCR PO (08:47)
[2023-08-02] MEDS: Cholecalciferol (Vitamin D3) 1,000 UNIT TAB 2000 UNITS PO (08:47)
[2023-08-02] MEDS: Folic Acid 1 MG TAB 2 MG PO (08:47)
[2023-08-02] MEDS: LIDOCAINE Patch Removal 2 EACH TP (08:50)
[2023-08-02 09:00] VITALS: BP 121/72; PULSE 75; RESP 18; TEMP 36.5; O2SAT 95
[2023-08-02] MEDS: MORPHine 2 MG/ML SYR IVP (10:11)
[2023-08-02] MEDS: Refresh PLUS Eye Drops 0.4ml 1 EACH OU (10:11)
--- NOTE | 2023-08-02 10:41 | PGE_ITS ---
Date of Service Date of service: 08/02/23 Time of Service: 10:41 Assessment and Plan Assessment and plan (1) Fall as cause of accidental injury at home as place of occurrence: Status: Acute Assessment and plan: - Continue PT Pain management. Pulmonary toilet and DVT prophylaxis Urine culture pending Trend hemoglobin. Ferritin/B12/folate are normal High-protein diet and protein supplements encourage eating. Calorie counts MiraLAX as needed for bowel movement. Avoid straining. Encourage high-fiber foods Will need home PT and OT upon discharge. Will need Rx for FWW upon discharge Continue supportive care (2) Internal hemorrhoids with complication: Status: Acute (3) Scoliosis due to degenerative disease of spine in adult patient: Status: Acute (4) Pelvic fracture: Status: Acute Assessment and plan: See above (5) Closed fracture of left clavicle: Status: Acute Assessment and plan: See above (6) Closed left humeral fracture: Status: Acute Assessment and plan: See above (7) Immunosuppression due to drug therapy: Status: Acute Assessment and plan: See above (8) Osteopenia: Status: Acute Assessment and plan: See above (9) Cerebral atrophy: Status: Acute (10) Degenerative joint disease of cervical spine: Status: Acute Assessment and plan: See above (11) Fracture of humeral head, left, closed: Status: Acute Assessment and plan: See above (12) Closed left clavicular fracture: Status: Acute Assessment and plan: See above (13) Pelvic fracture: Status: Acute Assessment and plan: See above (14) Neuropathy: Status: Acute (15) Osteoporosis: Status: Chronic (16) Chronic kidney disease, stage 3: Status: Acute (17) Advance directive on file: Status: Acute (18) Hypertension: Status: Chronic (19) GERD (gastroesophageal reflux disease): Status: Chronic (20) CAD (coronary artery disease): Status: Chronic (21) Anemia in chronic illness: Status: Acute Assessment and plan: H&H in a.m. (22) Rheumatoid arthritis: Status: Chronic Assessment and plan: Cyclosporine eyedrops ordered Subjective Subjective Interval history since last seen: Pt is doing well. no headaches. No CP or SOB. no productive cough. no dysuria. no leg pain or swelling. She did not move her bowels today. Today with PT she transfers much easier with physical therapy and got up and walked from the bed to the chair the chair to the commode and made a few turns around in the room. She said her pain is much improved. She did take some morphine today prior to working with PT We discussed the importance of pain control and to not be afraid to use a little bit of the narcotics that we are's prescribing her prior to doing her physical therapy. Just make sure that she is not dizzy or lightheaded. We also discussed that it can cause constipation and to monitor for this. She does have MiraLAX ordered and to take some if she needs some Exam Narrative Exam Narrative: PHYSICAL EXAM GENERAL APPEARANCE: Alert, healthy appearance, oriented, x 3,? in no acute distress HYDRATION: Well hydrated HEAD, EYES, EARS, NECK, THROAT: Head is normocephalic, pupils equal, round, reactive to light and accommodation, ocular movement intact, sclera clear and no jaundice. ?Dentition intact. NECK: ? Trachea midline.? ? No JVD LUNGS: normal respiration/normal chest excursion. ?Clear to auscultation bilaterally. ?No wheeze. ?HEART: Regular rate and rhythm. no murmurs EXTREMITY: No edema or cyanosis.? no leg pain, redness, swelling.? Ecchymosis left arm and left pelvis ABDOMEN: soft and non-tender to palpation.? Normal bowel sounds.? .? Objective Last Vital Signs Temp 36.5 C 08/02/23 09:00 Pulse 75 08/02/23 09:00 Resp 18 08/02/23 09:00 BP 121/72 08/02/23 09:00 Pulse Ox 95 08/02/23 09:00 Laboratory Results - last 24 hr 08/01/23 15:14 Urine Color Yellow Urine Clarity Sl Cloudy Urine pH 5.5 Ur Specific [place] >= 1.030 H Urine Protein 30 H Urine Ketones Trace H Urine Blood Negative Urine Nitrite Negative Urine Bilirubin Negative Urine Urobilinogen 0.2 Ur Leukocyte Esterase Trace H Urine RBC 0-2 Urine WBC 5-10 Ur Epithelial Cells Few Urine Crystals Negative Urine Bacteria Moderate Urine Casts Negative Urine Mucus Trace Ur Culture Indicated? Yes Urine Glucose Negative Time Spent with Patient Time Spent with Patient: 25-34 minutes Time was spent: preparing to see the patient(eg.review tests), obtaining and/or reviewing separately otained hiistory, ordering medications,tests, procedures, referring, communicating with other health hospice care sales consultant, indepentently interpreting results, counseling the patient and care coordination
[2023-08-02] MEDS: Acetaminophen 500 MG TAB 1000 MG PO ×2 (11:27→20:55)
--- NOTE | 2023-08-02 13:28 | PT.INTREAT ---
Date of service: 08/02/23 Time of Service: 10:40 PT Notes Visit Reasons: Te[facility] Inpatient Physical Therapy Treatment Note [facility] Date: 08/02/2023 PRECAUTIONS: Fall, standard and WBAT LUE, WBAT LEs SUBJECTIVE: Stated her pain is not too bad while performing bed mobility and walking, but was given pain meds about 45 minutes prior to PT session. OBJECTIVE: ? PAIN: Tolerable pain with ambulation and stairs. ?? Therapeutic Activities (64739u4 - 20 minutes in am and 15 minutes after lunch): Direct one-on-one instruction in dynamic activities to improve functional performance. ? BED MOBILITY/TRANSFERS? Rolling L/R: Able to roll to the right independently with SBA Supine-sit: SBA? Sit-stand: CGA?with verbal cueing ? Stand-sit: CGA?with verbal cueing? Up in chair for lunch Provided skilled cues and instruction on performance and technique throughout. ? GAIT? Assistive Device: FWW ? Weight bearing: As tolerated with left UE/ LE Assist: CGA and verbal cueing? Distance:?25ft in am bed to chair, 10ft x 2?after lunch when going to / from stairs ? Deviation: Slow and controlled gait, with reciprocal gait pattern.? STAIRS:Up / down 3-4inch and 2-6inch steps with bilateral handrails and CGA of 1, utilizing a step to gait pattern.?Did complain of stomach irritation during stair ambulation, but indicated she felt she had to have a bowel movement. Did ambulate w/c to commode when we returned to her room for her to try to have BM. Nursing staff was made aware of Amara using commode with tyler burgos next to her. ? Provided skilled instruction in proper exercise performance Provided skilled manual cues to facilitate proper muscle recruitment and/or form ASSESSMENT:? Tolerated ambulation on flat surfaces and stairs very well today. PLAN: Continue to focus on ambulation for improved ADL function in preparation for return to home. TREATMENT CODE/TIME: [id number], 10:40 to 11:00 am and 12:50 to 1:05 pm
[2023-08-02 16:22] VITALS: BP 124/76; PULSE 70; RESP 18; TEMP 37.2; O2SAT 96
[2023-08-02] MEDS: Atorvastatin 40 MG TAB PO (20:54)
[2023-08-02] MEDS: Enoxaparin 40 MG/0.4 ML SYR SC (20:57)
[2023-08-02] MEDS: Lidocaine 5% Patch 2 PATCH TP (20:58)
[2023-08-03 00:06] VITALS: BP 99/61; PULSE 79; RESP 18; TEMP 36.7; O2SAT 92
[2023-08-03 07:32] VITALS: BP 111/45; PULSE 64; RESP 20; TEMP 36; O2SAT 98
[2023-08-03] MEDS: Protein Nutritional Supplement 16 GM 1 OUNCE PACKET PO ×3 (08:22→20:51)
[2023-08-03] MEDS: Refresh PLUS Eye Drops 0.4ml 1 EACH OU (08:22)
[2023-08-03] MEDS: Celecoxib 100 MG CAP PO ×2 (08:23→20:47)
[2023-08-03] MEDS: Ferrous Gluconate 324 MG TAB 648 MG PO (08:23)
[2023-08-03] MEDS: Omeprazole 20 MG CAPCR PO ×2 (08:23→20:47)
[2023-08-03] MEDS: Magnesium Oxide 400 MG TAB PO ×2 (08:23→20:47)
[2023-08-03] MEDS: Folic Acid 1 MG TAB 2 MG PO (08:23)
[2023-08-03] MEDS: Metoprolol CR 25 MG TABCR PO (08:23)
[2023-08-03] MEDS: Cholecalciferol (Vitamin D3) 1,000 UNIT TAB 2000 UNITS PO (08:23)
[2023-08-03] MEDS: Gabapentin 100 MG CAP 300 MG PO ×3 (08:23→20:48)
[2023-08-03] MEDS: LIDOCAINE Patch Removal 2 EACH TP (08:26)
--- NOTE | 2023-08-03 09:53 | PT.INTREAT ---
Date of service: 08/03/23 Time of Service: 09:28 PT Notes Visit Reasons: fall/multiple Fx Inpatient Physical Therapy Treatment Note [facility] Date: 08/03/23 PRECAUTIONS: Fall, standard, activity as tolerated. WBAT B LE's, WBAT LUE. SUBJECTIVE: Patient reports feeling pretty good today, feels as though she is moving better. Reports that she had been having nausea with movement from the pain, but that seems to not be the case today. Afternoon: patient reports lunch was very tasty. OBJECTIVE: Patient is using bathroom when this therapist arrives, does not require assistance. Standing and moving independently. Agreeable to therapy. Afternoon: patient is up in recliner, having just finished lunch. Agreeable to therapy. ? PAIN: Reports 6/10, primarily in left hip joint, groin area. AFTERNOON: reports pain is less, does not assign a number. VITALS: monitored by nursing staff.? BED MOBILITY/TRANSFERS? Rolling L/R: not assessed Supine-sit: not assessed ? Sit-supine: not assessed ? Sit-stand: independent ? Stand-sit: independent ? Bed-Chair: independent ? Chair-bed: independent Gait Training ([id number]): Direct one-on-one instruction and skilled instruction in: [x] employing an assistive device [] modified weight-bearing status [x] movement sequencing [x] turning and movement with proper form [x] Provided verbal cues for equipment management and technique [] Provided instruction in gait pattern [] Patient education regarding pacing and breathing techniques to maximize activity tolerance? GAIT? Assistive Device: FWW? Weight bearing: WBAT Assist: SBA ? Distance:? 12 feet, 20 feet, 100 feet with seated rest between. AFTERNOON: 150 feet, seated rest, 150 feet. ? Deviation: slow and cautious gait pattern, good step height, asymmetric stride length with left foot advancing further than right, although step through is evident on both sides - right foot lands forward of left, heel very close to toe of other foot, left foot advances to about one foot length between left heel and right toe. ? STAIRS: Visit stairwell after lunch. AFTERNOON: ascends and descends 5 stairs with single rail and hand hold assist. ? ASSESSMENT:? Patient tolerates therapy well, no complaint of increased pain after ambulation. Reduced walker height 2 inches for better support through arms and back. AFTERNOON: Patient tolerates therapy well, returns to recliner. No report of increased pain, no shortness of breath. PLAN: Continue global strengthening per plan of care until patient is medically cleared for discharge. Patient sounds like she has good support at home. TREATMENT CODE/TIME: 25 minutes beginning at 9:28 and 30 minutes beginning at 13:05 for a total of 55 minutes for the day.
--- NOTE | 2023-08-03 11:06 | CMPROGNOTE_ITS ---
Date of service: 08/03/23 Time of Service: 11:07 Care Management Progress Note Progress Note Text Progress Note Text: S/O: Amara remains pleasant in interaction. No change to overall plan. CM continues to follow. A: 72 year old female admitted to [facility] for Fall with multiple fractures P: Amara will return home with new orders for Home Health PT, and OT. She will follow up with her PCP and plan of care as prescribed. She will transport via private vehicle with family.
[2023-08-03] MEDS: Hydroxychloroquine 200 MG TAB PO (11:07)
--- NOTE | 2023-08-03 11:12 | W.PM.PROGNOT ---
Date of Service Date of service: 08/03/23 Time of Service: 11:12 Assessment and Plan Assessment and plan (1) Fall as cause of accidental injury at home as place of occurrence: Status: Acute Assessment and plan: - Continue PT Pain management- well controlled at this time Pulmonary toilet and DVT prophylaxis Urine culture pending- probably contaminated. No antibiotics. Patient has no symptoms Trend hemoglobin. Ferritin/B12/folate are normal High-protein diet and protein supplements encourage eating. Calorie counts MiraLAX as needed for bowel movement. Avoid straining. Encourage high-fiber foods Will need home PT and OT upon discharge. Will need Rx for FWW upon discharge HOpefully Home tomorrow (2) Internal hemorrhoids with complication: Status: Acute (3) Pelvic fracture: Status: Acute Assessment and plan: See above (4) Closed fracture of left clavicle: Status: Acute Assessment and plan: See above (5) Closed left humeral fracture: Status: Acute Assessment and plan: See above (6) Immunosuppression due to drug therapy: Status: Acute Assessment and plan: See above (7) Osteopenia: Status: Acute Assessment and plan: See above (8) Closed left clavicular fracture: Status: Acute Assessment and plan: See above (9) Pelvic fracture: Status: Acute Assessment and plan: See above (10) Neuropathy: Status: Acute (11) Advance directive on file: Status: Acute (12) Anemia in chronic illness: Status: Acute (13) Rheumatoid arthritis: Status: Chronic Assessment and plan: Cyclosporine eyedrops ordered Subjective Subjective Interval history since last seen: Ms Jay is doing well. She worked with physical therapy this morning and walked from her bed to the elevators. She feels like she is getting stronger. She has no shortness of breath, no chest pain, no abdominal pain. Her bowels are moving. Exam Const General: cooperative, comfortable and no acute distress Nutritional Appearance: thin Orientation: alert and oriented x3 HENMT Head: normocephalic and atraumatic Resp Effort & Inspection: normal respiratory effort Auscultation: clear to auscultation bilaterally Cardio Rate: regular rate Rhythm: regular rhythm GI Inspection: normal to inspection Palpation: soft, no hepatosplenomegaly and nontender Objective Last Vital Signs Temp 96.8 F L 08/03/23 07:32 Pulse 64 08/03/23 07:32 Resp 20 08/03/23 07:32 BP 111/45 L 08/03/23 07:32 Pulse Ox 98 08/03/23 07:32 Time Spent with Patient Time Spent with Patient: 25-34 minutes Time was spent: preparing to see the patient(eg.review tests), obtaining and/or reviewing separately otained hiistory, indepentently interpreting results and counseling the patient
--- NOTE | 2023-08-03 11:23 | PDOC.HHF2F_ITS ---
Home Health Referral Home Health Orders Clinical synopsis of why skilled professionals are needed: 72 year old female s/p fall with closed Fx of humer, clavicle and palvis. All non-operative. Needs PT/OT at home Medical diagnosis necessitation home health referral: Fracture of humeral head on the left, left clavicle and pelvis Physical Therapist: Check all that apply Increase strength & endurance for safe mobility at home: Ordered Fall reduction therapy program for patient with history of frequent falls: Ordered Occupational Therapist: Evaluate and treat for patient unable to perform ADL/IADL/self-care: Ordered Upper extremity strengthening, range and motion: Ordered Home Bound Status Requires the aid of supportive device (check all that apply): Walker Assistance of another person (Describe assistance and medical necessity): unsafe to drive Describe why leaving home would require a considerable and taxing effort: Side effects from pain medication (sedation/drowsiness) and Requires frequent rest periods Encounter Date and Reason: I certify that a FTF encounter for this patient was performed on August 03, 2023 and that such encounter was related to the primary reason the patient requires home health services. The encounter was conducted in the following manner: * By me as the certifying physician, AITCHBONE BREAKER, PA or * By an inpatient physician, AITCHBONE BREAKER or PA during an inpatient stay who communicated findings to me, Certification And Authentication I certify that I composed the above information based on my clinical judgment relating to this patient's medical condition and, if applicable, clinical findings communicated to me by the NPP or inpatient physician who performed the FTF encounter. Name of Provider that will be monitoring home health services: Abhinav Nguyen
[2023-08-03 14:59] VITALS: BP 116/64; PULSE 64; RESP 18; TEMP 35.9; O2SAT 95
[2023-08-03] MEDS: Atorvastatin 40 MG TAB PO (20:47)
[2023-08-03] MEDS: Acetaminophen 500 MG TAB 1000 MG PO (20:47)
[2023-08-03] MEDS: Enoxaparin 40 MG/0.4 ML SYR SC (20:49)
[2023-08-03] MEDS: Normal Saline Flush 10 ML SYR IVP (20:51)
[2023-08-03] MEDS: Lidocaine 5% Patch 2 PATCH TP (20:51)
[2023-08-03 23:15] VITALS: BP 96/59; PULSE 86; RESP 20; TEMP 37.4; O2SAT 92
[2023-08-04] MEDS: Acetaminophen 500 MG TAB 1000 MG PO (04:38)
[2023-08-04 07:12] LABS: MCH 31.1 pg (27.0-33.0); MCHC 32.2 % (32.0-36.0); MCV 97 fL (80-95); MPV 10.4 fL (8.0-11.0); Platelet Count 108 10^3/uL (130-400); RBC 2.09 10^6/uL (3.93-5.22); WBC 5.77 10^3/uL (4.4-10.8)
[2023-08-04 07:22] LABS: HCT 20.2 % (36.0-46.0); HGB 6.5 g/dL (11.2-15.7)
[2023-08-04] MEDS: Lidocaine Patch Removal 2 EACH TP (08:00)
[2023-08-04] MEDS: Cholecalciferol (Vitamin D3) 1,000 UNIT TAB 2000 UNITS PO (08:23)
[2023-08-04] MEDS: Ferrous Gluconate 324 MG TAB 648 MG PO (08:24)
[2023-08-04] MEDS: Hydroxychloroquine 200 MG TAB PO (08:25)
[2023-08-04] MEDS: Celecoxib 100 MG CAP PO (08:26)
[2023-08-04] MEDS: Refresh PLUS Eye Drops 0.4ml 1 EACH OU (08:26)
[2023-08-04] MEDS: Folic Acid 1 MG TAB 2 MG PO (08:26)
[2023-08-04] MEDS: Omeprazole 20 MG CAPCR PO (08:27)
[2023-08-04] MEDS: Magnesium Oxide 400 MG TAB PO (08:27)
[2023-08-04] MEDS: Metoprolol CR 25 MG TABCR PO (08:28)
[2023-08-04] MEDS: Protein Nutritional Supplement 16 GM 1 OUNCE PACKET PO ×2 (08:28→14:04)
[2023-08-04] MEDS: Normal Saline Flush 10 ML SYR IVP (08:30)
[2023-08-04 08:31] VITALS: BP 110/60; PULSE 76; RESP 18; TEMP 36.4; O2SAT 99
[2023-08-04] MEDS: Gabapentin 100 MG CAP 300 MG PO ×2 (08:46→14:04)
--- NOTE | 2023-08-04 08:52 | PTTR_ITS ---
Date of service: 08/04/23 Time of Service: 09:39 PT Notes Visit Reasons: fall/multiple Fx Inpatient Physical Therapy Treatment Note [facility] Date: 08/04/23 PRECAUTIONS: Fall, standard, activity as tolerated SUBJECTIVE: Patient reports that she was just getting back in bed after having been up to the toilet. AFTERNOON: Patient reports feeling stronger and more like myself. OBJECTIVE: Patient seated EOB, agreeable to therapy. AFTERNOON: patient supine in bed, IV in place, receiving iron and sucrose. ? PAIN: No pain reported, however c/o stiffness LLE VITALS: monitored by nursing staff? BED MOBILITY/TRANSFERS? Rolling L/R: independent Supine-sit: independent ? Sit-supine: min assist to get LLE high enough to swing into bed ?AFTERNOON: no assist needed. Independent. ? Sit-stand: SBA ? AFTERNOON: independent? Stand-sit: SBA ? ? AFTERNOON: independent? Bed-Chair: SBA? AFTERNOON: independent? Chair-bed: SBA AFTERNOON: independent ? Therapeutic Exercises ([id number]): Direct one-on-one instruction in therapeutic exercises to develop strength, endurance, range of motion and flexibility. ? Exercises: HEP established and reviewed with patient as follows: Access Code: [email or web address] URL: [email or web address] Date: 08/04/2023 Prepared by: Mckenzie Ng Exercises - Standing Hip Abduction with Anterior Support - 1 x daily - 7 x weekly - 3 sets - 10 reps - Standing Hip Extension with Chair - 1 x daily - 7 x weekly - 3 sets - 10 reps - Standing Hip Flexion AROM - 1 x daily - 7 x weekly - 3 sets - 10 reps - Sit to Stand with Counter Support - 1 x daily - 7 x weekly - 3 sets - 10 reps - Heel Toe Raises with Counter Support - 1 x daily - 7 x weekly - 3 sets - 10 reps Assisted patient with setting up her J[employer] account so that she has access to videos of each exercise. AFTERNOON: Patient gave return demonstration of all exercises. Education and cueing for awareness of safety within her environment, good form and appropriate muscle recruitment. ASSESSMENT:? Patient tolerates therapy well, no c/o increased pain, no SOB, no LOB. Returns to longsitting in bed at end of treatment session. AFTERNOON: P atient tolerates therapy well, no c/o increased pain with hip exercises, no c/o shortness of breath. PLAN: Continue global strengthening per plan of care until patient is medically cleared for discharge. TREATMENT CODE/TIME: 14 minutes beginning at 9:39 and 27 minutes beginning at 13:33 for a total of 42 minutes for the day.
--- NOTE | 2023-08-04 09:03 | W.PM.PROGNOT ---
Date of Service Date of service: 08/04/23 Time of Service: 09:03 Assessment and Plan Assessment and plan (1) Fall as cause of accidental injury at home as place of occurrence: Status: Acute Assessment and plan: - Continue PT Pain management- well controlled at this time Pulmonary toilet and DVT prophylaxis Hemoglobin 6.5 this morning. Will transfuse 1 unit PRBC and iron infusion as well. High-protein diet and protein supplements encourage eating. Calorie counts MiraLAX as needed for bowel movement. Avoid straining. Encourage high-fiber foods Will order 2WW for d/c D/C home later today following transfusion and iron infusion. She will need to follow up with her PCP regarding her chronic anemia. (2) Internal hemorrhoids with complication: Status: Acute (3) Pelvic fracture: Status: Acute Assessment and plan: See above (4) Closed fracture of left clavicle: Status: Acute Assessment and plan: See above (5) Closed left humeral fracture: Status: Acute Assessment and plan: See above (6) Immunosuppression due to drug therapy: Status: Acute Assessment and plan: See above (7) Osteopenia: Status: Acute Assessment and plan: See above (8) Closed left clavicular fracture: Status: Acute Assessment and plan: See above (9) Pelvic fracture: Status: Acute Assessment and plan: See above (10) Neuropathy: Status: Acute (11) Advance directive on file: Status: Acute (12) Anemia in chronic illness: Status: Acute (13) Rheumatoid arthritis: Status: Chronic Assessment and plan: Cyclosporine eyedrops ordered Subjective Subjective Interval history since last seen: Arrive with patient sitting in bed. She reports that she is feeling well and is eager to be d/c home today. She states that she has already been walking around her room this morning without difficulty. Exam Const General: cooperative, healthy appearing and comfortable Orientation: alert and oriented x3 Resp Effort & Inspection: normal respiratory effort, no audible wheezes and no cough Objective Last Vital Signs Temp 36.4 C L 08/04/23 08:31 Pulse 76 08/04/23 08:31 Resp 18 08/04/23 08:31 BP 110/60 08/04/23 08:31 Pulse Ox 99 08/04/23 08:31 Laboratory Results - last 24 hr 08/04/23 08/04/23 06:30 07:53 WBC 5.77 RBC 2.09 L Hgb 6.5 L* Hct 20.2 L* MCV 97 H MCH 31.1 MCHC 32.2 RDW 17.0 H Plt Count 108 L MPV 10.4 Crossmatch See Detail Time Spent with Patient Time Spent with Patient: <25 minutes Time was spent: preparing to see the patient(eg.review tests), obtaining and/or reviewing separately otained hiistory and counseling the patient
--- NOTE | 2023-08-04 09:07 | DSE_ITS ---
Date of service: 08/04/23 Time of Service: 12:57 DS: Diagnosis Discharge Diagnosis (1) Fall as cause of accidental injury at home as place of occurrence: Status: Acute (2) Internal hemorrhoids with complication: Status: Acute (3) Pelvic fracture: Status: Acute (4) Closed fracture of left clavicle: Status: Acute (5) Closed left humeral fracture: Status: Acute (6) Immunosuppression due to drug therapy: Status: Acute (7) Osteopenia: Status: Acute (8) Neuropathy: Status: Acute (9) Advance directive on file: Status: Acute (10) Anemia in chronic illness: Status: Acute (11) Rheumatoid arthritis: Status: Chronic Discharge Plan Disposition Patient Disposition: Home Condition: Improving Discharge Details Reason For Visit: fall/multiple Fx Admit Date/Time: 07/31/23 15:49 Admit Provider: Jodi Chandler Attending Provider: Jodi Chandler Primary Care Provider: Sarmad NguyenAbhinav Hospital Course Hospital Course: 72 y/o female with a history of neuropathy, HTN, GERD, CAD and RA presented to the ER following a fall at home. Imaging showed a nondisplaced fracture of her pelvis and a small proximal clavicular fracture. Patient was admitted to the hospital for pain management and PT. Patient's pain was well controlled and after working with PT they feel that she can safely be d/c home with 2WW. Patient does have chronic anemia and hemoglobin decreased to 6.5. She was transfused with 1 unit of PRBCs and also had an iron transfusion. She will need to follow up with her PCP upon d/c regarding her anemia. She will also need to follow up with the orthopedic office as well. Home Meds and New Rx's Prescriptions: New lidocaine 5 % Adhesive Patch,Medicated 2 patch topical DAILY@1999 Qty: 6 0RF celecoxib 100 mg Capsule 100 mg PO BID Qty: 20 0RF Continued Shingrix (PF) 50 mcg/0.5 mL suspension for reconstitution 0.5 ml IM ONCE Qty: 1 1RF Rx Instructions: as a single dose magnesium oxide 400 MG capsule 400 mg PO BID Mariya/Iron 1 EACH tablet,chewable 1 ea PO DAILY Qty: 100 cholecalciferol (vitamin D3) [Vitamin D3] 2,000 UNIT capsule 2,000 unit PO DAILY methotrexate sodium 2.5 mg tablet 15 mg PO WKLY Patient Comments: Rx Instructions: 10 MG WKLY, PRIYA RX metoprolol succinate 25 mg tablet extended release 24 hr 25 mg PO DAILY Qty: 90 3RF atorvastatin [Lipitor] 40 mg tablet 40 mg PO QPM Qty: 90 3RF nitroglycerin [Nitrostat] 0.4 mg tablet, sublingual 0.4 mg Sublingual DIRECTED PRN (Reason: angina) Qty: 100 1RF omeprazole 40 mg capsule,delayed release(DR/EC) See Rx Instructions .ROUTE .COMPLEX Qty: 90 3RF Dose Instruction: Take 1 capsule (40mg) by mouth DAILY Rx Instructions: Take 1 capsule (40mg) by mouth DAILY aspirin [Lo-Dose Aspirin] 81 MG tablet,delayed release (DR/EC) 81 mg PO DAILY cyclosporine 0.05 % Drops 1 drp OPHTHALMIC (EYE) BID hydroxychloroquine 200 mg tablet 200 mg PO DAILY folic acid 1 MG tablet 2 mg PO DAILY ferrous gluconate 324 mg (38 mg iron) tablet 648 mg PO DAILY Discharge Instructions Instructions: High Protein / High Calorie Diet (DC) Additional Instructions: activity: as tolerated Physical Therapy has been ordered. Diet: High protein Please call your Primary Care Dr. if you develop: increasing fatigue Dizziness SOB PLease contact Dr. Gold office if you develop: worsening pain in your left arm/chest or hip Stand Alone Forms: Nursing Discharge Form Referrals: Abhinav Goodrich NP [Primary Care Provider] - 08/12/23 10:00 am Rodolfo Farnsworth MD [ [facility] STAFF PHYSICIAN] - (Office will call you with follow up appointment.) Activity:: No heavy lifting, pushing Equipment/Supplies:: Walker Diet:: high protein Discharge Orders Discharge Orders: Discharge Order (Routine); Ordered 08/04/23 Ordered By: Huma Middleton Discharge Data Discharge Date/Time-TO BE ENTERED AT DEPARTURE: 08/04/23 15:35 DS: Summary Time Spent with Patient providing and/or coordinating discharge services: Greater than 30 minutes Status at Discharge Functional status at discharge: independent ambulation Overall status at discharge: patient is back to baseline Mental Status: mental status grossly normal Speech and Movement: speech and movement normal Mood: congruent mood Affect: normal affect Exam Const General: cooperative, healthy appearing and comfortable Orientation: alert and oriented x3 Resp Effort & Inspection: normal respiratory effort, no audible wheezes and no cough Psych Mental Status: mental status grossly normal Speech and Movement: speech and movement normal Mood: congruent mood Affect: normal affect DS: Data Vitals/I&O Vitals and I&O: Vital Signs Temperature 36.4 C L 08/04/23 08:31 Temperature Source Tympanic 08/04/23 08:31 Pulse 76 08/04/23 08:31 Pulse Rhythm Regular 08/04/23 08:31 Respiratory Rate 18 08/04/23 08:31 Respiratory Effort Normal, Non-Labored 08/03/23 20:45 Respiratory Depth Normal 08/03/23 20:45 Respiratory Pattern Normal 08/03/23 20:45 Blood Pressure 110/60 08/04/23 08:31 Blood Pressure Position Sitting 07/31/23 13:53 Pulse Oximetry 99 08/04/23 08:31 Oxygen Delivery Method Room Air 08/04/23 08:31 Oxygen Flow Rate 0 08/04/23 08:31 Pain Level 5 08/04/23 04:38 Comment Nurse notified. 08/03/23 00:06 Intake & Output 08/03/23 08/04/23 08/04/23 18:59 06:59 18:59 Output Total 200 / 200 Balance -200 / -200 Output: Urine 200 / 200 Other: Urine Color Yellow Yellow Urine Appearance Clear Clear Urine Odor Normal None Comment up to commode x1 Voiding Methods Bedside Commode Data Completed and Pending Labs on day of discharge: Labs from last 24 hours 08/04/23 08/04/23 06:30 06:30 WBC 5.77 RBC 2.09 L Hgb 6.5 L* Hct 20.2 L* MCV 97 H MCH 31.1 MCHC 32.2 RDW 17.0 H Plt Count 108 L MPV 10.4 Patient ABO/Rh O Positive Antibody Screen NEGATIVE Crossmatch See Detail PFSH All Active Problems Internal hemorrhoids with complication (Acute) Scoliosis due to degenerative disease of spine in adult patient (Acute) 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) Fall as cause of accidental injury at home as place of occurrence (Acute) Fracture of humeral head, left, closed (Acute) Closed left clavicular fracture (Acute) Pelvic fracture (Acute) Both superior and inferior rami fracture Lesion of soft palate (Acute) Neuropathy (Acute) Corns and callosities (Acute) Nail dystrophy (Acute) Osteoporosis (Chronic) [facility] managing- denosumab to replace reclast 06/2022 Chronic kidney disease, stage 3 (Acute) 01/2022, Cr-1.2 Foot pain, bilateral (Acute) Fatigue (Acute) Cardiomyopathy (Acute) 07/2020 echo- EF 66%, otherwse normal exam ([place]) Becki Advance directive on file (Acute) 04/15-new form given to patient to update. She wants CPR, discontinue if futile Hypertension (Chronic) GERD (gastroesophageal reflux disease) (Chronic) CAD (coronary artery disease) (Chronic) Anemia in chronic illness (Acute) Rheumatoid arthritis (Chronic) 2021 seen at [facility] rheumatology Hearing loss in right ear (Acute 05/01/15) Medical History Chronic sinusitis COVID COVID-19 Cryptogenic organizing pneumonia Current smoker (11/28/14) Fever Foot pain Impacted cerumen, bilateral Influenza Lung mass organizing pneumonia, followed by Dr. Lui ([facility] [place]) no further follow up need Respiratory syncytial virus (RSV) ST elevation (STEMI) myocardial infarction of unspecified site Ulcer, neuropathic Urinary tract infection Surgical History Colonoscopy - IV Sedation (01/17/13) DR. CINTHIA BARAHONA Dilation and curettage (~07/1997) Hx of heart artery stent Stents x 2. 2017 Status post dilation and curettage Status post tonsillectomy Tonsillectomy (~1957) Family History Mother , 55 Systemic lupus erythematosus Essential hypertension Hypertension Father , SUICIDE at age 61. Mental disorder Depression Brother , COPD at age 71. Substance abuse Heart disease COPD (chronic obstructive pulmonary disease) Brother Essential hypertension Brother Substance abuse Personal history of malignant neoplasm LUNG Grandfather Essential hypertension Heart disease Grandmother Diabetes Grandmother Heart disease Other Depression Social History Smoking/Tobacco Use Status: Never Tobacco: How many years used: 12 Second Hand Exposure: Yes Smoking risk assessment performed?: Yes Alcohol Intake: current Alcohol Intake frequency: holidays/special occasions o nly Alcohol type: wine Drug use: Never Substance use type: does not use Caregiver/Support person: No Household members: spouse Housing: house Communication Needs: Corrective Lenses Do you need help understanding health information?: Rarely Pets and animals: Yes Pets and animals: dog(s) Sexually active: No Do you think of yourself as: straight/heterosexual Current gender identity: female What is your relationship status?: How often do you talk on the phone with friends or family?: three or more times per week How often do you get together with friends or relatives?: three or more times per week How often do you attend zoroastrianism or methodist services?: 4 or more times per year Do you belong to any clubs or organized social groups?: yes Panel score (0-1 are the most socially isolated patients): 4 What type of physical activity do you participate in: walking, aerobic and other Details: Bone builders Duration: 30-45 minutes/day Frequency: 3-4 times per week Sally/Cheondoism: Episcopalian Special sally needs: No Seatbelt use: always Drive intox or ride w/intox charter bus driver: No Do you feel safe at home: Yes Do you feel safe in your relationship?: Yes Additional Social history: with 4 children. 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 Originally from [place]. Remote history of tobacco use. Time Spent with Patient Time Spent with Patient: 45-69 minutes Time was spent: preparing to see the patient(eg.review tests), obtaining and/or reviewing separately otained hiistory, ordering medications,tests, procedures, referring, communicating with other health companion caregiver, indepentently interpreting results, counseling the patient and care coordination
--- NOTE | 2023-08-04 09:13 | PDOC.CMPRO ---
Date of service: 08/04/23 Time of Service: 09:13 Care Management Progress Note Progress Note Text Progress Note Text: S/O: Amara A: 72 year old female admitted to [facility] for Fall with multiple fractures P: Amara will return home with new orders for Home Health PT, and OT. She will follow up with her PCP and plan of care as prescribed. She will transport via private vehicle with family.
[2023-08-04] MEDS: Acetaminophen 325 MG TAB 650 MG PO (09:17)
[2023-08-04] MEDS: diphenhydrAMINE 25 MG CAP PO (09:17)
[2023-08-04 10:16] VITALS: BP 111/71; PULSE 75; RESP 18; TEMP 36.4; O2SAT 98
[2023-08-04 10:31] VITALS: BP 106/61; PULSE 74; RESP 18; TEMP 36.3; O2SAT 100
[2023-08-04 11:01] VITALS: BP 103/58; PULSE 72; RESP 16; TEMP 36.5; O2SAT 95
[2023-08-04 12:01] VITALS: BP 98/56; PULSE 71; RESP 18; TEMP 36.4; O2SAT 96
[2023-08-04 13:01] VITALS: BP 106/64; PULSE 74; RESP 18; TEMP 36.4; O2SAT 98
[2023-08-04] MEDS: IRON SUCROSE COMPLEX 100 MG in Normal Saline 100 ML 400 MG IVPB (13:15)
--- NOTE | 2023-08-04 13:19 | W.NUTRFU ---
Date of service: 08/04/23 Time of Service: 13:00 Nutrition Note NOTE: Amara admitted after a fall led to fracture of left clavical and left humerus. BMI WNL. Weight down around 2kg over the last year. Amara ordered for high kcal and high protein diet with normal consistencies. Upon visit she noted she's been tryng to keep up with eating - more so than she normally would. Has been drinking ensure supplemental drinks BID and also getting 1oz liquid protein pkt daily. Reviewed high kcal/pro diet at home as she is anticipating discharge later this afternoon. I emphasized nutrient density, not just empty kcals. Choose eggs and egg dishes, cottage cheese, avocado, starchy veggies and grains with added fats. Pt being discharged today - gave my contact info should she want more in-depth nutrition guidance. Time Spent in Nutritional Counseling and Treatment: 15 minutes
--- NOTE | 2023-08-04 13:46 | CHAPLAIN ---
Amara and I know each other from when she has visited other patients here in the past. She tells me about her fall and pelvic fracture. She expects to be discharged home today. She lives with her . Her son plans on building a ramp at their home so Amara will be able to get out of her house more easily. Amara is very pleasant, easily engages in a conversation and says she has been given great care while she is here.
--- NOTE | 2023-08-04 14:53 | PDOC.CMDIS ---
Date of service: 08/04/23 Time of Service: 14:53 LACE Index Scoring Tool Questions: Length of Stay (in days): 4 - 6 Was the patient admitted via the E.D.?: Yes Comorbidities: Previous M.I. and Liver or Renal Disease E.D. Visits: 1 Answers: Total Score: 13 Risk of Readmission: High Risk Care Management Discharge Plan Reason for Hospitalization: Pelvic fracture, Closed fracture of left clavicle, Closed left humeral fracture Discharge Plan: Amara will be discharged home with a walker and new orders for home health PT. She will follow up with her community providers and plan of care and transport with her . Patient/Family Education Needs: Review of discharge instructions, activity, limitations, fall precautions and discuss Ask Me Three. Services Needed at Discharge: Home Health Care Services
--- NOTE | 2023-08-04 17:30 | PT.INDS ---
Date of service: 08/04/23 PT Notes Visit Reasons: fall/multiple Fx Inpatient Physical Therapy Discharge Summary Date: 08/04/23 Dates of Service: 08/01/2023 through 08/04/2023 This is a clinical summary of care provided for the duration of dates listed above. No charge was made in the completion of this documentation. Referring Doctor:Jodi Romero PT Orders: PT CONSULT: fall/ pelvic and femur fx Precautions: WBAT LUE, WBAT LEs. Patient Profile/Admitting Diagnosis:?? Patient admitted after fall at home 07/31/23. Found to have?left superior and inferior pubic ramus fractures, and non-displaced fractures of left distal clavicle and left humeral head. She was medically cleared to go home with continued HH PT services to maximize functional mobility level. PFSH All Active Problems? 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) Fall as cause of accidental injury at home as place of occurrence (Acute) Fracture of humeral head, left, closed (Acute) Closed left clavicular fracture (Acute) Pelvic fracture (Acute) Both superior and inferior rami fractureLesion of soft palate (Acute) Neuropathy (Acute) Corns and callosities (Acute) Nail dystrophy (Acute) Osteoporosis (Chronic) [facility] managing- denosumab to replace reclast 2Chronic kidney disease, stage 3 (Acute) 01/2022, Cr-1.2Foot pain, bilateral (Acute) Fatigue (Acute) Cardiomyopathy (Acute) 07/2020 echo- EF 66%, otherwse normal exam ([place]) [place] Advance directive on file (Acute) 04/15-new form given to patient to update.? She wants CPR, discontinue if futile Hypertension (Chronic) GERD (gastroesophageal reflux disease) (Chronic) CAD (coronary artery disease) (Chronic) Anemia in chronic illness (Acute) Rheumatoid arthritis (Chronic) 2021 seen at [facility] rheumatology Hearing loss in right ear (Acute 05/01/15) Medical History? Chronic sinusitis COVID COVID-19 Cryptogenic organizing pneumonia Current smoker (11/28/14) Fever Foot pain Impacted cerumen, bilateral Influenza Lung mass organizing pneumonia, followed by Dr. Lui ([facility] [place] no further follow up need Respiratory syncytial virus (RSV) ST elevation (STEMI) myocardial infarction of unspecified site Ulcer, neuropathic Urinary tract infection Surgical History? Colonoscopy - IV Sedation (01/17/13) DR. CINTHIA BARAHONA Dilation and curettage (~07/1997) Hx of heart artery stent Stents x 2. 2017 Status post dilation and curettage Status post tonsillectomy Tonsillectomy (~1957) Social History/Home Situation: Patient lives in a multilevel home with her , who is present at time of consult. They report 4STE with bilat rails. Normally ambulates independently without AD.? No additional falls. Participates in [employer] in the community 2x/week. Equipment Owned/DME: Has 4WW borrowed from friend, wondering if she'll be able to use this. Subjective:? NT. See most recent PHOTO PRODUCER notes. Objective:? General Observation: NT. See most recent PHOTO PRODUCER notes. Mental Status: NT. See most recent PHOTO PRODUCER notes. Pain: NT. See most recent PHOTO PRODUCER notes. ROM: Right Upper Extremity: WFL Left Upper Extremity: Left shoulder allows 90* flexion. Elbow flexion to 100*, limited by discomfort from IV. Elbow extension full. Right Lower Extremity: WFL Left Lower Extremity: Left hip flexion limited to 90* due to pain. Knee and ankle motion WFL. Strength: Right Upper Extremity: WFL Left Upper Extremity: not assessed due to acute fxs Right Lower Extremity: hip flexion 3/5 or greater. Quads 5/5. HS 5/5. ankle DF 5/5. Left Lower Extremity: hip flexion 3-/5. Quads 4+/5. HS 4/5. Ankle DF 5/5 Bed Mobility/Transfers: BED MOBILITY/TRANSFERS?Rolling L/R: independent ?Supine-sit: independent ?Sit-supine: min assist to get LLE high enough to swing into bed ?AFTERNOON: no assist needed. Independent.?Sit-stand: SBA ? AFTERNOON: independent?Stand-sit: SBA ? ? AFTERNOON: independent?Bed-Chair: SBA? AFTERNOON: independent?Chair-bed: SBA AFTERNOON: independent ? GAIT?Assistive Device: FWW?Weight bearing: WBAT ?Assist: SBA ?Distance:? Up to 150 feet, seated rest, 150 feet. ? Balance:? Static Sitting: Good Dynamic Sitting: Good Static Standing: Fair Dynamic Standing: Fair Assessment:?? Patient continues to require PT services in order to address remaining functional impairments and deficits. Patient is a 72 year old female referred to physical therapy services with the diagnosis of non-displaced left clavicle, humerus and pubic rami fractures. She is WBAT for UEs and LEs. ? Patient presents with mobility impairments related to acute medical issues, as demonstrated by the following impairment level findings: 1. decreased LLE ROM 2. Decreased LLE strength 3. Decreased LUE ROM 4. Decreased LUE strength 5. decreased activity tolerance 6. pain related to acute fractures 7. gait impairments ? Impairments are contributing to the following functional limitations: 1. unable to ambulate household distances 2. decreased safety awareness with use of FWW 3. unable to manage stairs Goals: Goals X1 week 1. Supine-Sit : SBA MET 2. Sit-Supine : SBA MET 3. Sit-Stand : SBA MET 4. Stand-Sit : SBA MET 5. Bed-Chair : SBA with FWW MET 6. Chair-Bed : SBA with FWW MET 7. Gait : able to ambulate 25' with FWW and SBA MET, PROGRESS level to modified independent using FWW 8. Stairs : able to manage 4 steps with single rail and min A x 1 NOT MET DISCHARGE RECOMMENDATIONS: [] [X] ? Home with services: PT TREATMENT CODE/TIME: [place] Thank you for the opportunity to participate in the care of this patient. Coral Branch PT, DPT, CLT [facility] [place], [place]
== END 2023-08-04 15:35 | disposition home or self-care (01) | DRG 563 ==
LOC: ER 17:29 → MS 08-03 00:23
PROVIDERS: Admitting Provider Surgery; Emergency Provider Student in an Organized Health Care Education/Training Program; PCP Nurse Practitioner Family; Visit Provider Surgery
DX: S42.292A Other displaced fracture of upper end of left humerus, initial encounter for closed fracture; S32.512A Fracture of superior rim of left pubis, initial encounter for closed fracture; S32.592A Other specified fracture of left pubis, initial encounter for closed fracture; I42.9 Cardiomyopathy, unspecified; D84.821 Immunodeficiency due to drugs; S42.018A Nondisplaced fracture of sternal end of left clavicle, initial encounter for closed fracture; G62.9 Polyneuropathy, unspecified; M81.0 Age-related osteoporosis without current pathological fracture; N18.30 Chronic kidney disease, stage 3 unspecified; R53.83 Other fatigue; I12.9 Hypertensive chronic kidney disease with stage 1 through stage 4 chronic kidney disease, or unspecified chronic kidney disease; I25.10 Atherosclerotic heart disease of native coronary artery without angina pectoris; K21.9 Gastro-esophageal reflux disease without esophagitis; Z79.899 Other long term (current) drug therapy; H91.91 Unspecified hearing loss, right ear; M47.812 Spondylosis without myelopathy or radiculopathy, cervical region; G31.9 Degenerative disease of nervous system, unspecified; F17.210 Nicotine dependence, cigarettes, uncomplicated; K64.8 Other hemorrhoids; W01.0XXA Fall on same level from slipping, tripping and stumbling without subsequent striking against object, initial encounter; Y92.009 Unspecified place in unspecified non-institutional (private) residence as the place of occurrence of the external cause; G31.89 Other specified degenerative diseases of nervous system; I25.2 Old myocardial infarction; Z95.5 Presence of coronary angioplasty implant and graft; R43.8 Other disturbances of smell and taste; M41.50 Other secondary scoliosis, site unspecified; D50.9 Iron deficiency anemia, unspecified
CPT/HCPCS: 36415; 71250; 73552; 85027; 86850; 86900; 86901; 86920; 87635; 96374; 97110; 97116; 97162; 97530; 99285; J1650; 70450; 72125; 72170; 81003; 81015; 82607; 82728; 82746; 85025; 87086; J1756; J2270; J3490; P9016

== ENCOUNTER 2023-08-12 10:37 | Outpatient (CLI) | payer OTHER, SELFPAY ==
[2023-08-12 12:17] LABS: HCT 29.1 % (36.0-46.0); HGB 9.4 g/dL (11.2-15.7); MCH 31.8 pg (27.0-33.0); MCHC 32.3 % (32.0-36.0); MCV 98 fL (80-95); Platelet Count 312 10^3/uL (130-400); RBC 2.96 10^6/uL (3.93-5.22); RDW 16.6 % (11.7-14.6); RDW-SD 58.6 fL
[2023-08-12 12:34] LABS: Iron 44 ug/dL (50-170); Total Iron Binding Capacity 247 ug/dL (250-450)
[2023-08-12 12:39] LABS: Anion Gap 9.5 mmol/L (3-11); BUN 25 mg/dL (7-18); CO2 24.5 mmol/L (21.0-32.0); CREATININE 1.1 mg/dL (0.55-1.02); Chloride 102 mmol/L (98-107); Estimated GFR 52.73 (mL/min/1.73m2); Ferritin 988 ng/mL (8-252); Glucose 102 mg/dL (74-106); Potassium 4.2 mmol/L (3.5-5.1); Sodium 136 mmol/L (136-145)
== END 2023-08-12 10:38 | disposition home or self-care (01) ==
PROVIDERS: PCP Nurse Practitioner Family; Visit Provider Nurse Practitioner Family
DX: D63.8 Anemia in other chronic diseases classified elsewhere (principal); N18.30 Chronic kidney disease, stage 3 unspecified
CPT/HCPCS: 36415; 80048; 85027; 82728; 83540; 83550

== ENCOUNTER 2023-08-24 11:44 | Outpatient (CLI) | payer OTHER, SELFPAY ==
--- NOTE | 2023-08-24 10:00 | DI.RAD_ITS ---
Exam(s) XR PELVIS AP EXAM: XR PELVIS AP INDICATION: eval left pubic rami frx. CR LUMBAR SPINE COMPLETE from 12/05/2015 CR XR PELVIS AP from 07/31/2023 TECHNIQUE: 2D digital imaging was performed. One AP supine view. FINDINGS: There has been no change in the alignment of the left superior and inferior pubic ramus fractures. N o additional fractures are visible. Hip joint spaces are maintained. Mild degenerative changes of the SI joints. There are severe degenerative changes in the lower lumbar spine. DATA REPOSITORY: RADIATION DOSE DELIVERED:
== END 2023-08-24 11:45 | disposition home or self-care (01) ==
LOC: DIORS 11:44
PROVIDERS: PCP Nurse Practitioner Family; Visit Provider Student in an Organized Health Care Education/Training Program
DX: S32.512A Fracture of superior rim of left pubis, initial encounter for closed fracture (principal); X58.XXXA Exposure to other specified factors, initial encounter
CPT/HCPCS: 72170

== ENCOUNTER 2023-10-23 02:43 | Outpatient (RCR) | payer OTHER, SELFPAY ==
[2023-10-23] MEDS: Denosumab 60 MG/ML SYR SC (11:27)
== END 2023-10-25 23:59 | disposition home or self-care (01) ==
LOC: INF 02:43
PROVIDERS: PCP Nurse Practitioner Family; Visit Provider Nurse Practitioner Acute Care
DX: M81.0 Age-related osteoporosis without current pathological fracture
CPT/HCPCS: 96372; J0897

== ENCOUNTER 2024-06-17 09:38 | Day surgery (SDC) | payer OTHER, SELFPAY ==
--- NOTE | 2024-06-17 10:19 | ANES.PREOP_ITS ---
General Info Date of Service Date Performed: 06/17/24 Height: 5 ft 2 in Weight: 60.8 kg Body Mass Index (BMI): 24.5 Surgical Procedure: Operation Date: 06/17/24 12:40 Proposed Procedure Side Surgeon p Cataract Extraction with IOL Implant Left Mitch Whitehead MD Meds Allergies and Home Medications Allergies Allergy/AdvReac Type Severity Reaction Status Date / Time amoxicillin AdvReac Intermediate diarrhea Verified 06/17/24 10:44 Home Medication ?Medication ?Instructions ?Recorded aspirin 81 mg tablet,delayed 81 mg PO DAILY 02/07/17 release (Lo-Dose Aspirin) magnesium oxide 400 mg PO BID 02/17/17 pediatric multivitamin-iron 1 ea PO DAILY ##100 03/05/17 (Mariya/Iron chewable tablet) cholecalciferol (vitamin D3) 50 2,000 unit PO DAILY 03/24/18 mcg (2,000 unit) capsule (Vitamin D3) folic acid 1 mg tablet 2 mg PO DAILY 09/26/19 methotrexate sodium 2.5 mg tablet 15 mg PO WKLY 11/06/20 metoprolol succinate 25 mg 25 mg PO DAILY #90 tabs 11/20/20 tablet,extended release 24 hr atorvastatin 40 mg tablet (Lipitor) 40 mg PO QPM #90 caps 11/22/21 nitroglycerin 0.4 mg sublingual 0.4 mg sublingual DIRECTED PRN 11/22/21 tablet (Nitrostat) angina #100 tabs ferrous gluconate 324 mg (38 mg 648 mg PO DAILY 04/17/22 iron) tablet varicella-zoster glycoE vacc-[id number] 0.5 ml IM ONCE #1 ea 04/17/22 adj(PF) 50 mcg/0.5 mL IM susp, kit (Shingrix (PF)) cyclosporine 0.05 % eye drops 1 drp ophthalmic (eye) BID 08/02/23 hydroxychloroquine 200 mg tablet 200 mg PO DAILY 08/03/23 ibuprofen 400 mg tablet 400 mg PO Q6H 08/24/23 omeprazole 40 mg capsule,delayed See Rx Instructions .Route 06/03/24 release .COMPLEX #90 caps Current Visit Medications: Current Medications Generic Name Dose Route Start Last Admin Trade Name Freq PRN Reason Stop Dose Admin Acetaminophen 1,000 mg 06/17/24 06:00 Acetaminophen 500 Mg Tab PO 09/22/24 05:59 Q4H PRN PRN Balanced Salt Solution 500 ml 06/17/24 06:00 Balanced Salt Soln.-Plus 500 Ml Bag OP 07/17/24 05:59 DIRECTED [facility] Miscellaneous Medication 0 ml 06/17/24 06:00 Prednisolone 1%, Moxifloxacin 0.5%, Bromfenac 0.09% 5.6ml Btl OS 07/17/24 05:59 DIRECTED [facility] Miscellaneous Medication 0 ml 06/17/24 06:00 Tropicam./Phenyleph. (1/2.5%) 10 Ml Btl OS 07/17/24 05:59 DIRECTED [facility] Tetracaine HCl 0 ml 06/17/24 06:00 Tetracaine 0.5% 4 Ml Btl OS 07/17/24 05:59 DIRECTED [facility] PFSH Active Problems Active Problems: Problem Status Onset Code Posterior subcapsular age-related cataract, right eye Acute H25.041 Nuclear age-related cataract, right eye Acute H25.11 Conductive hearing loss, external ear Acute H90.2 Tonsillar tag Acute J35.8 Closed fracture of left superior pubic ramus Acute S32.512A Internal hemorrhoids with complication Acute K64.8 Scoliosis due to degenerative disease of spine in adult patient Acute M41.50 Immunosuppression due to drug therapy Acute D84.821, Z79.899 Cerebral atrophy Acute G31.9 Degenerative joint disease of cervical spine Acute M47.812 Fall as cause of accidental injury at home as place of occurrence Acute W19.XXXA, Y92.009 Fracture of humeral head, left, closed Acute S42.292A Pelvic fracture Acute S32.9XXA Neuropathy Acute G62.9 Corns and callosities Acute L84 Nail dystrophy Acute L60.3 Osteoporosis Chronic M81.0 Chronic kidney disease, stage 3 Acute N18.30 Foot pain, bilateral Acute M79.671, M79.672 Cardiomyopathy Acute I42.9 Hypertension Chronic I10 GERD (gastroesophageal reflux disease) Chronic K21.9 CAD (coronary artery disease) Chronic I25.10 Anemia in chronic illness Acute D63.8 Rheumatoid arthritis Chronic M06.9 Medical History Medical History Closed fracture of left clavicle Pelvic fracture Osteopenia Closed left clavicular fracture Fatigue Advance directive on file 6/21-new form given to patient to update. 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 Lui ([facility] [place]) no further follow up need Surgical History Surgical History Hx of heart artery stent Stents x 2. 2017 Status post dilation and curettage Status post tonsillectomy Tonsillectomy (~1957) Dilation and curettage (~07/1997) Colonoscopy - IV Sedation (01/17/13) DR. CINTHIA BARAHONA Tobacco Smoking/Tobacco Use Status: Never Passive smoking exposure: No Second hand exposure: Yes Alcohol Alcohol Intake: current Alcohol intake frequency: holidays/special occasions only Alcohol type: wine Substance Use Substance use: Never Substance use type: does not use Vital Signs and Lab Results Lab Results Blood Type / Crossmatch: No Data to Display Complete Blood Count: No Data to Display Complete Metabolic Panel: No Data to Display Liver Function Panel: No Data to Display Coagulation Panel: No Data to Display Cardiac Panel: No Data to Display Arterial Blood Gas: No Data to Display Venous Blood Gas: No Data to Display Pancreas Panel: No Data to Display Thyroid Panel: No Data to Display Infectious Disease: No Data to Display Blood Cultures: No Data to Display Toxicology Panel: No Data to Display Imaging and Studies Imaging and Studies Study information below may be from another EMR and interpreted by another provider. Please see original notes in EMR for more complete details. EKG Summary: 03/15: sinus, likely LAE. Anesthesia Assessment and Plan Anesthesia History Personal History: No History of Anesthesia Complications Family History: No Family History of Anesthesia Complications Exercise Tolerance Exercise Tolerance: Metabolic Equivalents>4 Cardiac & Pulmonary Exam Cardiac Exam: Known Innocent Murmur Pulmonary Exam: Clear Bilateral Breath Sounds Implantable Cardiac Device Does patient have a Pacemaker or an ICD?: No Airway Exam Known Difficult Airway: No Mallampati Class: 3 Mouth Opening: Normal (> 3cm) Thyromental Distance: Greater than 3 cm Neck Range of Motion: Full ROM Neck Circumference: Normal Teeth Condition: Normal Dentition ASA Classification ASA Score: ASA 3 Emergency Case?: No NPO Status NPO Status: NPO Clears >2 hours, Solids >8 hours Anesthesia Plan Resuscitation Status: Full Code Anesthesia Technique: MAC Anesthesia Airway Planned: Natural Airway Monitors Used: Standard Monitors Preoperative Comments:: 73 yo female for cataract removal. Sig PMHx: HTN, cardiomyopathy, CAD (stent in 2017), GERD, CKDIII, RA Previous Anes: - egd/colo, prop, natural airway no issues.
[2024-06-17 10:30] VITALS: BP 142/71; PULSE 70; RESP 18; TEMP 36; O2SAT 99
[2024-06-17 10:47] VITALS: BMI 24.5
[2024-06-17] MEDS: Povidone-Iodine Ophth 30 ML BTL (11:38)
[2024-06-17] MEDS: Tetracaine 0.5% 4 ML BTL OS (11:40)
[2024-06-17] MEDS: Balanced Salt Soln.-PLUS 500 ML BAG OP (11:43)
[2024-06-17] MEDS: Duovisc Viscoelastic System EACH 1 EACH (11:43)
[2024-06-17] MEDS: Lidocaine 1% Pres-Free 5 ML VIAL (11:43)
[2024-06-17] MEDS: Prednisolone 1%, Moxifloxacin 0.5%, Bromfenac 0.09% 5.6ML BTL OS (11:56)
--- NOTE | 2024-06-17 12:00 | W.PM.DSUDISC ---
Date of service: 06/17/24 Time of Service: 12:00 Discharge Plan Disposition Patient Disposition: Home Discharge Details Attending Provider: Mitch Whitehead Primary Care Provider: Kavitha Frazier Home Meds and New Rx's Prescriptions: No Action Shingrix (PF) 50 mcg/0.5 mL suspension for reconstitution 0.5 ml IM ONCE Qty: 1 1RF Rx Instructions: as a single dose ibuprofen 400 mg tablet 400 mg PO Q6H magnesium oxide 400 MG capsule 400 mg PO BID Mariya/Iron 1 EACH tablet,chewable 1 ea PO DAILY Qty: 100 cholecalciferol (vitamin D3) [Vitamin D3] 2,000 UNIT capsule 2,000 unit PO DAILY methotrexate sodium 2.5 mg tablet 15 mg PO WKLY Patient Comments: Rx Instructions: 10 MG WKLY, PRIYA RX metoprolol succinate 25 mg tablet extended release 24 hr 25 mg PO DAILY Qty: 90 3RF atorvastatin [Lipitor] 40 mg tablet 40 mg PO QPM Qty: 90 3RF nitroglycerin [Nitrostat] 0.4 mg tablet, sublingual 0.4 mg Sublingual DIRECTED PRN (Reason: angina) Qty: 100 1RF omeprazole 40 mg capsule,delayed release(DR/EC) See Rx Instructions .ROUTE .COMPLEX Qty: 90 3RF Dose Instruction: Take 1 capsule (40mg) by mouth DAILY Rx Instructions: Take 1 capsule (40mg) by mouth DAILY aspirin [Lo-Dose Aspirin] 81 MG tablet,delayed release (DR/EC) 81 mg PO DAILY cyclosporine 0.05 % Drops 1 drp OPHTHALMIC (EYE) BID hydroxychloroquine 200 mg tablet 200 mg PO DAILY folic acid 1 MG tablet 2 mg PO DAILY ferrous gluconate 324 mg (38 mg iron) tablet 648 mg PO DAILY Discharge Instructions Stand Alone Forms: DSU Post-Op Cataract, Tom Cantu (DSU) Discharge Orders Discharge Orders: Discharge Order (Routine); Ordered 06/17/24 Ordered By: Mitch Whitehead DS: Diagnosis Discharge Diagnosis (1) Posterior subcapsular age-related cataract, right eye: Status: Resolved (2) Nuclear age-related cataract, right eye: Status: Resolved
--- NOTE | 2024-06-17 12:01 | ROE_ITS ---
Date of service: 06/17/24 Time of Service: 12:01 Operative Note Operative Note DATE OF PROCEDURE: 06/17/24 PRE-OP DIAGNOSIS: Nuclear cataract, right eye POST-OP DIAGNOSIS: same PROCEDURE: Cataract extraction using phacoemulsification with intraocular lens implant, right eye SURGEON: Mitch Whitehead ANESTHESIA TYPE: Local By Surgeon and MAC Refer to Anesthesia Record ESTIMATED BLOOD LOSS: 0 PATHOLOGY: none sent COMPLICATIONS: None Patient was transported to: same day Patient's condition: stable Implants: Amrit Clareon [id number] Indications: Progressive decreased vision due to cataract, right eye Procedure Description: CATARACT SURGERY OPERATIVE REPORT PREOPERATIVE DIAGNOSIS: Nuclear cataract, right eye POSTOPERATIVE DIAGNOSIS: Same OPERATION: Cataract extraction using phacoemulsification with posterior chamber intraocular lens implant, right eye. IOL: IOL Cigar Making Machine Operator/Model: Amrit Clareon [id number] IOL Power: + 18.50 diopters IOL Serial Number: [id number] Optic Diameter: 6.0mm Haptic/Overall Diameter: 13.0mm PHACO INFO: AmritM-Audiourion Vision System with OZil and Active Fluidics Cumulative Dispersed Energy (CDE): 3.19 seconds SURGEON: Mitch Whitehead MD, CATHERINE ANESTHESIA: Monitored Anesthesia Care (MAC), with local sub-tenon's anesthetic infiltration COMPLICATIONS: None SPECIMENS: None INDICATIONS FOR PROCEDURE: The patient is a 73-year-old lady with history of diminished visual acuity in her right eye secondary to the development of nuclear cataract. She is significantly symptomatic that she desires cataract surgery in her right eye and attempt to improve and maximize her vision. The option of cataract surgery was offered to the patient and she wished to proceed. See office notes for detailed information. PROCEDURE: The correct surgical eye was identified and marked as the right eye and the pupil was dilated in the preoperative area using mydriatics and cycloplegics. The dilated pupil size was 8.0 mm. The patient elected to proceed without oral sedation. The patient was brought to the operating room where cardiopulmonary monitoring was instituted and surgical time-out was performed, confirming the correct operative eye and IOL power. Topical anesthesia was administered and ophthalmic povidone-iodine 5% was instilled into the conjunctival fornices. The orville-ocular area was prepped with Betadine 10% solution and draped in the usual sterile fashion for intraocular surgery, including an aperture drape. A Tegaderm transparent film dressing was cut in half and used to cover the lashes and lid margins. Care was taken to sequester the lashes and lid margins under the Tegaderm dressing. A lid speculum was placed between the lids of the operative eye and the Amrit LuxOR Revalia operating microscope was maneuvered into position. Brenton scissors were then used to make a conjunctival buttonhole approximately 6mm posterior to the limbus in the inferonasal quadrant. Blunt dissection was carried out to expose bare sclera, and a blunt-tipped sub-tenon?s anesthesia cannula was introduced and passed posteriorly along the globe where non- preserved plain lidocaine was injected into posterior sub-Tenon?s space. A sideport knife was used to make a paracentesis port. Intraocular phenylephrine/lidocaine was injected into the anterior chamber. The anterior chamber was then filled with viscoelastic. A keratome knife was used to construct a two--plane clear corneal tunnel extending 2.0mm into clear cornea. A flap was raised on the anterior capsule and capsulorhexis forceps were used to complete a continuous curvilinear capsulorhexis of 5.5 mm. Balanced salt solution was then used to perform cortical cleaving hydrodissection and nuclear hydrodelineation until the lens could be freely rotated within the capsular bag. The lens nucleus was then disassembled and removed within the capsular bag and iris plane using phacoemulsification. Residual cortical material was removed using the I/A handpiece. The posterior capsule was carefully polished to remove as much residual lens epithelial cells as safely possible. The capsular bag was then inflated and the anterior chamber deepened with cohesive viscoelastic. The lens implant described above was inserted into the capsular bag using the Amrit Autonome Injector. A Kuglen hook was used to dial the IOL into position. Residual viscoelastic was then removed first from posterior to the IOL, then from the anterior chamber using the I/A handpiece. The lens implant was noted to center nicely within the capsular bag. The incisions were stromally hydrated, and the anterior chamber was reformed using BSS. Then 0.5cc of moxifloxacin 1.0mg/ml were injected into the capsular bag and anterior chamber. The incisions were checked with a Weck spear and found to be secure. Several drops of ophthalmic povidone-iodine 5% were then applied to the eye followed by two drops of combination steroid/NSAID/antibiotic solution. The drapes were removed and a clear plastic protective eye shield was placed over the eye. The patient was then returned to Same Day Surgery in stable condition.
[2024-06-17 12:02] VITALS: BP 137/91; PULSE 64; RESP 16; TEMP 36.1; O2SAT 99
--- NOTE | 2024-06-17 12:40 | W.ANESPOSTOP ---
Postoperative Evaluation Date, Time and Location Date Performed: 06/17/24 Time Performed: 12:05 Patient Location: Day Surgery Unit Vital Signs Most Recent Imported Vital Signs: Most Recent Vital Signs Temp Pulse Resp BP Pulse Ox 36.1 C L 64 16 137/91 H 99 06/17/24 12:02 06/17/24 12:02 06/17/24 12:02 06/17/24 12:02 06/17/24 12:02 Pain Score Most Recent Pain Score: Most Recent Pain Score Pain Level 0 06/17/24 12:02 Assessment Mental Status: Awake (Alert & Oriented to Patient Baseline) Airway and Respiratory Function: Patent airway with normal (patient baseline) respiratory exam Cardiovascular Function: Hemodynamically Stable Hydration Status: Adequately Hydrated Nausea & Vomiting: No Nausea or Vomiting Pain: Pt. Denies Any Pain Peripheral Nerve Block: Other (Local by Dr. Whitehead)
== END 2024-06-17 12:30 | disposition home or self-care (01) ==
LOC: SUR 09:39
PROVIDERS: PCP Nurse Practitioner Family; Visit Provider Ophthalmology
PROC: (CPT 66984; principal; 2024-06-17 12:30)
DX: H25.041 Posterior subcapsular polar age-related cataract, right eye (principal); H25.11 Age-related nuclear cataract, right eye
CPT/HCPCS: 66984; 00123; V2632; J2003

== ENCOUNTER 2024-06-29 14:51 | Outpatient (CLI) | payer OTHER, SELFPAY ==
[2024-06-29 15:30] LABS: Anion Gap 6.4 mmol/L (3-11); BUN 18 mg/dL (7-18); CO2 30.6 mmol/L (21.0-32.0); CREATININE 1.2 mg/dL (0.55-1.02); Calcium 9.1 mg/dL (8.5-10.1); Chloride 104 mmol/L (98-107); Estimated GFR 47.21 (mL/min/1.73m2); Glucose 92 mg/dL (74-106); Potassium 4.1 mmol/L (3.5-5.1); Sodium 141 mmol/L (136-145)
== END 2024-06-29 14:52 | disposition home or self-care (01) ==
LOC: LBO 14:51
PROVIDERS: PCP Nurse Practitioner Family; Visit Provider Nurse Practitioner Family
DX: Z51.81 Encounter for therapeutic drug level monitoring (principal)
CPT/HCPCS: 36415; 80048; 83036

== ENCOUNTER 2024-07-04 01:11 | Outpatient (CLI) | payer OTHER, SELFPAY ==
--- NOTE | 2024-07-04 10:45 | DI.RAD_ITS ---
Exam(s) XR HIP PELVIS ADULT BL EXAM: XR HIP PELVIS ADULT BL CLINICAL HISTORY: Ongoing hip pain. TECHNIQUE: 2D digital imaging was performed. Three views. COMPARISON: CR XR PELVIS AP from 08/24/2023 FINDINGS: BONES: No acute fracture is present. Old left superior and inferior pubic ramus fractures surroundin g heterotopic calcification. Sclerosis in both sacral Yee likely secondary to old healed fractures. No bony destructive lesion is seen. JOINTS: No dislocation present. The hip joint spaces are maintained. SI joints and pubic symphysis are unremarkable. SOFT TISSUE: Normal. IMPRESSION: Old left pubic ramus and bilateral sacral fractures. DATA REPOSITORY: RADIATION DOSE DELIVERED:
== END 2024-07-04 01:31 ==
LOC: DI 01:11
PROVIDERS: PCP Nurse Practitioner Family; Visit Provider Nurse Practitioner Family
DX: M25.552 Pain in left hip (principal); M25.551 Pain in right hip
CPT/HCPCS: 73521

== ENCOUNTER 2024-07-15 06:14 | Day surgery (SDC) | payer OTHER, SELFPAY ==
--- NOTE | 2024-07-14 19:09 | HPE_ITS ---
Assessment and Plan Assessment and plan (1) Posterior subcapsular age-related cataract of left eye: Status: Acute Assessment and plan: Assessment: Visually significant cataract left eye. Plan: Cataract extraction with intraocular lens implantation left eye (2) Nuclear age-related cataract, left eye: Status: Acute Assessment and plan: Assessment: Visually significant cataract left eye. Plan: Cataract extraction with intraocular lens implantation left ey History of Present Illness History of Present Illness Chief Complaint: Progressive decreased vision left eye Narrative: The patient is a 72-year-old lady who originally presented with complaints of progressive decreased vision in both eyes at both distance and near. She notes significant difficulty reading, and has trouble with distance vision. She has significant difficulty with reading road signs and glare from nighttime driving. On examination she was noted to have visually significant bilateral cataract. She underwent cataract surgery in the right eye on 06/17/2024 and is doing well postoperatively. She now presents for cataract surgery in the left eye. Review of Systems All systems reviewed & are unremarkable except as noted in HPI and below PFSH All Active Problems Posterior subcapsular age-related cataract of left eye (Acute) Nuclear age-related cataract, left eye (Acute) Conductive hearing loss, external ear (Acute) Tonsillar tag (Acute) Closed fracture of left superior pubic ramus (Acute) Internal hemorrhoids with complication (Acute) Scoliosis due to degenerative disease of spine in adult patient (Acute) Immunosuppression due to drug therapy (Acute) Cerebral atrophy (Acute) 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) Fall as cause of accidental injury at home as place of occurrence (Acute) Fracture of humeral head, left, closed (Acute) Pelvic fracture (Acute) Both superior and inferior rami fracture Neuropathy (Acute) Corns and callosities (Acute) Nail dystrophy (Acute) Osteoporosis (Chronic) [facility] managing- denosumab to replace reclast 06/2022 Chronic kidney disease, stage 3 (Acute) 01/2022, Cr-1.2 Foot pain, bilateral (Acute) Cardiomyopathy (Acute) 07/2020 echo- EF 66%, otherwse normal exam ([place]) [place] Hypertension (Chronic) GERD (gastroesophageal reflux disease) (Chronic) CAD (coronary artery disease) (Chronic) Anemia in chronic illness (Acute) Rheumatoid arthritis (Chronic) 2021 seen at [facility] rheumatology Medical History Closed fracture of left clavicle Pelvic fracture Osteopenia Closed left clavicular fracture Fatigue Advance directive on file 04/15-new form given to patient to update. 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 Lui ([facility] [place]) no further follow up need Surgical History History of right cataract surgery Hx of heart artery stent Stents x 2. 2017 Status post dilation and curettage Status post tonsillectomy Tonsillectomy (~1957) Dilation and curettage (~07/1997) Colonoscopy - IV Sedation (01/17/13) DR. CINTHIA BARAHONA Family History Mother , 55 Systemic lupus erythematosus Essential hypertension Hypertension Father , SUICIDE at age 61. Mental disorder Depression Brother , COPD at age 71. Substance abuse Heart disease COPD (chronic obstructive pulmonary disease) Brother Essential hypertension Brother Substance abuse Personal history of malignant neoplasm LUNG Grandfather Essential hypertension Heart disease Grandmother Diabetes Grandmother Heart disease Other Depression Social History Smoking/Tobacco Use Status: Never Tobacco: How many years used: 12 Second Hand Exposure: Yes Smoking risk assessment performed?: Yes Alcohol Intake: current Alcohol Intake frequency: holidays/special occasions o nly Alcohol type: wine Drug use: Never Substance use type: does not use Caregiver/Support person: No Household members: spouse Housing: house Communication Needs: Corrective Lenses Do you need help understanding health information?: Rarely Pets and animals: Yes Pets and animals: dog(s) Sexually active: No Do you think of yourself as: straight/heterosexual Current gender identity: female What is your relationship status?: How often do you talk on the phone with friends or family?: three or more times per week How often do you get together with friends or relatives?: three or more times per week How often do you attend holiness or spiritism services?: 4 or more times per year Do you belong to any clubs or organized social groups?: yes Panel score (0-1 are the most socially isolated patients): 4 What type of physical activity do you participate in: walking, aerobic and other Details: Bone builders Duration: 30-45 minutes/day Frequency: 3-4 times per week Sally/Yazidi: Church Special sally needs: No Seatbelt use: always Drive intox or ride w/intox hyster driver: No Do you feel safe at home: Yes Do you feel safe in your relationship?: Yes Meds Allergies and Home Medications Allergies Allergy/AdvReac Type Severity Reaction Status Date / Time amoxicillin AdvReac Intermediate diarrhea Verified 07/15/24 06:24 Home Medications ?Medication ?Instructions ?Recorded ?Confirmed ?Type aspirin 81 mg tablet,delayed 81 mg PO DAILY 02/07/17 07/15/24 History release (Lo-Dose Aspirin) magnesium oxide 400 mg PO BID 02/17/17 07/15/24 History pediatric multivitamin-iron 1 ea PO DAILY ##100 03/05/17 07/15/24 History (Mariya/Iron chewable tablet) cholecalciferol (vitamin D3) 50 2,000 unit PO DAILY 03/24/18 07/15/24 History mcg (2,000 unit) capsule (Vitamin D3) folic acid 1 mg tablet 2 mg PO DAILY 09/26/19 07/15/24 History methotrexate sodium 2.5 mg tablet 15 mg PO WKLY 11/06/20 07/15/24 History metoprolol succinate 25 mg 25 mg PO DAILY #90 tabs 11/20/20 07/15/24 Rx tablet,extended release 24 hr atorvastatin 40 mg tablet (Lipitor) 40 mg PO QPM #90 caps 11/22/21 07/15/24 Rx nitroglycerin 0.4 mg sublingual 0.4 mg sublingual DIRECTED PRN 11/22/21 07/15/24 Rx tablet (Nitrostat) angina #100 tabs ferrous gluconate 324 mg (38 mg 648 mg PO DAILY 04/17/22 07/15/24 History iron) tablet varicella-zoster glycoE [id number] 0.5 ml IM ONCE #1 ea 04/17/22 07/15/24 Rx adj(PF) 50 mcg/0.5 mL IM susp, kit (Shingrix (PF)) cyclosporine 0.05 % eye drops 1 drp ophthalmic (eye) BID 08/02/23 07/15/24 History hydroxychloroquine 200 mg tablet 200 mg PO DAILY 08/03/23 07/15/24 History ibuprofen 400 mg tablet 400 mg PO Q6H 08/24/23 07/15/24 History omeprazole 40 mg capsule,delayed See Rx Instructions .Route 06/03/24 07/15/24 Rx release .COMPLEX #90 caps clobetasol 0.05 % topical ointment topical 07/15/24 History Exam Eyes Other: Most recent ocular examination is significant for corrected visual acuity of 20/30 OD, 20/25 OS. Extract motility is normal. Intraocular pressure is 10 OD, 13 OS. Slit-lamp examination shows punctate staining on the epithelium OU. Moderate nuclear cataract is present in the left eye. There is a well-positioned PCIOL in the right eye with clear posterior capsule. Disc cupping is 0.25 OU with normal vessels, macula, peripheral retina and vitreous. Resp Auscultation: clear to auscultation bilaterally Cardio Rate: regular rate Rhythm: regular rhythm
[2024-07-15] MEDS: Tropicam./Phenyleph. (1/2.5%) 5 ML BTL OS ×3 (06:36→06:49)
[2024-07-15 06:37] VITALS: BP 128/64; PULSE 72; RESP 18; TEMP 36.4; O2SAT 98
--- NOTE | 2024-07-15 07:02 | ANES.PREOP_ITS ---
General Info Date of Service Date Performed: 07/15/24 Height: 5 ft 6 in Weight: 59.8 kg Body Mass Index (BMI): 21.2 Surgical Procedure: Operation Date: 07/15/24 07:40 Proposed Procedure Side Surgeon p Cataract Extraction with IOL Implant Left Mitch Whitehead MD Actual Procedure Side Surgeon p Cataract Extraction with IOL Implant Left Mitch Whitehead MD Meds Allergies and Home Medications Allergies Allergy/AdvReac Type Severity Reaction Status Date / Time amoxicillin AdvReac Intermediate diarrhea Verified 07/15/24 06:24 Home Medication ?Medication ?Instructions ?Recorded aspirin 81 mg tablet,delayed 81 mg PO DAILY 02/07/17 release (Lo-Dose Aspirin) magnesium oxide 400 mg PO BID 02/17/17 pediatric multivitamin-iron 1 ea PO DAILY ##100 03/05/17 (Mariya/Iron chewable tablet) cholecalciferol (vitamin D3) 50 2,000 unit PO DAILY 03/24/18 mcg (2,000 unit) capsule (Vitamin D3) folic acid 1 mg tablet 2 mg PO DAILY 09/26/19 methotrexate sodium 2.5 mg tablet 15 mg PO WKLY 11/06/20 metoprolol succinate 25 mg 25 mg PO DAILY #90 tabs 11/20/20 tablet,extended release 24 hr atorvastatin 40 mg tablet (Lipitor) 40 mg PO QPM #90 caps 11/22/21 nitroglycerin 0.4 mg sublingual 0.4 mg sublingual DIRECTED PRN 11/22/21 tablet (Nitrostat) angina #100 tabs ferrous gluconate 324 mg (38 mg 648 mg PO DAILY 04/17/22 iron) tablet varicella-zoster glycoE vacc-[id number] 0.5 ml IM ONCE #1 ea 04/17/22 adj(PF) 50 mcg/0.5 mL IM susp, kit (Shingrix (PF)) cyclosporine 0.05 % eye drops 1 drp ophthalmic (eye) BID 08/02/23 hydroxychloroquine 200 mg tablet 200 mg PO DAILY 08/03/23 ibuprofen 400 mg tablet 400 mg PO Q6H 08/24/23 omeprazole 40 mg capsule,delayed See Rx Instructions .Route 06/03/24 release .COMPLEX #90 caps clobetasol 0.05 % topical ointment topical 07/15/24 Current Visit Medications: Current Medications Generic Name Dose Route Start Last Admin Trade Name Freq PRN Reason Stop Dose Admin Acetaminophen 1,000 mg 07/15/24 06:00 Acetaminophen 500 Mg Tab PO 08/14/24 05:59 Q4H PRN PRN Balanced Salt Solution 500 ml 07/15/24 06:00 Balanced Salt Soln.-Plus 500 Ml Bag OP 08/14/24 05:59 DIRECTED ANNE-MARIE Miscellaneous Medication 0 ml 07/15/24 06:00 Prednisolone 1%, Moxifloxacin 0.5%, Bromfenac 0.09% 5.6ml Btl OS 08/14/24 05:59 DIRECTED ANNE-MARIE Miscellaneous Medication 0 ml 07/15/24 06:00 07/15/24 06:49 Tropicam./Phenyleph. (1/2.5%) 5 Ml Btl OS 08/14/24 05:59 1 drp DIRECTED ANNE-MARIE Administration Tetracaine HCl 0 ml 07/15/24 06:00 Tetracaine 0.5% 4 Ml Btl OS 08/14/24 05:59 DIRECTED ANNE-MARIE PFSH Active Problems Active Problems: Problem Status Onset Code Posterior subcapsular age-related cataract of left eye Acute H25.042 Nuclear age-related cataract, left eye Acute H25.12 Posterior subcapsular age-related cataract, right eye Resolved H25.041 Nuclear age-related cataract, right eye Resolved H25.11 Conductive hearing loss, external ear Acute H90.2 Tonsillar tag Acute J35.8 Closed fracture of left superior pubic ramus Acute S32.512A Internal hemorrhoids with complication Acute K64.8 Scoliosis due to degenerative disease of spine in adult patient Acute M41.50 Immunosuppression due to drug therapy Acute D84.821, Z79.899 Cerebral atrophy Acute G31.9 Degenerative joint disease of cervical spine Acute M47.812 Fall as cause of accidental injury at home as place of occurrence Acute W19.XXXA, Y92.009 Fracture of humeral head, left, closed Acute S42.292A Pelvic fracture Acute S32.9XXA Neuropathy Acute G62.9 Corns and callosities Acute L84 Nail dystrophy Acute L60.3 Osteoporosis Chronic M81.0 Chronic kidney disease, stage 3 Acute N18.30 Foot pain, bilateral Acute M79.671, M79.672 Cardiomyopathy Acute I42.9 Hypertension Chronic I10 GERD (gastroesophageal reflux disease) Chronic K21.9 CAD (coronary artery disease) Chronic I25.10 Anemia in chronic illness Acute D63.8 Rheumatoid arthritis Chronic M06.9 Medical History Medical History Closed fracture of left clavicle Pelvic fracture Osteopenia Closed left clavicular fracture Fatigue Advance directive on file 04/15-new form given to patient to update. 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 Lui ([facility] [place]) no further follow up need Surgical History Surgical History History of right cataract surgery Hx of heart artery stent Stents x 2. 2017 Status post dilation and curettage Status post tonsillectomy Tonsillectomy (~1957) Dilation and curettage (~07/1997) Colonoscopy - IV Sedation (01/17/13) DR. CINTHIA BARAHONA Tobacco Smoking/Tobacco Use Status: Never Passive smoking exposure: No Second hand exposure: Yes Alcohol Alcohol Intake: current Alcohol intake frequency: holidays/special occasions only Alcohol type: wine Substance Use Substance use: Never Substance use type: does not use Details: t-2, 1/2 glass wine Vital Signs and Lab Results Vital Signs Most Recent Vital Signs in EMR: Most Recent Vital Signs Temp Pulse Resp BP Pulse Ox 36.4 C L 72 18 128/64 98 07/15/24 06:37 07/15/24 06:37 07/15/24 06:37 07/15/24 06:37 07/15/24 06:37 Lab Results Blood Type / Crossmatch: No Data to Display Complete Blood Count: No Data to Display Complete Metabolic Panel: Sodium 141 mmol/L (136-145) 06/29/24 14:45 Potassium 4.1 mmol/L (3.5-5.1) 06/29/24 14:45 Chloride 104 mmol/L (98-107) 06/29/24 14:45 Carbon Dioxide 30.6 mmol/L (21.0-32.0) 06/29/24 14:45 BUN 18 mg/dL (7-18) 06/29/24 14:45 Creatinine 1.2 mg/dL (0.55-1.02) H 06/29/24 14:45 Est GFR (CKD-EPI 2020) 47.21 (mL/min/1.73m2) 06/29/24 14:45 Calcium 9.1 mg/dL (8.5-10.1) 06/29/24 14:45 Glucose 92 mg/dL (74-106) 06/29/24 14:45 Hemoglobin A1c 5.0 % (<5.7) 06/29/24 14:45 Liver Function Panel: No Data to Display Coagulation Panel: No Data to Display Cardiac Panel: No Data to Display Arterial Blood Gas: No Data to Display Venous Blood Gas: No Data to Display Pancreas Panel: No Data to Display Thyroid Panel: No Data to Display Infectious Disease: No Data to Display Blood Cultures: No Data to Display Toxicology Panel: No Data to Display Imaging and Studies Imaging and Studies Study information below may be from another EMR and interpreted by another provider. Please see original notes in EMR for more complete details. EKG Summary: 03/15: sinus, likely LAE. Anesthesia Assessment and Plan Anesthesia History Personal History: No History of Anesthesia Complications Family History: No Family History of Anesthesia Complications Exercise Tolerance Exercise Tolerance: Metabolic Equivalents>4 Cardiac & Pulmonary Exam Cardiac Exam: Normal S1/S2 Heart Sounds Pulmonary Exam: Clear Bilateral Breath Sounds Implantable Cardiac Device Does patient have a Pacemaker or an ICD?: No Airway Exam Known Difficult Airway: No Mallampati Class: 3 Mouth Opening: Normal (> 3cm) Thyromental Distance: Greater than 3 cm Neck Range of Motion: Full ROM Neck Circumference: Normal Teeth Condition: Normal Dentition ASA Classification ASA Score: ASA 3 Emergency Case?: No NPO Status NPO Status: NPO Clears >2 hours, Solids >8 hours Anesthesia Plan Resuscitation Status: Full Code Anesthesia Technique: MAC Anesthesia Airway Planned: Natural Airway Monitors Used: Standard Monitors
[2024-07-15 07:14] VITALS: BMI 21.2
[2024-07-15] MEDS: Povidone-Iodine Ophth 30 ML BTL (07:22)
[2024-07-15] MEDS: Tetracaine 0.5% 4 ML BTL OS (07:25)
[2024-07-15] MEDS: Lidocaine 1% Pres-Free 5 ML VIAL (07:31)
[2024-07-15] MEDS: Prednisolone 1%, Moxifloxacin 0.5%, Bromfenac 0.09% 5.6ML BTL OS (07:33)
[2024-07-15] MEDS: Duovisc Viscoelastic System EACH 1 EACH (07:36)
[2024-07-15] MEDS: Balanced Salt Soln.-PLUS 500 ML BAG OP (07:39)
--- NOTE | 2024-07-15 07:54 | W.PM.DSUDISC ---
Date of service: 07/15/24 Time of Service: 07:54 Discharge Plan Disposition Patient Disposition: Home Discharge Details Attending Provider: Mitch Whitehead Primary Care Provider: Kavitha Frazier Home Meds and New Rx's Prescriptions: No Action Shingrix (PF) 50 mcg/0.5 mL suspension for reconstitution 0.5 ml IM ONCE Qty: 1 1RF Patient Comments: not yet Rx Instructions: as a single dose ibuprofen 400 mg tablet 400 mg PO Q6H magnesium oxide 400 MG capsule 400 mg PO BID Mariya/Iron 1 EACH tablet,chewable 1 ea PO DAILY Qty: 100 cholecalciferol (vitamin D3) [Vitamin D3] 2,000 UNIT capsule 2,000 unit PO DAILY methotrexate sodium 2.5 mg tablet 15 mg PO WKLY Patient Comments: Rx Instructions: 10 MG WKLY, PRIYA RX metoprolol succinate 25 mg tablet extended release 24 hr 25 mg PO DAILY Qty: 90 3RF atorvastatin [Lipitor] 40 mg tablet 40 mg PO QPM Qty: 90 3RF nitroglycerin [Nitrostat] 0.4 mg tablet, sublingual 0.4 mg Sublingual DIRECTED PRN (Reason: angina) Qty: 100 1RF omeprazole 40 mg capsule,delayed release(DR/EC) See Rx Instructions .ROUTE .COMPLEX Qty: 90 3RF Dose Instruction: Take 1 capsule (40mg) by mouth DAILY Rx Instructions: Take 1 capsule (40mg) by mouth DAILY aspirin [Lo-Dose Aspirin] 81 MG tablet,delayed release (DR/EC) 81 mg PO DAILY cyclosporine 0.05 % Drops 1 drp OPHTHALMIC (EYE) BID hydroxychloroquine 200 mg tablet 200 mg PO DAILY Patient Comments: pt. reports taking every other day folic acid 1 MG tablet 2 mg PO DAILY ferrous gluconate 324 mg (38 mg iron) tablet 648 mg PO DAILY clobetasol 0.05 % ointment TOPICAL Patient Comments: APPLY TO THE AFFECTED AREA ON FEET TWICE DAILY UNTIL RASH IS RESOLVED Discharge Instructions Stand Alone Forms: DSU Post-Op CataractTom (DSU) Discharge Orders Discharge Orders: Discharge Order (Routine); Ordered 07/15/24 Ordered By: Mitch Whitehead DS: Diagnosis Discharge Diagnosis (1) Posterior subcapsular age-related cataract of left eye: Status: Resolved (2) Nuclear age-related cataract, left eye: Status: Resolved
[2024-07-15 07:55] VITALS: BP 118/56; PULSE 69; RESP 16; TEMP 36.6; O2SAT 97
--- NOTE | 2024-07-15 07:55 | ROE_ITS ---
Date of service: 07/15/24 Time of Service: 07:55 Operative Note Operative Note DATE OF PROCEDURE: 07/15/24 PRE-OP DIAGNOSIS: Nuclear/posterior subcapsular cataract, left eye POST-OP DIAGNOSIS: same PROCEDURE: Cataract extraction using phacoemulsification with intraocular lens implant, left eye SURGEON: Mitch Whitehead ANESTHESIA TYPE: Local By Surgeon and MAC Refer to Anesthesia Record PATHOLOGY: none sent COMPLICATIONS: None Patient was transported to: same day Patient's condition: stable Implants: Amrit Clareon [id number] Indications: Progressive decreased vision due to cataract, left eye Procedure Description: CATARACT SURGERY OPERATIVE REPORT PREOPERATIVE DIAGNOSIS: Nuclear/posterior subcapsular cataract, left eye POSTOPERATIVE DIAGNOSIS: Same OPERATION: Cataract extraction using phacoemulsification with posterior chamber intraocular lens implant, left eye. IOL: IOL Magnetic Grinder Operator/Model: Amrit Clareon [id number] IOL Power: + 17.5 diopters IOL Serial Number: [id number] Optic Diameter: 6.0mm Haptic/Overall Diameter: 13.0mm PHACO INFO: AmritVisualneturion Vision System with OZil and Active Fluidics Cumulative Dispersed Energy (CDE): 2.62 seconds SURGEON: Mitch Whitehead MD, CATHERINE ANESTHESIA: Monitored Anesthesia Care (MAC), with local sub-tenon's anesthetic infiltration COMPLICATIONS: None SPECIMENS: None INDICATIONS FOR PROCEDURE: The patient is a 73-year-old lady with history of diminished visual acuity in both eyes secondary to the development of bilateral nuclear/posterior subcapsular cataract. She is significantly symptomatic that she desires cataract surgery and attempt to improve and maximize her vision. She has already undergone cataract surgery in the right eye and is doing well postoperatively. See office notes for detailed information. PROCEDURE: The correct surgical eye was identified and marked as the left eye and the pupil was dilated in the preoperative area using mydriatics and cycloplegics. The dilated pupil size was 7.0 mm. The patient elected to proceed without oral sedation. The patient was brought to the operating room where cardiopulmonary monitoring was instituted and surgical time-out was performed, confirming the correct operative eye and IOL power. Topical anesthesia was administered and ophthalmic povidone-iodine 5% was instilled into the conjunctival fornices. The [place]-ocular area was prepped with Betadine 10% solution and draped in the usual sterile fashion for intraocular surgery, including an aperture drape. A Tegaderm transparent film dressing was cut in half and used to cover the lashes and lid margins. Care was taken to sequester the lashes and lid margins under the Tegaderm dressing. A lid speculum was placed between the lids of the operative eye and the Amrit LuxOR Revalia operating microscope was maneuvered into position. Brenton scissors were then used to make a conjunctival buttonhole approximately 6mm posterior to the limbus in the inferonasal quadrant. Blunt dissection was carried out to expose bare sclera, and a blunt-tipped sub-tenon?s anesthesia cannula was introduced and passed posteriorly along the globe where non- preserved plain lidocaine was injected into posterior sub-Tenon?s space. A sideport knife was used to make a paracentesis port. Intraocular phenylephrine/lidocaine was injected into the anterior chamber. The anterior chamber was then filled with viscoelastic. A keratome knife was used construct a two-plane clear corneal tunnel extending 2.0mm into clear cornea. A flap was raised on the anterior capsule and capsulorhexis forceps were used to complete a continuous curvilinear capsulorhexis of 5.5 mm. Balanced salt solution was then used to perform cortical cleaving hydrodissection and nuclear hydrodelineation until the lens could be freely rotated within the capsular bag. The lens nucleus was then disassembled and removed within the capsular bag and iris plane using phacoemulsification. Residual cortical material was removed using the irrigation/aspiration handpiece . The posterior capsule was carefully polished to remove as much residual lens epithelial cells as safely possible. The capsular bag was then inflated and the anterior chamber deepened with viscoelastic. The lens implant described above was inserted into the capsular bag using the Amrit Autonome Injector. A Kuglen hook was used to dial the IOL into position. Residual viscoelastic was then removed first from posterior to the IOL, then from the anterior chamber using the I/A handpiece. The lens implant was noted to center nicely within the capsular bag. The incisions were stromally hydrated, and the anterior chamber was reformed using BSS. Then 0.5cc of moxifloxacin 1.0mg/ml were injected into the capsular bag and anterior chamber. The incisions were checked with a Weck spear and found to be secure. Several drops of ophthalmic povidone-iodine 5% were then applied to the eye followed by two drops of combination steroid/NSAID/antibiotic solution. The drapes were removed and a clear plastic protective eye shield was placed over the eye. The patient was then returned to Same Day Surgery in stable condition.
--- NOTE | 2024-07-15 08:18 | W.ANESPOSTOP ---
Postoperative Evaluation Date, Time and Location Date Performed: 07/15/24 Time Performed: 08:10 Patient Location: Day Surgery Unit Vital Signs Most Recent Imported Vital Signs: Most Recent Vital Signs Temp Pulse Resp BP Pulse Ox 36.6 C 69 16 118/56 L 97 07/15/24 07:55 07/15/24 07:55 07/15/24 07:55 07/15/24 07:55 07/15/24 07:55 Pain Score Most Recent Pain Score: Most Recent Pain Score Pain Level 0 07/15/24 07:55 Assessment Mental Status: Awake (Alert & Oriented to Patient Baseline) Airway and Respiratory Function: Patent airway with normal (patient baseline) respiratory exam Cardiovascular Function: Hemodynamically Stable Hydration Status: Adequately Hydrated Nausea & Vomiting: No Nausea or Vomiting Pain: Pt. Denies Any Pain Peripheral Nerve Block: Patient did not receive a nerve block
== END 2024-07-15 08:19 | disposition home or self-care (01) ==
LOC: SUR 06:14
PROVIDERS: PCP Nurse Practitioner Family; Visit Provider Ophthalmology
PROC: (CPT 66984; principal; 2024-07-15 07:30)
DX: H25.042 Posterior subcapsular polar age-related cataract, left eye (principal); H25.12 Age-related nuclear cataract, left eye; Z98.41 Cataract extraction status, right eye
CPT/HCPCS: 66984; 00123; V2632; J2003

== ENCOUNTER 2024-11-14 01:28 | Outpatient (CLI) | payer OTHER, SELFPAY ==
--- NOTE | 2024-11-14 06:30 | DI.RAD_ITS ---
Exam(s) XR FOOT LT COMPLETE EXAM: XR FOOT LT COMPLETE CLINICAL HISTORY: Left foot pain, open wound,s91.309a,m79.672. TECHNIQUE: 2D digital imaging was performed. COMPARISON: CR XR FOOT RT COMPLETE from 08/20/2022 FINDINGS: 3 views There is a diastatic nonacute appearing fracture the base of the 5th metatarsal. There are advanced degenerative changes at the great toe metatarsophalangeal joint and hallux valgus noted. Also signif icant degenerative changes at the 2nd metatarsophalangeal joint and 3rd metatarsophalangeal joint. T here are high ollie toe deformities of the 2nd, 3rd, and 4th toes. Also chronic degenerative changes at the tarsometatarsal joints. There is a nondisplaced fracture at the base of the proximal phalanx of the 4th toe noted. There is a moderate size inferior calcaneal spur. There is no calcification in the plantar fascia. No obvious radiographic evidence of osteomyelitis. IMPRESSION: Multilevel findings as above. There appears to be a subtle acute oblique fracture line in the medial aspect of the base of the proximal phalanx of the 4th toe. The diastatic fracture in the proximal aspect of the 5th metatarsal does not appear acute. Degenerative changes are noted in the 1st 3 metatarsophalangeal joints. There is also significant thakur llux valgus. DATA REPOSITORY: RADIATION DOSE DELIVERED:
== END 2024-11-14 01:48 ==
LOC: DI 01:28
PROVIDERS: PCP Nurse Practitioner Family; Visit Provider Podiatrist
DX: M79.672 Pain in left foot
CPT/HCPCS: 73630

== ENCOUNTER 2024-11-14 10:12 | Outpatient (REF) | payer OTHER, SELFPAY | END 2024-11-14 10:13 | disposition home or self-care (01) | LOC: LBN 10:12 | PROVIDERS: PCP Podiatrist; Visit Provider Podiatrist | DX: L97.522 Non-pressure chronic ulcer of other part of left foot with fat layer exposed | CPT/HCPCS: 87077; 87070; 87075; 87186; 87205 ==

== ENCOUNTER 2025-01-11 15:15 | Outpatient (REF) | payer OTHER, SELFPAY | END 2025-01-11 15:16 | disposition home or self-care (01) | LOC: LBN 15:15 | PROVIDERS: PCP Nurse Practitioner Family; Visit Provider Podiatrist | DX: L97.319 Non-pressure chronic ulcer of right ankle with unspecified severity (principal); Z09 Encounter for follow-up examination after completed treatment for conditions other than malignant neoplasm; L97.522 Non-pressure chronic ulcer of other part of left foot with fat layer exposed; L03.90 Cellulitis, unspecified; L84 Corns and callosities; G62.9 Polyneuropathy, unspecified; L97.312 Non-pressure chronic ulcer of right ankle with fat layer exposed; I73.9 Peripheral vascular disease, unspecified; I70.209 Unspecified atherosclerosis of native arteries of extremities, unspecified extremity; L98.499 Non-pressure chronic ulcer of skin of other sites with unspecified severity | CPT/HCPCS: 87070; 87075; 87205 ==

== ENCOUNTER 2025-03-16 02:33 | Outpatient (CLI) | payer OTHER, SELFPAY ==
--- NOTE | 2025-03-16 07:30 | DI.MAMMO_ITS ---
Exam(s) MAMMO SCREENING EXAM: MAMMO SCREENING CLINICAL HISTORY: screening,Z12.39 TECHNIQUE: Mammograms were interpreted according to the usual protocol including computer analysis w [employer] CAD system, tomosynthesis and C-view imaging. COMPARISON: 2015 through 2022 FINDINGS: The breasts are composed of scattered fibroglandular densities, Breast Density category B. No suspicious masses or suspicious microcalcifications are seen. No skin thickening or abnormal axillary lymph nodes are seen. There has been no significant change from prior exams. IMPRESSION: BI-RADS Category 1, Negative mammogram Yearly screening mammography is recommended. Breast Density - Category B, scattered fibroglandular densities. Breast density Category C or D implies that the patient has dense breast tissue. Dense breast tissue can make it harder to find cancer on a mammogram. Dense breast tissue is also associated with an incr eased risk of breast cancer. This information about the result of the mammogram report was provided to the patient to raise their awareness. Use this report when you speak with the patient about their risks for breast cancer, which includes their family history. At that time, you may recommend additional screening tests (Ultrasoun d or MRI) as these tests may add significant information. A negative radiographic report should not delay biopsy if a dominant or clinically suspicious mass is present. Up to ten percent of cancers are not identified on mammography. A negative report may reinforce clinical impression. Adenosis and dense breasts may obscure an underlying neoplasm. False positive reports average 6 to 10%. Patient will receive a letter notifying them of these results.
== END 2025-03-16 02:53 ==
LOC: DI 02:33
PROVIDERS: PCP Nurse Practitioner Family; Visit Provider Nurse Practitioner Family
DX: Z12.31 Encounter for screening mammogram for malignant neoplasm of breast (principal)
CPT/HCPCS: 77063; 77067

== ENCOUNTER 2025-03-23 13:46 | Outpatient (CLI) | payer OTHER, SELFPAY ==
--- NOTE | 2025-03-23 13:45 | RT.EKG_ITS ---
APPROVED REPORT Exam: Resting ECG Reason for Exam: baseline Patient Location: O HR:62 bpm ECG Measurements Heart Rate 62 AXIS [place] 157 P 70 QRSd 107 QRS 19 QT 404 T 16 QTc 411 Conclusion Sinus rhythm...normal P axis, V-rate 50- 99 Probable anterior infarct, age indeterminate...Q >35mS, T neg, V2-V5 Nondiagnostic ST-T abnormalities
== END 2025-03-23 13:47 | disposition home or self-care (01) ==
LOC: DI.CARD 13:47
PROVIDERS: PCP Nurse Practitioner Family; Visit Provider Internal Medicine Cardiovascular Disease
DX: I42.9 Cardiomyopathy, unspecified (principal); I25.10 Atherosclerotic heart disease of native coronary artery without angina pectoris
CPT/HCPCS: 93010

== ENCOUNTER 2025-04-17 02:36 | Outpatient (CLI) | payer OTHER, SELFPAY ==
--- NOTE | 2025-04-17 | DI.RAD_ITS ---
Exam(s) XR HIP LT COMPLETE AP PELVIS XR FEMUR LT EXAM: XR HIP LT COMPLETE AP PELVIS INDICATION: Age-related osteoporosis wo current pathological fx, M81.0; eval for. COMPARISON: CR XR FEMUR LT from 07/31/2023 CR XR HIP PELVIS ADULT BL from 07/04/2024 CR XR FEMUR LT from 04/17/2025 TECHNIQUE: 2D digital imaging was performed. AP and lateral views of the left hip and left femur. FINDINGS: No change in the alignment of the left superior and inferior pubic ramus fractures. No evidence of acute fracture. Bones appear osteopenic, greater at the knee. There are degenerative changes of both SI joints as well as lower lumbar spine. The hip joint spaces are maintained. There is mild joint space narrowing at the knee. IMPRESSION: Old left pubic ramus fractures. No new abnormalities. DATA REPOSITORY: RADIATION DOSE DELIVERED:
== END 2025-04-17 02:56 ==
LOC: DI 02:36
PROVIDERS: PCP Nurse Practitioner Family; Visit Provider Internal Medicine Rheumatology
DX: M81.0 Age-related osteoporosis without current pathological fracture (principal)
CPT/HCPCS: 73552; 73502

== ENCOUNTER 2025-10-02 01:13 | Outpatient (RCR) | payer OTHER, SELFPAY | END 2025-10-25 23:59 | disposition home or self-care (01) | LOC: INF 01:13 | PROVIDERS: PCP Nurse Practitioner Family; Visit Provider Family Medicine | DX: M81.0 Age-related osteoporosis without current pathological fracture (principal) | CPT/HCPCS: 96372; J0897 ==

== ENCOUNTER 2025-10-02 10:31 | Outpatient (CLI) | payer OTHER, SELFPAY ==
[2025-10-02 10:19] LABS: Anion Gap 9.1 mmol/L (3-11); BUN 28 mg/dL (9-23); CO2 28.9 mmol/L (20.0-31.0); Calcium 9.0 mg/dL (8.3-10.6); Chloride 104 mmol/L (98-107); Glucose 86 mg/dL (74-106); Potassium 4.0 mmol/L (3.5-5.1); Sodium 142 mmol/L (136-145)
== END 2025-10-02 10:32 | disposition home or self-care (01) ==
LOC: LBO 10:32
PROVIDERS: PCP Nurse Practitioner Family; Visit Provider Internal Medicine Rheumatology
DX: M81.0 Age-related osteoporosis without current pathological fracture (principal)
CPT/HCPCS: 36415; 80048